=== PATIENT | male | born 1965 ===

== ENCOUNTER 2020-09-26 11:20 | Day surgery (SDC) | payer OTHER, SELFPAY ==
--- NOTE | 2020-09-19 15:42 | HO.ANESPROP2 ---
Documented by User: Maureen Moran 09/19/20 15:43 HPI - Anesthesia Eval Consult details Narrative: 55yo M for Upper Endoscopy and Colonoscopy [facility] Past Medical History Medical History Arthritis Chronic lower back pain COPD (chronic obstructive pulmonary disease) Diabetes Dyslipidemia GERD (gastroesophageal reflux disease) History of seizure Hypertension Social History Social History Smoking Status: Never smoker Use of substances other than those prescribed or required for medical reasons: No Advance Directives: No Advance Directives Information Provided: No Meds Allergies Allergy/AdvReac Type Severity Reaction Status Date / Time No Known Allergies Allergy Unverified 09/19/20 08:46 [No Known Allergies*] Home Medications Medication Instructions Recorded Confirmed Type albuterol sulfate [ProAir HFA] 2 puff INHALATION Q4-6H PRN 09/19/20 09/19/20 History aspirin 1 tab PO DAILY 09/19/20 09/19/20 History atenolol 1 tab PO DAILY 09/19/20 09/19/20 History atorvastatin 1 tab PO DAILY 09/19/20 09/19/20 History budesonide-formoterol [Symbicort] 2 puff INHALATION BID 09/19/20 09/19/20 History hydrochlorothiazide 1 cap PO DAILY 09/19/20 09/19/20 History lisinopril 1 tab PO DAILY 09/19/20 09/19/20 History metformin 1 tab PO BID 09/19/20 09/19/20 History omeprazole 1 cap PO QAM 09/19/20 09/19/20 History phenytoin sodium 100 mg PO TID 09/19/20 09/19/20 History Exam Exam Date and Time: September 19, 2020 1542 Assessment and Plan Assessment Anesthesia Assessment: Chart Reviewed Documented by User: Ester Becerra 09/26/20 11:46 [facility] Past Medical History Medical History Arthritis Chronic lower back pain COPD (chronic obstructive pulmonary disease) Diabetes Dyslipidemia GERD (gastroesophageal reflux disease) History of seizure Hypertension Social History Social History Smoking Status: Never smoker Use of substances other than those prescribed or required for medical reasons: No Advance Directives: No Advance Directives Information Provided: No Meds Allergies Allergy/AdvReac Type Severity Reaction Status Date / Time No Known Allergies Allergy Unverified 09/19/20 08:46 [No Known Allergies*] Home Medications Medication Instructions Recorded Confirmed Type albuterol sulfate [ProAir HFA] 2 puff INHALATION Q4-6H PRN 09/19/20 09/19/20 History aspirin 1 tab PO DAILY 09/19/20 09/19/20 History atenolol 1 tab PO DAILY 09/19/20 09/19/20 History atorvastatin 1 tab PO DAILY 09/19/20 09/19/20 History budesonide-formoterol [Symbicort] 2 puff INHALATION BID 09/19/20 09/19/20 History hydrochlorothiazide 1 cap PO DAILY 09/19/20 09/19/20 History lisinopril 1 tab PO DAILY 09/19/20 09/19/20 History metformin 1 tab PO BID 09/19/20 09/19/20 History omeprazole 1 cap PO QAM 09/19/20 09/19/20 History phenytoin sodium 100 mg PO TID 09/19/20 09/19/20 History Exam Airway Mallampati Class: II TM Dist: >3cm Neck ROM: Full Heart: RRR Lungs: CTA
[2020-09-26 11:39] VITALS: BP 127/90; PULSE 67; RESP 18; TEMP 36.1; O2SAT 96; BMI 28.7
[2020-09-26 11:41] LABS: Glucose, Whole Blood 139 mg/dL (60-115)
[2020-09-26] MEDS: Lactated Ringers 1,000 ML 100 ML IVCONT (11:52)
--- NOTE | 2020-09-26 11:54 | MHC.SHP ---
Pre-Procedural Eval Section B Chief Complaint: Acid Reflux, Adenomatous colon polyps Relevant Family History (Specify if Yes): No Relevant Social History: None Present Medications: see Short Stay Collaborative assessment Medical History: Significant History (OA, DM, HTN, back pain) History of Previous Operations: Relevant previous surgery/procedure and date(s) Allergies: Allergies Allergy/AdvReac Type Severity Reaction Status Date / Time No Known Allergies Allergy Unverified 09/19/20 08:46 [No Known Allergies*] Review of Systems Sugical H&P ROS: Negative: Constitution, Cardiovascular, Respiratory, Neurological, Psychiatric, Hem-Onc, Allergic/Immunologic, Gastrointestinal, Genitourinary, Musculoskeletal, Integumentary, Endocrine and Eyes/Ears/Nose/Throat Exam Surgical H&P Exam: Normal: HEENT, Normal: Heart, Normal: Lungs, Normal: Extremities, Normal: Abdomen, Normal: Skin and Normal: Neurological Plan Diagnosis/Plan: Unchanged Patient has been examined and remains a candidate for the planned procedure
--- NOTE | 2020-09-26 11:56 | PM.OP ---
Brief Operative Note Date of Service: 09/26/20 Pre-op diagnosis: GERD, colon screen Post-op diagnosis: same Procedure: see op note Surgeon: Indio March MD Anesthesia: MAC Estimated blood loss (mL): 0 Condition: stable Disposition: PACU
--- NOTE | 2020-09-26 11:57 | P.OP_ITS ---
Operative Note Operative Note Date of Service: 09/26/20 Narrative: Operative Information Procedure Description: EGD, Colonoscopy FLEXIBLE TRANSORAL UPPER GASTROINTESTINAL ENDOSCOPY AND COLONOSCOPY PROCEDURE NOTE UPPER ENDOSCOPY Consent: Indications for the procedure and potential complications of bleeding, perforation, reaction to medications and missed diagnosis were discussed with the patient and informed consent was obtained. Instrument: Olympus GIF H 190 J mid size upper endoscope Monitoring: Vital signs and clinical assessment, continuous EKG monitoring, Pulse oximetry, Carbon Dioxide monitoring and blood pressure monitoring were done throughout the procedure. Procedure: The patient was placed in the left lateral decubitis position and pre-procedure medications were administered and a bite block was placed. The endoscope was inserted into the mouth and advanced under direct vision to the third part of duodenum. A careful inspection was made as the upper endoscope was withdrawn including a retroflexed examination of the proximal stomach; Findings and interventions are described below. Findings: Larynx:normal Esophagus: GE junction at 37 cm, diaphragm hiatus at 40 cm, consistent with 3 cm sliding hiatal hernia, also 2 cm salmon pink mucosal tongue noted, consistent w/ Barretts, bx taken Stomach: Patchy erythema. Biopsies were obtained. Grade 2 flap valve on retroflexed examination of the cardia. Duodenum: Normal bulb and descending duodenum, Intervention: Biopsies as noted above COLONOSCOPY Instrument: Olympus variable stiffness pediatric scope 190L Colonoscopy Monitoring: Vital signs and clinical assessment, continuous EKG monitoring, Pulse oximetry, Carbon Dioxide monitoring and blood pressure monitoring were done throughout the procedure. Colon withdrawal time was 12 minutes. Procedure: The patient was placed in the left lateral decubitis position and pre-procedure medications were administered. After a digital rectal examination of the ano-rectum, the video colonoscope was inserted into the rectum and advanced through the colon to the cecum/TI. The colonoscope was slowly withdrawn in a retrograde panoramic fashion and the colon mucosa was carefully examined including a retroflexed view of the rectum. Findings and interventions are described below. Procedure Difficulty: easy Findings: Terminal Ileum-normal Cecum:normal Ascending Colon: normal Transverse Colon -normal Descending Colon:normal, 6-8 mm sessile polyp removed with forceps Sigmoid Colon: normal Rectum: Retroflexion with small internal hemorrhoids, grade I--2 sessile polyps noted 6-8 mm removed with biopsy forceps. Anorectum - normal Colon preparation: [place] Bowel Preparation Scale Right colon; 3 Transverse colon: 3 Left colon; 3 (0 = Unprepared colon segment with mucosa not seen due to solid stool that cannot be cleared. 1 = Portion of mucosa of the colon segment seen, but other areas of the colon segment not well seen due to staining, residual stool and/or opaque liquid. 2 = Minor amount of residual staining, small fragments of stool and/or opaque liquid, but mucosa of colon segment seen well. 3 = Entire mucosa of colon segment seen well with no residual staining, small fragments of stool or opaque liquid) Impression and Post Procedure Diagnosis: Endoscopy Findings: hiatal hernia possible barretts gastritis Colonoscopy Findings: internal hemorrhoids polyps Plan: Await Pathology results Repeat Colonoscopy in 5 years if tubular adenoma, 10 yrs if hyperplastic or earlier if clinically indicated High fiber diet leaflet avoid straining at stool, epsom salts and sitz bath, anusol supps or cream as needed\ change PPI to pantoprazole 40 mg OD and assess response Above findings were reviewed with the patient and relevant handouts were provided if indicated.
[2020-09-26 12:45] VITALS: BP 108/70; PULSE 74; RESP 16; TEMP 36.1; O2SAT 94
[2020-09-26 13:00] VITALS: BP 112/77; PULSE 68; RESP 13; TEMP 36.1; O2SAT 95
--- NOTE | 2020-09-26 13:46 | HO.POSTANES ---
Post Anesthesia Evaluation Post Anesthesia Evaluation Vital Signs: Vital Signs Temp Pulse Resp BP Pulse Ox 09/26/20 13:00 97 F 68 13 112/77 95 09/26/20 12:45 97 F 74 16 108/70 94 09/26/20 11:39 97 F 67 18 127/90 H 96 Anesthesia: General (tiva) Mental Status: Awake Pain Control: Satisfactory Nausea/Vomiting: None Hydration: Adequate Anesthesia-Related Issues: No Anes. Related Issues
== END 2020-09-26 23:59 | disposition home or self-care (01) ==
PROVIDERS: Visit Provider Internal Medicine Gastroenterology
PROC: (CPT 43239; principal; 2020-09-26 13:30)
DX: K21.9 Gastro-esophageal reflux disease without esophagitis (principal); D12.4 Benign neoplasm of descending colon; D12.8 Benign neoplasm of rectum; K62.1 Rectal polyp; K64.8 Other hemorrhoids; K29.70 Gastritis, unspecified, without bleeding; K22.70 Barrett's esophagus without dysplasia; K44.9 Diaphragmatic hernia without obstruction or gangrene; E11.9 Type 2 diabetes mellitus without complications; I10 Essential (primary) hypertension; Z86.010 Personal history of colon polyps; Z79.82 Long term (current) use of aspirin; Z79.84 Long term (current) use of oral hypoglycemic drugs; Z79.899 Other long term (current) drug therapy
CPT/HCPCS: 43239; 45380; 82947; 88305; 88342

== ENCOUNTER 2020-10-24 07:02 | Emergency (ER) | payer OTHER, SELFPAY ==
--- NOTE | 2020-10-24 | ECG_ITS ---
Test Reason : CHEST TIGHTNESS Blood Pressure : / mmHG Vent. Rate : 075 BPM Atrial Rate : 075 BPM P-R Int : 158 ms QRS Dur : 088 ms QT Int : 378 ms P-R-T Axes : -15 022 024 degrees QTc Int : 422 ms Normal sinus rhythm Normal ECG When compared with ECG of 06-OCT-2017 18:43, No significant change was found Referred By: William Casey Electronically Signed By:KENTON DUDLEY
[2020-10-24 07:17] VITALS: BP 144/82; PULSE 73; RESP 20; TEMP 36.8; O2SAT 99; BMI 27.2
--- NOTE | 2020-10-24 07:31 | XR_ITS ---
EXAMINATION: XR CHEST CLINICAL INFORMATION: Fever, chest pain. COMPARISON: Chest 03/30/2018 TECHNIQUE: Frontal view of the chest was obtained. FINDINGS: The lungs are well-expanded with linear right middle lobe density likely atelectasis. Rest of lungs are well-expanded and clear. There is no pleural effusion. The heart size and vascularity is normal. No gross bony abnormality. XR/XR chest 1V IMPRESSION: Platelike atelectasis right middle lobe.
--- NOTE | 2020-10-24 07:32 | ED.URI ---
HPI - URI/Sore Throat General Chief Complaint: Upper Respiratory Symptoms Stated Complaint: cough,fever,chest pain Time Seen by Provider: 10/24/20 07:15 Source: patient Mode of arrival: ambulatory Limitations: no limitations History of Present Illness HPI Narrative: 55-year-old male who presents emergency department for evaluation of fever, nasal congestion, rhinorrhea, cough and chest pain. Patient states he has been sick for 2 days he states that his symptoms started with rhinorrhea 2 days prior. Subsequently developed subjective fever with diaphoresis and chills, he states that his nose is congested. The patient has a loss of smell. He states he developed chest and back pain last night. He describes the pain as sharp, intermittent pain which is worse with coughing. The pain is 5/10 at its worst. Patient's cough is nonproductive and dry. He states that he has mild shortness of breath at rest and mild shortness of breath with exertion but he states that he has COPD and this is not uncommon for him. He had 2 episodes of diarrhea yesterday and 3 episodes of diarrhea today. He describes the stool is yellow with no blood in it. The patient has been using his inhalers more frequently. The patient states that several coworkers have tested positive for COVID-19. Related Data Home Medications Medication Instructions Recorded Confirmed albuterol sulfate [ProAir HFA] 2 puff INHALATION Q4-6H PRN 09/19/20 09/19/20 aspirin 1 tab PO DAILY 09/19/20 09/19/20 atenolol 1 tab PO DAILY 09/19/20 09/19/20 atorvastatin 1 tab PO DAILY 09/19/20 09/19/20 budesonide-formoterol [Symbicort] 2 puff INHALATION BID 09/19/20 09/19/20 hydrochlorothiazide 1 cap PO DAILY 09/19/20 09/19/20 lisinopril 1 tab PO DAILY 09/19/20 09/19/20 metformin 1 tab PO BID 09/19/20 09/19/20 phenytoin sodium 100 mg PO TID 09/19/20 09/19/20 Previous Rx's Medication Instructions Recorded pantoprazole 40 mg PO DAILY #30 tab 09/26/20 azithromycin [Zithromax Z-Ramírez] See Rx Instructions .ROUTE 10/24/20 .COMPLEX #6 tab prednisone 60 mg PO DAILY 5 Days #15 tab 12/28/20 Allergies Allergy/AdvReac Type Severity Reaction Status Date / Time No Known Allergies Allergy Unverified 09/19/20 08:46 [No Known Allergies*] Review of Systems Review of Systems: Yes all other systems are reviewed and are negative Constitutional: Constitutional: Reports as per HPI Eyes: Eyes: Reports as per HPI ENT: Reports as per HPI Cardiovascular: Cardiovascular: Reports as per HPI Respiratory: Respiratory: Reports as per HPI Gastrointestinal: Gastrointestinal: Reports as per HPI Genitourinary: Genitourinary: Reports as per HPI Musculoskeletal: Musculoskeletal: Reports as per HPI Integumentary/Breasts: Skin/Breast: Reports as per HPI Neurologic: Reports system reviewed and no additional complaints, except as documented Psychiatric: Psychiatric: Reports as per HPI Allergic/Immunologic: Allergic/Immunologic: Reports as per HPI PMF Past Medical History [facility] Narrative: The patient is a former smoker, he quit 10 years prior has a greater than 25 pack-year history of smoking. Denies alcohol use. Denies drug use. The patient is employed. Medical History Arthritis Chronic lower back pain COPD (chronic obstructive pulmonary disease) Diabetes Dyslipidemia GERD (gastroesophageal reflux disease) History of seizure Hypertension Social History Social History Alcohol intake: never Smoking Status: Former smoker Use of substances other than those prescribed or required for medical reasons: No Advance Directives: No Advance Directives Information Provided: Yes Physical Exam Vital Signs: Vital Signs: Last Vital Signs Temp 98.3 F 10/24/20 07:17 Pulse 73 10/24/20 07:17 Resp 20 10/24/20 07:17 BP 144/82 H 10/24/20 07:17 Pulse Ox 94 10/24/20 08:13 Body Mass Index 27.2 Const: General: cooperative and healthy appearing Nutritional Appearance: average body habitus Orientation/consciousness: oriented to person and oriented to place Limitations: no limitations HENMT: Head: Yes normal to inspection, Yes normocephalic and Yes atraumatic Ears: external ears normal General nose exam: Normal external nose present Face and sinus: Yes normal facial exam Mouth: Normal oral and palatal mucosa present Throat: Yes posterior oropharynx normal Eyes: Periorbital: periorbital findings normal Eyelids: Yes eyelids normal Conjunctivae: conjunctivae normal Sclerae: sclerae normal Corneas: corneas normal Pupils: Equal, round and reactive pupils present Direct Ophthalmoscopy: normal light reflex Neck: Neck: Yes full ROM, Yes no lymphadenopathy, Yes no meningeal signs, Yes trachea midline and Yes supple Chest: Chest palpation & inspection: normal inspection of the chest and normal palpation of entire chest wall Resp: Effort & Inspection: normal respiratory effort and able to speak in complete sentences Auscultation: clear to auscultation bilaterally Cardio: Rate: regular rate Rhythm: regular rhythm Heart sounds: S1 normal heart sound present, S2 normal heart sound present and no murmurs GI: Inspection: Yes normal to inspection Palpation (GI): Soft to palpation, nontender, no guarding, not rigid and No hepatosplenomegaly present : General: Yes no CVA tenderness Back/Spine/Pelvis: Back: no CVA tenderness Cervical Spine: normal cervical lordosis Thoracic/Lumbar Spine: thoracic and lumbar spine normal to inspection Skin: Lesions: no lesions Rashes: no rashes Wounds: no wounds Neuro: General: oriented to person, oriented to place and no meningeal signs Cranial nerves: Yes Equal, round and reactive pupils present Cognition (Neuro): normal cognition Motor exam (neuro): 5/5 motor strength present throughout Extrem: General: Yes normal to inspection and Yes full ROM Psych: Appearance: well kempt Mental Status: mental status grossly normal Speech and movement: Normal speech and movement present Affect: normal affect Attitude: cooperative Thought process: Normal thought process present Thought content: Normal thought content present Course Course Course Narrative: 55-year-old male with a history diabetes mellitus, hypertension, hyperlipidemia and COPD who presents emergency department for evaluation of 2 days of upper respiratory symptoms including cough, fever, chills, mild shortness of breath and dyspnea on exertion. He also has diarrhea and loss sense of smell. The patient may have been exposed to COVID-19 at work. Patient's physical examination that he was afebrile with a normal blood pressure and pulse. His respiratory rate was slightly high at 20 but he has a normal O2 saturation of 99% on room air. I did order a chest x-ray on this patient, COVID-19, RSV and influenza screen on him. 0851: Chest x-ray revealed a right middle lobe density consistent with either atelectasis verses pneumonia. Given the patient's COPD, I will start this patient on prednisone 60 mg once a day x5 days and Zithromax Z-Ramírez.. The patient's COVID influenza tests are pending. Discharge Plan Discharge Clinical Impression: Acute exacerbation of chronic obstructive pulmonary disease Upper respiratory infection Qualifiers: URI type: unspecified URI Qualified Code(s): J06.9 - Acute upper respiratory infection, unspecified Patient Disposition: Home, Self-Care Instructions: Acute Bronchitis (ED) Additional Instructions: Your chest x-ray revealed an early pneumonia in the right middle lobe of your lungs. Take Zithromax Z-Ramírez as prescribed. Take prednisone 60 mg once a day for 5 more days. Your given your 1st dose of prednisone here in the emergency department so start your prescription for prednisone tomorrow morning. Take Tylenol (acetaminophen) 500 mg pills, 2 pills every 4 to 6 hours as needed for pain. Follow-up with your doctor in 2 days. Please return to the emergency department if your symptoms get worse or if you develop any symptoms that are concerning to you. Prescriptions: New azithromycin [Zithromax Z-Ramírez] 250 mg tablet See Rx Instructions .ROUTE .COMPLEX Qty: 6 RF: 0 prednisone 20 mg tablet 60 mg PO DAILY 5 Days Qty: 15 RF: 0 No Action atorvastatin 40 mg tablet 1 tab PO DAILY RF: 0 metformin 500 mg tablet 1 tab PO BID RF: 0 phenytoin sodium 100 mg Capsule 100 mg PO TID RF: 0 atenolol 100 mg tablet 1 tab PO DAILY RF: 0 lisinopril 20 mg tablet 1 tab PO DAILY RF: 0 aspirin 81 mg tablet,delayed release (DR/EC) 1 tab PO DAILY RF: 0 hydrochlorothiazide 12.5 mg capsule 1 cap PO DAILY RF: 0 albuterol sulfate [ProAir HFA] 90 mcg/actuation Hfa Aerosol Inhaler 2 puff INHALATION Q4-6H PRN (Reason: Wheezing) RF: 0 budesonide-formoterol [Symbicort] 80-4.5 mcg/actuation HFA aerosol inhaler 2 puff inhalation BID RF: 0 pantoprazole 40 mg tablet,delayed release (DR/EC) 40 mg PO DAILY Qty: 30 RF: 4
[2020-10-24 08:13] VITALS: O2SAT 94
[2020-10-24] MEDS: predniSONE 20 MG TABLET 60 MG PO (09:00)
[2020-10-24 09:01] VITALS: BP 133/85; PULSE 79; RESP 18; O2SAT 96
[2020-10-24 09:29] LABS: Influenza A PCR NEGATIVE (Negative); Influenza B PCR NEGATIVE (Negative); Resp Syncy Virus RNA Qual PCR NEGATIVE (Negative); SARS COV2 PCR INHOUSE POSITIVE (Negative)
== END 2020-10-24 09:10 | disposition home or self-care (01) ==
PROVIDERS: Emergency Provider Emergency Medicine Emergency Medical Services
DX: U07.1 COVID-19 (principal); J44.1 Chronic obstructive pulmonary disease with (acute) exacerbation; E11.9 Type 2 diabetes mellitus without complications; I10 Essential (primary) hypertension
CPT/HCPCS: 0241U; 71045; 93005; 99283; 99284

== ENCOUNTER 2020-11-03 04:49 | Inpatient (IN) | payer OTHER, SELFPAY ==
[2020-11-03] VITALS (13 sets, daily range): BP systolic 120–152; BP diastolic 59–99; PULSE 73–122; RESP 16–26; TEMP 36.6–37.7; O2SAT 94–97; BMI 28.7
--- NOTE | 2020-11-03 05:05 | ECG_ITS ---
Test Reason : DYSPNEA Blood Pressure : / mmHG Vent. Rate : 136 BPM Atrial Rate : 136 BPM P-R Int : 146 ms QRS Dur : 086 ms QT Int : 280 ms P-R-T Axes : 040 025 021 degrees QTc Int : 421 ms Sinus tachycardia Possible Left atrial enlargement Borderline ECG When compared with ECG of 24-OCT-2020 07:10, Vent. rate has increased BY 61 BPM Referred By: Kinga Anderson Electronically Signed By:Luis Cobos
--- NOTE | 2020-11-03 05:06 | XR_ITS ---
EXAMINATION: XR CHEST CLINICAL INFORMATION: Shortness of breath COMPARISON: 10/24/2020 TECHNIQUE: Frontal view of the chest was obtained. FINDINGS: Cardiac leads overlie the chest. The lungs are well expanded. Bronchial wall thickening noted with patchy bilateral opacities. No pleural effusion or pneumothorax. The cardiomediastinal silhouette is within normal limits. XR/XR chest 1V IMPRESSION: Bronchial wall thickening can be seen with a small airways process such as asthma or atypical/viral infection. The patchy opacities bilaterally could represent superimposed atelectasis or pneumonia.
--- NOTE | 2020-11-03 05:18 | ED.SOB ---
HPI - SOB/Dyspnea General Chief Complaint: Dyspnea Stated Complaint: SOB/COVID + Time Seen by Provider: 11/03/20 05:01 Source: patient Mode of arrival: ambulatory History of Present Illness HPI Narrative: This is a 55-year-old male with significant past medical history of COPD, diabetes and diagnosis of COVID-19 on 10/24 who comes in with worsening shortness of breath and chest pain when he coughs but otherwise denies palpitations or chest pain at any other time. In addition, he denies any GI symptoms or symptoms and states that his COPD medication is not working. Related Data Home Medications Medication Instructions Recorded Confirmed albuterol sulfate [ProAir HFA] 2 puff INHALATION Q4-6H PRN 09/19/20 09/19/20 aspirin 1 tab PO DAILY 09/19/20 09/19/20 atenolol 1 tab PO DAILY 09/19/20 09/19/20 atorvastatin 1 tab PO DAILY 09/19/20 09/19/20 budesonide-formoterol [Symbicort] 2 puff INHALATION BID 09/19/20 09/19/20 hydrochlorothiazide 1 cap PO DAILY 09/19/20 09/19/20 lisinopril 1 tab PO DAILY 09/19/20 09/19/20 metformin 1 tab PO BID 09/19/20 09/19/20 phenytoin sodium 100 mg PO TID 09/19/20 09/19/20 Previous Rx's Medication Instructions Recorded pantoprazole 40 mg PO DAILY #30 tab 09/26/20 azithromycin [Zithromax Z-Ramírez] See Rx Instructions .ROUTE 10/24/20 .COMPLEX #6 tab prednisone 60 mg PO DAILY 5 Days #15 tab 10/24/20 Allergies Allergy/AdvReac Type Severity Reaction Status Date / Time No Known Allergies Allergy Verified 11/03/20 04:59 [No Known Allergies*] Review of Systems Review of Systems: Pertinent positives and negatives as stated in HPI 10 point review systems is otherwise negative. [facility] Past Medical History Source: nursing notes reviewed Medical History Arthritis Chronic lower back pain COPD (chronic obstructive pulmonary disease) Diabetes Dyslipidemia GERD (gastroesophageal reflux disease) History of seizure Hypertension Social History Social History Alcohol intake: never Smoking Status: Former smoker Advance Directives: No Advance Directives Information Provided: No Physical Exam Vital Signs: Vital Signs: Last Vital Signs Temp 98.4 F 11/03/20 04:59 Pulse 118 H 11/03/20 05:30 Resp 26 H 11/03/20 04:59 BP 152/99 H 11/03/20 04:59 Pulse Ox 95 11/03/20 04:59 Body Mass Index 28.7 VITAL SIGNS: Reviewed. GENERAL: Well developed, well nourished, in no acute distress. HEAD: Normocephalic/atraumatic, EYES: PERRLA, EOMI NOSE: Nares patent bilateral OROPHARYNX: no oral lesions noted, posterior pharynx clear NECK: Supple, no adenopathy LUNGS: Normal breath sounds, no rales/wheezing,+ tachypnea. SpO2<95> room air CARDIOVASCULAR: Regular rate and rhythm without noted murmurs, no JVD or lower extremity edema. ABDOMEN: Soft, non-tender, non-distended with bowel sounds. No rigidity. No guarding. No palpable masses or hernias noted NEUROLOGIC: Alert and oriented x 4. Course Course Course Narrative: This is a 55-year-old male with history and clinical presentation that is suspected to be COVID-19 pneumonia with worsening dyspnea on exertion no evidence to suggest CHF, but will empirically address the possibility of COPD exacerbation with nebs, steroids, lactic acid, blood cultures. All investigations reviewed as well as re-evaluation of the patient most consistent COPD exacerbation in combination with underlying COVID-19 infection which is demonstrated with the chest x-ray findings as well as minimal improvement in work of breathing by the patient. Lactic acid is within normal limits, sepsis fluids are not indicated at this time. This case was discussed with the inpatient hospitalist team and they will admit the patient. MDM - SOB/Dyspnea Lab Data Result diagrams: 11/03/20 05:21 11/03/20 05:21 Labs: Lab Results 11/03/20 11/03/20 11/03/20 Range/Units 05:21 05:21 05:21 WBC 4.3 L (4.8-10.8) X10*3/uL RBC 4.84 (4.60-5.80) X10*6/uL Hgb 15.1 (14.0-18.0) g/dl Hct 44.5 (42-52) % MCV 91.9 (80-98) fL MCH 31.2 (27.0-33.0) pg MCHC 33.9 (31.0-36.0) g/dl RDW 12.2 (11.0-16.0) % Plt Count 122 L (160-400) X10*3/uL MPV 12.2 (9.4-12.4) fL Immature Gran % (Auto) 0.5 H (0.0-0.4) % Neut % (Auto) 57.9 (45-73) % Lymph % (Auto) 30.5 (20-40) % [place] % (Auto) 10.7 (2-11) % Eos % (Auto) 0.2 (0-4) % Baso % (Auto) 0.2 (0-2) % Lymph # (Auto) 1.3 (1.2-4.9) X10*3/uL [place] # (Auto) 0.5 (0.1-1.2) X10*3/uL Eos # (Auto) 0.0 (0.0-0.4) X10*3/uL Baso # (Auto) 0.0 (0.0-0.2) X10*3/uL Abs Immat Gran (auto) 0.02 (0.00-0.03) X10*3/uL Absolute Neuts (auto) 2.5 (2.0-8.3) X10*3/uL Absolute Nucleated RBC 0.000 (0.0-0.012) X10*3/uL Nucleated RBC % (auto) 0.0 (0.0-0.2) /100WBC Sodium 137 (135-145) mmol/L Potassium 3.9 (3.3-5.1) mmol/l Chloride 101 (96-108) mmol/L Carbon Dioxide 21 L (22-29) mmol/L Anion Gap 19 (12-20) BUN 10 (9-16) mg/dL Creatinine 0.99 (0.5-1.4) mg/dL Estim Creat Clear Calc 94.3 Estimated GFR > 60 Random Glucose 203 H (60-115) mg/dL Lactic Acid 1.4 (0.5-2.0) mmol/L Calcium 8.6 (8.4-10.2) mg/dL Magnesium 1.8 (1.6-2.6) mg/dL Total Bilirubin 0.9 (0.0-1.0) mg/dL AST 30 (5-37) U/L ALT 47 H (0-40) U/L Alkaline Phosphatase 124 H (39-117) U/L Total Protein 6.9 (6.5-8.0) g/dL Albumin 4.3 (3.5-5.0) g/dL ECG Data Attestation: I personally reviewed and interpreted this ECG as follows: Prior ECG tracings: available for review (10/24/2020 no acute changes on comparison) Interpretation: Sinus tachycardia, HR-136, no evidence of acute ischemia, OK/QRS/QTC are within normal limits. Discharge Plan Discharge Clinical Impression: COPD exacerbation, Lab test positive for detection of COVID-19 virus Patient Disposition: Admitted As Inpatient
[2020-11-03 05:28] LABS: Basophils Percent Auto 0.2 % (0-2); Eosinophils Percent Auto 0.2 % (0-4); Imm Gran Abs Auto 0.02 X10*3/uL (0.00-0.03); Mean Corpuscular Volume 91.9 fL (80-98); PLT CLUMP 1; SCAN SMEAR FLAG 1
[2020-11-03] MEDS: Albuterol Sulfate (0.083%) 2.5 MG/3 ML VIAL.NEB 5 MG INHALE (05:29)
[2020-11-03 05:30] LABS: Hematocrit 44.5 % (42-52); Hemoglobin 15.1 g/dl (14.0-18.0); Imm Gran Pct Auto 0.5 % (0.0-0.4); Lymphocytes Absolute Auto 1.3 X10*3/uL (1.2-4.9); Lymphocytes Percent Auto 30.5 % (20-40); Mean Corpuscular HGB Conc 33.9 g/dl (31.0-36.0); Mean Corpuscular Hemoglobin 31.2 pg (27.0-33.0); Mean Platelet Volume 12.2 fL (9.4-12.4); Monocytes Absolute Auto 0.5 X10*3/uL (0.1-1.2); Monocytes Percent Auto 10.7 % (2-11); Neutrophils Absolute Auto 2.5 X10*3/uL (2.0-8.3); Neutrophils Percent Auto 57.9 % (45-73); Platelet Count 122 X10*3/uL (160-400); Red Blood Count 4.84 X10*6/uL (4.60-5.80); Red Cell Distribution Width 12.2 % (11.0-16.0); White Blood Count 4.3 X10*3/uL (4.8-10.8)
[2020-11-03 05:31] LABS: MANUAL DIFF FLAG NO
[2020-11-03 05:52] LABS: Lactic Acid 1.4 mmol/L (0.5-2.0)
[2020-11-03] MEDS: methylPREDNISolone Sod Succ/PF 125 MG/2 ML VIAL IVPUSH (05:55)
--- NOTE | 2020-11-03 05:55 | PC.NURSE ---
hr sinus tach at 151 following albuterol treatment.
[2020-11-03 05:57] LABS: Alanine Aminotransferase 47 U/L (0-40); Albumin Level 4.3 g/dL (3.5-5.0); Alkaline Phosphatase 124 U/L (39-117); Anion Gap 19 (12-20); Aspartate Amino Transferase 30 U/L (5-37); Bilirubin Total 0.9 mg/dL (0.0-1.0); Blood Urea Nitrogen 10 mg/dL (9-16); Calcium 8.6 mg/dL (8.4-10.2); Carbon Dioxide 21 mmol/L (22-29); Chloride 101 mmol/L (96-108); Creatinine Clr Calc Pharmacy 94.3; Estimated Glomerular Filt Rate > 60; Glucose Random 203 mg/dL (60-115); Magnesium 1.8 mg/dL (1.6-2.6); Potassium 3.9 mmol/l (3.3-5.1); Sodium 137 mmol/L (135-145); Total Protein 6.9 g/dL (6.5-8.0)
[2020-11-03] MEDS: levoFLOXacin/D5W 750 MG/150 ML PIGGYBACK 100 MG IV (09:05)
--- NOTE | 2020-11-03 09:56 | PM.IMHP ---
History of Present Illness Date of Service: 11/03/20 <THAD Kauffman Last Filed: 11/03/20 10:26> Chief Complaint: Shortness of breath <THAD Kauffman Last Filed: 11/03/20 10:26> This is a 55-year-old male with a history of COPD, diagnosed with COVID-19 on 10/24 who presents to the emergency department with worsening shortness of breath and pleuritic chest pain. He reports pleuritic chest pain and shortness of breath which have been increasing since his diagnosis of COVID-19. In addition he reports persistent fever. He denies any headache, body aches. His cough has improved. On arrival he was noted to be somewhat tachycardic and tachypneic. Chest x-ray showed bilateral patchy opacities. He had low-grade fever of 99.9. He has so far not required oxygen. He was given a dose of IV Solu-Medrol, IV levofloxacin and the decision was made to admit him for further management of COPD exacerbation the setting of COVID-19 pneumonia. Of note patient reports not taking his home medication for the past 2 weeks due to not feeling well. <THAD Kauffman - Last Filed: 11/03/20 10:26> Review of Systems Review of Systems: Yes all other systems are reviewed and are negative <THAD Kauffman Last Filed: 11/03/20 10:26> Constitutional: Constitutional: Denies chills <THAD Kauffman Last Filed: 11/03/20 10:26> Cardiovascular: Cardiovascular: Denies palpitations, Reports dyspnea and Denies paroxysmal nocturnal dyspnea <THAD Kauffman Last Filed: 11/03/20 10:26> Respiratory: Respiratory: Reports pain on inspiration and Reports dyspnea <THAD Kauffman Last Filed: 11/03/20 10:26> Gastrointestinal: Gastrointestinal: Denies abdominal pain, Reports diarrhea, Reports nausea and Reports vomiting <THAD Kauffman Last Filed: 11/03/20 10:26> Endocrine: Endocrine: Denies palpitations <THAD Kauffman Last Filed: 11/03/20 10:26> [facility] Medical History: Medical History Arthritis Chronic lower back pain COPD (chronic obstructive pulmonary disease) Diabetes Dyslipidemia GERD (gastroesophageal reflux disease) History of seizure Hypertension <THAD Kauffman - Last Filed: 11/03/20 10:26> Functional capacity: independent ambulation <THAD Kauffman - Last Filed: 11/03/20 10:26> Family history: reviewed and not pertinent <THAD Kauffman - Last Filed: 11/03/20 10:26> Social History: Social History Alcohol intake: never Smoking Status: Former smoker Smoked in Last 30 Days: No Use of substances other than those prescribed or required for medical reasons: No Currently Displaying Signs/Symptoms of Drug Intoxication Withdrawal: No Advance Directives: No Advance Directives Information Provided: No Do you have thoughts of harming others: None Do you have a plan to hurt others: No Plan service: No Current occupational status: employed <THAD Kauffman - Last Filed: 11/03/20 10:26> Meds Allergies/Adverse reactions: Allergies Allergy/AdvReac Type Severity Reaction Status Date / Time No Known Allergies Allergy Verified 11/03/20 04:59 [No Known Allergies*] <THAD Kauffman - Last Filed: 11/03/20 10:26> Home medications: Home Medications Medication Instructions Recorded Confirmed Type albuterol sulfate [ProAir HFA] 2 puff INHALATION Q4-6H PRN 09/19/20 11/03/20 History aspirin 81 mg PO DAILY 09/19/20 11/03/20 History atenolol 100 mg PO DAILY 09/19/20 11/03/20 History atorvastatin 1 tab PO DAILY 09/19/20 11/03/20 History budesonide-formoterol [Symbicort] 2 puff INHALATION BID 09/19/20 11/03/20 History hydrochlorothiazide 12.5 mg PO DAILY 09/19/20 11/03/20 History lisinopril 20 mg PO DAILY 09/19/20 11/03/20 History metformin 500 mg PO BID 09/19/20 11/03/20 History <THAD Kauffman - Last Filed: 11/03/20 10:26> Physical Exam Vital Signs and Narrative: Vital Signs: Last Vital Signs Temp 99.9 F 11/03/20 08:56 Pulse 120 H 11/03/20 08:57 Resp 22 H 11/03/20 08:56 BP 134/92 H 11/03/20 08:56 Pulse Ox 95 11/03/20 08:56 Body Mass Index 28.7 <THAD Kauffman - Last Filed: 11/03/20 10:26> Const: Nutritional Appearance: well nourished <THAD Kauffman - Last Filed: 11/03/20 10:26> Orientation/consciousness: patient oriented x3 <THAD Kauffman Last Filed: 11/03/20 10:26> HENMT: Head: Yes normocephalic and Yes atraumatic <THAD Kauffman - Last Filed: 11/03/20 10:26> Eyes: Sclerae: sclerae normal <THAD Kauffman - Last Filed: 11/03/20 10:26> Chest: Chest palpation & inspection: normal inspection of the chest <THAD Kauffman - Last Filed: 11/03/20 10:26> Resp: Effort & Inspection: able to speak in complete sentences and tachypneic <THAD Kauffman - Last Filed: 11/03/20 10:26> Cardio: Rate: tachycardic <THAD Kauffman - Last Filed: 11/03/20 10:26> Rhythm: regular rhythm <THAD Kauffman - Last Filed: 11/03/20 10:26> GI: Palpation (GI): Soft to palpation and nontender <THAD Kauffman - Last Filed: 11/03/20 10:26> Skin: General skin exam: no rashes or lesions noted <THAD Kauffman Last Filed: 11/03/20 10:26> Neuro: General: patient oriented x3 <THAD Kauffman - Last Filed: 11/03/20 10:26> Cranial nerves: Yes CN's II-XII intact bilaterally and Yes Bilaterally intact EOM present <THAD Kauffman Last Filed: 11/03/20 10:26> Extrem: General: Yes normal to inspection <THAD Kauffman - Last Filed: 11/03/20 10:26> Results Labs CBC and Chem 7: : 11/04/20 06:02 11/04/20 06:02 <THAD Kauffman - Last Filed: 11/03/20 10:26> Labs: Laboratory Results - last 24 hr 11/03/20 11/03/20 11/03/20 05:21 05:21 05:21 MCV 91.9 MCH 31.2 MCHC 33.9 RDW 12.2 Plt Count 122 L MPV 12.2 Immature Gran % (Auto) 0.5 H Neut % (Auto) 57.9 Lymph % (Auto) 30.5 [place] % (Auto) 10.7 Eos % (Auto) 0.2 Baso % (Auto) 0.2 Lymph # (Auto) 1.3 [place] # (Auto) 0.5 Eos # (Auto) 0.0 Baso # (Auto) 0.0 Abs Immat Gran (auto) 0.02 Absolute Neuts (auto) 2.5 Absolute Nucleated RBC 0.000 Nucleated RBC % (auto) 0.0 Anion Gap 19 Estim Creat Clear Calc 94.3 Estimated GFR > 60 Random Glucose 203 H Lactic Acid 1.4 Calcium 8.6 Magnesium 1.8 Total Bilirubin 0.9 AST 30 ALT 47 H Alkaline Phosphatase 124 H Total Protein 6.9 Albumin 4.3 <THAD Kauffman Last Filed: 11/03/20 10:26> Imaging Radiologist's Impressions: Impressions Chest X-Ray 11/03/20 05:06 IMPRESSION: Bronchial wall thickening can be seen with a small airways process such as asthma or atypical/viral infection. The patchy opacities bilaterally could represent superimposed atelectasis or pneumonia. <THAD Kauffman Last Filed: 11/03/20 10:26> Assessment and Plan (1) COPD exacerbation: Status: Acute <THAD Kauffman Last Filed: 11/03/20 10:26> (2) Pneumonia due to COVID-19 virus: Status: Acute <THAD Kauffman - Last Filed: 11/03/20 10:26> (3) Viral sepsis: Status: Acute <THAD Kauffman - Last Filed: 11/03/20 10:26> This is a 55-year-old male with a history of diabetes, hypertension, dyslipidemia, seizure disorder, Keith's esophagus, diagnosed to have COVID-19 on 10/24 who presents to the emergency department with pleuritic chest pain and worsening shortness of breath COVID-19 pneumonia Viral sepsis (tachycardia, tachypnea) COPD exacerbation LA wnl, BP stable -IV ceftriaxone, doxycycline -IV Solu-Medrol -Albuterol inhaler as needed -check COVID inflammatory markers Pleuritic chest pain Likely secondary to pneumonia versus COPD exacerbation No ischemic changes on EKG -check ddimer, troponin -If D-dimer elevated or persistent tachycardia will consider CTA to rule out PE Sinus tachycardia May be secondary to missing atenolol x2 weeks Will check D-dimer Resume atenolol DM Hold metformin SSI, POC, ADA diet Thrombocytopenia Platelets 122 Likely secondary to viral syndrome, follow CBC Hypertension Blood pressure under adequate control Continue lisinopril, atenolol, HCTZ HLD Continue statin GERD/Ekith's esophagus Continue PPI h/o seizure No longer on medication DVT prophylaxis-Lovenox Code status-full code This case was discussed with Dr. Alfredo <THAD Kauffman - Last Filed: 11/03/20 10:26>
[2020-11-03 10:33] LABS: C Reactive Protein 5.28 mg/dL (< or = 0.50); Lactate Dehydrogenase 241 U/L (118-273)
[2020-11-03 10:54] LABS: Ferritin 728 ng/mL (20-250)
[2020-11-03 10:57] LABS: Procalcitonin 0.12 ng/mL
[2020-11-03] MEDS: Doxycycline Hyclate 100 MG in 0.9 % Sodium Chloride 250 ML 166.67 MG IV ×2 (11:28→21:46)
[2020-11-03 12:06] LABS: Glucose, Whole Blood 254 mg/dL (60-115)
[2020-11-03 12:22] LABS: Glucose Urine UA 500 MG/DL (NEG); Leukocyte Esterase Urine NEG (NEG); Nitrite Urine NEG (NEG); PH 5.5 (5.0-8.0); Specific Gravity - Urine >= 1.030 (1.005-1.025); Urine Blood NEG (NEG); Urine Ketones >=80 MG/DL (NEG); Urine Protein 1+ MG/DL (NEG-TRACE)
[2020-11-03 12:27] LABS: D Dimer < 200 NG/ML
[2020-11-03 12:31] LABS: Appearance Urine CLEAR; Color Urine YELLOW
[2020-11-03 12:44] LABS: RBC Urine 0 /HPF (0); Squamous Epithelial Cell Urine TRACE /LPF; WBC Urine 0 /HPF (0-4)
[2020-11-03 12:56] LABS: Troponin-I High Sensitivity 8.7 ng/L (<3.5-35.0)
[2020-11-03] MEDS: Insulin Lispro 100 UNIT/ML 3 ML VIAL SUBCUT ×3 (13:23→21:47)
[2020-11-03] MEDS: atenoloL 100 MG TABLET PO (13:48)
[2020-11-03] MEDS: Fluticasone/Vilanterol 100/25 BLST.W.DEV 1 PUFF INHALE (13:48)
--- NOTE | 2020-11-03 15:36 | PM.EVENT ---
Event Note Date of Service: 11/04/20 Event Note: patient seen and examined at bedside, patient reported weakness and shortness of breath on exam alert abdomen soft CVS rate and rhythm regular lungs mild rhonchi admitted for COVID pneumonia currently not hypoxic continue supportive management monitor closely Patient seen and examined with the midlevel agree with H&P assessment and plan
--- NOTE | 2020-11-03 15:41 | PC.NURSE ---
pending report to floor at this time. pt in nad. vitals wnl. pt ate 100% of lunch
--- NOTE | 2020-11-03 16:00 | PC.NURSE ---
report given at this time
[2020-11-03 17:02] LABS: Glucose, Whole Blood 272 mg/dL (60-115)
[2020-11-03] MEDS: 0.9 % Sodium Chloride Flush 3 ML SYRINGE IVFLUSH ×2 (18:30→21:47)
[2020-11-03] MEDS: Enoxaparin Sodium 40 MG/0.4 ML SYRINGE SUBCUT (18:30)
[2020-11-03 20:07] LABS: Glucose, Whole Blood 329 mg/dL (60-115)
[2020-11-03] MEDS: Omeprazole 20 MG CAPSULE.DR PO (21:48)
[2020-11-04] VITALS: BP 116/64; PULSE 68; RESP 18; TEMP 36.8; O2SAT 96
[2020-11-04 03:52] VITALS: BP 141/77; PULSE 74; RESP 18; TEMP 37; O2SAT 95
[2020-11-04 06:40] LABS: MANUAL DIFF FLAG NO
[2020-11-04 06:53] LABS: Hematocrit 44.8 % (42-52); Hemoglobin 14.8 g/dl (14.0-18.0); Imm Gran Abs Auto 0.02 X10*3/uL (0.00-0.03); Imm Gran Pct Auto 0.4 % (0.0-0.4); Lymphocytes Absolute Auto 0.7 X10*3/uL (1.2-4.9); Lymphocytes Percent Auto 15.3 % (20-40); Mean Corpuscular Hemoglobin 30.8 pg (27.0-33.0); Mean Corpuscular Volume 93.1 fL (80-98); Mean Platelet Volume 12.4 fL (9.4-12.4); Monocytes Absolute Auto 0.3 X10*3/uL (0.1-1.2); Monocytes Percent Auto 6.5 % (2-11); Neutrophils Absolute Auto 3.7 X10*3/uL (2.0-8.3); Neutrophils Percent Auto 77.8 % (45-73); Platelet Count 145 X10*3/uL (160-400); Red Blood Count 4.81 X10*6/uL (4.60-5.80); Red Cell Distribution Width 12.3 % (11.0-16.0); White Blood Count 4.8 X10*3/uL (4.8-10.8)
[2020-11-04 07:14] LABS: Anion Gap 17 (12-20); Blood Urea Nitrogen 22 mg/dL (9-16); Carbon Dioxide 22 mmol/L (22-29); Chloride 104 mmol/L (96-108); Creatinine Clr Calc Pharmacy 89.8; Estimated Glomerular Filt Rate > 60; Glucose Random 233 mg/dL (60-115); Potassium 4.7 mmol/l (3.3-5.1); Sodium 138 mmol/L (135-145)
[2020-11-04 07:58] VITALS: BP 119/73; PULSE 62; RESP 18; TEMP 36.3; O2SAT 93
[2020-11-04 08:02] LABS: Glucose, Whole Blood 208 mg/dL (60-115)
--- NOTE | 2020-11-04 08:50 | MHC.CM.PN ---
pt lives alone in his apt. he reports being independent in his care. he works a job and drives a car. pt does have a brother that lives nearby and can help him should he have any needs. this will include a ride home at dc. pt denies the need for vna at dc. dc plan is home no svcs. cm to cont. to follow.
[2020-11-04] MEDS: Insulin Lispro 100 UNIT/ML 3 ML VIAL SUBCUT ×2 (09:04→14:05)
[2020-11-04] MEDS: lisinopriL 20 MG TABLET PO (09:05)
[2020-11-04] MEDS: hydroCHLOROthiazide 12.5 MG TABLET PO (09:05)
[2020-11-04] MEDS: Aspirin Enteric Coated 81 MG TABLET.DR PO (09:06)
[2020-11-04] MEDS: Atorvastatin Calcium 40 MG TABLET PO (09:06)
[2020-11-04] MEDS: cefTRIAXone sodium 1 GM in 0.9 % Sodium Chloride 50 ML IV (09:07)
[2020-11-04] MEDS: 0.9 % Sodium Chloride Flush 3 ML SYRINGE IVFLUSH (09:07)
[2020-11-04] MEDS: Omeprazole 20 MG CAPSULE.DR PO (09:07)
[2020-11-04] MEDS: atenoloL 100 MG TABLET PO (09:07)
[2020-11-04] MEDS: Doxycycline Hyclate 100 MG in 0.9 % Sodium Chloride 250 ML 166.67 MG IV (10:41)
--- NOTE | 2020-11-04 11:18 | P.DS_ITS ---
DS: Providers Provider Date of Service: 11/04/20 Date of admission: 11/03/20 09:50 Primary care physician: Unknown Physician DS: Diagnosis Discharge Diagnosis (1) COPD exacerbation: Status: Acute (2) Pneumonia due to COVID-19 virus: Status: Acute (3) Viral sepsis: Status: Acute DS: Medications Discharge Medications Home Medications: Home Medications Medication Instructions Recorded Confirmed albuterol sulfate [ProAir HFA] 2 puff INHALATION Q4-6H PRN 09/19/20 11/03/20 aspirin 81 mg PO DAILY 09/19/20 11/03/20 atenolol 100 mg PO DAILY 09/19/20 11/03/20 atorvastatin 1 tab PO DAILY 09/19/20 11/03/20 budesonide-formoterol [Symbicort] 2 puff INHALATION BID 09/19/20 11/03/20 hydrochlorothiazide 12.5 mg PO DAILY 09/19/20 11/03/20 lisinopril 20 mg PO DAILY 09/19/20 11/03/20 metformin 500 mg PO BID 09/19/20 11/03/20 Previous Rx's Medication Instructions Recorded pantoprazole 40 mg PO DAILY #30 tab 09/26/20 cefuroxime axetil 250 mg PO BID 5 Days #10 tab 11/04/20 doxycycline hyclate 100 mg PO BID #10 tab 11/04/20 DS: Summary Hospital Course Hospital Course: HPI 55-year-old male with a history of COPD, diagnosed with COVID-19 on 10/24 who presents to the emergency department with worsening shortness of breath and pleuritic chest pain. He reports pleuritic chest pain and shortness of breath which have been increasing since his diagnosis of COVID-19. In addition he reports persistent fever. He denies any headache, body aches. His cough has improved. On arrival he was noted to be somewhat tachycardic and tachypneic. Chest x-ray showed bilateral patchy opacities. He had low-grade fever of 99.9. He has so far not required oxygen. He was given a dose of IV Solu-Medrol, IV levofloxacin and the decision was made to admit him for further management of COPD exacerbation the setting of COVID-19 pneumonia. Of note patient reports not taking his home medication for the past 2 weeks due to not feeling well. hospital course 55-year-old male admitted with COVID pneumonia, Patient was started on IV dexamethasone and supportive management, patient did not require any oxygen , patient remains afebrile, patient was stable and saturating well on room air, patient was discharged home on p.o. antibiotic Time Spent with Patient Time attestation: Total time spent providing and/or coordinating discharge services: Discharge coordination time: Greater than 30 minutes Physical Exam Vital Signs: Vital Signs: Last Vital Signs Temp 97.3 F 11/04/20 07:58 Pulse 62 11/04/20 07:58 Resp 18 11/04/20 07:58 BP 119/73 11/04/20 07:58 Pulse Ox 93 11/04/20 07:58 Body Mass Index 28.7 DS: Data Data Completed and Pending Labs on day of discharge: Laboratory Tests 11/03/20 11/03/20 11/03/20 05:21 05:21 05:21 WBC 4.3 L RBC 4.84 Hgb 15.1 Hct 44.5 MCV 91.9 MCH 31.2 MCHC 33.9 RDW 12.2 Plt Count 122 L MPV 12.2 Immature Gran % (Auto) 0.5 H Neut % (Auto) 57.9 Lymph % (Auto) 30.5 [place] % (Auto) 10.7 Eos % (Auto) 0.2 Baso % (Auto) 0.2 Lymph # (Auto) 1.3 [place] # (Auto) 0.5 Eos # (Auto) 0.0 Baso # (Auto) 0.0 Abs Immat Gran (auto) 0.02 Absolute Neuts (auto) 2.5 Absolute Nucleated RBC 0.000 Nucleated RBC % (auto) 0.0 D-Dimer Sodium 137 Potassium 3.9 Chloride 101 Carbon Dioxide 21 L Anion Gap 19 BUN 10 Creatinine 0.99 Estim Creat Clear Calc 94.3 Estimated GFR > 60 POC Glucose Random Glucose 203 H Lactic Acid 1.4 Calcium 8.6 Magnesium 1.8 Ferritin 728 H Total Bilirubin 0.9 AST 30 ALT 47 H Alkaline Phosphatase 124 H Lactate Dehydrogenase 241 Troponin I High Sens C-Reactive Protein 5.28 H Total Protein 6.9 Albumin 4.3 Procalcitonin Urine Color Urine Appearance Urine pH Ur Specific [place] Urine Protein Urine Glucose (UA) Urine Ketones Urine Blood Urine Nitrite Ur Leukocyte Esterase Urine RBC Urine WBC Ur Squamous Epith Cells Urine Bacteria 11/03/20 11/03/20 11/03/20 05:21 11:51 11:55 WBC RBC Hgb Hct MCV MCH MCHC RDW Plt Count MPV Immature Gran % (Auto) Neut % (Auto) Lymph % (Auto) [place] % (Auto) Eos % (Auto) Baso % (Auto) Lymph # (Auto) [place] # (Auto) Eos # (Auto) Baso # (Auto) Abs Immat Gran (auto) Absolute Neuts (auto) Absolute Nucleated RBC Nucleated RBC % (auto) D-Dimer < 200 Sodium Potassium Chloride Carbon Dioxide Anion Gap BUN Creatinine Estim Creat Clear Calc Estimated GFR POC Glucose 254 H Random Glucose Lactic Acid Calcium Magnesium Ferritin Total Bilirubin AST ALT Alkaline Phosphatase Lactate Dehydrogenase Troponin I High Sens C-Reactive Protein Total Protein Albumin Procalcitonin 0.12 Urine Color Urine Appearance Urine pH Ur Specific [place] Urine Protein Urine Glucose (UA) Urine Ketones Urine Blood Urine Nitrite Ur Leukocyte Esterase Urine RBC Urine WBC Ur Squamous Epith Cells Urine Bacteria 11/03/20 11/03/20 11/03/20 11:55 11:55 16:58 WBC RBC Hgb Hct MCV MCH MCHC RDW Plt Count MPV Immature Gran % (Auto) Neut % (Auto) Lymph % (Auto) [place] % (Auto) Eos % (Auto) Baso % (Auto) Lymph # (Auto) [place] # (Auto) Eos # (Auto) Baso # (Auto) Abs Immat Gran (auto) Absolute Neuts (auto) Absolute Nucleated RBC Nucleated RBC % (auto) D-Dimer Sodium Potassium Chloride Carbon Dioxide Anion Gap BUN Creatinine Estim Creat Clear Calc Estimated GFR POC Glucose 272 H Random Glucose Lactic Acid Calcium Magnesium Ferritin Total Bilirubin AST ALT Alkaline Phosphatase Lactate Dehydrogenase Troponin I High Sens 8.7 C-Reactive Protein Total Protein Albumin Procalcitonin Urine Color YELLOW Urine Appearance CLEAR Urine pH 5.5 Ur Specific [place] >= 1.030 H Urine Protein 1+ H Urine Glucose (UA) 500 H Urine Ketones >=80 Urine Blood NEG Urine Nitrite NEG Ur Leukocyte Esterase NEG Urine RBC 0 Urine WBC 0 Ur Squamous Epith Cells TRACE Urine Bacteria NONE 11/03/20 11/04/20 11/04/20 19:31 06:02 06:02 WBC 4.8 RBC 4.81 Hgb 14.8 Hct 44.8 MCV 93.1 MCH 30.8 MCHC 33.0 RDW 12.3 Plt Count 145 L MPV 12.4 Immature Gran % (Auto) 0.4 Neut % (Auto) 77.8 H Lymph % (Auto) 15.3 L [place] % (Auto) 6.5 Eos % (Auto) 0.0 Baso % (Auto) 0.0 Lymph # (Auto) 0.7 L [place] # (Auto) 0.3 Eos # (Auto) 0.0 Baso # (Auto) 0.0 Abs Immat Gran (auto) 0.02 Absolute Neuts (auto) 3.7 Absolute Nucleated RBC 0.000 Nucleated RBC % (auto) 0.0 D-Dimer Sodium 138 Potassium 4.7 D Chloride 104 Carbon Dioxide 22 Anion Gap 17 BUN 22 H D Creatinine 1.04 Estim Creat Clear Calc 89.8 Estimated GFR > 60 POC Glucose 329 H Random Glucose 233 H Lactic Acid Calcium 9.0 Magnesium Ferritin Total Bilirubin AST ALT Alkaline Phosphatase Lactate Dehydrogenase Troponin I High Sens C-Reactive Protein Total Protein Albumin Procalcitonin Urine Color Urine Appearance Urine pH Ur Specific [place] Urine Protein Urine Glucose (UA) Urine Ketones Urine Blood Urine Nitrite Ur Leukocyte Esterase Urine RBC Urine WBC Ur Squamous Epith Cells Urine Bacteria 11/04/20 07:57 WBC RBC Hgb Hct MCV MCH MCHC RDW Plt Count MPV Immature Gran % (Auto) Neut % (Auto) Lymph % (Auto) [place] % (Auto) Eos % (Auto) Baso % (Auto) Lymph # (Auto) [place] # (Auto) Eos # (Auto) Baso # (Auto) Abs Immat Gran (auto) Absolute Neuts (auto) Absolute Nucleated RBC Nucleated RBC % (auto) D-Dimer Sodium Potassium Chloride Carbon Dioxide Anion Gap BUN Creatinine Estim Creat Clear Calc Estimated GFR POC Glucose 208 H Random Glucose Lactic Acid Calcium Magnesium Ferritin Total Bilirubin AST ALT Alkaline Phosphatase Lactate Dehydrogenase Troponin I High Sens C-Reactive Protein Total Protein Albumin Procalcitonin Urine Color Urine Appearance Urine pH Ur Specific [place] Urine Protein Urine Glucose (UA) Urine Ketones Urine Blood Urine Nitrite Ur Leukocyte Esterase Urine RBC Urine WBC Ur Squamous Epith Cells Urine Bacteria Preliminary micro results at discharge 11/03/20 05:22 Blood Culture - Preliminary Blood - Venous No growth after 24 hours. 11/03/20 05:22 Blood Culture - Preliminary Blood - Venous No growth after 24 hours. Discharge Plan Discharge Anticipated Discharge Date/Time: 11/04/20 11:07 Patient Disposition: Home, Self-Care Referrals: Physician,Unknown [Primary Care Provider] - Discharge Medications: New cefuroxime axetil 250 mg tablet 250 mg PO BID 5 Days Qty: 10 RF: 0 doxycycline hyclate 100 mg tablet 100 mg PO BID Qty: 10 RF: 0 Continued atorvastatin 40 mg tablet 1 tab PO DAILY RF: 0 metformin 500 mg tablet 500 mg PO BID RF: 0 atenolol 100 mg tablet 100 mg PO DAILY RF: 0 lisinopril 20 mg tablet 20 mg PO DAILY RF: 0 aspirin 81 mg tablet,delayed release (DR/EC) 81 mg PO DAILY RF: 0 hydrochlorothiazide 12.5 mg capsule 12.5 mg PO DAILY RF: 0 albuterol sulfate [ProAir HFA] 90 mcg/actuation Hfa Aerosol Inhaler 2 puff INHALATION Q4-6H PRN (Reason: Wheezing) RF: 0 budesonide-formoterol [Symbicort] 80-4.5 mcg/actuation HFA aerosol inhaler 2 puff inhalation BID RF: 0 pantoprazole 40 mg tablet,delayed release (DR/EC) 40 mg PO DAILY Qty: 30 RF: 4 Discharge Orders: Discharge Order (Routine); Ordered 11/04/20 Ordered By: Jigar Alfredo Diet: advance to usual diet Activity on Discharge: As tolerated Visit Report Forms: Patient Portal Discharge page Care Plan Goals: see above Health Concerns: see above Plan of Treatment: see above
[2020-11-04] MEDS: Fluticasone/Vilanterol 100/25 BLST.W.DEV 1 PUFF INHALE (11:59)
[2020-11-04 12:00] VITALS: BP 109/66; PULSE 70; PULSE 77; RESP 18; TEMP 36.3; O2SAT 94; O2SAT 96
[2020-11-04 13:55] LABS: Glucose, Whole Blood 332 mg/dL (60-115)
== END 2020-11-04 17:11 | disposition home or self-care (01) | DRG 871 ==
LOC: HO.ED 07:30 → HO.IMC 15:01
PROVIDERS: Physician Assistant Medical; Admitting Provider Internal Medicine; Emergency Provider Student in an Organized Health Care Education/Training Program; PCP Family Medicine; Visit Provider Internal Medicine
DX: A41.89 Other specified sepsis (principal); U07.1 COVID-19; J12.82 Pneumonia due to coronavirus disease 2019; J44.1 Chronic obstructive pulmonary disease with (acute) exacerbation; K21.9 Gastro-esophageal reflux disease without esophagitis; E11.9 Type 2 diabetes mellitus without complications; E78.5 Hyperlipidemia, unspecified; D69.6 Thrombocytopenia, unspecified; R00.0 Tachycardia, unspecified; T44.7X6A Underdosing of beta-adrenoreceptor antagonists, initial encounter; Y92.9 Unspecified place or not applicable; Z87.891 Personal history of nicotine dependence; Z79.82 Long term (current) use of aspirin; Z79.84 Long term (current) use of oral hypoglycemic drugs; Z79.899 Other long term (current) drug therapy
CPT/HCPCS: 36415; 71045; 80048; 80053; 81001; 82728; 82947; 83605; 83615; 83735; 84145; 84484; 85025; 85379; 86140; 87040; 93005; 94640; 96365; 96366; 96375; 99285; J0696; J1650; J1956; J2920; J2930

== ENCOUNTER 2021-05-22 04:26 | Emergency (ER) | payer OTHER, SELFPAY ==
[2021-05-22 05:10] VITALS: BP 130/86; PULSE 76; RESP 18; TEMP 36.8; O2SAT 99; BMI 28.7
--- NOTE | 2021-05-22 07:38 | ED_ITS ---
HPI - Abdominal Pain General Chief Complaint: Abdominal Pain Stated Complaint: hemmorroids Time Seen by Provider: 05/22/21 07:24 Source: patient Mode of arrival: ambulatory Limitations: no limitations History of Present Illness HPI narrative: 56-year-old male who presents emergency department for evaluation of lower abdominal pain and rectal pain. Patient states he has had lower abdominal pain and rectal pain for approximately 3-4 days. He states that he noticed a bump in his rectal area which was painful to palpation. He states the pain is lower abdomen is intermittent, mild and feels like a cramping sensation. He denies being constipated. He states that he had a colonoscopy approximately 6 months ago and was told that he had hemorrhoids. The patient states that the pain in the rectal area is a constant, sharp pain which is moderate to severe in intensity and has gotten progressively worse. He states the size the bump is changed and has gotten bigger over the past 24 hours. He bought over-the- counter preparation H and suppositories and states that he has not had relief with these medications. He denied fever, chills, nausea, vomiting, rectal bleeding. Related Data Home Medications Medication Instructions Recorded Confirmed albuterol sulfate [ProAir HFA] 2 puff INHALATION Q4-6H PRN 09/19/20 11/03/20 aspirin 81 mg PO DAILY 09/19/20 11/03/20 atenolol 100 mg PO DAILY 09/19/20 11/03/20 atorvastatin 1 tab PO DAILY 09/19/20 11/03/20 budesonide-formoterol [Symbicort] 2 puff INHALATION BID 09/19/20 11/03/20 hydrochlorothiazide 12.5 mg PO DAILY 09/19/20 11/03/20 lisinopril 20 mg PO DAILY 09/19/20 11/03/20 metformin 500 mg PO BID 09/19/20 11/03/20 Previous Rx's Medication Instructions Recorded pantoprazole 40 mg PO DAILY #30 tab 09/26/20 cefuroxime axetil 250 mg PO BID 5 Days #10 tab 11/04/20 doxycycline hyclate 100 mg PO BID #10 tab 11/04/20 Allergies Allergy/AdvReac Type Severity Reaction Status Date / Time No Known Allergies Allergy Verified 11/03/20 04:59 [No Known Allergies*] Review of Systems Review of Systems Yes all other systems are reviewed and are negative Reports Abnormal speech present Physical Exam Vital Signs: Vital Signs: Last Vital Signs Temp 98.3 F 05/22/21 05:10 Pulse 76 05/22/21 05:10 Resp 18 05/22/21 05:10 BP 130/86 05/22/21 05:10 Pulse Ox 99 05/22/21 05:10 Body Mass Index 28.7 Const: General: cooperative and healthy appearing Orientation/consciousness: oriented to person and oriented to place Limitations: no limitations HENMT: Head: Yes normal to inspection, Yes normocephalic and Yes atraumatic Ears: external ears normal General nose exam: Normal external nose present Face and sinus: Yes normal facial exam Mouth: Normal oral and palatal mucosa present Throat: Yes posterior oropharynx normal Eyes: Periorbital: periorbital findings normal Eyelids: Yes eyelids normal Conjunctivae: conjunctivae normal Sclerae: sclerae normal Corneas: corneas normal Pupils: Equal, round and reactive pupils present Direct Ophthalmoscopy: normal light reflex Neck: Neck: Yes full ROM, Yes no lymphadenopathy, Yes no meningeal signs, Yes trachea midline and Yes supple Chest: Chest palpation & inspection: normal inspection of the chest and normal palpation of entire chest wall Resp: Effort & Inspection: normal respiratory effort and able to speak in complete sentences Auscultation: clear to auscultation bilaterally Cardio: Rate: regular rate Rhythm: regular rhythm Heart sounds: S1 normal heart sound present, S2 normal heart sound present and no murmurs GI: Other: Rectal examination, the patient has a 2 x 1 cm external hemorrhoid at 9 0'clock position, the hemorrhoid is soft but very tender, does not appear to be thrombosed. No active bleeding. Inspection: Yes normal to inspection Palpation (GI): Soft to palpation, Tenderness to palpation present (GI) in the LLQ (Mild), in the RLQ (Mild) and suprapubicly (Mild), no guarding, not rigid and No hepatosplenomegaly present : General: Yes no CVA tenderness Back/Spine/Pelvis: Back: no CVA tenderness Cervical Spine: normal cervical lordosis Thoracic/Lumbar Spine: thoracic and lumbar spine normal to inspection Skin: Lesions: no lesions Rashes: no rashes Wounds: no wounds Neuro: General: oriented to person, oriented to place and no meningeal signs Cranial nerves: Yes Equal, round and reactive pupils present Cognition (Neuro): normal cognition Speech: Abnormal speech present Motor exam (neuro): 5/5 motor strength present throughout Extrem: General: Yes normal to inspection and Yes full ROM Psych: Appearance: well kempt Mental Status: mental status grossly normal Speech and movement: Normal speech and movement present Affect: normal affect Attitude: cooperative Thought process: Normal thought process present Thought content: Normal thought content present Course Course Course Narrative: 56-year-old male who presents emergency department for evaluation of 4 days of lower abdominal pain and rectal pain secondary to hemorrhoid. Vital signs were normal. Physical examination did reveal mild lower abdominal pain. The patient does have an external hemorrhoid that does not appear to be thrombosed at this point. I did discuss the management of hemorrhoids with the patient. He is advised to use preparation H with hydrocortisone cream twice a day and after each bowel movement, preparation H suppositories twice a day and after each bowel movement. He was also advised to take Colace twice a day and Metamucil twice a day. Patient's pain will be treated with Tylenol and ibuprofen. He will be referred to the on-call surgeon for follow-up in 1 week. The patient was given verbal and printed instructions prior to discharge. The patient was advised to follow-up with their PCP in 2 days and to return to the emergency department if their symptoms get worse or if they develop any new symptoms that are concerning to them. Discharge Plan Discharge Clinical Impression: External hemorrhoid, Pain in rectum Abdominal pain Qualifiers: Abdominal location: lower abdomen, unspecified Qualified Code(s): R10.30 - Lower abdominal pain, unspecified Patient Disposition: Home, Self-Care Instructions: Hemorrhoids (ED) Additional Instructions: You have a hemorrhoid that is soft and I do not think that there is a blood clot in the hemorrhoid at this time therefore the treatment is with medications and not surgical incision at this time. Take preparation H with hydrocortisone, apply this to the hemorrhoid 2 times a day and after each bowel movement. Try to talk the hemorrhoid back in through the anus and this will also help reduce the pain. Use preparation H suppositories twice a day and after each bowel movement. Take Colace twice a day for 1 month, this is a stool softener. Take Metamucil 1 tsp in 8 oz of water twice a day to help prevent constipation. Soaked in your bathtub 3 times a day to try to get heat on the hemorrhoid this will help reduce the pain. If the pain is worse or if the pain does not improve after 1 week of treatment then you need to follow-up with our on-call surgeon. Prescriptions: No Action atorvastatin 40 mg tablet 1 tab PO DAILY RF: 0 metformin 500 mg tablet 500 mg PO BID RF: 0 atenolol 100 mg tablet 100 mg PO DAILY RF: 0 lisinopril 20 mg tablet 20 mg PO DAILY RF: 0 aspirin 81 mg tablet,delayed release (DR/EC) 81 mg PO DAILY RF: 0 hydrochlorothiazide 12.5 mg capsule 12.5 mg PO DAILY RF: 0 albuterol sulfate [ProAir HFA] 90 mcg/actuation Hfa Aerosol Inhaler 2 puff INHALATION Q4-6H PRN (Reason: Wheezing) RF: 0 budesonide-formoterol [Symbicort] 80-4.5 mcg/actuation HFA aerosol inhaler 2 puff inhalation BID RF: 0 pantoprazole 40 mg tablet,delayed release (DR/EC) 40 mg PO DAILY Qty: 30 RF: 4 cefuroxime axetil 250 mg tablet 250 mg PO BID 5 Days Qty: 10 RF: 0 doxycycline hyclate 100 mg tablet 100 mg PO BID Qty: 10 RF: 0 Referrals: Rosario Barron MD [Physician] - 1 week (Painful external hemorrhoid, not thrombosed at this time) [facility] Past Medical History [facility] Narrative: Social history: The patient denies tobacco use, he states he is a former smoker and stop 20 years prior, denies alcohol and drug use. Medical History Arthritis Chronic lower back pain COPD (chronic obstructive pulmonary disease) Diabetes Dyslipidemia GERD (gastroesophageal reflux disease) History of seizure Hypertension Social History Social History Alcohol intake: never Advance Directives: No service: No Current occupational status: employed
== END 2021-05-22 08:06 | disposition home or self-care (01) ==
PROVIDERS: Emergency Provider Emergency Medicine Emergency Medical Services; PCP Internal Medicine
DX: K64.4 Residual hemorrhoidal skin tags (principal); R10.30 Lower abdominal pain, unspecified; K62.89 Other specified diseases of anus and rectum; I10 Essential (primary) hypertension; E11.9 Type 2 diabetes mellitus without complications; E78.5 Hyperlipidemia, unspecified; Z79.82 Long term (current) use of aspirin; Z79.02 Long term (current) use of antithrombotics/antiplatelets; Z79.84 Long term (current) use of oral hypoglycemic drugs; Z79.899 Other long term (current) drug therapy
CPT/HCPCS: 99283

== ENCOUNTER 2021-06-17 11:21 | Emergency (ER) | payer OTHER, SELFPAY ==
--- NOTE | 2021-06-17 | ECG_ITS ---
Test Reason : COUGH Blood Pressure : / mmHG Vent. Rate : 106 BPM Atrial Rate : 106 BPM P-R Int : 162 ms QRS Dur : 092 ms QT Int : 352 ms P-R-T Axes : 057 033 030 degrees QTc Int : 467 ms Sinus tachycardia Possible Left atrial enlargement Borderline ECG When compared with ECG of 03-NOV-2020 06:36, No significant change was found Referred By: Generic ED Physician Electronically Signed By:YOLA CHUN
--- NOTE | ~2021-06-17 | XR_ITS ---
EXAMINATION: XR CHEST CLINICAL INFORMATION: Cough COMPARISON: 11/03/2020 TECHNIQUE: Frontal view of the chest was obtained. FINDINGS: No significant abnormality is noted involving the heart, lungs, mediastinum, bony thorax or soft tissues. XR/XR chest 1V IMPRESSION: Unremarkable examination.
[2021-06-17 11:35] VITALS: BP 140/100; PULSE 104; RESP 16; TEMP 37.2; O2SAT 94; BMI 28.7
[2021-06-17 12:00] VITALS: BP 136/101; PULSE 113; RESP 17; TEMP 37; O2SAT 97
--- NOTE | 2021-06-17 12:16 | ED.URI ---
HPI - URI/Sore Throat General Chief Complaint: Upper Respiratory Symptoms Stated Complaint: Cough Time Seen by Provider: 06/17/21 12:12 Source: patient Mode of arrival: ambulatory Limitations: no limitations History of Present Illness HPI Narrative: Patient history of COPD history of COVID last year complaining of cough little shortness of breath while taking deep breath for last 2 days no fever no chills no phlegm cough is mostly dry Related Data Home Medications Medication Instructions Recorded Confirmed albuterol sulfate 90 mcg/actuation 2 puff INHALATION Q4-6H PRN 09/19/20 11/03/20 aerosol inhaler (ProAir HFA) aspirin 81 mg tablet,delayed 81 mg PO DAILY 09/19/20 11/03/20 release atenolol 100 mg tablet 100 mg PO DAILY 09/19/20 11/03/20 atorvastatin 40 mg tablet 1 tab PO DAILY 09/19/20 11/03/20 budesonide-formoterol HFA 80 2 puff INHALATION BID 09/19/20 11/03/20 mcg-4.5 mcg/actuation aerosol inhaler (Symbicort) hydrochlorothiazide 12.5 mg capsule 12.5 mg PO DAILY 09/19/20 11/03/20 lisinopril 20 mg tablet 20 mg PO DAILY 09/19/20 11/03/20 metformin 500 mg tablet 500 mg PO BID 09/19/20 11/03/20 Previous Rx's Medication Instructions Recorded pantoprazole 40 mg tablet,delayed 40 mg PO DAILY #30 tab 09/26/20 release cefuroxime axetil 250 mg tablet 250 mg PO BID 5 Days #10 tab 11/04/20 doxycycline hyclate 100 mg tablet 100 mg PO BID #10 tab 11/04/20 codeine 10 mg-guaifenesin 100 mg/5 10 ml PO Q6-8H PRN #237 ml 06/17/21 mL oral liquid prednisone 20 mg tablet 40 mg PO DAILY #10 tab 06/17/21 Allergies Allergy/AdvReac Type Severity Reaction Status Date / Time No Known Allergies Allergy Verified 11/03/20 04:59 [No Known Allergies*] Review of Systems Review of Systems: Yes all other systems are reviewed and are negative PMFSH Past Medical History Medical History Arthritis Chronic lower back pain COPD (chronic obstructive pulmonary disease) Diabetes Dyslipidemia GERD (gastroesophageal reflux disease) History of seizure Hypertension Social History Social History Alcohol intake: never Patient Tobacco Use Status: Former Tobacco user Use of substances other than those prescribed or required for medical reasons: No Advance Directives: No Advance Directives Information Provided: No service: No Current occupational status: employed Physical Exam Vital Signs: Vital Signs: Last Vital Signs Temp 98.6 F 06/17/21 12:00 Pulse 95 06/17/21 12:40 Resp 17 06/17/21 12:00 BP 136/101 H 06/17/21 12:00 Pulse Ox 97 06/17/21 12:00 Body Mass Index 28.7 Appearance: Alert. Oriented X3. No acute distress. ENT: Pharynx normal. Oral Mucosa moist Neck: Normal inspection. Neck supple. CVS: Normal heart rate and rhythm. Pulses normal. Respiratory: No respiratory distress. Prolonged expiration with frequent cough no wheezing/rales/rhonchi Abdomen: Soft and nontender. Bowel sounds are present, no mass palpable, no CVA tenderness Skin: Skin warm and dry. Normal skin color. Normal skin turgor. Extremities: No lower extremity edema. No calf tenderness Neuro: Oriented X 3. MDM - URI/Sore Throat MDM Narrative Medical decision making narrative: Chest x-ray negative COVID negative lab stable discharge patient on prednisone and cough syrup Lab Data Attestation: I reviewed the patient's lab results. Result diagrams: 06/17/21 12:26 06/17/21 12:26 Labs: Lab Results 06/17/21 06/17/21 06/17/21 Range/Units 12:26 12:26 12:26 WBC 5.3 (4.8-10.8) X10*3/uL RBC 4.50 L (4.60-5.80) X10*6/uL Hgb 14.1 (14.0-18.0) g/dl Hct 42.8 (42-52) % MCV 95.1 (80-98) fL MCH 31.3 (27.0-33.0) pg MCHC 32.9 (31.0-36.0) g/dl RDW 13.0 (11.0-16.0) % Plt Count 150 L (160-400) X10*3/uL MPV 12.3 (9.4-12.4) fL Immature Gran % (Auto) 0.4 (0.0-0.4) % Neut % (Auto) 63.8 (45-73) % Lymph % (Auto) 20.8 (20-40) % [place] % (Auto) 12.4 H (2-11) % Eos % (Auto) 1.9 (0-4) % Baso % (Auto) 0.7 (0-2) % Lymph # (Auto) 1.1 L (1.2-4.9) X10*3/uL [place] # (Auto) 0.7 (0.1-1.2) X10*3/uL Eos # (Auto) 0.1 (0.0-0.4) X10*3/uL Baso # (Auto) 0.0 (0.0-0.2) X10*3/uL Abs Immat Gran (auto) 0.02 (0.00-0.03) X10*3/uL Absolute Neuts (auto) 3.4 (2.0-8.3) X10*3/uL Absolute Nucleated RBC 0.000 (0.0-0.012) X10*3/uL Nucleated RBC % (auto) 0.0 (0.0-0.2) /100WBC Sodium 141 (135-145) mmol/L Potassium 4.2 (3.3-5.1) mmol/L Chloride 102 (96-108) mmol/L Carbon Dioxide 29 (22-29) mmol/L Anion Gap 14 (12-20) BUN 15 (9-16) mg/dL Creatinine 1.13 (0.5-1.4) mg/dL Estim Creat Clear Calc 81.7 Estimated GFR > 60 Random Glucose 227 H (60-115) mg/dL Calcium 10.2 D (8.4-10.2) mg/dL COVID-19 (YENY) Negative (Negative) COVID-19 Clin Com See Note Discharge Plan Discharge Clinical Impression: Bronchitis Patient Disposition: Home, Self-Care Instructions: Acute Bronchitis (ED) Additional Instructions: Use your inhaler as needed every 4-6 hours Prednisone and cough syrup was prescribed Follow with PCP as needed Prescriptions: New prednisone 20 mg tablet 40 mg PO DAILY Qty: 10 RF: 0 codeine-guaifenesin 10-100 mg/5 mL liquid 10 ml PO Q6-8H PRN (Reason: cough) Qty: 237 RF: 0 No Action atorvastatin 40 mg tablet 1 tab PO DAILY RF: 0 metformin 500 mg tablet 500 mg PO BID RF: 0 atenolol 100 mg tablet 100 mg PO DAILY RF: 0 lisinopril 20 mg tablet 20 mg PO DAILY RF: 0 aspirin 81 mg tablet,delayed release (DR/EC) 81 mg PO DAILY RF: 0 hydrochlorothiazide 12.5 mg capsule 12.5 mg PO DAILY RF: 0 albuterol sulfate [ProAir HFA] 90 mcg/actuation Hfa Aerosol Inhaler 2 puff INHALATION Q4-6H PRN (Reason: Wheezing) RF: 0 budesonide-formoterol [Symbicort] 80-4.5 mcg/actuation HFA aerosol inhaler 2 puff inhalation BID RF: 0 pantoprazole 40 mg tablet,delayed release (DR/EC) 40 mg PO DAILY Qty: 30 RF: 4 cefuroxime axetil 250 mg tablet 250 mg PO BID 5 Days Qty: 10 RF: 0 doxycycline hyclate 100 mg tablet 100 mg PO BID Qty: 10 RF: 0
[2021-06-17 12:31] LABS: MANUAL DIFF FLAG NO
[2021-06-17 12:35] LABS: Basophils Percent Auto 0.7 % (0-2); Eosinophils Absolute Auto 0.1 X10*3/uL (0.0-0.4); Eosinophils Percent Auto 1.9 % (0-4); Hematocrit 42.8 % (42-52); Hemoglobin 14.1 g/dl (14.0-18.0); Imm Gran Abs Auto 0.02 X10*3/uL (0.00-0.03); Imm Gran Pct Auto 0.4 % (0.0-0.4); Lymphocytes Absolute Auto 1.1 X10*3/uL (1.2-4.9); Lymphocytes Percent Auto 20.8 % (20-40); Mean Corpuscular HGB Conc 32.9 g/dl (31.0-36.0); Mean Corpuscular Hemoglobin 31.3 pg (27.0-33.0); Mean Corpuscular Volume 95.1 fL (80-98); Mean Platelet Volume 12.3 fL (9.4-12.4); Monocytes Absolute Auto 0.7 X10*3/uL (0.1-1.2); Monocytes Percent Auto 12.4 % (2-11); Neutrophils Absolute Auto 3.4 X10*3/uL (2.0-8.3); Neutrophils Percent Auto 63.8 % (45-73); Platelet Count 150 X10*3/uL (160-400); White Blood Count 5.3 X10*3/uL (4.8-10.8)
[2021-06-17] MEDS: predniSONE 20 MG TABLET 40 MG PO (12:35)
[2021-06-17] MEDS: guaiFEN/Codeine SF 200/20/10ML 10 ML LIQUID PO (12:36)
[2021-06-17] MEDS: Albuterol/Iprat 2.5/0.5MG 3 ML AMPUL.NEB INHALE (12:39)
[2021-06-17] MEDS: Albuterol Sulfate (0.083%) 2.5 MG/3 ML VIAL.NEB INHALE (12:39)
[2021-06-17 12:40] VITALS: PULSE 95; O2SAT 96
[2021-06-17 12:52] LABS: COVID-19 Test Negative (Negative)
[2021-06-17 13:02] LABS: Anion Gap 14 (12-20); Blood Urea Nitrogen 15 mg/dL (9-16); Calcium 10.2 mg/dL (8.4-10.2); Carbon Dioxide 29 mmol/L (22-29); Chloride 102 mmol/L (96-108); Creatinine Clr Calc Pharmacy 81.7; Estimated Glomerular Filt Rate > 60; Glucose Random 227 mg/dL (60-115); Potassium 4.2 mmol/L (3.3-5.1); Sodium 141 mmol/L (135-145)
== END 2021-06-17 13:58 | disposition home or self-care (01) ==
PROVIDERS: Emergency Provider Internal Medicine; PCP Internal Medicine
DX: J40 Bronchitis, not specified as acute or chronic (principal); Z20.822 Contact with and (suspected) exposure to COVID-19; E11.9 Type 2 diabetes mellitus without complications; I10 Essential (primary) hypertension; E78.5 Hyperlipidemia, unspecified; Z79.899 Other long term (current) drug therapy; Z79.82 Long term (current) use of aspirin; Z79.02 Long term (current) use of antithrombotics/antiplatelets
CPT/HCPCS: 36415; 71045; 80048; 85025; 87635; 93005; 94640; 99284; 99285

== ENCOUNTER → 2021-07-06 15:05 | Outpatient (BNVA) | payer OTHER, SELFPAY | PROVIDERS: PCP Internal Medicine; Visit Provider Internal Medicine Pulmonary Disease | DX: R04.2 Hemoptysis (principal); J44.9 Chronic obstructive pulmonary disease, unspecified; E11.9 Type 2 diabetes mellitus without complications; E78.5 Hyperlipidemia, unspecified; Z87.891 Personal history of nicotine dependence | CPT/HCPCS: 99202 ==

== ENCOUNTER 2021-07-21 15:37 | Outpatient (REF) | payer OTHER, SELFPAY ==
--- NOTE | 2021-07-21 17:12 | PFT_ITS ---
Forced vital capacity, FEV1, [id number], and MVV are all normal. Bronchodilator challenge not given because the patient had used albuterol 1 hour before this test. Total lung capacity and residual volume normal. Diffusion capacity normal. CONCLUSION: Normal pulmonary function test. No evidence of obstructive or restrictive pulmonary disorder. MD ROSIE Mcpherson/CAMMY / [phone]
== END 2021-07-21 15:38 | disposition home or self-care (01) ==
LOC: HO.RESP 15:37
PROVIDERS: PCP Internal Medicine; Visit Provider Internal Medicine Pulmonary Disease
DX: J44.9 Chronic obstructive pulmonary disease, unspecified (principal)
CPT/HCPCS: 94010; 94727; 94729

== ENCOUNTER 2021-07-31 16:11 | Outpatient (REF) | payer OTHER, SELFPAY ==
--- NOTE | ~2021-07-31 | CT_ITS ---
EXAMINATION: CT CHEST WITHOUT CONTRAST CLINICAL INFORMATION: Hemoptysis. COMPARISON: Multiple priors, most recent chest radiograph dated 06/17/2021 and CTA chest dated 03/02/2018. TECHNIQUE: Multidetector volumetric CT imaging of the chest was done. Axial MIP volume rendering provided. Sagittal and coronal reformatted images were obtained. This CT examination was performed using dose optimization techniques as appropriate, variously including the following: *Automated exposure control *Adjustment of mA and/or kV according to patient size (this includes techniques or standardized protocols for targeted exams where dose is matched to indication/reason for exam; i.e. extremities or head) *Use of iterative reconstruction technique DLP: 179 mGy-cm FINDINGS: BR[employer] HELPER: Unremarkable. LUNGS: Stable small bilateral scattered calcified granulomas. No noncalcified pulmonary nodule. No pulmonary mass or confluent airspace consolidation. The central airways are patent. MEDIASTINUM: No cardiomegaly. No pericardial effusion. No thoracic aortic dilatation. No superior mediastinal or hilar lymphadenopathy. Partially visualized and unremarkable thyroid. PLEURA: There is no pleural effusion. No pleural mass or thickening. AXILLA: No lymphadenopathy. UPPER ABDOMEN: Unremarkable. OSSEOUS STRUCTURES: Unremarkable. CT/CT chest wo con IMPRESSION: 1. No noncalcified pulmonary nodule, mass, or confluent airspace consolidation. Previously seen ground-glass opacities have completely resolved. 2. Stable calcific granulomas. 3. No lymphadenopathy.
== END 2021-07-31 16:12 | disposition home or self-care (01) ==
LOC: HO.CT 16:11
PROVIDERS: PCP Internal Medicine; Visit Provider Internal Medicine Pulmonary Disease
DX: R04.2 Hemoptysis (principal)
CPT/HCPCS: 71250

== ENCOUNTER → 2021-08-02 16:02 | Outpatient (BNVA) | payer OTHER, SELFPAY | PROVIDERS: PCP Internal Medicine; Visit Provider Internal Medicine Pulmonary Disease | DX: J44.9 Chronic obstructive pulmonary disease, unspecified (principal) | CPT/HCPCS: 99212 ==

== ENCOUNTER 2021-09-30 07:10 | Outpatient (REF) | payer OTHER, SELFPAY ==
[2021-09-30 07:56] LABS: Creatinine Urine 170.04 mg/dL; Microalbum/Creatinine Ratio Ur 9.9 ug/mg cr
[2021-09-30 09:59] LABS: Alanine Aminotransferase 42 U/L (0-40); Albumin Level 4.8 g/dL (3.5-5.0); Alkaline Phosphatase 89 U/L (39-117); Anion Gap 15 (12-20); Aspartate Amino Transferase 27 U/L (5-37); Bilirubin Direct 0.5 mg/dL (0.0-0.5); Bilirubin Total 1.5 mg/dL (0.0-1.0); Blood Urea Nitrogen 16 mg/dL (9-16); Calcium 9.9 mg/dL (8.4-10.2); Carbon Dioxide 30 mmol/L (22-29); Chloride 102 mmol/L (96-108); Cholesterol 166 mg/dL; Estimated Glomerular Filt Rate > 60; Glucose Random 111 mg/dL (60-115); HDL Cholesterol 42 mg/dL; LDL Cholesterol Calculated 99 mg/dl; Potassium 4.5 mmol/L (3.3-5.1); Sodium 142 mmol/L (135-145); Total Protein 7.2 g/dL (6.5-8.0); Triglycerides 128 mg/dL
== END 2021-09-30 07:11 | disposition home or self-care (01) ==
LOC: HO.LAB 07:10
PROVIDERS: PCP Internal Medicine; Visit Provider Internal Medicine
DX: E11.9 Type 2 diabetes mellitus without complications (principal)
CPT/HCPCS: 36415; 80048; 80061; 80076; 82043

== ENCOUNTER 2021-09-30 07:28 | Emergency (ER) | payer OTHER, SELFPAY ==
[2021-09-30 07:33] VITALS: BP 133/77; PULSE 100; RESP 18; TEMP 36.6; O2SAT 100; BMI 28.7
--- NOTE | 2021-09-30 08:17 | ED.EAR ---
HPI - Ear Problem General Chief complaint: Ear Problems Stated complaint: ear pain Time Seen by Provider: 09/30/21 08:17 Source: patient Mode of arrival: ambulatory Limitations: no limitations History of Present Illness HPI Narrative: This is a 56 years old male presented to the ED complaining of left ear pain x2 days Complaint: ear pain Location: left ear Duration: constant Severity: moderate Relieving factors: nothing Exacerbating factors: nothing Discharge from ear: no Related Data Home Medications Medication Instructions Recorded Confirmed albuterol sulfate 90 mcg/actuation 2 puff INHALATION Q4-6H PRN 09/19/20 11/03/20 aerosol inhaler (ProAir HFA) aspirin 81 mg tablet,delayed 81 mg PO DAILY 09/19/20 11/03/20 release atenolol 100 mg tablet 100 mg PO DAILY 09/19/20 11/03/20 atorvastatin 40 mg tablet 1 tab PO DAILY 09/19/20 11/03/20 budesonide-formoterol HFA 80 2 puff INHALATION BID 09/19/20 11/03/20 mcg-4.5 mcg/actuation aerosol inhaler (Symbicort) hydrochlorothiazide 12.5 mg capsule 12.5 mg PO DAILY 09/19/20 11/03/20 lisinopril 20 mg tablet 20 mg PO DAILY 09/19/20 11/03/20 metformin 500 mg tablet 500 mg PO BID 09/19/20 11/03/20 Previous Rx's Medication Instructions Recorded pantoprazole 40 mg tablet,delayed 40 mg PO DAILY #30 tab 09/26/20 release cefuroxime axetil 250 mg tablet 250 mg PO BID 5 Days #10 tab 11/04/20 doxycycline hyclate 100 mg tablet 100 mg PO BID #10 tab 11/04/20 codeine 10 mg-guaifenesin 100 mg/5 10 ml PO Q6-8H PRN #237 ml 06/17/21 mL oral liquid prednisone 20 mg tablet 40 mg PO DAILY #10 tab 06/17/21 Allergies Allergy/AdvReac Type Severity Reaction Status Date / Time No Known Allergies Allergy Verified 08/02/21 16:07 [No Known Allergies*] Review of Systems Review of Systems: Yes all other systems are reviewed and are negative Cardiovascular: Cardiovascular: Reports no additional cardiovascular complaints Respiratory: Respiratory: Reports no additional respiratory complaints Neurologic: Reports system reviewed and no additional complaints, except as documented Psychiatric: Psychiatric: Reports no additional psychiatric complaints PMFSH Past Medical History Medical History Arthritis Chronic lower back pain COPD (chronic obstructive pulmonary disease) Diabetes Dyslipidemia GERD (gastroesophageal reflux disease) History of seizure Hypertension Social History Social History Alcohol intake: unknown Patient Tobacco Use Status: Former Tobacco user Use of substances other than those prescribed or required for medical reasons: Unknown Advance Directives: No Advance Directives Information Provided: Yes service: No Current occupational status: employed Physical Exam Vital Signs: Vital Signs: Last Vital Signs Temp 97.8 F 09/30/21 07:33 Pulse 100 09/30/21 07:33 Resp 18 09/30/21 07:33 BP 133/77 09/30/21 07:33 Pulse Ox 100 09/30/21 07:33 BMI result Body Mass Index 28.7 Const: General: cooperative, comfortable and no acute distress Orientation/consciousness: patient oriented x3 HENMT: Head: Yes normal to inspection Ears: other (left ear cerumen present) Face and sinus: Yes normal facial exam Throat: Yes posterior oropharynx normal Neck: Neck: Yes normal visual inspection Chest: Chest palpation & inspection: normal inspection of the chest and normal palpation of entire chest wall Resp: Effort & Inspection: normal respiratory effort Auscultation: clear to auscultation bilaterally Cardio: Jugular venous distension: no JVD Rate: regular rate Rhythm: regular rhythm GI: Inspection: Yes normal to inspection Palpation (GI): Soft to palpation and not firm Auscultation: normal bowel sounds Skin: General skin exam: no rashes or lesions noted, elasticity normal and turgor normal Neuro: General: patient oriented x3 Course Reevaluation(s) Reevaluation #1: The left ear was irrigated by the RN re-examined after the irrigation much better, patient is feeling better cerumen gone Discharge Plan Discharge Clinical Impression: Cerumen impaction Patient Disposition: Home, Self-Care Instructions: Earache (ED) Prescriptions: No Action prednisone 20 mg tablet 40 mg PO DAILY Qty: 10 RF: 0 codeine-guaifenesin 10-100 mg/5 mL liquid 10 ml PO Q6-8H PRN (Reason: cough) Qty: 237 RF: 0 atorvastatin 40 mg tablet 1 tab PO DAILY RF: 0 metformin 500 mg tablet 500 mg PO BID RF: 0 atenolol 100 mg tablet 100 mg PO DAILY RF: 0 lisinopril 20 mg tablet 20 mg PO DAILY RF: 0 aspirin 81 mg tablet,delayed release (DR/EC) 81 mg PO DAILY RF: 0 hydrochlorothiazide 12.5 mg capsule 12.5 mg PO DAILY RF: 0 albuterol sulfate [ProAir HFA] 90 mcg/actuation Hfa Aerosol Inhaler 2 puff INHALATION Q4-6H PRN (Reason: Wheezing) RF: 0 budesonide-formoterol [Symbicort] 80-4.5 mcg/actuation HFA aerosol inhaler 2 puff inhalation BID RF: 0 pantoprazole 40 mg tablet,delayed release (DR/EC) 40 mg PO DAILY Qty: 30 RF: 4 cefuroxime axetil 250 mg tablet 250 mg PO BID 5 Days Qty: 10 RF: 0 doxycycline hyclate 100 mg tablet 100 mg PO BID Qty: 10 RF: 0 Referrals: Fili Mascorro MD [Primary Care Provider] - 2 days Interventions: ED Discharge Assessment Last Done: 09/30/21 09:10 Discharge Date/Time: 09/30/21 09:12
[2021-09-30] MEDS: Docusate Sodium 100 MG/10 ML LIQUID PO (08:26)
== END 2021-09-30 09:12 | disposition home or self-care (01) ==
PROVIDERS: Emergency Provider Emergency Medicine; PCP Internal Medicine
DX: H92.02 Otalgia, left ear (principal); H61.22 Impacted cerumen, left ear; E11.9 Type 2 diabetes mellitus without complications; E78.5 Hyperlipidemia, unspecified; I10 Essential (primary) hypertension; Z79.82 Long term (current) use of aspirin; Z79.02 Long term (current) use of antithrombotics/antiplatelets; Z79.899 Other long term (current) drug therapy
CPT/HCPCS: 69209; 99283

== ENCOUNTER 2022-03-29 16:04 | Emergency (ER) | payer OTHER, SELFPAY | END 2022-03-29 16:24 | disposition left against medical advice (07) | PROVIDERS: Emergency Provider Emergency Medicine; PCP Internal Medicine | DX: R52 Pain, unspecified (principal) ==

== ENCOUNTER 2022-03-30 05:13 | Emergency (ER) | payer OTHER, SELFPAY ==
--- NOTE | 2022-03-30 | ECG_ITS ---
Test Reason : CHEST PAIN Blood Pressure : / mmHG Vent. Rate : 078 BPM Atrial Rate : 078 BPM P-R Int : 166 ms QRS Dur : 086 ms QT Int : 368 ms P-R-T Axes : 023 031 037 degrees QTc Int : 419 ms Normal sinus rhythm Normal ECG When compared with ECG of 17-JUN-2021 11:50, QT has shortened Referred By: Generic ED Physician Electronically Signed By:CHERELLE ROSS MD
--- NOTE | ~2022-03-30 | CT_ITS ---
EXAMINATION: CT ABDOMEN AND PELVIS WITHOUT CONTRAST CLINICAL INFORMATION: Right flank pain COMPARISON: None TECHNIQUE: Multidetector volumetric imaging was performed from the superior aspect of the liver through the pubic symphysis. Sagittal and coronal reformatted images were obtained on the technologist's workstation. This CT examination was performed using dose optimization techniques as appropriate, variously including the following: *Automated exposure control *Adjustment of mA and/or kV according to patient size (this includes techniques or standardized protocols for targeted exams where dose is matched to indication/reason for exam; i.e. extremities or head) *Use of iterative reconstruction technique DLP: 682 mGy-cm FINDINGS: LUNG BASES: The visualized lung bases are unremarkable. LIVER, GALLBLADDER, AND BILIARY TREE: The liver is normal in size, shape, and attenuation. No focal hepatic lesion or biliary ductal dilatation is present. The gallbladder is unremarkable with no evidence of radiopaque gallstones, gallbladder wall thickening, or obvious pericholecystic inflammatory changes. PANCREAS: Unremarkable. SPLEEN: Unremarkable. ADRENAL GLANDS: Unremarkable. KIDNEYS AND URETERS: The kidneys are normal in size, shape, and attenuation. No hydronephrosis, hydroureter, or calculi seen. No significant perinephric stranding. BLADDER: Unremarkable. GASTROINTESTINAL TRACT: The stomach is unremarkable. Normal caliber small bowel. No obstruction. No colonic wall thickening or inflammatory change. Minimal colonic diverticulosis without diverticulitis. Normal appendix. No free air or free fluid. ABDOMINAL WALL: Small fat-containing umbilical hernia. LYMPH NODES: Normal. VASCULAR: Normal caliber aorta with mild atherosclerotic calcifications. PELVIC VISCERA: The prostate and seminal vesicles are unremarkable. OSSEOUS STRUCTURES: No acute or suspicious osseous abnormality. CT/CT abdomen pelvis wo con IMPRESSION: No acute finding of the abdomen or pelvis. No hydronephrosis or nephrolithiasis. Normal appendix. No inflammatory changes. Fleischner guidelines were followed.
--- NOTE | ~2022-03-30 | XR_ITS ---
EXAMINATION: XR CHEST CLINICAL INFORMATION: Chest pain COMPARISON: 07/31/2021 TECHNIQUE: 2 views of the chest were obtained. FINDINGS: The lungs are clear with no focal consolidation. No evidence of pneumothorax, pulmonary edema, or pleural effusions. The cardiomediastinal silhouette is unremarkable. No acute osseous findings. XR/XR chest 2V IMPRESSION: No acute cardiopulmonary findings.
[2022-03-30 05:17] VITALS: BP 141/87; PULSE 87; RESP 14; TEMP 36.7; O2SAT 97; BMI 27.2
[2022-03-30 05:33] LABS: Hematocrit 39.9 % (42.0-52.0); Hemoglobin 13.3 g/dl (14.0-18.0); Mean Corpuscular HGB Conc 33.3 g/dl (31.0-36.0); Mean Corpuscular Hemoglobin 31.5 pg (27.0-33.0); Mean Corpuscular Volume 94.5 fL (80.0-98.0); Mean Platelet Volume 11.8 fL (9.4-12.4); Platelet Count 165 X10*3/uL (160-400); Red Blood Count 4.22 X10*6/uL (4.60-5.80); Red Cell Distribution Width 12.7 % (11.0-16.0)
[2022-03-30 05:44] VITALS: BP 137/86; PULSE 73; RESP 16; TEMP 36.8; O2SAT 98
[2022-03-30 05:47] LABS: COVID-19 Test Negative (Negative)
[2022-03-30 05:55] LABS: Alanine Aminotransferase 48 U/L (0-40); Albumin Level 4.4 g/dL (3.5-5.0); Alkaline Phosphatase 98 U/L (39-117); Anion Gap 13 (12-20); Aspartate Amino Transferase 23 U/L (5-37); Bilirubin Total 1.2 mg/dL (0.0-1.0); Blood Urea Nitrogen 14 mg/dL (9-16); Calcium 9.6 mg/dL (8.4-10.2); Carbon Dioxide 30 mmol/L (22-29); Chloride 100 mmol/L (96-108); Creatinine Clr Calc Pharmacy 77.6; Estimated Glomerular Filt Rate > 60; Glucose Random 165 mg/dL (60-115); Sodium 139 mmol/L (135-145); Total Protein 6.8 g/dL (6.5-8.0)
[2022-03-30 05:56] LABS: Troponin-I High Sensitivity < 3.5 ng/L (<3.5-35.0)
[2022-03-30 07:13] VITALS: BP 126/82; PULSE 67; RESP 13; TEMP 36.8; O2SAT 97
--- NOTE | 2022-03-30 07:25 | ED_ITS ---
HPI - Chest Pain General Chief Complaint: Chest Pain Stated Complaint: chest pain, body pain/aches, fever? Time Seen by Provider: 03/30/22 07:25 Source: patient Mode of arrival: ambulatory History of Present Illness HPI narrative: 57-year-old male who presents with right lower back pain that radiates into his right gluteus not associated with numbness in his groin area or numbness/tingling/weakness into either lower extremity, he denies any fevers does state he had some chills but felt like it was more associated with his cough. He denies any shortness of breath but does have underlying COPD/hypertension/diabetes. Otherwise he states he has been eating and drinking well. Related Data Home Medications Medication Instructions Recorded Confirmed albuterol sulfate 90 mcg/actuation 2 puff INHALATION Q4-6H PRN 09/19/20 11/03/20 aerosol inhaler (ProAir HFA) aspirin 81 mg tablet,delayed 81 mg PO DAILY 09/19/20 11/03/20 release atenolol 100 mg tablet 100 mg PO DAILY 09/19/20 11/03/20 atorvastatin 40 mg tablet 1 tab PO DAILY 09/19/20 11/03/20 budesonide-formoterol HFA 80 2 puff INHALATION BID 09/19/20 11/03/20 mcg-4.5 mcg/actuation aerosol inhaler (Symbicort) hydrochlorothiazide 12.5 mg capsule 12.5 mg PO DAILY 09/19/20 11/03/20 lisinopril 20 mg tablet 20 mg PO DAILY 09/19/20 11/03/20 metformin 500 mg tablet 500 mg PO BID 09/19/20 11/03/20 Previous Rx's Medication Instructions Recorded pantoprazole 40 mg tablet,delayed 40 mg PO DAILY #30 tab 09/26/20 release cefuroxime axetil 250 mg tablet 250 mg PO BID 5 Days #10 tab 11/04/20 doxycycline hyclate 100 mg tablet 100 mg PO BID #10 tab 11/04/20 codeine 10 mg-guaifenesin 100 mg/5 10 ml PO Q6-8H PRN #237 ml 06/17/21 mL oral liquid prednisone 20 mg tablet 40 mg PO DAILY #10 tab 06/17/21 Allergies Allergy/AdvReac Type Severity Reaction Status Date / Time No Known Allergies Allergy Verified 08/02/21 16:07 [No Known Allergies*] Review of Systems Review of Systems: Pertinent positives and negatives as stated in HPI 10 point review of systems is otherwise negative. [facility] Past Medical History Source: nursing notes reviewed Medical History Arthritis Chronic lower back pain COPD (chronic obstructive pulmonary disease) Diabetes Dyslipidemia GERD (gastroesophageal reflux disease) History of seizure Hypertension Social History Social History Alcohol intake: never Patient Tobacco Use Status: Former Tobacco user Use of substances other than those prescribed or required for medical reasons: No Advance Directives: No service: No Current occupational status: employed Physical Exam Vital Signs: Vital Signs: Last Vital Signs Temp 98.0 F 03/30/22 09:06 Pulse 98 03/30/22 09:06 Resp 14 03/30/22 09:06 BP 126/80 03/30/22 09:06 Pulse Ox 97 03/30/22 09:06 BMI result Body Mass Index 27.2 VITAL SIGNS: Reviewed. GENERAL: Well developed, well nourished, in no acute distress. HEAD: Normocephalic/atraumatic EYES: PERRLA, EOMI EARS: Ext canals without abnormality OROPHARYNX: no oral lesions noted, posterior pharynx clear LUNGS: Normal breath sounds. No adventitious sounds or accessory muscle use. SpO2<97> CARDIOVASCULAR: Regular rate and rhythm without noted murmurs, no JVD or lower extremity edema. ABDOMEN: Soft, non-tender, non-distended with bowel sounds. BACK: Right lower back pain, no midline vertebral tenderness MUSCULOSKELETAL: No tenderness, deformities, or effusions noted on gross inspection. EXTREMITIES: No cyanosis, clubbing or edema. SKIN: Inspection of the skin reveals no rashes NEUROLOGIC: Alert and oriented x 4. Strength and sensation to light touch were grossly intact x 4. Course Course Course Narrative: 57-year-old male with history and clinical presentation suggestive lower back pain, doubt UTI but possible renal colic as he does endorse a history of kidney stones. Review of all investigations otherwise negative and suspect that this is back pain and musculoskeletal in nature. On re-evaluation after patient received combination analgesics and lidocaine patch he reports significant improvement will be discharged home in stable condition MDM - Chest Pain Lab Data Result diagrams: 03/30/22 05:28 03/30/22 05:28 Labs: Lab Results 03/30/22 03/30/22 03/30/22 Range/Units 05:28 05:28 05:28 WBC 6.0 (4.8-10.8) X10*3/uL RBC 4.22 L (4.60-5.80) X10*6/uL Hgb 13.3 L (14.0-18.0) g/dl Hct 39.9 L (42.0-52.0) % MCV 94.5 (80.0-98.0) fL MCH 31.5 (27.0-33.0) pg MCHC 33.3 (31.0-36.0) g/dl RDW 12.7 (11.0-16.0) % Plt Count 165 (160-400) X10*3/uL MPV 11.8 (9.4-12.4) fL Absolute Nucleated RBC 0.000 (0.0-0.012) X10*3/uL Nucleated RBC % (auto) 0.0 (0.0-0.2) /100WBC Sodium 139 (135-145) mmol/L Potassium 4.0 (3.3-5.1) mmol/L Chloride 100 (96-108) mmol/L Carbon Dioxide 30 H (22-29) mmol/L Anion Gap 13 (12-20) BUN 14 (9-16) mg/dL Creatinine 1.07 (0.5-1.4) mg/dL Estim Creat Clear Calc 77.6 Estimated GFR > 60 Random Glucose 165 H D (60-115) mg/dL Calcium 9.6 (8.4-10.2) mg/dL Total Bilirubin 1.2 H (0.0-1.0) mg/dL AST 23 (5-37) U/L ALT 48 H (0-40) U/L Alkaline Phosphatase 98 (39-117) U/L Troponin I High Sens < 3.5 (<3.5-35.0) ng/L Total Protein 6.8 (6.5-8.0) g/dL Albumin 4.4 (3.5-5.0) g/dL Urine Color Urine Appearance Urine pH (5.0-8.0) Ur Specific [place] (1.005-1.025) Urine Protein (NEG-TRACE) MG/DL Urine Glucose (UA) (NEG) MG/DL Urine Ketones (NEG) MG/DL Urine Blood (NEG) Urine Nitrite (NEG) Ur Leukocyte Esterase (NEG) COVID-19 (YENY) (Negative) COVID-19 Clin Com 03/30/22 03/30/22 Range/Units 05:28 09:09 WBC (4.8-10.8) X10*3/uL RBC (4.60-5.80) X10*6/uL Hgb (14.0-18.0) g/dl Hct (42.0-52.0) % MCV (80.0-98.0) fL MCH (27.0-33.0) pg MCHC (31.0-36.0) g/dl RDW (11.0-16.0) % Plt Count (160-400) X10*3/uL MPV (9.4-12.4) fL Absolute Nucleated RBC (0.0-0.012) X10*3/uL Nucleated RBC % (auto) (0.0-0.2) /100WBC Sodium (135-145) mmol/L Potassium (3.3-5.1) mmol/L Chloride (96-108) mmol/L Carbon Dioxide (22-29) mmol/L Anion Gap (12-20) BUN (9-16) mg/dL Creatinine (0.5-1.4) mg/dL Estim Creat Clear Calc Estimated GFR Random Glucose (60-115) mg/dL Calcium (8.4-10.2) mg/dL Total Bilirubin (0.0-1.0) mg/dL AST (5-37) U/L ALT (0-40) U/L Alkaline Phosphatase (39-117) U/L Troponin I High Sens (<3.5-35.0) ng/L Total Protein (6.5-8.0) g/dL Albumin (3.5-5.0) g/dL Urine Color YELLOW Urine Appearance HAZY Urine pH 7.0 (5.0-8.0) Ur Specific [place] 1.015 (1.005-1.025) Urine Protein NEG (NEG-TRACE) MG/DL Urine Glucose (UA) 250 H (NEG) MG/DL Urine Ketones NEG (NEG) MG/DL Urine Blood NEG (NEG) Urine Nitrite NEG (NEG) Ur Leukocyte Esterase NEG (NEG) COVID-19 (YENY) Negative (Negative) COVID-19 Clin Com See Note ECG Data ECG #1: Attestation: I personally reviewed and interpreted this ECG as follows: Prior ECG tracings: available for review Interpretation: Normal sinus rhythm, HR-78, no STEMI, [place]/QRS/QTC are within normal limits. Discharge Plan Discharge Clinical Impression: Back pain, COPD (chronic obstructive pulmonary disease), Diabetes Patient Disposition: Home, Self-Care Instructions: Back Pain (ED), Lower Back Exercises (ED) Additional Instructions: 1. Resume all home medications as prescribed. 2. Tylenol 1000 mg, orally, every 6 hours as needed for pain control. Do not exceed 4000 mg within 24 hours. Ibuprofen 400 mg, orally with milk or food, every 6 hours as needed for pain control. 3. Lidocaine patch, apply to area of maximal tenderness as directed on the outside packaging. 4. Call your primary care provider today and set up an appointment for re- evaluation. Return to the ER for worsening symptoms. Prescriptions: No Action prednisone 20 mg tablet 40 mg PO DAILY Qty: 10 0RF codeine-guaifenesin 10-100 mg/5 mL liquid 10 ml PO Q6-8H PRN (Reason: cough) Qty: 237 0RF atorvastatin 40 mg tablet 1 tab PO DAILY 0RF metformin 500 mg tablet 500 mg PO BID 0RF atenolol 100 mg tablet 100 mg PO DAILY 0RF lisinopril 20 mg tablet 20 mg PO DAILY 0RF aspirin 81 mg tablet,delayed release (DR/EC) 81 mg PO DAILY 0RF hydrochlorothiazide 12.5 mg capsule 12.5 mg PO DAILY 0RF albuterol sulfate [ProAir HFA] 90 mcg/actuation Hfa Aerosol Inhaler 2 puff INHALATION Q4-6H PRN (Reason: Wheezing) 0RF budesonide-formoterol [Symbicort] 80-4.5 mcg/actuation HFA aerosol inhaler 2 puff inhalation BID 0RF pantoprazole 40 mg tablet,delayed release (DR/EC) 40 mg PO DAILY Qty: 30 4RF cefuroxime axetil 250 mg tablet 250 mg PO BID 5 Days Qty: 10 0RF doxycycline hyclate 100 mg tablet 100 mg PO BID Qty: 10 0RF Referrals: Fili Mascorro MD [Primary Care Provider] - Stand Alone Forms: Work/School Release
[2022-03-30 07:26] VITALS: PULSE 69
[2022-03-30] MEDS: Acetaminophen 325 MG TABLET 975 MG PO (08:28)
[2022-03-30] MEDS: Ketorolac Tromethamine 15 MG/ML VIAL IM (08:28)
[2022-03-30 09:06] VITALS: BP 126/80; PULSE 98; RESP 14; TEMP 36.7; O2SAT 97
[2022-03-30 09:15] LABS: Appearance Urine HAZY; Color Urine YELLOW; Glucose Urine UA 250 MG/DL (NEG); Leukocyte Esterase Urine NEG (NEG); Nitrite Urine NEG (NEG); Specific Gravity - Urine 1.015 (1.005-1.025); Urine Blood NEG (NEG); Urine Ketones NEG (NEG); Urine Protein NEG (NEG-TRACE)
[2022-03-30] MEDS: Lidocaine 4 % Patch ADH..PATCH 1 PATCH TRANSDERMA (10:19)
== END 2022-03-30 10:23 | disposition home or self-care (01) ==
PROVIDERS: Emergency Provider Student in an Organized Health Care Education/Training Program; PCP Internal Medicine
DX: M54.50 Low back pain, unspecified (principal); E11.9 Type 2 diabetes mellitus without complications; J44.9 Chronic obstructive pulmonary disease, unspecified; I10 Essential (primary) hypertension; Z20.822 Contact with and (suspected) exposure to COVID-19
CPT/HCPCS: 71046; 74176; 80053; 81003; 84484; 85027; 87635; 93005; 96372; 99284; J1885

== ENCOUNTER 2022-04-21 07:02 | Outpatient (REF) | payer OTHER, SELFPAY | END 2022-04-21 07:03 | disposition home or self-care (01) | LOC: HO.LAB 07:02 | PROVIDERS: PCP Internal Medicine; Visit Provider Internal Medicine | DX: R35.1 Nocturia (principal); Z12.5 Encounter for screening for malignant neoplasm of prostate | CPT/HCPCS: 36415; 84153 ==

== ENCOUNTER → 2022-05-04 09:07 | Outpatient (BNVA) | payer OTHER, SELFPAY | PROVIDERS: PCP Internal Medicine; Visit Provider Surgery | DX: K42.9 Umbilical hernia without obstruction or gangrene (principal) | CPT/HCPCS: 99202 ==

== ENCOUNTER 2022-05-18 08:54 | Emergency (ER) | payer OTHER, SELFPAY ==
[2022-05-18 08:59] VITALS: BP 122/91; PULSE 100; RESP 20; TEMP 36.8; O2SAT 97; BMI 28.7
[2022-05-18 09:40] LABS: COVID-19 Test Negative (Negative)
== END 2022-05-18 14:05 | disposition left against medical advice (07) ==
PROVIDERS: Emergency Provider Emergency Medicine; PCP Internal Medicine
DX: R07.9 Chest pain, unspecified (principal); Z20.822 Contact with and (suspected) exposure to COVID-19; R09.81 Nasal congestion
CPT/HCPCS: 87635; 99281; 99283

== ENCOUNTER 2022-06-04 05:54 | Day surgery (SDC) | payer OTHER, SELFPAY ==
[2022-05-29 13:27] VITALS: BMI 29.8
--- NOTE | 2022-06-01 08:55 | HO.ANESPROP2 ---
Documented by User: Maureen Moran NP 06/01/22 08:57 HPI - Anesthesia Eval Consult details Narrative: 57yo M for Hernia Repair Umbilical with mesh PMFSH Active Problems Active Problems: All Active Problems (Updated 05/29/22 @ 13:22 by Tasneem Neville RN) Lab test positive for detection of COVID-19 virus (Acute) Hemoptysis (Acute) Umbilical hernia (Acute) COPD (chronic obstructive pulmonary disease) (Acute) Past Medical History Medical History (Updated 05/29/22 @ 13:22 by Tasneem Neville RN) Arthritis Chronic lower back pain COPD (chronic obstructive pulmonary disease) Diabetes Dyslipidemia GERD (gastroesophageal reflux disease) History of COVID-19 History of seizure Hypertension Surgical History Surgical History (Updated 05/29/22 @ 13:22 by Tasneem Neville RN) H/O colonoscopy History of esophagogastroduodenoscopy (EGD) Social History Social History Alcohol intake: never Patient Tobacco Use Status: Former Tobacco user Second Hand Smoke Exposure: No Use of substances other than those prescribed or required for medical reasons: No Are you DNR?: No Advance Directives: No Advance Directives Information Provided: Yes Advance Directives on File: No service: No Current occupational status: employed Meds Allergies Allergy/AdvReac Type Severity Reaction Status Date / Time No Known Allergies Allergy Verified 05/04/22 09:41 [No Known Allergies*] Home Medications Medication Instructions Recorded Confirmed Last Taken Type albuterol sulfate 90 mcg/actuation 2 puff inhalation Q4-6H PRN 09/19/20 05/29/22 Unknown History aerosol inhaler (ProAir HFA) Wheezing aspirin 81 mg tablet,delayed 81 mg PO DAILY 09/19/20 05/29/22 06/02/22 History release atenolol 100 mg tablet 100 mg PO DAILY 09/19/20 05/29/22 06/04/22 History atorvastatin 40 mg tablet 1 tab PO DAILY 09/19/20 05/29/22 Unknown History budesonide-formoterol HFA 80 2 puff inhalation BID 09/19/20 05/29/22 Unknown History mcg-4.5 mcg/actuation aerosol inhaler (Symbicort) hydrochlorothiazide 12.5 mg capsule 12.5 mg PO DAILY 09/19/20 05/29/22 Unknown History lisinopril 20 mg tablet 20 mg PO DAILY 09/19/20 05/29/22 Unknown History blood sugar diagnostic (FreeStyle #10 ea 05/04/22 05/04/22 Unknown History Lite Strips) metformin 1,000 mg tablet 1,000 mg PO BID 05/04/22 05/29/22 Unknown History sildenafil 50 mg tablet (Viagra) 50 mg PO DAILY PRN Erectile 05/04/22 05/29/22 Unknown History Dysfunction Exam Exam Date and Time: June 01, 2022 0855 Height,Weight and Vital Signs: Height 5 ft 10 in Weight 94.347 kg Pertinent Lab Results Pertinent Lab Results: Laboratory Tests 03/30/22 03/30/22 05:28 05:28 WBC 6.0 Hgb 13.3 L Hct 39.9 L Plt Count 165 Sodium 139 Potassium 4.0 Chloride 100 Carbon Dioxide 30 H BUN 14 Creatinine 1.07 Narrative Narrative: EKG 03/2022 Vent. Rate : 078 BPM ? ? Atrial Rate : 078 BPM ?? P-R Int : 166 ms? QRS Dur : 086 ms ? ? QT Int : 368 ms ? ? ? P-R-T Axes : 023 031 037 degrees ?? QTc Int : 419 ms ? Normal sinus rhythm Normal ECG When compared with ECG of 17-JUN-2021 11:50, QT has shortened Assessment and Plan Assessment Anesthesia Assessment: Chart Reviewed Documented by User: Domenico Tan MD 06/04/22 07:08 [facility] Past Medical History Medical History (Updated 05/29/22 @ 13:22 by Tasneem Neville RN) Arthritis Chronic lower back pain COPD (chronic obstructive pulmonary disease) Diabetes Dyslipidemia GERD (gastroesophageal reflux disease) History of COVID-19 History of seizure Hypertension Family History Family history of problems with anesthesia: No Surgical History Surgical History (Updated 05/29/22 @ 13:22 by Tasneem Neville RN) H/O colonoscopy History of esophagogastroduodenoscopy (EGD) History of Problems with Anesthesia: No Social History Social History Alcohol intake: never Patient Tobacco Use Status: Former Tobacco user Second Hand Smoke Exposure: No Use of substances other than those prescribed or required for medical reasons: No Are you DNR?: No Advance Directives: No Advance Directives Information Provided: Yes Advance Directives on File: No service: No Current occupational status: employed Meds Allergies Allergy/AdvReac Type Severity Reaction Status Date / Time No Known Allergies Allergy Verified 05/04/22 09:41 [No Known Allergies*] Home Medications Medication Instructions Recorded Confirmed Last Taken Type albuterol sulfate 90 mcg/actuation 2 puff inhalation Q4-6H PRN 09/19/20 05/29/22 Unknown History aerosol inhaler (ProAir HFA) Wheezing aspirin 81 mg tablet,delayed 81 mg PO DAILY 09/19/20 05/29/22 06/02/22 History release atenolol 100 mg tablet 100 mg PO DAILY 09/19/20 05/29/22 06/04/22 History atorvastatin 40 mg tablet 1 tab PO DAILY 09/19/20 05/29/22 Unknown History budesonide-formoterol HFA 80 2 puff inhalation BID 09/19/20 05/29/22 Unknown History mcg-4.5 mcg/actuation aerosol inhaler (Symbicort) hydrochlorothiazide 12.5 mg capsule 12.5 mg PO DAILY 09/19/20 05/29/22 Unknown History lisinopril 20 mg tablet 20 mg PO DAILY 09/19/20 05/29/22 Unknown History blood sugar diagnostic (FreeStyle #10 ea 05/04/22 05/04/22 Unknown History Lite Strips) metformin 1,000 mg tablet 1,000 mg PO BID 05/04/22 05/29/22 Unknown History sildenafil 50 mg tablet (Viagra) 50 mg PO DAILY PRN Erectile 05/04/22 05/29/22 Unknown History Dysfunction Exam Airway Mallampati Class: II TM Dist: >3cm Neck ROM: Full Loose/Missing/Broken Teeth: Yes (2 front upper teeth are chipped badly, other teeth with smaller chips globally) Heart: [id number] Lungs: cta b/l Assessment and Plan Assessment Anesthesia Assessment: Anesthesia Plan Discussed Final Anesthetic Review Family History of Problems with Anesthesia: No History of Problems with Anesthesia: No NPO: Yes ASA Class: III Final Preanesthetic Review: No Changes in Pt Med Stat, Meds/Allgs Chart Reviewed, Consent Obtained/Reviewed and Anes Risks/Benef Reviewed Patient Risk: Intermediate Procedure Risk: Intermediate Assessment/Block/Sedation in SS: Assess/Block/Sedation-SS Anesthetic Plan Anesthetic Plan: GA and Agree w/ Assess. and Plan Disposition: Standard PACU
[2022-06-04] VITALS (9 sets, daily range): BP systolic 112–146; BP diastolic 81–96; PULSE 79–101; RESP 16–96; TEMP 36.1–36.7; O2SAT 95–100
[2022-06-04 06:38] LABS: Glucose, Whole Blood 136 mg/dL (60-115)
[2022-06-04] MEDS: Lactated Ringers 1,000 ML 100 ML IVCONT (06:38)
--- NOTE | 2022-06-04 07:21 | MHC.SHP ---
Pre-Procedural Eval Section A Date of Service: 06/04/22 The patient is an INPATIENT: No Changes since office visit: Yes Patient answered all questions; No Cold of Flu in the past 2 weeks, No New Medical Problems and No Changes in Medication The History & Physical has been completed within 30 days and I have reviewed it.: Yes Section B Chief Complaint: hernia Allergies: Allergies Allergy/AdvReac Type Severity Reaction Status Date / Time No Known Allergies Allergy Verified 05/04/22 09:41 [No Known Allergies*] Plan Diagnosis/Plan: Unchanged I have reviewed the history and physical and performed a pertinent physical examination on my patient. No changes have occurred unless specified.
--- NOTE | 2022-06-04 08:07 | W.PM.OPN ---
Operative Note Operative Note Date of Service: 06/04/22 Narrative: Preoperative diagnosis:Umbilical hernia Postoperative diagnosis: same Procedure: repair of umbilical hernia with mesh Surgeon: Ferdinand Castillo MD Remote Sensing Technologist: Jayashree Johansen PA-C, LORIN Ambrocio Anesthesia:general LMA Indications for procedure: 57-year-old male patient presenting with enlarging lump in the umbilicus which increases with lifting and reduces with light pressure. Patient is reporting discomfort associated with this hernia. Operative findings: 1 cm fascial defect at the umbilicus repaired with a 4.6 cm Ventralex mesh Specimen: none Estimated blood loss: 2 mL Complications: none Procedure details: patient was brought to the OR and placed in a supine position. After administering general anesthesia the patient's abdomen was prepped with ChloraPrep and draped in a sterile fashion. A surgical time-out was called the consent confirmed. Patient received preoperative antibiotics and Venodyne boots were placed. Local anesthesia consisting of 0.5% Sensorcaine was then infiltrated in a transverse fashion over the umbilicus. Incision was then made over the umbilicus carried out through subcutaneous tissue up to the hernia sac. The umbilical skin was then dissected off the hernia sac and fascia. A 1cm defect was identified. The fascial margins were further defined using electrocautery. A preperitoneal space was then created below the fascia. A small Ventralex mesh was then obtained. This was deployed within the preperitoneal space and secured to the overlying fascia using [id number] 1 Tycron sutures. Fascia closed over the mesh using 1 Tycron sutures. Wounds were checked for hemostasis in the wounds irrigated with saline solution. 4 mL of Zenrelef was infiltrated in the subcutaneous tissue over the fascia. Umbilical skin was reattached to the fascia using a 3-0 Polysorb suture. Dermis reapproximated using interrupted 3-0 Polysorb sutures. Skin was closed using a running subcuticular 4-0 Polysorb suture. Steri-Strips, 2 x 2 gauze and Tegaderm were then applied. The patient tolerated the procedure well. Sponge, instrument, and needle counts reported as correct. The patient was transferred to PACU in stable condition.
[2022-06-04] MEDS: oxyCODONE HCl Immed Release 5 MG TABLET 10 MG PO (08:49)
[2022-06-04] MEDS: HYDROmorphone HCl 0.5 MG/0.5 ML SYRINGE IVPUSH (08:49)
== END 2022-06-04 10:12 | disposition home or self-care (01) ==
PROVIDERS: PCP Internal Medicine; Visit Provider Surgery
PROC: (CPT 49585; principal; 2022-06-04 07:30)
DX: K42.9 Umbilical hernia without obstruction or gangrene (principal); K21.9 Gastro-esophageal reflux disease without esophagitis; J44.9 Chronic obstructive pulmonary disease, unspecified; I10 Essential (primary) hypertension; E78.5 Hyperlipidemia, unspecified; E11.9 Type 2 diabetes mellitus without complications; Z79.84 Long term (current) use of oral hypoglycemic drugs; Z79.52 Long term (current) use of systemic steroids; Z79.82 Long term (current) use of aspirin; Z79.899 Other long term (current) drug therapy; Z87.891 Personal history of nicotine dependence
CPT/HCPCS: 49585; 82947; C1781; C9088; J0690; J1100; J1170; J2250; J2405; J2795; J3010

== ENCOUNTER → 2022-08-21 15:21 | Outpatient (BNVA) | payer OTHER, SELFPAY | PROVIDERS: PCP Internal Medicine; Visit Provider Internal Medicine Pulmonary Disease | DX: J44.9 Chronic obstructive pulmonary disease, unspecified (principal); Z91.09 Other allergy status, other than to drugs and biological substances | CPT/HCPCS: 99212 ==

== ENCOUNTER 2022-09-08 08:19 | Outpatient (REF) | payer OTHER, SELFPAY ==
[2022-09-08 08:32] LABS: MANUAL DIFF FLAG NO
[2022-09-08 09:05] LABS: Basophils Absolute Auto 0.1 X10*3/uL (0.0-0.2); Basophils Percent Auto 0.8 % (0-2); Eosinophils Absolute Auto 0.3 X10*3/uL (0.0-0.4); Eosinophils Percent Auto 5.2 % (0-4); Hemoglobin 13.8 g/dl (14.0-18.0); Imm Gran Abs Auto 0.03 X10*3/uL (0.00-0.03); Imm Gran Pct Auto 0.5 % (0.0-0.4); Lymphocytes Absolute Auto 2.4 X10*3/uL (1.2-4.9); Lymphocytes Percent Auto 36.4 % (20-40); Mean Corpuscular HGB Conc 32.9 g/dl (31.0-36.0); Mean Corpuscular Hemoglobin 30.6 pg (27.0-33.0); Mean Corpuscular Volume 93.1 fL (80.0-98.0); Mean Platelet Volume 12.7 fL (9.4-12.4); Monocytes Absolute Auto 0.5 X10*3/uL (0.1-1.2); Monocytes Percent Auto 8.3 % (2-11); Neutrophils Absolute Auto 3.2 x10*3/uL (2.0-8.3); Neutrophils Percent Auto 48.8 % (45-73); Platelet Count 184 X10*3/uL (160-400); Red Blood Count 4.51 X10*6/uL (4.60-5.80); Red Cell Distribution Width 12.4 % (11.0-16.0); White Blood Count 6.5 X10*3/uL (4.8-10.8)
== END 2022-09-08 08:20 | disposition home or self-care (01) ==
LOC: HO.LAB 08:19
PROVIDERS: PCP Internal Medicine; Visit Provider Internal Medicine Pulmonary Disease
DX: Z91.09 Other allergy status, other than to drugs and biological substances (principal)
CPT/HCPCS: 36415; 82785; 85025; 86003

== ENCOUNTER 2022-12-30 15:29 | Emergency (ER) | payer OTHER, SELFPAY ==
--- NOTE | 2022-12-30 15:32 | ED.BACK ---
HPI - Back Pain/Injury General Chief Complaint: Back Pain/Injury Stated Complaint: back pain Time Seen by Provider: 12/30/22 15:33 Source: patient Mode of arrival: ambulatory Limitations: no limitations History of Present Illness HPI Narrative: 57 yo male with of COPD, DM, HTN, GERD here with lower back pain which began while shoveling on Saturday. No radiation of pain. No numbness, tingling, weakness in lower extremities. No numbness in the groin. No bowel or bladder incontinence. No fevers or chills. Patient is ambulatory. Patient has not tried any [id number] medications for the pain. Patient reports that he has a history of chronic back pain while he was living in [place] was treated with cortisone injections at that time which seemed to help. Related Data Home Medications Medication Instructions Recorded Confirmed albuterol sulfate 90 mcg/actuation 2 puff inhalation Q4-6H PRN 09/19/20 08/03/22 aerosol inhaler (ProAir HFA) Wheezing aspirin 81 mg tablet,delayed 81 mg PO DAILY 09/19/20 08/03/22 release atenolol 100 mg tablet 100 mg PO DAILY 09/19/20 08/03/22 atorvastatin 40 mg tablet 1 tab PO DAILY 09/19/20 08/03/22 budesonide-formoterol HFA 80 2 puff inhalation BID 09/19/20 08/03/22 mcg-4.5 mcg/actuation aerosol inhaler (Symbicort) hydrochlorothiazide 12.5 mg capsule 12.5 mg PO DAILY 09/19/20 08/03/22 lisinopril 20 mg tablet 20 mg PO DAILY 09/19/20 08/03/22 blood sugar diagnostic (FreeStyle #10 ea 05/04/22 08/03/22 Lite Strips) metformin 1,000 mg tablet 1,000 mg PO BID 05/04/22 08/03/22 sildenafil 50 mg tablet (Viagra) 50 mg PO DAILY PRN Erectile 05/04/22 08/03/22 Dysfunction Previous Rx's Medication Instructions Recorded pantoprazole 40 mg tablet,delayed 40 mg PO DAILY #30 tabs 09/26/20 release cefuroxime axetil 250 mg tablet 250 mg PO BID 5 days #10 tabs 11/04/20 doxycycline hyclate 100 mg tablet 100 mg PO BID #10 tabs 11/04/20 cyclobenzaprine 10 mg tablet 10 mg PO TID PRN muscle spasm #15 12/30/22 tabs lidocaine 5 % topical patch 1 patch topical DAILY #15 ea 12/30/22 (Lidoderm) naproxen 500 mg tablet 500 mg PO BID PRN pain #30 tabs 12/30/22 Allergies Allergy/AdvReac Type Severity Reaction Status Date / Time No Known Allergies Allergy Verified 08/21/22 15:26 [No Known Allergies*] Review of Systems Review of Systems: Yes all other systems are reviewed and are negative Constitutional: Constitutional: Reports no additional constitutional complaints, Denies body ache(s), Denies chills, Denies fever(s), Denies headache(s) and Denies weakness Eyes: Eyes: Reports no additional eye complaints and Denies change in vision ENT: Reports system reviewed and no additional complaints, except as documented, Denies dizziness, Denies headache(s), Denies nasal congestion, Denies nasal discharge and Denies neck pain Cardiovascular: Cardiovascular: Reports no additional cardiovascular complaints, Denies chest pain, Denies leg edema and Denies dyspnea Respiratory: Respiratory: Reports no additional respiratory complaints, Denies cough and Denies dyspnea Gastrointestinal: Gastrointestinal: Reports no additional gastrointestinal complaints, Denies abdominal pain, Denies diarrhea, Denies nausea and Denies vomiting Genitourinary: Genitourinary: Denies urinary incontinence Musculoskeletal: Musculoskeletal: Reports no additional musculoskeletal complaints, Reports back pain, Denies arthralgias, Denies joint swelling, Denies neck pain, Denies numbness and Denies tingling Integumentary/Breasts: Skin/Breast: Reports system reviewed and no additional complaints, except as docu and Denies rash Neurologic: Reports system reviewed and no additional complaints, except as documented, Denies Abnormal speech present, Denies dizziness, Denies headache(s), Denies numbness, Denies tingling and Denies weakness PMFSH Past Medical History Attestation statement: The following information was validated with the patient. Source: old records reviewed and nursing notes reviewed Medical History Arthritis Chronic lower back pain COPD (chronic obstructive pulmonary disease) Diabetes Dyslipidemia GERD (gastroesophageal reflux disease) History of COVID-19 History of seizure Hypertension Surgical History H/O colonoscopy History of esophagogastroduodenoscopy (EGD) History of umbilical hernia repair (06/04/22) Social History Social History Alcohol intake: never Patient Tobacco Use Status: Former Tobacco user Second Hand Smoke Exposure: No Advance Directives: No Advance Directives Information Provided: No service: No Current occupational status: employed Physical Exam Vital Signs: Vital Signs: Last Vital Signs Temp 98.2 F 12/30/22 15:33 Pulse 77 12/30/22 15:33 Resp 18 12/30/22 15:33 BP 149/80 H 12/30/22 15:33 Pulse Ox 98 12/30/22 15:33 O2 Del Method 12/30/22 15:33 BMI result Body Mass Index 29.4 Const: General: cooperative, healthy appearing, comfortable and no acute distress Orientation/consciousness: patient oriented x3 Limitations: no limitations HEENT: Head: Yes normal to inspection Ears: hearing grossly normal bilaterally General nose exam: Normal external nose present Face and sinus: Yes normal facial exam Mouth: Normal oral and palatal mucosa present Throat: Yes posterior oropharynx normal Eyes: General: appearance normal, both eyes and all related structures Pupils: Equal, round and reactive pupils present Neck: Neck: Yes normal visual inspection Chest: Chest palpation & inspection: normal inspection of the chest Resp: Effort & Inspection: normal respiratory effort Auscultation: clear to auscultation bilaterally Cardio: Rate: regular rate Rhythm: regular rhythm Peripheral pulses: Peripheral pulses 2+ throughout GI: Inspection: Yes normal to inspection Palpation (GI): Soft to palpation and nontender Auscultation: normal bowel sounds : General: Yes no CVA tenderness Back/Spine/Pelvis: Other: On exam there is tenderness over the lumbar soft tissue bilaterally. There is no midline tenderness, step-offs deformities. Pain is worsened with flexion extension of the lumbar spine. Back: no CVA tenderness Thoracic/Lumbar Spine: thoracic and lumbar spine normal to inspection Skin: General skin exam: no rashes or lesions noted Neuro: General: patient oriented x3, moves all extremities, no focal motor deficits and normal sensation to monofilament Cranial nerves: Yes Equal, round and reactive pupils present Cognition (Neuro): normal cognition Speech: No Abnormal speech present Gait exam (Neuro): Normal gait present Motor exam (neuro): 5/5 motor strength present throughout Sensory Exam: Normal double simultaneous stimulation for sensation Deep tendon reflexes (DTR's): Right patellar reflex intensity grade: 2+ and Left patellar reflex intensity grade: 2+ Extrem: General: Yes normal to inspection, Yes no pedal edema and Yes no calf tenderness Medical Decision Making Medical Decision Making MDM Narrative: 57-year-old male here with lower back pain after shoveling snow on Saturday. On exam patient was some tenderness to the soft tissue with no midline tenderness, step-offs deformities. No neurological deficits or red flag symptoms. Seems like lumbar strain. Patient will be discharged home with NSAID, muscle relaxant, medicated patches and follow-up with primary care. Differential Diagnosis Differential Diagnoses: The differential diagnosis associated with the presentation includes Lumbar strain Low concern for epidural abscess, cord compression, cauda equina, fracture Discharge Plan Discharge Clinical Impression: Lumbar strain Patient Disposition: Home, Self-Care Instructions: Low Back Strain (ED) Additional Instructions: NO heavy lifting or bending Heat or ice to the affected area Follow-up with your PCP as discussed Return for worsening pain, incontinence of urine/stool, fever Prescriptions: New naproxen 500 mg tablet 500 mg PO BID PRN (Reason: pain) Qty: 30 0RF cyclobenzaprine 10 mg tablet 10 mg PO TID PRN (Reason: muscle spasm) Qty: 15 0RF lidocaine [Lidoderm] 5 % adhesive patch,medicated 1 patch topical DAILY Qty: 15 0RF Rx Instructions: leave on most painful area for up to 12 hrs No Action atorvastatin 40 mg tablet 1 tab PO DAILY atenolol 100 mg tablet 100 mg PO DAILY lisinopril 20 mg tablet 20 mg PO DAILY aspirin 81 mg tablet,delayed release (DR/EC) 81 mg PO DAILY hydrochlorothiazide 12.5 mg capsule 12.5 mg PO DAILY albuterol sulfate [ProAir HFA] 90 mcg/actuation Hfa Aerosol Inhaler 2 puff INHALATION Q4-6H PRN (Reason: Wheezing) budesonide-formoterol [Symbicort] 80-4.5 mcg/actuation HFA aerosol inhaler 2 puff inhalation BID pantoprazole 40 mg tablet,delayed release (DR/EC) 40 mg PO DAILY Qty: 30 4RF cefuroxime axetil 250 mg tablet 250 mg PO BID 5 Days Qty: 10 0RF doxycycline hyclate 100 mg tablet 100 mg PO BID Qty: 10 0RF sildenafil [Viagra] 50 mg tablet 50 mg PO DAILY PRN (Reason: Erectile Dysfunction) metformin 1,000 mg tablet 1,000 mg PO BID (DME) FreeStyle Lite Strips Strip See Rx Instructions Not Applicable DAILY Qty: 10 Rx Instructions: As directed Referrals: Physician,Unknown J [Physician] - Interventions: ED Discharge Assessment Last Done: 12/30/22 15:45 Discharge Date/Time: 12/30/22 15:46
[2022-12-30 15:33] VITALS: BP 149/80; PULSE 77; RESP 18; TEMP 36.8; O2SAT 98; BMI 29.4
== END 2022-12-30 15:46 | disposition home or self-care (01) ==
PROVIDERS: Emergency Provider Emergency Medicine
DX: S39.012A Strain of muscle, fascia and tendon of lower back, initial encounter (principal); Y93.H1 Activity, digging, shoveling and raking; Y93.9 Activity, unspecified; Y92.007 Garden or yard of unspecified non-institutional (private) residence as the place of occurrence of the external cause; Y99.9 Unspecified external cause status; Z79.899 Other long term (current) drug therapy
CPT/HCPCS: 99282

== ENCOUNTER → 2023-03-06 15:26 | Outpatient (BNVA) | payer OTHER, SELFPAY | PROVIDERS: PCP Internal Medicine; Visit Provider Internal Medicine Pulmonary Disease | DX: J44.9 Chronic obstructive pulmonary disease, unspecified (principal); Z91.09 Other allergy status, other than to drugs and biological substances; F17.210 Nicotine dependence, cigarettes, uncomplicated | CPT/HCPCS: 99212 ==

== ENCOUNTER 2023-05-13 11:33 | Outpatient (REF) | payer OTHER, SELFPAY ==
[2023-05-13 13:41] LABS: MANUAL DIFF FLAG NO
[2023-05-13 13:53] LABS: Basophils Absolute Auto 0.1 X10*3/uL (0.0-0.2); Eosinophils Absolute Auto 0.2 X10*3/uL (0.0-0.4); Eosinophils Percent Auto 3.1 % (0-4); Hematocrit 46.2 % (42.0-52.0); Imm Gran Abs Auto 0.03 X10*3/uL (0.00-0.03); Imm Gran Pct Auto 0.4 % (0.0-0.4); Lymphocytes Absolute Auto 2.3 X10*3/uL (1.2-4.9); Lymphocytes Percent Auto 30.1 % (20-40); Mean Corpuscular HGB Conc 32.5 g/dl (31.0-36.0); Mean Corpuscular Hemoglobin 30.2 pg (27.0-33.0); Mean Corpuscular Volume 93.1 fL (80.0-98.0); Mean Platelet Volume 12.9 fL (9.4-12.4); Monocytes Absolute Auto 0.5 X10*3/uL (0.1-1.2); Monocytes Percent Auto 7.1 % (2-11); Neutrophils Absolute Auto 4.4 x10*3/uL (2.0-8.3); Neutrophils Percent Auto 58.3 % (45-73); Platelet Count 229 X10*3/uL (160-400); Red Blood Count 4.96 X10*6/uL (4.60-5.80); Red Cell Distribution Width 12.6 % (11.0-16.0); White Blood Count 7.6 X10*3/uL (4.8-10.8)
[2023-05-13 14:20] LABS: Estimated Average Glucose 143 mg/dL; Hemoglobin A1c % 6.6 %
[2023-05-13 14:33] LABS: Microalbum/Creatinine Ratio Ur 10.4 ug/mg cr
[2023-05-13 14:45] LABS: Syphilis Screen Nonreactive (Nonreactive)
[2023-05-13 14:54] LABS: Alanine Aminotransferase 47 U/L (0-40); Albumin Level 5.2 g/dL (3.5-5.0); Alkaline Phosphatase 107 U/L (39-117); Anion Gap 15 (12-20); Aspartate Amino Transferase 24 U/L (5-37); Bilirubin Total 1.3 mg/dL (0.0-1.0); Blood Urea Nitrogen 21 mg/dL (9-16); Calcium 10.6 mg/dL (8.4-10.2); Carbon Dioxide 30 mmol/L (22-29); Chloride 100 mmol/L (96-108); Cholesterol 130 mg/dL; Estimated Glomerular Filt Rate > 60; Glucose Random 116 mg/dL (60-115); HDL Cholesterol 40 mg/dL; LDL Cholesterol Calculated 62 mg/dl; Potassium 4.1 mmol/L (3.3-5.1); Sodium 141 mmol/L (135-145); Total Protein 7.9 g/dL (6.5-8.0); Triglycerides 140 mg/dL
[2023-05-13 14:58] LABS: Folate 12.2 ng/mL (> or = 4.0); Vitamin B12 530 pg/mL (200-900)
[2023-05-13 18:26] LABS: CT PCR NOT DETECTED (Not Detect.); NG PCR NOT DETECTED (Not Detect.)
[2023-05-14 05:37] LABS: HBS Num1 0.18 mIU/mL (0-7.99); HBc Num1 0.08 S/CO (0.00-0.79); HBsAGNum1 0.31 S/CO (0.00-0.99); HIV AB/AG Nonreactive (Nonreactive); HIV Num 1 0.06 S/CO (0.00-0.99); Hepatitis B Core Antibody Nonreactive (Nonreactive); Hepatitis B Surface Antigen Negative (Negative); ~HepC Num1 0.07 S/CO (0.00-0.79); ~Hepatitis B Surface Antibody NONREACTIVE (Nonreactive); ~Hepatitis C Antibody Nonreactive (Nonreactive)
[2023-05-18 11:48] LABS: VITAMIN D (1,25 OH) D3 27 pg/mL; Vit D (1,25-Dihydroxy) Total 27 pg/mL (18-72); Vitamin D (1,25 OH) D2 <8 pg/mL
== END 2023-05-13 11:34 | disposition home or self-care (01) ==
LOC: HO.HHCL 11:33
PROVIDERS: Visit Provider Student in an Organized Health Care Education/Training Program
DX: Z00.00 Encounter for general adult medical examination without abnormal findings (principal); Z11.4 Encounter for screening for human immunodeficiency virus [HIV]
CPT/HCPCS: 0353U; 80053; 80061; 82043; 82607; 82652; 82746; 83036; 84443; 85025; 86704; 86706; 86780; 86803; 87340; 87389

== ENCOUNTER 2023-06-28 10:26 | Outpatient (REF) | payer OTHER, SELFPAY ==
[2023-06-28 12:19] LABS: Alanine Aminotransferase 35 U/L (0-40); Albumin Level 4.9 g/dL (3.5-5.0); Alkaline Phosphatase 94 U/L (39-117); Anion Gap 14 (12-20); Aspartate Amino Transferase 20 U/L (5-37); Blood Urea Nitrogen 18 mg/dL (9-16); Calcium 10.4 mg/dL (8.4-10.2); Carbon Dioxide 26 mmol/L (22-29); Chloride 103 mmol/L (96-108); Estimated Glomerular Filt Rate > 60; Glucose Random 140 mg/dL (60-115); Potassium 4.1 mmol/L (3.3-5.1); Sodium 139 mmol/L (135-145); Total Protein 7.3 g/dL (6.5-8.0)
[2023-06-28 12:40] LABS: Prostate Specific Antigen 2.58 ng/mL (<0.05-4.0)
== END 2023-06-28 10:27 | disposition home or self-care (01) ==
LOC: HO.LAB 10:26
PROVIDERS: PCP Student in an Organized Health Care Education/Training Program; Visit Provider Student in an Organized Health Care Education/Training Program
DX: Z00.00 Encounter for general adult medical examination without abnormal findings (principal); Z12.5 Encounter for screening for malignant neoplasm of prostate; E83.52 Hypercalcemia
CPT/HCPCS: 36415; 80053; 84153

== ENCOUNTER 2023-07-08 08:04 | Outpatient (REF) | payer OTHER, SELFPAY | END 2023-07-08 08:05 | disposition home or self-care (01) | LOC: HO.MDS 08:04 | PROVIDERS: Visit Provider Internal Medicine Pulmonary Disease | DX: J45.50 Severe persistent asthma, uncomplicated (principal) | CPT/HCPCS: 96372; J2182 ==

== ENCOUNTER 2023-07-12 15:30 | Outpatient (AMB) | payer OTHER, SELFPAY ==
[2023-07-12 15:36] VITALS: BP 90/57; PULSE 101; O2SAT 97; BMI 29.3
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
== END 2023-07-12 15:51 | disposition home or self-care (01) ==
PROVIDERS: PCP Student in an Organized Health Care Education/Training Program; Visit Provider Internal Medicine Pulmonary Disease
DX: J44.9 Chronic obstructive pulmonary disease, unspecified (principal); Z91.09 Other allergy status, other than to drugs and biological substances; Z12.2 Encounter for screening for malignant neoplasm of respiratory organs
CPT/HCPCS: 99214

== ENCOUNTER → 2023-07-12 15:30 | Outpatient (BNVA) | payer OTHER, SELFPAY | PROVIDERS: Visit Provider Internal Medicine Pulmonary Disease | DX: J44.9 Chronic obstructive pulmonary disease, unspecified (principal); Z79.899 Other long term (current) drug therapy; Z91.09 Other allergy status, other than to drugs and biological substances | CPT/HCPCS: 99212 ==

== ENCOUNTER 2023-08-06 15:02 | Outpatient (REF) | payer OTHER, SELFPAY | END 2023-08-06 15:03 | disposition home or self-care (01) | LOC: HO.MDS 15:02 | PROVIDERS: Visit Provider Internal Medicine Pulmonary Disease | DX: J45.50 Severe persistent asthma, uncomplicated (principal) | CPT/HCPCS: 96372; J2182 ==

== ENCOUNTER 2023-09-26 15:41 | Outpatient (AMB) | payer MEDICAID, SELFPAY ==
[2023-09-26 15:44] VITALS: BP 132/80; PULSE 89; O2SAT 97; BMI 29.9
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
== END 2023-09-26 15:54 | disposition home or self-care (01) ==
PROVIDERS: PCP Student in an Organized Health Care Education/Training Program; Visit Provider Internal Medicine Pulmonary Disease
DX: J44.9 Chronic obstructive pulmonary disease, unspecified (principal); Z91.09 Other allergy status, other than to drugs and biological substances
CPT/HCPCS: 99214

== ENCOUNTER → 2023-09-26 15:41 | Outpatient (BNVA) | payer MEDICAID, SELFPAY | PROVIDERS: PCP Student in an Organized Health Care Education/Training Program; Visit Provider Internal Medicine Pulmonary Disease | DX: J44.9 Chronic obstructive pulmonary disease, unspecified (principal); Z87.891 Personal history of nicotine dependence; Z57.9 Occupational exposure to unspecified risk factor; Z91.09 Other allergy status, other than to drugs and biological substances | CPT/HCPCS: 99212 ==

== ENCOUNTER 2023-09-27 09:06 | Outpatient (AMB) | payer MEDICAID, SELFPAY ==
--- NOTE | 2023-09-27 09:10 | MHC.OFFVIS ---
Intake Intake Visit Reasons: LDCT SD Allergies No Known Allergies [No Known Allergies*] Allergy (Verified 09/26/23 15:48) HPI LDCT SD HPI Details Initial visit for this 58 year old former smoker with a 37 PYH. Patient has been smoking since age 11 for 37 years at approximately 1ppd, quit 10 years ago. . Denies any marijuana use. Notes prior second hand smoke exposure. Denies possible exposure to chemicals or substances like asbestos. . Denies known family history of lung cancer. Reports personal history of colon adenocarcinoma? - s/p surgery, chemo and radiation -[address] in last year. Had prior chest CT in 2018, no suspicious nodules noted. . Denies recent travel outside the [place]. Denies recent respiratory illness or recent hospitalization for respiratory issues. . Denies fever, chills, new/worsening cough, hemoptysis, hoarseness or dysphagia. Denies significant chest pain, significant dyspnea or unintentional weight loss. Patient Lung Cancer Screening Questionnaire reviewed with patient.. . Shared Decision Making Completed. Patient meets criteria. Discussed in detail with patient, the risk vs benefit of LDCT screening. Patient consents to proceed with scan. Discussed smoking cessation. ? PFSH Medical History (Updated 09/09/23 @ 14:40 by Jayashree Bonilla PA-C) History of seizure Hypertension Dyslipidemia Diabetes GERD (gastroesophageal reflux disease) COPD (chronic obstructive pulmonary disease) Environmental allergies Personal history of nicotine dependence History of COVID-19 Arthritis Chronic lower back pain Tubular adenoma of colon Surgical History (Updated 09/09/23 @ 14:30 by Jayashree Bonilla PA-C) History of colonoscopy History of umbilical hernia repair (~2021) History of esophagogastroduodenoscopy (EGD) Social History Alcohol intake: never Patient Tobacco Use Status: Former Tobacco user Second Hand Smoke Exposure: No service: No Current occupational status: employed Assessment & Plan Assessment & Plan (1) Personal history of nicotine dependence: Comment: (former smoker - quit 2011 - Hx CTA [address] in 2020 showed no suspicious nodules) Code(s): Z87.891 - Personal history of nicotine dependence Plan SDM visit completed in office. - Patient meets criteria for LDCT for lung cancer screening purposes and is asymptomatic. - Will arrange for a LDCT scan of the chest for screening purposes at [facility]. - Discussed follow up plan. Will send a letter discussing results and if needed set up phone call and office visit based on CT findings. - Risks, benefits, and alternatives were discussed in detail and patient agrees to proceed. - Risks discussed include but are not limited to: radiation exposure and possibility of additional intervention for benign disease. - Benefits are obviously detection of lung cancer at an early stage. - Discussed importance of screening program and compliance with yearly LDCT scan as scheduled. - Patient informed they will be contacted at later date to schedule upcoming LDCT scan. - All questions answered and patient is in agreement of plan. - A copy of office note and LDCT will be sent to patient's PCP. Incidental findings on LDCT are PCP's responsibility. Coding Level of Care Code Lung Cancer Screening G0296 Diagnoses Personal history of nicotine dependence Z87.891
== END 2023-09-27 09:20 | disposition home or self-care (01) ==
PROVIDERS: PCP Student in an Organized Health Care Education/Training Program; Visit Provider Nurse Practitioner Family
DX: Z87.891 Personal history of nicotine dependence (principal)
CPT/HCPCS: G0296

== ENCOUNTER 2023-09-27 09:22 | Outpatient (REF) | payer MEDICAID, SELFPAY ==
--- NOTE | ~2023-09-27 | CT_ITS ---
EXAMINATION: CT CHEST LOW-DOSE SCREENING WITHOUT CONTRAST HISTORY: Asymptomatic patient meeting criteria for lung screening. Nicotine dependence PATIENT PACK-YEAR HISTORY: 39 Current Smoker: No If former smoker, years since quittin COMPARISON: 07/31/2021 TECHNIQUE: Multidetector volumetric non-contrast CT imaging of the chest was obtained on a [id number] 128 slice scanner using low dose screening CT technique. Axial thin section 0.625 mm reformations in soft tissue and lung windows were obtained. Sagittal and coronal reformations were obtained. Axial MIP images were also created and reviewed. RECONSTRUCTED WIDTH: 1.25 mm x 1.25 mm TOTAL EXAM DLP: 59 mGy-cm CTDIvol: 1.43 mGy FINDINGS: Forensic Audit Expert views are unremarkable LUNGS: There are no lung nodules identified. There are scattered multiple punctate calcifications consistent with the appearance of calcified granulomas. Lungs are well-expanded without emphysematous changes. MEDIASTINUM/LYMPHATIC STRUCTURES: There is no mediastinal or hilar lymphadenopathy. THYROID GLAND: Unremarkable to the extent seen. CARDIOVASCULAR STRUCTURES: Aortic and heart size normal. No significant coronary artery calcifications. No pericardial effusion. PLEURA: VISUALIZED ABDOMEN: Included portions of the solid organs in the upper abdomen unremarkable on noncontrast imaging. MUSCULO-SKELETAL: No suspicious focal findings. SPINAL COMPRESSION: Absent. CT/CT lung screening IMPRESSION: No findings suspicious for malignancy/pulmonary nodule(s)/other. LUNG-RADS CATEGORY - 2 ASSESSMENT: Benign. PHYSICAL FINDINGS (S CATEGORY): Finding: No incidental findings. Significance category: Normal or normal variant. RECOMMENDATION: Low dose lung CT. overall in 1 year. Visual estimate of coronary calcified plaque burden: None. However, this exam cannot replace a dedicated cardiac CT calcium score for accurate assessment.
== END 2023-09-27 09:23 | disposition home or self-care (01) ==
LOC: HO.CT 09:22
PROVIDERS: PCP Student in an Organized Health Care Education/Training Program; Visit Provider Nurse Practitioner Family
DX: Z12.2 Encounter for screening for malignant neoplasm of respiratory organs (principal); Z87.891 Personal history of nicotine dependence
CPT/HCPCS: 71271; G0296

== ENCOUNTER 2023-10-03 15:02 | Outpatient (REF) | payer MEDICAID, SELFPAY | END 2023-10-03 15:03 | disposition home or self-care (01) | LOC: HO.MDS 15:02 | PROVIDERS: Visit Provider Internal Medicine Pulmonary Disease | DX: J45.50 Severe persistent asthma, uncomplicated (principal) | CPT/HCPCS: 96372; J2182 ==

== ENCOUNTER 2023-10-31 15:02 | Outpatient (REF) | payer MEDICAID, SELFPAY | END 2023-10-31 15:03 | disposition home or self-care (01) | LOC: HO.MDS 15:02 | PROVIDERS: Visit Provider Internal Medicine Pulmonary Disease | DX: J45.50 Severe persistent asthma, uncomplicated (principal) | CPT/HCPCS: 96372; J2182 ==

== ENCOUNTER 2023-11-26 10:52 | Emergency (ER) | payer MEDICAID, SELFPAY ==
--- NOTE | 2023-11-26 | ECG_ITS ---
Test Reason : chest pain Blood Pressure : / mmHG Vent. Rate : 092 BPM Atrial Rate : 092 BPM P-R Int : 164 ms QRS Dur : 090 ms QT Int : 338 ms P-R-T Axes : 006 029 032 degrees QTc Int : 417 ms Normal sinus rhythm Normal ECG When compared with ECG of 30-MAR-2022 05:18, No significant change was found Referred By: Generic ED Physician Electronically Signed By:CHERELLE ROSS MD
--- NOTE | ~2023-11-26 | XR_ITS ---
EXAMINATION: XR CHEST CLINICAL INFORMATION: Reason for Exam cough COMPARISON: Chest radiograph 03/30/2022 TECHNIQUE: 2 views of the chest FINDINGS: Lines and tubes: None. Indistinctness of the central pulmonary vasculature may reflect pulmonary venous congestion. No pleural effusion. No pneumothorax. Unchanged cardiomediastinal silhouette. XR/XR chest 2V IMPRESSION: 1. Indistinctness of the central pulmonary vasculature may reflect pulmonary venous congestion.
[2023-11-26 10:57] VITALS: BP 150/96; PULSE 102; RESP 18; TEMP 37.7; O2SAT 97; BMI 29.7
[2023-11-26 11:29] LABS: COVID-19 Test Negative (Negative); IDNOW Serial# 152EDE1D
[2023-11-26 12:05] LABS: IDNOW Serial# 152EDE1D
[2023-11-26 12:06] LABS: Influenza A Negative (Negative); Influenza B2 Negative (Negative)
--- NOTE | 2023-11-26 13:46 | ED.URI ---
HPI - URI/Sore Throat General Chief Complaint: Upper Respiratory Symptoms Stated Complaint: chest, lung, and body pain Time Seen by Provider: 11/26/23 12:06 Source: patient, family and RN notes reviewed Mode of arrival: ambulatory Limitations: no limitations History of Present Illness HPI Narrative: This is a 58-year-old male, with a history of diabetes, COPD, and hypertension, presenting to the emergency department with complaints of body aches, subjective fevers, productive cough, congestion, headache and nausea since yesterday. He reports that he does develop shortness of breath only with coughing. He denies any chest pain palpitations, changes in vision, dizziness, sore throat, ear pain, abdominal pain diarrhea or vomiting. He has been taking Tylenol for his symptoms which provided him with some relief. Denies any other complaints or concerns at this time. MD elicited complaint: fever, cough and nasal congestion Pertinent past history: COPD Onset (ago): hour(s) Consistency: constant Severity: moderate Exacerbating factors: nothing Relieving factors: nothing Context: sick contacts Associated symptoms: denies other symptoms Treatments prior to arrival: none Related Data Home Medications Medication Instructions Recorded Confirmed albuterol sulfate 90 mcg/actuation 2 puff inhalation Q4-6H PRN 09/19/20 08/03/22 aerosol inhaler (ProAir HFA) Wheezing aspirin 81 mg tablet,delayed 81 mg PO DAILY 09/19/20 08/03/22 release atenolol 100 mg tablet 100 mg PO DAILY 09/19/20 08/03/22 atorvastatin 40 mg tablet 1 tab PO DAILY 09/19/20 08/03/22 budesonide-formoterol HFA 80 2 puff inhalation BID 09/19/20 08/03/22 mcg-4.5 mcg/actuation aerosol inhaler (Symbicort) hydrochlorothiazide 12.5 mg capsule 12.5 mg PO DAILY 09/19/20 08/03/22 lisinopril 20 mg tablet 20 mg PO DAILY 09/19/20 08/03/22 blood sugar diagnostic (Kimyle #10 ea 05/04/22 08/03/22 Lite Strips) metformin 1,000 mg tablet 1,000 mg PO BID 05/04/22 08/03/22 sildenafil 50 mg tablet (Viagra) 50 mg PO DAILY PRN Erectile 05/04/22 08/03/22 Dysfunction Previous Rx's Medication Instructions Recorded pantoprazole 40 mg tablet,delayed 40 mg PO DAILY #30 tabs 09/26/20 release cefuroxime axetil 250 mg tablet 250 mg PO BID 5 days #10 tabs 11/04/20 cyclobenzaprine 10 mg tablet 10 mg PO TID PRN muscle spasm #15 12/30/22 tabs lidocaine 5 % topical patch 1 patch topical DAILY #15 ea 12/30/22 (Lidoderm) naproxen 500 mg tablet 500 mg PO BID PRN pain #30 tabs 12/30/22 mepolizumab 100 mg subcutaneous 100 mg subcut Q4W 28 days #1 ea 05/17/23 solution (Nucala) ipratropium bromide 17 2 puff inhalation QID 30 days 06/25/23 mcg/actuation HFA aerosol inhaler #12.9 grams ipratropium bromide 42 mcg (0.06 2 spray intranasal TID-QID PRN 07/12/23 %) nasal spray allergy symptoms 30 days #15 mL acetaminophen 500 mg tablet 500 mg PO Q6H PRN pain #30 tabs 11/26/23 (Tylenol Extra Strength) amoxicillin 875 mg-potassium 1 tab PO BID 5 days #10 tabs 11/26/23 clavulanate 125 mg tablet ibuprofen 600 mg tablet 600 mg PO Q6H PRN pain #30 tabs 11/26/23 Allergies Allergy/AdvReac Type Severity Reaction Status Date / Time No Known Allergies Allergy Verified 11/26/23 10:57 [No Known Allergies*] Review of Systems Review of Systems: Yes all other systems are reviewed and are negative Constitutional: Constitutional: Reports as per [facility] Past Medical History Medical History (Updated 11/27/23 @ 00:02 by Alexx Adame) History of seizure Hypertension Dyslipidemia Diabetes GERD (gastroesophageal reflux disease) COPD (chronic obstructive pulmonary disease) Environmental allergies Personal history of nicotine dependence History of COVID-19 Arthritis Chronic lower back pain Tubular adenoma of colon Surgical History (Updated 09/09/23 @ 14:30 by Jayashree Bonilla PA-C) History of colonoscopy History of umbilical hernia repair (~2021) History of esophagogastroduodenoscopy (EGD) Social History Social History Alcohol intake: never Patient Tobacco Use Status: Former Tobacco user Second Hand Smoke Exposure: No Advance Directives: No Advance Directives Information Provided: Yes service: No Current occupational status: employed Physical Exam Vital Signs: Vital Signs: Last Vital Signs Temp 99.8 F 11/26/23 14:50 Pulse 90 11/26/23 14:50 Resp 18 11/26/23 14:50 BP 147/91 H 11/26/23 14:50 Pulse Ox 97 11/26/23 14:50 O2 Del Method Room Air 11/26/23 14:50 BMI result Body Mass Index 29.7 Const: General: cooperative, comfortable and no acute distress Orientation/consciousness: patient oriented x3 Limitations: no limitations HEENT: Head: Yes normal to inspection, Yes normocephalic and Yes atraumatic Ears: hearing grossly normal bilaterally and TM's normal bilaterally General nose exam: Normal external nose present Face and sinus: Yes normal facial exam Mouth: Normal oral and palatal mucosa present, oropharynx normal and moist mucous membranes Throat: Yes posterior oropharynx normal Eyes: General: appearance normal, both eyes and all related structures Eyelids: Yes eyelids normal Conjunctivae: conjunctivae normal Sclerae: sclerae normal Pupils: Equal, round and reactive pupils present EOM: EOMs intact bilaterally Neck: Neck: Yes normal visual inspection, Yes full ROM and Yes no lymphadenopathy Lymphatic: no lymphadenopathy noted Chest: Chest palpation & inspection: normal inspection of the chest Resp: Other: faint expiratory wheeze in right lower base, no rhonchi or rales Effort & Inspection: normal respiratory effort and able to speak in complete sentences Cardio: Rate: regular rate Rhythm: regular rhythm Heart sounds: S1 normal heart sound present and S2 normal heart sound present GI: Inspection: Yes normal to inspection Skin: General skin exam: no rashes or lesions noted Trauma: no lacerations or abrasions Wounds: no wounds Neuro: General: patient oriented x3 and moves all extremities Cranial nerves: Yes Equal, round and reactive pupils present Extrem: Other: No LE edema General: Yes normal to inspection, Yes no pedal edema and Yes no calf tenderness Right upper extremity: normal to inspection Left upper extremity: normal to inspection Right lower extremity: normal to inspection Left lower extremity: normal to inspection Course Reevaluation(s) Reevaluation #1: X-ray returns, revealing venous congestion, otherwise unremarkable. Vital signs have remained stable. I discussed the x-ray report with my attending physician, Dr. Aguirre, recommends ambulating O2 saturation - which pt was saturating at 96% on RA. Given that patient has no lower extremity edema, shortness of breath or chest pain, labs are not warranted today however advised close follow-up. Discussed with pt, he understands. Given return precautions. D/C on augmentin given hx of COPD and symptoms. Stable for d/c. Time: 15:26 Medications Administered Discontinued Medications Generic Name Dose Route Start Last Admin Trade Name Freq PRN Reason Stop Dose Admin Albuterol Sulfate 2 puff 11/26/23 14:10 11/26/23 14:14 Albuterol Sulfate 90 Mcg 8 Gm Inhaler INHALE 11/26/23 14:11 2 puff ONCE ONE Administration Medical Decision Making Medical Decision Making [facility] Narrative: This is a 58-year-old male, with a history of hypertension, COPD, and diabetes, presenting to the emergency department for evaluation of cough, congestion, headache, subjective fevers and chills since yesterday. On arrival, patient is slightly tachycardic at 102 beats per minute, he is afebrile, blood pressure 150/96. Faint expiratory wheeze noted at the right lung base, otherwise clear. Differential diagnoses include COPD exacerbation, URI, pneumonia, pneumothorax. He has not meeting sirs criteria at this time, infection not suspected. Likely viral URI. Will continue to closely monitor Plan; COVID, influenza, chest x-ray Differential Diagnosis Differential Diagnoses: The differential diagnosis associated with the presentation includes See above Lab Data [facility] Lab Attestation statement: I reviewed the patient's lab results. Negative COVID, negative flu Labs: Lab Results 11/26/23 Range/Units 11:11 COVID-19 (YENY) Negative (Negative) COVID-19 Clin Com See Note Influenza Type A (NAOMY) Negative (Negative) Influenza Type B (NAOMY) Negative (Negative) Influenza A & B Note See Note Independent Interpretation I performed an independent interpretation of an: EKG Interpretation: Normal sinus rhythm at a ventricular rate of 92 beats per minute, RI interval 164, QRS duration 90, QTC 417, no ST elevation or depression. Radiology Impression Discussion of test interpretation with radiology: I have reviewed the radiologist's reading. Radiologist Impression: [address] [address] XRay Report Signed Patient: Se Mcguire MR#: [id number] : 1965 Acct:[id number] Age/Sex: 58 / M ADM Date: 11/26/23 Loc: .ED Attending Dr: Ordering Physician: Yina Huitron Date of Service: 11/26/23 Procedure(s): XR chest 2V Accession Number(s): [id number] cc: Yina Huitron; Yoanna Cuevas MD~ EXAMINATION: XR CHEST CLINICAL INFORMATION: Reason for Exam cough COMPARISON: Chest radiograph 03/30/2022 TECHNIQUE: 2 views of the chest FINDINGS: Lines and tubes: None. Indistinctness of the central pulmonary vasculature may reflect pulmonary venous congestion. No pleural effusion. No pneumothorax. Unchanged cardiomediastinal silhouette. XR/XR chest 2V IMPRESSION: 1. Indistinctness of the central pulmonary vasculature may reflect pulmonary venous congestion. Dictated By: Kaitlynn Story MD Discharge Plan Discharge Clinical Impression: Upper respiratory infection Patient Disposition: Home, Self-Care Instructions: Upper Respiratory Infection (ED) Additional Instructions: Your seen in the emergency department due to body aches, cough and congestion. Her symptoms are likely viral however given your risk factors I am treating with an antibiotic. Please take the entire course even if your feeling better Drink plenty of fluids and get plenty of rest. If any new or worsening symptoms occur including but not limited to chest pain, shortness breast, fevers not responding to Tylenol or Motrin, please return for re-evaluation. Your chest x-ray did not show a pneumonia however does show pulmonary vascular congestion, please discuss this with your primary care physician. Prescriptions: New amoxicillin-pot clavulanate 875-125 mg tablet 1 tab PO BID 5 Days Qty: 10 0RF ibuprofen 600 mg tablet 600 mg PO Q6H PRN (Reason: pain) Qty: 30 0RF acetaminophen [Tylenol Extra Strength] 500 mg tablet 500 mg PO Q6H PRN (Reason: pain) Qty: 30 0RF No Action Nucala 100 mg recon soln 100 mg subcut Q4W 28 Days Qty: 1 12RF Rx Instructions: SC ipratropium bromide 17 mcg/actuation HFA aerosol inhaler 2 puff inhalation QID 30 Days Qty: 12.9 3RF atorvastatin 40 mg tablet 1 tab PO DAILY atenolol 100 mg tablet 100 mg PO DAILY lisinopril 20 mg tablet 20 mg PO DAILY aspirin 81 mg tablet,delayed release (DR/EC) 81 mg PO DAILY hydrochlorothiazide 12.5 mg capsule 12.5 mg PO DAILY albuterol sulfate [ProAir HFA] 90 mcg/actuation Hfa Aerosol Inhaler 2 puff INHALATION Q4-6H PRN (Reason: Wheezing) budesonide-formoterol [Symbicort] 80-4.5 mcg/actuation HFA aerosol inhaler 2 puff inhalation BID pantoprazole 40 mg tablet,delayed release (DR/EC) 40 mg PO DAILY Qty: 30 4RF cefuroxime axetil 250 mg tablet 250 mg PO BID 5 Days Qty: 10 0RF naproxen 500 mg tablet 500 mg PO BID PRN (Reason: pain) Qty: 30 0RF cyclobenzaprine 10 mg tablet 10 mg PO TID PRN (Reason: muscle spasm) Qty: 15 0RF lidocaine [Lidoderm] 5 % adhesive patch,medicated 1 patch topical DAILY Qty: 15 0RF Rx Instructions: leave on most painful area for up to 12 hrs sildenafil [Viagra] 50 mg tablet 50 mg PO DAILY PRN (Reason: Erectile Dysfunction) metformin 1,000 mg tablet 1,000 mg PO BID (DME) FreeStyle Lite Strips Strip See Rx Instructions Not Applicable DAILY Qty: 10 Rx Instructions: As directed ipratropium bromide 42 mcg (0.06 %) spray,non-aerosol 2 spray intranasal TID-QID PRN (Reason: allergy symptoms) 30 Days Qty: 15 6RF Rx Instructions: administer into each nostril Stand Alone Forms: Work/School Release Discharge Date/Time: 11/26/23 16:40
[2023-11-26 14:14] VITALS: PULSE 88; RESP 18; O2SAT 99
[2023-11-26] MEDS: Albuterol Sulfate 90 MCG 8 GM INHALER 2 PUFF INHALE (14:14)
[2023-11-26 14:50] VITALS: BP 147/91; PULSE 90; RESP 18; TEMP 37.7; O2SAT 97
== END 2023-11-26 16:40 | disposition home or self-care (01) ==
PROVIDERS: Emergency Provider Emergency Medicine Emergency Medical Services; PCP Student in an Organized Health Care Education/Training Program
DX: J06.9 Acute upper respiratory infection, unspecified (principal); M79.10 Myalgia, unspecified site; R07.89 Other chest pain; R05.9 Cough, unspecified; R11.2 Nausea with vomiting, unspecified; I10 Essential (primary) hypertension; Z11.52 Encounter for screening for COVID-19
CPT/HCPCS: 71046; 87502; 87635; 93005; 94640; 99284; 99285

== ENCOUNTER → 2023-11-26 11:06 | Outpatient (BNV) | payer MEDICAID, SELFPAY | PROVIDERS: Emergency Provider Emergency Medicine Emergency Medical Services; PCP Student in an Organized Health Care Education/Training Program; Visit Provider Internal Medicine Cardiovascular Disease | DX: R07.9 Chest pain, unspecified (principal) | CPT/HCPCS: 93010 ==

== ENCOUNTER 2023-12-06 14:47 | Outpatient (REF) | payer MEDICAID, SELFPAY | END 2023-12-06 14:48 | disposition home or self-care (01) | LOC: HO.MDS 14:47 | PROVIDERS: Visit Provider Internal Medicine Pulmonary Disease | DX: J45.50 Severe persistent asthma, uncomplicated (principal) | CPT/HCPCS: 96372; J2182 ==

== ENCOUNTER 2023-12-13 13:21 | Outpatient (AMB) | payer OTHER, MEDICAID, SELFPAY ==
--- NOTE | 2023-12-13 13:26 | MHC.OFFVIS ---
Intake Vital Signs 12/13/23 13:28 Height 5 ft 10 in Weight 202 lb BMI 29.0 BP 121/76 Blood Pressure Location Rt brachial Position Sitting Pulse 91 Pulse Source Monitor Intake Visit Reasons: Dysphagia Intake Note: Patient states hes been having heartburn daily with acid reflex for the last 20 years. 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 Reports switched omeprazole to pantoprazole after EGD in 2019 - however over the past 2 years has had worsening of heartburn retrosternally with nausea and discomfort. Often has mild regurgitation in the morning. No vomiting. No change in appetite or unintentional weight loss. Notices symptoms postprandially. Last EGD 2019 with Barretts esophagus without dysplasia, gastritis, negative for H pylori. [facility] Medical History (Updated 12/13/23 @ 15:05 by Christy Wu MD) History of seizure Hypertension Dyslipidemia Diabetes GERD (gastroesophageal reflux disease) COPD (chronic obstructive pulmonary disease) Environmental allergies Personal history of nicotine dependence History of COVID-19 Arthritis Chronic lower back pain Tubular adenoma of colon Surgical History (Updated 09/09/23 @ 14:30 by Jayashree Bonilla PA-C) History of colonoscopy History of umbilical hernia repair (~2021) History of esophagogastroduodenoscopy (EGD) Social History Alcohol intake: never Patient Tobacco Use Status: Former Tobacco user Second Hand Smoke Exposure: No service: No Current occupational status: employed Review of Systems Const All systems reviewed & are unremarkable except as noted in HPI and below Physical Exam Vital Signs: Last Vital Signs Pulse 91 12/13/23 13:28 BP 121/76 12/13/23 13:28 BMI result Body Mass Index 29.0 Const General: cooperative, healthy appearing and comfortable Orientation/consciousness: patient oriented x3 Resp Effort & Inspection: normal respiratory effort and able to speak in complete sentences GI Inspection: Yes normal to inspection Skin General skin exam: no rashes or lesions noted Neuro General: patient oriented x3 and gait normal Extrem General: Yes normal to inspection and Yes full ROM Assessment & Plan Assessment & Plan (1) Abdominal pain: Code(s): R10.9 - Unspecified abdominal pain Qualifiers: Abdominal location: lower abdomen, unspecified Qualified Code(s): R10.30 - Lower abdominal pain, unspecified (2) GERD (gastroesophageal reflux disease): Code(s): K21.9 - Gastro-esophageal reflux disease without esophagitis Plan Differentials include GERD, esophagitis, celiac, symptomatic cholelithiasis. Reports excellent control of diabetes, but will also check an A1c as hyperglycemia can also lead to delayed gastric emptying and symptoms. Plan: -labs as below -barium swallow ordered -ultrasound right upper quadrant -in the meantime, we will also switch his pantoprazole to Nexium 20 mg once daily in the morning Follow-up in 8 weeks Orders: Orders Transglutaminase IgA Today R10.9 - Unspecified abdominal pain TSH reflex Free T4 Today R10.9 - Unspecified abdominal pain Immunoglobulin A Today R10.9 - Unspecified abdominal pain FL barium swallow Today R10.9 - Unspecified abdominal pain Liver Panel Today R10.9 - Unspecified abdominal pain Complete Blood Count no Diff Today R10.9 - Unspecified abdominal pain Hemoglobin A1c Today R10.9 - Unspecified abdominal pain US abdomen complete Today R10.9 - Unspecified abdominal pain Medications: New esomeprazole magnesium 20 mg PO DAILY 90 caps 0RF esomeprazole magnesium 20 mg PO DAILY 90 caps 0RF Discontinued pantoprazole Discontinued Reason: Doctor's Order 40 mg PO DAILY 30 tabs 4RF Coding Level of Care Code Est Pt Level 4 (75887) Diagnoses Abdominal pain R10.30 Abdominal location: lower abdomen, unspecified GERD (gastroesophageal reflux disease) K21.9
[2023-12-13 13:28] VITALS: BP 121/76; PULSE 91; BMI 29.0
== END 2023-12-13 14:36 | disposition home or self-care (01) ==
PROVIDERS: PCP Student in an Organized Health Care Education/Training Program; Visit Provider Internal Medicine
DX: R10.30 Lower abdominal pain, unspecified (principal); K21.9 Gastro-esophageal reflux disease without esophagitis
CPT/HCPCS: 99214

== ENCOUNTER → 2023-12-13 13:21 | Outpatient (BNVA) | payer OTHER, MEDICAID, SELFPAY | PROVIDERS: PCP Student in an Organized Health Care Education/Training Program; Visit Provider Internal Medicine ==

== ENCOUNTER 2023-12-14 07:23 | Outpatient (REF) | payer OTHER, MEDICAID, SELFPAY ==
[2023-12-14 08:14] LABS: Hematocrit 44.6 % (42.0-52.0); Hemoglobin 14.6 g/dl (14.0-18.0); Mean Corpuscular HGB Conc 32.7 g/dl (31.0-36.0); Mean Corpuscular Hemoglobin 30.7 pg (27.0-33.0); Mean Corpuscular Volume 93.7 fL (80.0-98.0); Mean Platelet Volume 12.6 fL (9.4-12.4); Platelet Count 239 X10*3/uL (160-400); Red Blood Count 4.76 X10*6/uL (4.60-5.80); Red Cell Distribution Width 12.3 % (11.0-16.0); White Blood Count 7.2 X10*3/uL (4.8-10.8)
[2023-12-14 08:21] LABS: Estimated Average Glucose 148 mg/dL; Hemoglobin A1c % 6.8 % (<6.0)
[2023-12-14 09:04] LABS: TSH reflex Free T4 0.57 uIU/mL (0.32-4.0)
[2023-12-14 09:06] LABS: Alanine Aminotransferase 50 U/L (0-40); Albumin Level 4.6 g/dL (3.5-5.0); Alkaline Phosphatase 91 U/L (39-117); Aspartate Amino Transferase 27 U/L (5-37); Bilirubin Direct 0.3 mg/dL (0.0-0.5); Bilirubin Total 1.2 mg/dL (0.0-1.0); Total Protein 7.4 g/dL (6.5-8.0)
[2023-12-16 11:49] LABS: Immunoglobulin A 165 mg/dL (47-310)
[2023-12-16 16:19] LABS: Transglutaminase IgA <1.0 U/mL
== END 2023-12-14 07:24 | disposition home or self-care (01) ==
LOC: HO.LAB 07:23
PROVIDERS: PCP Student in an Organized Health Care Education/Training Program; Visit Provider Internal Medicine
DX: R10.9 Unspecified abdominal pain (principal)
CPT/HCPCS: 36415; 80076; 82784; 83036; 84443; 85027; 86364

== ENCOUNTER 2024-01-03 08:11 | Outpatient (REF) | payer OTHER, MEDICAID, SELFPAY ==
--- NOTE | ~2024-01-03 | US_ITS ---
EXAMINATION: US ABDOMEN COMPLETE CLINICAL INFORMATION: Unspecified abdominal pain. COMPARISON: CT abdomen and pelvis 03/30/2022. TECHNIQUE: Real-time imaging of the abdominal viscera. FINDINGS: PANCREAS: The pancreas is not well seen due to bowel gas. ABDOMINAL AORTA: The proximal distal abdominal aorta are normal in caliber. The mid abdominal aorta is obscured by bowel gas. INFERIOR VENA CAVA: Visualized portions are normal. LIVER: The liver is normal in size. The liver contour is normal. There is mild diffuse increased liver parenchymal echogenicity, consistent with mild hepatic steatosis. No focal hepatic lesion. There is no intrahepatic biliary duct dilatation seen. GALLBLADDER: There are several several echogenic foci along the gallbladder wall, at least one with ringdown artifact consistent with adenomyomatosis. The gallbladder is physiologically distended without evidence of stones, sludge, polyps, wall thickening or pericholecystic fluid. COMMON BILE DUCT: Normal in caliber measuring 0.3 cm in diameter. RIGHT KIDNEY: Normal. No hydronephrosis. No renal calculi or focal parenchymal lesions. The kidney measures 11.5 cm in maximum dimension. LEFT KIDNEY: Normal. No hydronephrosis. No renal calculi or focal parenchymal lesions. The kidney measures 11.2 cm in maximum dimension. SPLEEN: Normal. The spleen measures 11.3 cm in maximum dimension. FREE FLUID: None. US/US abdomen complete IMPRESSION: 1. Mild hepatic steatosis. 2. Adenomyomatosis of the gallbladder. 3. The pancreas and mid abdominal aorta are obscured by bowel gas.
== END 2024-01-03 08:12 | disposition home or self-care (01) ==
LOC: HO.US 08:11
PROVIDERS: PCP Student in an Organized Health Care Education/Training Program; Visit Provider Internal Medicine
DX: R10.9 Unspecified abdominal pain (principal)
CPT/HCPCS: 76700

== ENCOUNTER 2024-02-08 07:01 | Outpatient (REF) | payer OTHER, MEDICAID, SELFPAY ==
--- NOTE | ~2024-02-08 | XR_ITS ---
EXAMINATION: XR CHEST CLINICAL INFORMATION: Reason bony protrusion hours eye foreign process causing discomfort COMPARISON: Chest 11/26/2023 TECHNIQUE: 2 views of the chest were obtained. FINDINGS: The lungs are only mildly well expanded. Bilateral peribronchial thickening is again noted no focal consolidation, interstitial pulmonary edema or pneumothorax No significant abnormality is noted involving the heart, mediastinum or soft tissues. No bony abnormality is appreciated. If there is continued clinical concern, chest CT scan could be obtained. XR/XR chest 2V IMPRESSION: 1. No acute cardiopulmonary disease. 2. No bony abnormality is appreciated. If there is continued clinical concern, chest CT scan could be obtained.
[2024-02-08 07:57] LABS: Creatinine Urine 196.05 mg/dL; Microalbum/Creatinine Ratio Ur 13.7 ug/mg cr (<30)
[2024-02-08 08:17] LABS: Estimated Average Glucose 154 mg/dL
[2024-02-08 08:45] LABS: Alanine Aminotransferase 40 U/L (0-40); Albumin Level 4.6 g/dL (3.5-5.0); Alkaline Phosphatase 88 U/L (39-117); Anion Gap 14 (12-20); Aspartate Amino Transferase 22 U/L (5-37); Bilirubin Total 0.9 mg/dL (0.0-1.0); Blood Urea Nitrogen 14 mg/dL (9-16); Calcium 9.9 mg/dL (8.4-10.2); Carbon Dioxide 31 mmol/L (22-29); Chloride 103 mmol/L (96-108); Cholesterol 131 mg/dL (<200); Estimated Glomerular Filt Rate > 60; Glucose Random 119 mg/dL (60-115); HDL Cholesterol 43 mg/dL (>40); LDL Cholesterol Calculated 72 mg/dL (<100); Potassium 4.4 mmol/L (3.3-5.1); Sodium 144 mmol/L (135-145); Total Protein 7.1 g/dL (6.5-8.0); Triglycerides 83 mg/dL (<150)
[2024-02-08 09:03] LABS: Vitamin D 25-OH Total 45.4 ng/mL (>30)
[2024-02-08 09:10] LABS: Folate 10.4 ng/mL (> or = 4.0); Vitamin B12 423 pg/mL (200-900)
== END 2024-02-08 07:02 | disposition home or self-care (01) ==
LOC: HO.XRAY 07:01
PROVIDERS: PCP Student in an Organized Health Care Education/Training Program; Visit Provider Student in an Organized Health Care Education/Training Program
DX: E11.9 Type 2 diabetes mellitus without complications (principal); R07.89 Other chest pain
CPT/HCPCS: 36415; 71046; 80053; 80061; 82043; 82306; 82570; 82607; 82746; 83036

== ENCOUNTER 2024-02-12 09:33 | Outpatient (REF) | payer OTHER, MEDICAID, SELFPAY ==
--- NOTE | ~2024-02-12 | FL_ITS ---
EXAMINATION: XR FLUOROSCOPY UPPER GI WITH AIR CLINICAL INFORMATION: Dysphagia, reflux COMPARISON: None TECHNIQUE: Fluoroscopic air contrast upper GI examination was performed utilizing standard techniques with thin and thick barium and effervescent granules. Numerous spot images were obtained. FINDINGS: Lateral cine images of the oropharynx and hypopharynx demonstrate normal swallow mechanism with normal epiglottic inversion and soft palate elevation. No tracheal penetration, glottic or subglottic aspiration identified. Mild nasopharyngeal reflux present. Hypopharyngeal structures appear normal without evidence of mass or diverticulum. There was no significant cricopharyngeal achalasia. Dual and single contrast images of the esophagus demonstrate normal caliber, contour, and mucosal pattern. No evidence of stricture, mass, or ulcerations identified. Esophageal peristalsis is mildly disorganized. A moderate-sized type I hiatal hernia is present. Gastroesophageal reflux seen up to the thoracic inlet. Dual contrast and single contrast images of the stomach demonstrated a normal contour. The gastric mucosal folds are severely thickened. There are multiple areas of contrast pooling in the body of the stomach that likely represent small superficial aphthous ulcers. Contrast freely passed into the gastric antrum and duodenal bulb without delay. Single and air-contrast images of the duodenal bulb demonstrate no abnormality. The duodenal sweep has a normal course, however mucosal folds appear thickened. No malrotation. The imaged proximal jejunum also demonstrates fold thickening suggestive of mild inflammation. FLUOROSCOPY TIME: 2 minutes 51 seconds Number of Spot Images: 7 Number of Cine: 11 DOSE AREA PRODUCT: 2241 uGy-m2 (microgray-meter squared) FL/FL barium swallow IMPRESSION: 1. Moderate-sized type I hiatal hernia. 2. Significant gastroesophageal reflux. 3. Mildly disorganized esophageal peristalsis. 4. Severely thickened gastric rugal folds. In addition there are multiple areas of contrast pooling throughout the stomach. These findings are suggestive of erosive gastritis. 5. Thickened folds of the duodenum and proximal jejunum suggesting proximal enteritis/duodenitis. Consider malabsorption syndromes as well. Recommend correlation with EGD. This procedure was performed by Estrada Leyva PA-C, and supervised by Dr. Olivo.
== END 2024-02-12 09:34 | disposition home or self-care (01) ==
LOC: HO.XRAY 09:33
PROVIDERS: PCP Student in an Organized Health Care Education/Training Program; Visit Provider Internal Medicine
DX: R10.9 Unspecified abdominal pain (principal)
CPT/HCPCS: 74220

== ENCOUNTER → 2024-02-12 09:35 | Outpatient (BNV) | payer OTHER, MEDICAID, SELFPAY | PROVIDERS: PCP Student in an Organized Health Care Education/Training Program; Visit Provider Physician Assistant Surgical | DX: R13.10 Dysphagia, unspecified (principal); K21.9 Gastro-esophageal reflux disease without esophagitis | CPT/HCPCS: 74246 ==

== ENCOUNTER 2024-02-26 10:57 | Outpatient (AMB) | payer OTHER, MEDICAID, SELFPAY ==
--- NOTE | 2024-02-26 10:59 | MHC.OFFVIS ---
Vital Signs 02/26/24 11:01 Height 5 ft 10 in Weight 207 lb 3.752 oz BMI 29.7 BP 109/73 Blood Pressure Location Lt brachial Position Sitting Pulse 81 Intake Visit Reasons: f/u BA swallow Intake Note: Se presents in the office as a follow up barium swallow. CC: Feels okay pantoprazole seems to be working. Sometimes if he eats certain foods he will have bad gas. Allergies No Known Allergies [No Known Allergies*] Allergy (Verified 02/26/24 11:01) HPI Comments Details: 58 y.o M with PMH of who is here for follow up. 12/13/23: Reports switched omeprazole to pantoprazole after EGD in 2019 - however over the past 2 years has had worsening of heartburn retrosternally with nausea and discomfort. Often has mild regurgitation in the morning. No vomiting. No change in appetite or unintentional weight loss. Notices symptoms postprandially. Last EGD 2019 with Barretts esophagus without dysplasia, gastritis, negative for H pylori. 02/26/24: Here for follow up after recent testing. Barium swallow consistent with reflux and gastritis with duodenitis. US RUQ without sludge/stones but with GB polyps/adenomyomatosis. Nexium did not make much difference so back on pantoprazole. Pt with persistent with postprandial bloating and discomfort but also taking motrin for L leg pain. [facility] Medical History History of seizure Hypertension Dyslipidemia Diabetes GERD (gastroesophageal reflux disease) COPD (chronic obstructive pulmonary disease) Environmental allergies Personal history of nicotine dependence History of COVID-19 Arthritis Chronic lower back pain Tubular adenoma of colon Surgical History History of colonoscopy History of umbilical hernia repair (~2021) History of esophagogastroduodenoscopy (EGD) Social History Alcohol intake: never Patient Tobacco Use Status: Former Tobacco user Second Hand Smoke Exposure: No service: No Current occupational status: employed Review of Systems Const All systems reviewed & are unremarkable except as noted in HPI and below Physical Exam Vital Signs: Last Vital Signs Pulse 81 02/26/24 11:01 BP 109/73 02/26/24 11:01 BMI result Body Mass Index 29.7 NAD Nonicteric abd soft nondistended no chayo Results Reviewed Results Reviewed: US RUQ 1. Mild hepatic steatosis. 2. Adenomyomatosis of the gallbladder. 3. The pancreas and mid abdominal aorta are obscured by bowel gas. Barium swallow 1. Moderate-sized type I hiatal hernia. 2. Significant gastroesophageal reflux. 3. Mildly disorganized esophageal peristalsis. 4. Severely thickened gastric rugal folds. In addition there are multiple areas of contrast pooling throughout the stomach. These findings are suggestive of erosive gastritis. 5. Thickened folds of the duodenum and proximal jejunum suggesting proximal enteritis/duodenitis. Consider malabsorption syndromes as well. Recommend correlation with EGD. Assessment & Plan Assessment & Plan (1) Abdominal pain: Code(s): R10.9 - Unspecified abdominal pain Category: Medical Qualifiers: Abdominal location: lower abdomen, unspecified Qualified Code(s): R10.30 - Lower abdominal pain, unspecified (2) GERD (gastroesophageal reflux disease): Code(s): K21.9 - Gastro-esophageal reflux disease without esophagitis Category: Medical (3) Gastritis and duodenitis: Code(s): K29.90 - Gastroduodenitis, unspecified, without bleeding Category: Medical (4) Adenomyomatosis of gallbladder: Code(s): D13.5 - Benign neoplasm of extrahepatic bile ducts Category: Medical (5) Personal history of colonic polyps: Code(s): Z86.010 - Personal history of colonic polyps Category: Medical Plan Reviewed with the pt that abd sx most likely from peptic disease as noted on barium study. EGD booked for luminal eval. In the meantime, recommend doubling up on PPI. GB polyps noted on US but difficult to ascertain if symptomatic as has a plausible alternative explanation for postprandial abd discomfort. Can follow up with surgery for further assessment, pt already est with Dr Wallis. Personal hx of polyps in 2020 - x2 TA. Not due for colo until [id number]. Plan: - Increase protonix to 20 mg BID - Avoid NSAIDs - Celecoxib 100 BID PRN Rxed instead - Gen surg follow up for ? indication of CCY - EGD booked for luminal eval Follow up after EGD Medications: New celecoxib 100 mg PO BID 14 days PRN 30 caps 0RF pain Changed From pantoprazole 20 mg PO DAILY 90 tabs 0RF To pantoprazole 20 mg PO BID 90 days 180 tabs 0RF Coding Level of Care Code Est Pt Level 4 (42270) Diagnoses Abdominal pain R10.30 Abdominal location: lower abdomen, unspecified GERD (gastroesophageal reflux disease) K21.9 Gastritis and duodenitis K29.90 Adenomyomatosis of gallbladder D13.5 Personal history of colonic polyps Z86.010
[2024-02-26 11:01] VITALS: BP 109/73; PULSE 81; BMI 29.7
== END 2024-02-26 11:22 | disposition home or self-care (01) ==
PROVIDERS: PCP Student in an Organized Health Care Education/Training Program; Visit Provider Internal Medicine
DX: R10.30 Lower abdominal pain, unspecified (principal); K21.9 Gastro-esophageal reflux disease without esophagitis; K29.90 Gastroduodenitis, unspecified, without bleeding; D13.5 Benign neoplasm of extrahepatic bile ducts; Z86.010 Personal history of colon polyps
CPT/HCPCS: 99214

== ENCOUNTER → 2024-02-26 10:57 | Outpatient (BNVA) | payer OTHER, SELFPAY | PROVIDERS: PCP Student in an Organized Health Care Education/Training Program; Visit Provider Internal Medicine ==

== ENCOUNTER 2024-02-26 14:40 | Outpatient (REF) | payer OTHER, SELFPAY ==
--- NOTE | ~2024-02-26 | XR_ITS ---
EXAMINATION: XR ANKLE, LEFT CLINICAL INFORMATION: Left ankle pain following a fall 5 days ago. Swelling. COMPARISON: None available. TECHNIQUE: AP, lateral, and mortise views of the left ankle. FINDINGS: No acute fracture or dislocation. The ankle mortise is maintained. No joint space narrowing or marginal osteophytes. No osseous erosion. Tiny plantar calcaneal spur. Small ankle joint effusion. Prominent circumferential subcutaneous edema. XR/XR ankle LT min 3V IMPRESSION: 1. Prominent circumferential subcutaneous edema without acute osseous abnormality. 2. Small ankle joint effusion. 3. Tiny plantar calcaneal spur.
== END 2024-02-26 14:41 | disposition home or self-care (01) ==
LOC: HO.HHCX 14:40
PROVIDERS: Visit Provider Family Medicine
DX: M25.572 Pain in left ankle and joints of left foot (principal); G89.11 Acute pain due to trauma; R22.42 Localized swelling, mass and lump, left lower limb
CPT/HCPCS: 73610

== ENCOUNTER 2024-02-26 15:27 | Outpatient (REF) | payer OTHER, SELFPAY ==
--- NOTE | ~2024-02-26 | US_ITS ---
EXAMINATION: US VENOUS ULTRASOUND WITH DOPPLER LOWER EXTREMITY, LEFT CLINICAL INFORMATION: Swelling in the calf COMPARISON: None available. TECHNIQUE: Ultrasound of the deep veins is performed from the hip to the calf with compression sonography and color and pulse Doppler assessment. Spectral analysis with color-flow imaging is performed. FINDINGS: There is normal venous compression and respiratory variation and augmented flow. The visualized common femoral vein, superficial femoral vein, profunda femoral vein, popliteal vein, and the trifurcation region shows no evidence of deep venous thrombosis. There is no significant popliteal fossa cyst. If the patient's symptoms persist, followup ultrasound in 5 days 7 days might be of value to exclude proximal propagation from a non-visualized calf vein. US/US venous duplex LE LT IMPRESSION: No DVT demonstrated in the left lower extremity.
== END 2024-02-26 15:28 | disposition home or self-care (01) ==
LOC: HO.US 15:27
PROVIDERS: Visit Provider Family Medicine
DX: M79.89 Other specified soft tissue disorders (principal)
CPT/HCPCS: 93971

== ENCOUNTER 2024-02-29 14:40 | Emergency (ER) | payer OTHER, MEDICAID, SELFPAY ==
--- NOTE | ~2024-02-29 | XR_ITS ---
EXAMINATION: XR TIBIA AND FIBULA, LEFT CLINICAL INFORMATION: Pain. Fall one week ago. COMPARISON: Left ankle x-ray 02/26/2024 TECHNIQUE: AP and lateral views of the left tibia and fibula were obtained. FINDINGS: Bone alignment is normal. No fracture or dislocation. Mild medial femoral tibial joint space narrowing. Normal ankle joint. Small plantar calcaneal spur. Soft tissues are normal. XR/XR tibia fibula LT 2V IMPRESSION: No fracture or dislocation.
--- NOTE | 2024-02-29 14:41 | ED.LOWEXIN ---
HPI - Extremity Injury (Lower) General Chief Complaint: Extremity Injury, Lower Stated Complaint: L leg pain fall 1 wk ago Time Seen by Provider: 02/29/24 15:39 Source: patient, RN notes reviewed and old records reviewed Mode of arrival: ambulatory Limitations: no limitations History of Present Illness HPI Narrative: 58-year-old male with history of COPD, GERD, gastritis, duodenitis presents to the ER for evaluation of left posterior leg pain and calf pain for the last 1 week after he fell. States he was seen here 3 days ago, had x-rays and ultrasounds done that were unremarkable. He states he has ongoing calf pain and bruising on the medial side of his ankle. He reports pain when he ambulates in the back of his leg. Reports intermittent leg swelling, none at this time. He denies any chest pain or shortness of breath. He denies any other injuries. He had no pain in the leg prior to the fall. MD complaint: leg injury Onset (ago): week(s) (1) Type of Injury: eversion Place: home Severity: moderate Relieving factors: immobilization and rest Exacerbating factors: weight bearing, movement and palpation Context: fall Associated symptoms: swelling and ambulatory Other symptoms: none Related Data Home Medications ?Medication ?Instructions ?Recorded ?Confirmed albuterol sulfate 90 mcg/actuation 2 puff inhalation Q4-6H PRN 09/19/20 08/03/22 aerosol inhaler (ProAir HFA) Wheezing aspirin 81 mg tablet,delayed 81 mg PO DAILY 09/19/20 08/03/22 release atorvastatin 40 mg tablet 1 tab PO DAILY 09/19/20 08/03/22 budesonide-formoterol HFA 80 2 puff inhalation BID 09/19/20 08/03/22 mcg-4.5 mcg/actuation aerosol inhaler (Symbicort) lisinopril 20 mg tablet 20 mg PO DAILY 09/19/20 08/03/22 blood sugar diagnostic (YingStyle #10 ea 05/04/22 08/03/22 Lite Strips) metformin 1,000 mg tablet 1,000 mg PO BID 05/04/22 08/03/22 sildenafil 50 mg tablet (Viagra) 50 mg PO DAILY PRN Erectile 05/04/22 08/03/22 Dysfunction cholecalciferol (vitamin D3) 25 25 mcg PO QAM 12/13/23 mcg (1,000 unit) tablet hydrochlorothiazide 12.5 mg tablet 12.5 mg PO DAILY 02/26/24 Previous Rx's ?Medication ?Instructions ?Recorded ipratropium bromide 17 2 puff inhalation QID 30 days 06/25/23 mcg/actuation HFA aerosol inhaler #12.9 grams ipratropium bromide 42 mcg (0.06 2 spray intranasal TID-QID PRN 07/12/23 %) nasal spray allergy symptoms 30 days #15 mL celecoxib 100 mg capsule 100 mg PO BID PRN pain 14 days #30 02/26/24 caps pantoprazole 20 mg tablet,delayed 20 mg PO BID 90 days #180 tabs 02/26/24 release Allergies Allergy/AdvReac Type Severity Reaction Status Date / Time No Known Allergies Allergy Verified 02/29/24 14:44 [No Known Allergies*] Review of Systems Review of Systems: Yes all other systems are reviewed and are negative PMFSH Past Medical History Medical History History of seizure Hypertension Dyslipidemia Diabetes GERD (gastroesophageal reflux disease) COPD (chronic obstructive pulmonary disease) Environmental allergies Personal history of nicotine dependence History of COVID-19 Arthritis Chronic lower back pain Tubular adenoma of colon Surgical History History of colonoscopy History of umbilical hernia repair (~2021) History of esophagogastroduodenoscopy (EGD) Social History Social History Alcohol intake: never Patient Tobacco Use Status: Former Tobacco user Second Hand Smoke Exposure: No Advance Directives: No Advance Directives Information Provided: No service: No Current occupational status: employed Physical Exam Vital Signs: Vital Signs: Last Vital Signs Temp 98 F 02/29/24 14:42 Pulse 98 02/29/24 14:42 Resp 17 02/29/24 14:42 BP 151/84 H 02/29/24 14:42 Pulse Ox 98 02/29/24 14:42 O2 Del Method Room Air 02/29/24 14:42 BMI result Body Mass Index 28.7 Appearance: Alert. Oriented X3. No acute distress. HEENT: normal inspection CVS: Normal heart rate and rhythm. Pulses normal. Respiratory: No respiratory distress. Skin: Skin warm and dry. Normal skin color. Normal skin turgor. No rashes. Extremities: Left lower leg with mild swelling and tenderness of the calf, nonpitting edema of the lower leg. medial ankle with dependent ecchymosis, mild edema. Pain with plantar flexion and dorsiflexion. Negative Deluna test. Neurovascularly intact with 2+ DP pulses. Neuro: Oriented X 3. No motor deficit. No sensory deficit. Course Course Course Narrative: This is an RME performed by Pito Hurst CNP: Additional HPI, ROS, PE not included below will be deferred to primary provider. Patient is a 58-year-old male who presents emergency department for evaluation of traumatic left leg pain. He reports a fall 1 week ago. He was seen at the walk-in clinic, had an x-ray of his ankle and an ultrasound of the leg. However he reports continued pain to the proximal posterior calf it is made worse when ambulating. Physical exam; calf tenderness upon palpation, ecchymosis and swelling to the lateral medial malleolus. 2+ DP/PT pulse bilaterally. No respiratory distress. LSCTA Plan: XR tib fib Medical Decision Making Medical Decision Making MDM Narrative: 58-year-old male presents the ER for evaluation of left lower leg pain after a fall 1 week ago. He was seen here on February 25, had ankle x-rays and lower extremity ultrasounds that were negative for any acute findings. He states he has had ongoing calf pain with intermittent swelling. No chest pain or shortness of breath. Low clinical suspicion for acute DVT at this time. Pain is most likely muscular in nature. Given his ultrasound was just 3 days ago, there is no need to repeat it today. If he has ongoing pain and swelling at the 7 day erik this could be considered as an outpatient. calf and lower leg were compressed and an Aldair wrap for compression and support. We discussed symptomatic management with rest, ice, compression, elevation. Encouraged follow-up with his primary care doctor and we discussed return precautions that should prompt him to come back to the ER for emergent treatment and reassessment. Stable for discharge home. Patient agrees with plan. Differential Diagnosis Differential Diagnoses: The differential diagnosis associated with the presentation includes Partial gastroc tear, muscle strain, muscle spasm, DVT, tibial plateau fracture, ankle sprain Independent Interpretation I performed an independent interpretation of an: Plain X-Ray Interpretation: No acute fracture appreciated, agree radiology read Radiology Impression Discussion of test interpretation with radiology: I have reviewed the radiologist's reading. Radiologist Impression: EXAMINATION: XR TIBIA AND FIBULA, LEFT CLINICAL INFORMATION: Pain. Fall one week ago. COMPARISON: Left ankle x-ray 02/26/2024 TECHNIQUE: AP and lateral views of the left tibia and fibula were obtained. FINDINGS: Bone alignment is normal. No fracture or dislocation. Mild medial femoral tibial joint space narrowing. Normal ankle joint. Small plantar calcaneal spur. Soft tissues are normal. XR/XR tibia fibula LT 2V IMPRESSION: No fracture or dislocation. Independent Historian Clinical information obtained from an independent historian. History obtained from or confirmed by: Spouse External Record Review External record reviewed: Outpatient record, Prior outpatient labs and Prior outpatient radiology Tests considered The following testing was considered but not selected: repeat ultrasound considered however not repeated today as the last venous duplex was done just 3 days ago Prescription Management I considered prescription management with: Pain Medication Critical Care Time Critical Care Time Critical Care Time: No Discharge Plan Discharge Clinical Impression: Strain of left calf muscle Patient Disposition: Home, Self-Care Instructions: Muscle Strain (DC) Additional Instructions: Your pain is most likely due to muscle strain and spasm. Your x-ray was normal and your recent ultrasound did not show any evidence of blood clot. Wear the Aldair wrap for compression and elevate your leg when possible. Use ice several times per day for 20 minutes at a time several times per day. Take medications as prescribed to help with pain and discomfort. Follow up with your Primary Care Doctor If you develop new or worsening symptoms call 911 or come back to the ER for further evaluation - If you have ongoing pain in the calf, there may be an indication to repeat the ultrasound Prescriptions: No Action ipratropium bromide 17 mcg/actuation HFA aerosol inhaler 2 puff inhalation QID 30 Days Qty: 12.9 3RF atorvastatin 40 mg tablet 1 tab PO DAILY lisinopril 20 mg tablet 20 mg PO DAILY aspirin 81 mg tablet,delayed release (DR/EC) 81 mg PO DAILY albuterol sulfate [ProAir HFA] 90 mcg/actuation Hfa Aerosol Inhaler 2 puff INHALATION Q4-6H PRN (Reason: Wheezing) budesonide-formoterol [Symbicort] 80-4.5 mcg/actuation HFA aerosol inhaler 2 puff inhalation BID sildenafil [Viagra] 50 mg tablet 50 mg PO DAILY PRN (Reason: Erectile Dysfunction) metformin 1,000 mg tablet 1,000 mg PO BID (DME) FreeStyle Lite Strips Strip See Rx Instructions Not Applicable DAILY Qty: 10 Rx Instructions: As directed ipratropium bromide 42 mcg (0.06 %) spray,non-aerosol 2 spray intranasal TID-QID PRN (Reason: allergy symptoms) 30 Days Qty: 15 6RF Rx Instructions: administer into each nostril cholecalciferol (vitamin D3) 25 mcg (1,000 unit) tablet 25 mcg PO QAM hydrochlorothiazide 12.5 mg tablet 12.5 mg PO DAILY pantoprazole 20 mg tablet,delayed release (DR/EC) 20 mg PO BID 90 Days Qty: 180 0RF celecoxib 100 mg capsule 100 mg PO BID PRN (Reason: pain) 14 Days Qty: 30 0RF Referrals: Yoanna Cuevas MD [Primary Care Provider] - Print Language: [place]
[2024-02-29 14:42] VITALS: BP 151/84; PULSE 98; RESP 17; TEMP 36.6; O2SAT 98; BMI 28.7
[2024-02-29 17:15] VITALS: BP 133/89; PULSE 80; RESP 18; TEMP 36.1; O2SAT 98
== END 2024-02-29 17:17 | disposition home or self-care (01) ==
PROVIDERS: Emergency Provider Emergency Medicine; PCP Student in an Organized Health Care Education/Training Program
DX: S86.812A Strain of other muscle(s) and tendon(s) at lower leg level, left leg, initial encounter (principal); M79.662 Pain in left lower leg; R60.0 Localized edema; W19.XXXA Unspecified fall, initial encounter; Y93.9 Activity, unspecified; Y92.9 Unspecified place or not applicable; Y99.9 Unspecified external cause status; E11.9 Type 2 diabetes mellitus without complications; I10 Essential (primary) hypertension; E78.5 Hyperlipidemia, unspecified; J44.9 Chronic obstructive pulmonary disease, unspecified; K21.9 Gastro-esophageal reflux disease without esophagitis
CPT/HCPCS: 73590; 99282; 99283

== ENCOUNTER 2024-03-10 08:30 | Outpatient (AMB) | payer OTHER, MEDICAID, SELFPAY ==
--- NOTE | 2024-03-10 08:39 | MHC.OFFVIS ---
Vital Signs 03/10/24 08:49 Height 5 ft 10 in Weight 202 lb BMI 29.0 BP 136/83 Blood Pressure Location Lt brachial Position Sitting Pulse 97 Intake Visit Reasons: abd pain, gallbladder polyps Intake Note: Patient is seen in office for abdominal pain, following gallbladder polyps. 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 Patient has a history of gastroesophageal reflux, COPD, hypertension and diabetes. A recent ultrasound of the abdomen revealed several echogenic foci along the gallbladder wall, at least 1 with ring down artifact consistent with adenomyomatosis there was no tenderness with palpation of the gallbladder during the ultrasound and no stone, sludge, wall thickening, or pericholecystic fluid. He currently denies any abdominal pain and denies any typical gallbladder symptoms. [facility] Medical History History of seizure Hypertension Dyslipidemia Diabetes GERD (gastroesophageal reflux disease) COPD (chronic obstructive pulmonary disease) Environmental allergies Personal history of nicotine dependence History of COVID-19 Arthritis Chronic lower back pain Tubular adenoma of colon Surgical History History of colonoscopy History of umbilical hernia repair (~2021) History of esophagogastroduodenoscopy (EGD) Social History Alcohol intake: never Patient Tobacco Use Status: Former Tobacco user Second Hand Smoke Exposure: No service: No Current occupational status: employed Review of Systems Const All systems reviewed & are unremarkable except as noted in HPI and below Denies chills, Denies fever(s), Denies headache(s), Denies poor appetite and Denies weakness ENT Denies headache(s) Card Denies chest pain, Denies irregular heart rhythm, Denies palpitations and Denies dyspnea Resp Denies cough, Denies excessive phlegm production and Denies dyspnea GI Denies abdominal pain, Denies bloating, Denies change in bowel habits, Denies constipation, Denies heartburn, Denies diarrhea, Denies nausea and Denies vomiting Denies difficulty urinating and Denies urinary frequency Musc Denies back pain, Denies muscle weakness and Denies numbness Skin/Breast Denies changing lesions and Denies unusual bruising Neuro Denies headache(s), Denies numbness, Denies paresthesias and Denies weakness Psych Denies anxiety and Denies depression Endo Denies palpitations Ender/Lymph Denies lymphadenopathy Physical Exam Const General: cooperative and no acute distress Nutritional Appearance: well nourished Orientation/consciousness: patient oriented x3 Limitations: no limitations HEENT Head: Yes normocephalic and Yes atraumatic Ears: hearing grossly normal bilaterally Resp Effort & Inspection: normal respiratory effort, no audible wheezes, no cough and no respiratory distress Cardio Jugular venous distension: no JVD GI Other: Negative Rivas sign Inspection: Yes normal to inspection Palpation (GI): Soft to palpation, nontender, no guarding and not rigid Skin Other: Warm, dry, no rash Neuro General: patient oriented x3 Extrem General: Yes no clubbing, cyanosis or edema Assessment & Plan Assessment & Plan (1) Adenomyomatosis of gallbladder: Code(s): D13.5 - Benign neoplasm of extrahepatic bile ducts Category: Medical Plan 59-year-old male patient presenting with complaints of reflux symptoms found on workup by ultrasound to have several echogenic foci along the gallbladder wall with ring down artifact consistent with adenomyomatosis. No other stones, sludge or polyps were identified. The gallbladder was nontender to palpation. Currently the patient has no symptoms in the abdomen and is feeling much improved. I reviewed the ultrasound findings in detail with the patient which are consistent with adenomyomatosis. No surgical intervention is required at this time as he is asymptomatic. Should his symptoms change he is welcome to return for follow-up examination. Coding Level of Care Code Est Pt Level 3 (18674) Diagnoses Adenomyomatosis of gallbladder D13.5
[2024-03-10 08:49] VITALS: BP 136/83; PULSE 97; BMI 29.0
== END 2024-03-10 08:55 | disposition home or self-care (01) ==
PROVIDERS: PCP Student in an Organized Health Care Education/Training Program; Referring Provider Internal Medicine; Visit Provider Surgery
DX: D13.5 Benign neoplasm of extrahepatic bile ducts (principal)
CPT/HCPCS: 99213

== ENCOUNTER → 2024-03-10 08:30 | Outpatient (BNVA) | payer OTHER, MEDICAID, SELFPAY | PROVIDERS: PCP Student in an Organized Health Care Education/Training Program; Referring Provider Internal Medicine; Visit Provider Surgery ==

== ENCOUNTER 2024-05-22 14:52 | Outpatient (AMB) | payer OTHER, SELFPAY ==
[2024-05-22 15:03] VITALS: BP 134/64; PULSE 84; O2SAT 96; BMI 29.9
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
== END 2024-05-22 15:18 | disposition home or self-care (01) ==
PROVIDERS: PCP Student in an Organized Health Care Education/Training Program; Visit Provider Internal Medicine Pulmonary Disease
DX: J44.9 Chronic obstructive pulmonary disease, unspecified (principal); Z87.891 Personal history of nicotine dependence
CPT/HCPCS: 99214

== ENCOUNTER → 2024-05-22 14:52 | Outpatient (BNVA) | payer OTHER, SELFPAY | PROVIDERS: PCP Student in an Organized Health Care Education/Training Program; Visit Provider Internal Medicine Pulmonary Disease ==

== ENCOUNTER 2024-06-16 06:09 | Day surgery (SDC) | payer OTHER, SELFPAY ==
--- NOTE | 2024-06-15 13:32 | HO.ANESPROP2 ---
Documented by User: Maureen Moran NP 06/15/24 13:33 HPI - Anesthesia Eval Consult details Narrative: 59yo M for Upper Endoscopy [facility] Active Problems Active Problems: All Active Problems Personal history of colonic polyps (Acute) Adenomyomatosis of gallbladder (Acute) Gastritis and duodenitis (Acute) GERD (gastroesophageal reflux disease) (Acute) Hemoptysis (Acute) COPD (chronic obstructive pulmonary disease) (Acute) Personal history of nicotine dependence (Acute) Environmental allergies (Acute) Past Medical History Medical History History of seizure Hypertension Dyslipidemia Diabetes GERD (gastroesophageal reflux disease) COPD (chronic obstructive pulmonary disease) Environmental allergies Personal history of nicotine dependence History of COVID-19 Arthritis Chronic lower back pain Tubular adenoma of colon Family History Family history of problems with anesthesia: No Surgical History Surgical History History of colonoscopy History of umbilical hernia repair (~2021) History of esophagogastroduodenoscopy (EGD) History of Problems with Anesthesia: No Social History Social History Alcohol intake: never Patient Tobacco Use Status: Former Tobacco user Second Hand Smoke Exposure: No Use of substances other than those prescribed or required for medical reasons: No Are you DNR?: No Advance Directives: No Advance Directives Information Provided: Yes service: No Current occupational status: employed Meds Allergies Allergy/AdvReac Type Severity Reaction Status Date / Time No Known Allergies Allergy Verified 06/16/24 06:48 [No Known Allergies*] Home Medications ?Medication ?Instructions ?Recorded ?Confirmed ?Last Taken ?Type albuterol sulfate 90 mcg/actuation 2 puff inhalation Q4-6H PRN 09/19/20 06/16/24 06/15/24 History aerosol inhaler (ProAir HFA) Wheezing aspirin 81 mg tablet,delayed 81 mg PO DAILY 09/19/20 06/16/24 06/15/24 History release atorvastatin 40 mg tablet 1 tab PO DAILY 09/19/20 06/16/24 06/15/24 History budesonide-formoterol HFA 80 2 puff inhalation BID 09/19/20 08/03/22 Unknown History mcg-4.5 mcg/actuation aerosol inhaler (Symbicort) lisinopril 20 mg tablet 20 mg PO DAILY 09/19/20 06/16/24 06/15/24 History blood sugar diagnostic (FreeStyle #10 ea 05/04/22 08/03/22 Unknown History Lite Strips) metformin 1,000 mg tablet 1,000 mg PO BID 05/04/22 06/16/24 06/15/24 History cholecalciferol (vitamin D3) 25 25 mcg PO QAM 12/13/23 06/16/24 06/15/24 History mcg (1,000 unit) tablet hydrochlorothiazide 12.5 mg tablet 12.5 mg PO DAILY 02/26/24 06/16/24 06/15/24 History Exam Pertinent Lab Results Pertinent Lab Results: Laboratory Tests 12/14/23 02/08/24 07:53 07:12 WBC 7.2 Hgb 14.6 Hct 44.6 Plt Count 239 Sodium 144 Potassium 4.4 Chloride 103 Carbon Dioxide 31 H BUN 14 Creatinine 1.00 Narrative Narrative: EKG 10/2023 Vent. Rate : 092 BPM Atrial Rate : 092 BPM P-R Int : 164 ms QRS Dur : 090 ms QT Int : 338 ms P-R-T Axes : 006 029 032 degrees QTc Int : 417 ms Normal sinus rhythm Normal ECG When compared with ECG of 30-MAR-2022 05:18, No significant change was found Assessment and Plan Assessment Anesthesia Assessment: Chart Reviewed Final Anesthetic Review Family History of Problems with Anesthesia: No History of Problems with Anesthesia: No Documented by User: Jeaneth Bragg MD 06/16/24 07:13 [facility] Past Medical History Medical History History of seizure Hypertension Dyslipidemia Diabetes GERD (gastroesophageal reflux disease) COPD (chronic obstructive pulmonary disease) Environmental allergies Personal history of nicotine dependence History of COVID-19 Arthritis Chronic lower back pain Tubular adenoma of colon Surgical History Surgical History History of colonoscopy History of umbilical hernia repair (~2021) History of esophagogastroduodenoscopy (EGD) Social History Social History Alcohol intake: never Patient Tobacco Use Status: Former Tobacco user Second Hand Smoke Exposure: No Use of substances other than those prescribed or required for medical reasons: No Are you DNR?: No Advance Directives: No Advance Directives Information Provided: Yes service: No Current occupational status: employed Meds Allergies Allergy/AdvReac Type Severity Reaction Status Date / Time No Known Allergies Allergy Verified 06/16/24 06:48 [No Known Allergies*] Home Medications ?Medication ?Instructions ?Recorded ?Confirmed ?Last Taken ?Type albuterol sulfate 90 mcg/actuation 2 puff inhalation Q4-6H PRN 09/19/20 06/16/24 06/15/24 History aerosol inhaler (ProAir HFA) Wheezing aspirin 81 mg tablet,delayed 81 mg PO DAILY 09/19/20 06/16/24 06/15/24 History release atorvastatin 40 mg tablet 1 tab PO DAILY 09/19/20 06/16/24 06/15/24 History budesonide-formoterol HFA 80 2 puff inhalation BID 09/19/20 08/03/22 Unknown History mcg-4.5 mcg/actuation aerosol inhaler (Symbicort) lisinopril 20 mg tablet 20 mg PO DAILY 09/19/20 06/16/24 06/15/24 History blood sugar diagnostic (FreeStyle #10 ea 05/04/22 08/03/22 Unknown History Lite Strips) metformin 1,000 mg tablet 1,000 mg PO BID 05/04/22 06/16/24 06/15/24 History cholecalciferol (vitamin D3) 25 25 mcg PO QAM 12/13/23 06/16/24 06/15/24 History mcg (1,000 unit) tablet hydrochlorothiazide 12.5 mg tablet 12.5 mg PO DAILY 02/26/24 06/16/24 06/15/24 History Exam Airway Mallampati Class: III TM Dist: >3cm Neck ROM: Full Loose/Missing/Broken Teeth: Lower Assessment and Plan Assessment Anesthesia Assessment: Anesthesia Plan Discussed Final Anesthetic Review NPO: Yes ASA Class: III Final Preanesthetic Review: No Changes in Pt Med Stat, Meds/Allgs Chart Reviewed, Consent Obtained/Reviewed and Anes Risks/Benef Reviewed Patient Risk: Intermediate Procedure Risk: Low Anesthetic Plan Anesthetic Plan: TIVA Disposition: Standard PACU
[2024-06-16 06:38] VITALS: BMI 29.7
[2024-06-16 07:23] VITALS: BP 142/86; PULSE 77; RESP 16; TEMP 36.1; O2SAT 99
[2024-06-16] MEDS: Lactated Ringers 1,000 ML 100 ML IVCONT (07:24)
[2024-06-16 07:25] LABS: Glucose, Whole Blood 113 mg/dL (60-115)
--- NOTE | 2024-06-16 07:49 | MHC.SHP ---
Pre-Procedural Eval Section A - 24 Hr Update-Section A only Date of Service: 06/16/24 Section B - Complete if H&P > 30 days Chief Complaint: Gastro-esophageal reflux disease without esophagit Details of Present Illness: History of seizure Hypertension Dyslipidemia Diabetes GERD (gastroesophageal reflux disease) COPD (chronic obstructive pulmonary disease) Environmental allergies Personal history of nicotine dependence History of COVID-19 Arthritis Chronic lower back pain Tubular adenoma of colon Surgical History History of colonoscopy History of umbilical hernia repair (~2021) History of esophagogastroduodenoscopy (EGD) Present Medications: see Short Stay Collaborative assessment Allergies: Allergies Allergy/AdvReac Type Severity Reaction Status Date / Time No Known Allergies Allergy Verified 05/22/24 15:06 [No Known Allergies*] Review of Systems Review of Systems Comment: Ten point ROS negative Exam Exam Comment: Gen appear: No acute distress HEENT: no icterus Chest: No overt resp distress Abd: soft, nontender, nondistended Psych: Stable affect, answering questions appropriately Neuro: A/Ox3 noted to move all extremities spontaneously Ext: no peripheral edema Plan Diagnosis/Plan: Unchanged I have reviewed the history and physical and performed a pertinent physical examination on my patient. No changes have occurred unless specified. Time Spent With Patient Time: Total time managing care of this patient today ____ minutes.
--- NOTE | 2024-06-16 08:11 | P.OP_ITS ---
Operative Note Operative Note Date of Service: 06/16/24 Narrative: Procedure: Esophagogastroduodenoscopy Endoscopist: Christy Wu MD Indication: Abd pain, dysphagia Anesthesia Provider: Rupinder Snyder CRNA Anesthesia Type: MAC ?? EGD Procedure:?? The procedure, indications, preparation and potential complications were reviewed with the patient, who indicated understanding and gave written informed consent to proceed. A physical exam was performed. The endoscope was introduced through the mouth, and advanced to the second part of duodenum. The mucosa was carefully examined on slow withdrawal of the endoscope. The patient tolerated the procedure well. There were no immediate complications.? ? EGD Findings:? * Esophagus:? A small localized patch of heterotopic gastric mucosa was noted in the upper esophagus. The Z line was at 36 cm. There was a large hiatal hernia with the diaphragmatic hiatus at 43 cm. There was a tongue of salmon-colored mucosa extending up to 34 cm. Cold forceps biopsies were taken from 34 cm and 35 cm to evaluate for Keith's esophagus. Tissue side for form was also filled out, and will be sent if Barretts ruled in. * Stomach:? Erythema and linear erosions noted in the hiatal hernia consistent with Trip erosions. Retroflexion in the cardia showed Hill grade 4 hiatal hernia. Random cold forceps gastric biopsies were taken to rule out H Pylori infection. * Duodenum:? Normal mucosa was noted in the whole of the examined duodenum. Cold forceps biopsies were taken from duodenal bulb and second portion of the duodenum to rule out celiac sprue. Additional intervention: A soft tip Savary wire was passed through the biopsy channel of the gastroscope and then advanced to the antrum. The scope was then backed out. A 19 mm Savary dilator was passed over the wire and the esophagus was dilated. There was no resistance. On relook, there was no tear or heme noted at the esophagus from dilation. ? EGD Impressions:? * Inlet patch * Ke[place] colored mucosa suspicious for BE (biopsy, tissue cypher) * Hiatal hernia * Trip erosions * Normal duodenum (biopsy) ?? Recommendations:?? * Follow biopsy results. Our office will call or send a letter with results within 7-10 days. * Cont PPI therapy, since he was noted to have erosions despite pantoprazole, will switch to esomeprazole 20 BID * If H pylori +, patient will be prescribed eradication therapy followed by test of cure. * Avoid NSAIDs. * Will review surgical referral for HH with the pt in the office Above has been reviewed with the patient.
[2024-06-16 08:23] VITALS: BP 116/83; PULSE 100; RESP 16; TEMP 36.2; O2SAT 96
[2024-06-16 08:38] VITALS: BP 137/93; PULSE 83; RESP 16; TEMP 36.3; O2SAT 97
== END 2024-06-16 09:28 | disposition home or self-care (01) ==
PROVIDERS: PCP Student in an Organized Health Care Education/Training Program; Visit Provider Internal Medicine
PROC: 0DJ08ZZ Inspection of Upper Intestinal Tract, Via Natural or Artificial Opening Endoscopic (ICD-10-PCS; CPT 43235; principal; 2024-06-16 07:40)
DX: K25.4 Chronic or unspecified gastric ulcer with hemorrhage (principal); K44.9 Diaphragmatic hernia without obstruction or gangrene; K21.9 Gastro-esophageal reflux disease without esophagitis; K29.90 Gastroduodenitis, unspecified, without bleeding; D13.5 Benign neoplasm of extrahepatic bile ducts; Q39.8 Other congenital malformations of esophagus; I10 Essential (primary) hypertension; E78.5 Hyperlipidemia, unspecified; E11.9 Type 2 diabetes mellitus without complications; J30.2 Other seasonal allergic rhinitis; J44.9 Chronic obstructive pulmonary disease, unspecified; G89.29 Other chronic pain; M54.50 Low back pain, unspecified; Z79.82 Long term (current) use of aspirin; Z79.51 Long term (current) use of inhaled steroids; Z79.84 Long term (current) use of oral hypoglycemic drugs; Z79.899 Other long term (current) drug therapy; Z87.891 Personal history of nicotine dependence
CPT/HCPCS: 43248; 43239; 82947; 88305; 88313; 88342; C1769; J1596; J2704

== ENCOUNTER → 2024-06-16 06:09 | Outpatient (BNV) | payer OTHER, SELFPAY | PROVIDERS: PCP Student in an Organized Health Care Education/Training Program; Visit Provider Internal Medicine | DX: R10.9 Unspecified abdominal pain (principal); R13.10 Dysphagia, unspecified; K25.4 Chronic or unspecified gastric ulcer with hemorrhage | CPT/HCPCS: 43239; 43248 ==

== ENCOUNTER 2024-08-17 10:55 | Outpatient (AMB) | payer OTHER, SELFPAY ==
--- NOTE | 2024-08-17 10:58 | MHC.OFFVIS ---
Vital Signs 08/17/24 11:03 Height 5 ft 10 in Weight 200 lb BMI 28.7 BP 110/62 Blood Pressure Location Lt brachial Position Sitting Pulse 100 Intake Visit Reasons: f/u egd Intake Note: Patient follow up for abdominal pain and EGD results. Patient cc: abdominal pain, acid reflex, and loose stool. 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 12/13/23: Reports switched omeprazole to pantoprazole after EGD in 2019 - however over the past 2 years has had worsening of heartburn retrosternally with nausea and discomfort. Often has mild regurgitation in the morning. No vomiting. No change in appetite or unintentional weight loss. Notices symptoms postprandially. Last EGD 2019 with Barretts esophagus without dysplasia, gastritis, negative for H pylori. 02/26/24: Here for follow up after recent testing. Barium swallow consistent with reflux and gastritis with duodenitis. US RUQ without sludge/stones but with GB polyps/adenomyomatosis. Nexium did not make much difference so back on pantoprazole. Pt with persistent with postprandial bloating and discomfort but also taking motrin for L leg pain. 06/16/24: EGD Inlet patch [place] colored mucosa suspicious for BE (biopsy, tissue cypher) Hiatal hernia Trip erosions Normal duodenum (biopsy) A. Duodenum, biopsy: Duodenal mucosa within normal limits; preserved villous architecture and no increased intraepithelial lymphocytes seen. B. Stomach, random, biopsy: Gastric antral and body mucosa within normal limits; negative for Helicobacter pylori, intestinal metaplasia and dysplasia. C. Esophagus, 34 cm, biopsy: Squamocolumnar junctional mucosa with mild chronic inflammation and intestinal metaplasia consistent with Keith's esophagus; negative for dysplasia (see comment). D. Esophagus, 35 cm, biopsy: Gastric cardia-type mucosa with mild chronic inflammation; no squamous mucosa seen; negative for intestinal metaplasia and dysplasia. COMMENT (C): These findings are consistent with Keith's esophagus if the biopsies were taken above the anatomic gastroesophageal junction. Clinical and endoscopic correlation is advised. 08/17/24: Here for post EGD follow up. Issues with insurance of PPI coverage - eventually omeprazole 20 BID covered so on that now. Reports resolution of abd pain and nausea. Results of EGD reveiwed with the pt. [facility] Medical History (Updated 08/17/24 @ 11:48 by Christy Wu MD) History of seizure Hypertension Dyslipidemia Diabetes GERD (gastroesophageal reflux disease) COPD (chronic obstructive pulmonary disease) Environmental allergies Personal history of nicotine dependence History of COVID-19 Arthritis Chronic lower back pain Tubular adenoma of colon Surgical History (Updated 08/17/24 @ 08:27 by Yoanna Bryant) History of colonoscopy History of umbilical hernia repair (~2021) History of esophagogastroduodenoscopy (EGD) Social History Alcohol intake: never Patient Tobacco Use Status: Former Tobacco user Second Hand Smoke Exposure: No service: No Current occupational status: employed Review of Systems Const All systems reviewed & are unremarkable except as noted in HPI and below Physical Exam Vital Signs: Last Vital Signs Pulse 100 08/17/24 11:03 BP 110/62 08/17/24 11:03 BMI result Body Mass Index 28.7 No apparent distress Nonicteric Abdomen soft, nondistended Alert and oriented x3, normal gait Assessment & Plan Assessment & Plan (1) GERD (gastroesophageal reflux disease): Code(s): K21.9 - Gastro-esophageal reflux disease without esophagitis Category: Medical (2) Personal history of colonic polyps: Code(s): Z86.010 - Personal history of colon polyps Category: Medical (3) Barretts esophagus: Code(s): K22.70 - Keith's esophagus without dysplasia Category: Medical (4) Hiatal hernia: Code(s): K44.9 - Diaphragmatic hernia without obstruction or gangrene Category: Medical Plan EGD findings discussed with the pt. Reviewed that the large HH noted on EGD is likely contributing to significant reflux with trip erosions and nondysplastic BE. This is despite longstanding PPI therapy. Would recommend consultation with foregut surgeon to review surgical anti reflux options. In the meantime, he is to cont omeprazole TWICE A DAY as had poor symptom and endoscopic control on once daily dosing. [place] for polyp surveillance due [id number]. Follow up 1 year. Orders: Referrals Bariatric Surgery Referral K22.70 - Keith's esophagus without dysplasia, K44.9 - Diaphragmatic hernia without obstruction or gangrene Medications: Refilled omeprazole 20 mg PO BID 180 caps 1RF 90 days K21.9 - Gastro-esophageal reflux disease without esophagitis, K29.90 - Gastroduodenitis, unspecified, without bleeding Coding Level of Care Code Est Pt Level 4 (78397) Diagnoses GERD (gastroesophageal reflux disease) K21.9 Personal history of colonic polyps Z86.010 Barretts esophagus K22.70 Hiatal hernia K44.9
[2024-08-17 11:03] VITALS: BP 110/62; PULSE 100; BMI 28.7
== END 2024-08-17 11:53 | disposition home or self-care (01) ==
PROVIDERS: PCP Student in an Organized Health Care Education/Training Program; Visit Provider Internal Medicine
DX: K21.9 Gastro-esophageal reflux disease without esophagitis (principal); Z86.0100 Personal history of colon polyps, unspecified; K22.70 Barrett's esophagus without dysplasia; K44.9 Diaphragmatic hernia without obstruction or gangrene
CPT/HCPCS: 99214

== ENCOUNTER → 2024-08-17 10:55 | Outpatient (BNVA) | payer OTHER, SELFPAY | PROVIDERS: PCP Student in an Organized Health Care Education/Training Program; Visit Provider Internal Medicine ==

== ENCOUNTER 2024-10-03 07:06 | Outpatient (REF) | payer OTHER, SELFPAY ==
[2024-10-03 09:05] LABS: Hematocrit 45.8 % (42.0-52.0); Hemoglobin 15.4 g/dl (14.0-18.0); Mean Corpuscular HGB Conc 33.6 g/dl (31.0-36.0); Mean Corpuscular Hemoglobin 30.8 pg (27.0-33.0); Mean Corpuscular Volume 91.6 fL (80.0-98.0); Mean Platelet Volume 12.2 fL (9.4-12.4); Platelet Count 202 X10*3/uL (160-400); Red Cell Distribution Width 12.7 % (11.0-16.0)
[2024-10-03 09:10] LABS: Estimated Average Glucose 148 mg/dL; Hemoglobin A1C 198.6548 umol/L; Hemoglobin A1c % 6.8 % (<6.0); Total Hemoglobin (HGBA1C) 3880.1026 umol/L
[2024-10-03 09:51] LABS: Alanine Aminotransferase 56 U/L (0-40); Albumin Level 5.2 g/dL (3.5-5.0); Alkaline Phosphatase 94 U/L (39-117); Anion Gap 15 (12-20); Aspartate Amino Transferase 34 U/L (5-37); Bilirubin Total 1.5 mg/dL (0.0-1.0); Blood Urea Nitrogen 23 mg/dL (9-16); Calcium 10.7 mg/dL (8.4-10.2); Carbon Dioxide 29 mmol/L (22-29); Chloride 101 mmol/L (96-108); Cholesterol 127 mg/dL (<200); Estimated Glomerular Filt Rate > 60; Glucose Random 174 mg/dL (60-115); HDL Cholesterol 36 mg/dL (>40); LDL Cholesterol Calculated 63 mg/dL (<100); Potassium 4.6 mmol/L (3.3-5.1); Sodium 140 mmol/L (135-145); Total Protein 7.9 g/dL (6.5-8.0); Triglycerides 140 mg/dL (<150)
[2024-10-03 09:56] LABS: TSH reflex Free T4 0.32 uIU/mL (0.32-4.0); Vitamin D 25-OH Total 55.8 ng/mL (>30)
[2024-10-03 10:12] LABS: Folate 14.8 ng/mL (> or = 4.0); Prostate Specific Antigen 3.54 ng/mL (<0.05-4.0); Vitamin B12 689 pg/mL (200-900)
[2024-10-03 10:14] LABS: Creatinine Urine 261.62 mg/dL; Microalbum/Creatinine Ratio Ur 17.9 ug/mg cr (<30)
[2024-10-03 14:44] LABS: CT PCR NOT DETECTED (Not Detect.); NG PCR NOT DETECTED (Not Detect.)
[2024-10-05 08:35] LABS: HBS Num1 0.25 mIU/mL (0-7.99); HBc Num1 0.04 S/CO (0.00-0.79); HBsAGNum1 0.39 S/CO (0.00-0.99); HIV AB/AG Nonreactive (Nonreactive); HIV Num 1 0.05 S/CO (0.00-0.99); Hepatitis B Core Antibody Nonreactive (Nonreactive); Hepatitis B Surface Antigen Negative (Negative); ~HepC Num1 0.07 S/CO (0.00-0.79); ~Hepatitis B Surface Antibody NONREACTIVE (Nonreactive); ~Hepatitis C Antibody Nonreactive (Nonreactive)
[2024-10-05 08:43] LABS: Syphilis Screen Nonreactive (Nonreactive)
== END 2024-10-03 07:07 | disposition home or self-care (01) ==
LOC: HO.LAB 07:06
PROVIDERS: PCP Student in an Organized Health Care Education/Training Program; Visit Provider Student in an Organized Health Care Education/Training Program
DX: Z00.00 Encounter for general adult medical examination without abnormal findings (principal); Z12.5 Encounter for screening for malignant neoplasm of prostate; Z13.1 Encounter for screening for diabetes mellitus
CPT/HCPCS: 80053; 80061; 82043; 82306; 82570; 82607; 82746; 83036; 84153; 84443; 85027; 86704; 86706; 86780; 86803; 87340; 87389; 87491; 87591

== ENCOUNTER 2024-11-18 05:29 | Emergency (ER) | payer OTHER, SELFPAY ==
--- NOTE | 2024-11-18 | ECG_ITS ---
Test Reason : cp Blood Pressure : */* mmHG Vent. Rate : 104 BPM Atrial Rate : 104 BPM P-R Int : 156 ms QRS Dur : 88 ms QT Int : 338 ms P-R-T Axes : 55 39 55 degrees QTcB Int : 444 ms Sinus tachycardia Otherwise normal ECG When compared with ECG of 26-Nov-2023 11:06, No significant change was found Referred By: Generic ED Physician Electronically Signed By: CHERELLE ROSS MD
--- NOTE | ~2024-11-18 | CT_ITS ---
EXAMINATION: CT ABDOMEN AND PELVIS WITHOUT CONTRAST CLINICAL INFORMATION: Right abdominal pain. COMPARISON: Ultrasound abdomen limited 11/18/2022. CT abdomen and pelvis 03/30/2022 TECHNIQUE: Multidetector volumetric imaging was performed from the superior aspect of the liver through the pubic symphysis. Sagittal and coronal reformatted images were obtained on the technologist's workstation. This CT examination was performed using dose optimization techniques as appropriate, variously including the following: *Automated exposure control *Adjustment of mA and/or kV according to patient size (this includes techniques or standardized protocols for targeted exams where dose is matched to indication/reason for exam; i.e. extremities or head) *Use of iterative reconstruction technique FINDINGS: LUNG BASES: The visualized lung bases are unremarkable. LIVER, GALLBLADDER, AND BILIARY TREE: The liver is normal in size, shape, and attenuation. No focal hepatic lesion or biliary ductal dilatation is present. The gallbladder is unremarkable with no evidence of radiopaque gallstones, gallbladder wall thickening, or obvious pericholecystic inflammatory changes. Punctate hyperdense areas are seen in the gallbladder wall likely microcalcifications. In the are best visualized on thin axial images. PANCREAS: Unremarkable. SPLEEN: Unremarkable. ADRENAL GLANDS: Unremarkable. KIDNEYS AND URETERS: The kidneys are normal in size, shape, and attenuation. No hydronephrosis, hydroureter, or calculi seen. No perinephric stranding. BLADDER: Unremarkable. GASTROINTESTINAL TRACT: There is moderate scattered stool and gas in the colon without distention. The small bowel loops are normal caliber. Appendix is normal caliber. No inflammatory process seen in the right lower quadrant. No free air or free fluid. ABDOMINAL WALL: No significant hernia is appreciated. LYMPH NODES: Normal. VASCULAR: Unremarkable. PELVIC VISCERA: Unremarkable. OSSEOUS STRUCTURES: No aggressive lytic or sclerotic process seen. CT/CT abdomen pelvis wo IV con IMPRESSION: Moderate constipation. Normal appendix No radiopaque urolith or hydroureteronephrosis. Punctate gallbladder wall calcifications seen on thin axial sections. Fleischner guidelines were followed. Electronically signed by: Nikolai Freeman MD 11/18/2024 12:32 PM [facility]
--- NOTE | ~2024-11-18 | US_ITS ---
EXAMINATION: US ABDOMEN LIMITED CLINICAL INFORMATION: Right upper quadrant pain, elevated LFTs.. COMPARISON: None available. TECHNIQUE: Real-time imaging of the right upper quadrant abdominal viscera. FINDINGS: PANCREAS: The pancreas is partially obscured.. LIVER: The liver is slightly enlarged measuring 16.8 cm in length. The liver contour is normal. Parenchymal echogenicity is slightly increased. No focal hepatic lesion. There is no intrahepatic biliary duct dilatation seen. GALLBLADDER: The gallbladder is physiologically distended without evidence of stones, sludge, polyps, wall thickening or pericholecystic fluid. There is 2 x 2 millimeter calcification in the gallbladder wall. No tenderness in right upper quadrant by ultrasound probe COMMON BILE DUCT: Normal in caliber measuring 0.2 cm in diameter. RIGHT KIDNEY: No hydronephrosis. No renal calculi or focal parenchymal lesions. The kidney measures 10.7 cm in maximum dimension. FREE FLUID: None. US/US abdomen limited IMPRESSION: Borderline enlarged liver with mild increased echogenicity. 2 mm calcification gallbladder wall but no echogenic stones or tenderness in right upper quadrant by ultrasound probe. Electronically signed by: Nikolai Freeman MD 11/18/2024 11:28 AM EST
--- NOTE | ~2024-11-18 | XR_ITS ---
EXAMINATION: XR CHEST CLINICAL INFORMATION: cough, chest pain COMPARISON: None available. TECHNIQUE: 2 views of the chest were obtained. FINDINGS: No significant abnormality is noted involving the heart, lungs, mediastinum, bony thorax or soft tissues. XR/XR chest 2V IMPRESSION: Unremarkable chest examination. Electronically signed by: Nikolai Freeman MD 11/18/2024 07:17 AM [facility]
[2024-11-18 05:42] VITALS: BP 114/80; PULSE 94; RESP 16; TEMP 37; O2SAT 99; BMI 28.7
[2024-11-18 06:34] LABS: Eosinophils Absolute Auto 0.3 X10*3/uL (0.0-0.4); Imm Gran Abs Auto 0.02 X10*3/uL (0.00-0.03); Imm Gran Pct Auto 0.3 % (0.0-0.4); Red Cell Distribution Width 12.4 % (11.0-16.0)
[2024-11-18 06:35] LABS: MANUAL DIFF FLAG NO
[2024-11-18 06:39] LABS: Basophils Absolute Auto 0.1 X10*3/uL (0.0-0.2); Eosinophils Percent Auto 4.9 % (0-4); Hematocrit 43.7 % (42.0-52.0); Hemoglobin 15.1 g/dl (14.0-18.0); Lymphocytes Absolute Auto 1.2 X10*3/uL (1.2-4.9); Lymphocytes Percent Auto 20.5 % (20-40); Mean Corpuscular HGB Conc 34.6 g/dl (31.0-36.0); Mean Corpuscular Hemoglobin 31.1 pg (27.0-33.0); Mean Corpuscular Volume 89.9 fL (80.0-98.0); Mean Platelet Volume 12.7 fL (9.4-12.4); Monocytes Absolute Auto 0.8 X10*3/uL (0.1-1.2); Monocytes Percent Auto 13.5 % (2-11); Neutrophils Absolute Auto 3.4 x10*3/uL (2.0-8.3); Neutrophils Percent Auto 59.8 % (45-73); Red Blood Count 4.86 X10*6/uL (4.60-5.80); White Blood Count 5.8 X10*3/uL (4.8-10.8)
[2024-11-18 06:41] LABS: Platelet Count 104 X10*3/uL (160-400)
[2024-11-18 06:48] LABS: Alanine Aminotransferase 132 U/L (0-40); Albumin Level 4.4 g/dL (3.5-5.0); Alkaline Phosphatase 157 U/L (39-117); Anion Gap 14 (12-20); Aspartate Amino Transferase 64 U/L (5-37); Bilirubin Total 1.5 mg/dL (0.0-1.0); Blood Urea Nitrogen 18 mg/dL (9-16); Carbon Dioxide 25 mmol/L (22-29); Chloride 102 mmol/L (96-108); Creatinine Clr Calc Pharmacy 64.9; Estimated Glomerular Filt Rate 53; Glucose Random 194 mg/dL (60-115); Potassium 3.9 mmol/L (3.3-5.1); Sodium 137 mmol/L (135-145); Total Protein 7.7 g/dL (6.5-8.0)
[2024-11-18 06:53] LABS: Troponin-I High Sensitivity 12.7 ng/L (<3.5-35.0)
[2024-11-18 07:12] LABS: Influenza A PCR NEGATIVE (Negative); Influenza B PCR NEGATIVE (Negative); Resp Syncy Virus RNA Qual PCR NEGATIVE (Negative); SARS COV2 PCR INHOUSE NEGATIVE (Negative)
[2024-11-18 10:16] VITALS: BP 105/75; PULSE 109; RESP 22; TEMP 36.8; O2SAT 100
--- NOTE | 2024-11-18 10:22 | ED.GENADULT ---
HPI - General Adult General Chief complaint: General Medical Stated complaint: back/chest pain, diff breathing Time Seen by Provider: 11/18/24 10:07 Source: patient, family and old records reviewed Mode of arrival: ambulatory Limitations: no limitations History of Present Illness ED Provider: DR. Naidu HPI narrative: 59-year-old male came in for evaluation of left shoulder pain and right flank/RUQ pain. Patient declined any history of trauma, no nausea, no vomiting, no diarrhea, no fever, chills, no dysuria, no frequency urination. No history of trauma Pain is not affected by food or drink. No relieving factor, no aggravating factor. Pain has been constant for the last 3 days. Related Data Home Medications ?Medication ?Instructions ?Recorded ?Confirmed albuterol sulfate 90 mcg/actuation 2 puff inhalation Q4-6H PRN 09/19/20 06/16/24 aerosol inhaler (ProAir HFA) Wheezing aspirin 81 mg tablet,delayed 81 mg PO DAILY 09/19/20 06/16/24 release atorvastatin 40 mg tablet 1 tab PO DAILY 09/19/20 06/16/24 budesonide-formoterol HFA 80 2 puff inhalation BID 09/19/20 08/03/22 mcg-4.5 mcg/actuation aerosol inhaler (Symbicort) lisinopril 20 mg tablet 20 mg PO DAILY 09/19/20 06/16/24 blood sugar diagnostic (FreeStyle #10 ea 05/04/22 08/03/22 Lite Strips) metformin 1,000 mg tablet 1,000 mg PO BID 05/04/22 06/16/24 cholecalciferol (vitamin D3) 25 25 mcg PO QAM 12/13/23 06/16/24 mcg (1,000 unit) tablet hydrochlorothiazide 12.5 mg tablet 12.5 mg PO DAILY 02/26/24 06/16/24 Previous Rx's ?Medication ?Instructions ?Recorded omeprazole 20 mg capsule,delayed 20 mg PO BID 90 days #180 caps 08/17/24 release ipratropium bromide 17 2 puff inhalation QID 30 days 10/19/24 mcg/actuation HFA aerosol inhaler #12.9 grams oxycodone 5 mg tablet 5 mg PO BID PRN pain #7 tabs 11/18/24 Allergies Allergy/AdvReac Type Severity Reaction Status Date / Time No Known Allergies Allergy Verified 11/18/24 05:46 [No Known Allergies*] Review of Systems Review of Systems: All other systems are reviewed and are negative Constitutional: Reports as per HPI and Reports no additional constitutional complaints Eyes: Reports as per HPI and Reports no additional eye complaints Reports system reviewed and no additional complaints, except as documented Cardiovascular: Reports as per HPI and Reports no additional cardiovascular complaints Respiratory: Reports as per HPI and Reports no additional respiratory complaints Gastrointestinal: Reports as per HPI and Reports no additional gastrointestinal complaints Genitourinary: Reports no additional female genitourinary complaints Musculoskeletal: Reports no additional musculoskeletal complaints Skin/Breast: Reports system reviewed and no additional complaints, except as docu Psychiatric: Reports no additional psychiatric complaints Endocrine: Reports no additional endocrine complaints Hematologic/Lymphatic: Reports no additional hematologic/lymphatic complaints Allergic/Immunologic: Reports no additional allergic/immunologic complaints Reports system reviewed and no additional complaints, except as documented and Reports Abnormal speech present [facility] Past Medical History Medical History History of seizure Hypertension Dyslipidemia Diabetes GERD (gastroesophageal reflux disease) COPD (chronic obstructive pulmonary disease) Environmental allergies Personal history of nicotine dependence History of COVID-19 Arthritis Chronic lower back pain Tubular adenoma of colon Surgical History History of colonoscopy History of umbilical hernia repair (~2021) History of esophagogastroduodenoscopy (EGD) Social History Social History Alcohol intake: never Patient Tobacco Use Status: Former Tobacco user Second Hand Smoke Exposure: No Advance Directives: No Advance Directives Information Provided: Yes Do you have a plan to hurt others: No Plan service: No Current occupational status: employed Physical Exam ED Vital Signs: Vital Signs - 24 hr 11/18/24 05:42 11/18/24 10:16 11/18/24 13:03 Temperature 98.6 F 98.2 F 98.5 F Pulse Rate 94 109 H 82 Respiratory Rate 16 22 H 14 Blood Pressure 114/80 105/75 104/72 Pulse Oximetry 99 100 97 Oxygen Delivery Method Room Air Room Air Nasal Cannula Room Air BMI result Body Mass Index 28.7 Vital signs have been reviewed and appear to be correct. Blood pressure elevated. Heart rate normal. Respiratory rate normal. Temperature normal. Oxygen saturation normal. Appearance: Alert. Oriented X3. No acute distress. Head: Normal external exam. Normocephalic. Atraumatic. No Talley signs noted. No raccoon eyes noted Eyes: PERRLA. EOMI. Conjunctiva and sclera normal. Eyelids normal. ENT: TM's Normal. Pharynx normal. Uvula midline. Moist mucous membranes. No trismus noted. No drooling noted. No muffled voice noted. Neck: Normal inspection. Neck supple. FROM. No adenopathy. Thyroid Normal. No meningeal signs. No neck mass noted. CVS: Normal heart rate and rhythm. Heart sound normal. No murmurs noted. Pulses normal throughout. Respiratory: No respiratory distress. Painless inspiration. Breath sounds normal. No wheezes/rales/rhonchi noted. Chest nontender. No accessory muscle usage noted or decreased air movement noted. Abdomen: Soft and nontender. Bowel sounds normal in all 4 quadrants. No distention noted. No organomegaly noted. No visible injury noted. Back: No CVA tenderness. Full range of motion noted. Skin: Skin warm and dry. Normal skin color. Normal skin turgor. No rashes/lesions/lacerations noted. Extremities: No lower extremity edema. Extremities exhibit normal range of motion. Extremities nontender. Neuro: Oriented X 3. Cranial nerve exam: II-XII are grossly intact No motor deficit. No sensory deficit. Reflexes normal. Course Reevaluation(s) Reevaluation #1: Came in for right-sided back pain, left shoulder pain. Patient work long hours standing and packing speaking complaining of muscular pain concern of elevated LFTs and previous gallbladder adenomyomatosis, ultrasound shows no acute abnormality in the gallbladder with no Rivas signs, CT of the abdomen pelvis revealed no acute pathology to explain patient's symptoms no kidney stone, no UTI, no pyelonephritis. Time: 16:29 Medical Decision Making Differential Diagnosis Differential Diagnoses: The differential diagnosis associated with the presentation includes (Kidney stone, gallbladder disease, myofascial pain, UTI, pyelonephritis, upper respiratory viral infection.) Admission/Observation Consideration of admission/observation: Escalation of care including admission/observation considered Lab Data MDM Lab Attestation statement: I reviewed the patient's lab results. 11/18/24 06:28 11/18/24 06:28 Labs: Lab Results 11/18/24 11/18/24 Range/Units 06:28 11:39 WBC 5.8 (4.8-10.8) X10*3/uL RBC 4.86 (4.60-5.80) X10*6/uL Hgb 15.1 (14.0-18.0) g/dl Hct 43.7 (42.0-52.0) % MCV 89.9 (80.0-98.0) fL MCH 31.1 (27.0-33.0) pg MCHC 34.6 (31.0-36.0) g/dl RDW 12.4 (11.0-16.0) % Plt Count 104 L D (160-400) X10*3/uL MPV 12.7 H (9.4-12.4) fL Immature Gran % (Auto) 0.3 (0.0-0.4) % Neut % (Auto) 59.8 (45-73) % Lymph % (Auto) 20.5 (20-40) % Piatt % (Auto) 13.5 H (2-11) % Eos % (Auto) 4.9 H (0-4) % Baso % (Auto) 1.0 (0-2) % Lymph # (Auto) 1.2 (1.2-4.9) X10*3/uL Piatt # (Auto) 0.8 (0.1-1.2) X10*3/uL Eos # (Auto) 0.3 (0.0-0.4) X10*3/uL Baso # (Auto) 0.1 (0.0-0.2) X10*3/uL Abs Immat Gran (auto) 0.02 (0.00-0.03) X10*3/uL Absolute Neuts (auto) 3.4 (2.0-8.3) x10*3/uL Absolute Nucleated RBC 0.000 (0.0-0.012) X10*3/uL Nucleated RBC % (auto) 0.0 (0.0-0.2) /100WBC Sodium 137 (135-145) mmol/L Potassium 3.9 (3.3-5.1) mmol/L Chloride 102 (96-108) mmol/L Carbon Dioxide 25 (22-29) mmol/L Anion Gap 14 (12-20) BUN 18 H (9-16) mg/dL Creatinine 1.37 (0.5-1.4) mg/dL Estim Creat Clear Calc 64.9 Estimated GFR 53 Random Glucose 194 H (60-115) mg/dL Calcium 10.0 D (8.4-10.2) mg/dL Total Bilirubin 1.5 H (0.0-1.0) mg/dL AST 64 H (5-37) U/L ALT 132 H (0-40) U/L Alkaline Phosphatase 157 H (39-117) U/L Troponin I High Sens 12.7 (<3.5-35.0) ng/L Total Protein 7.7 (6.5-8.0) g/dL Albumin 4.4 (3.5-5.0) g/dL Urine Color Rusk Urine Appearance Hazy Urine pH 5.5 (5.0-9.0) Ur Specific [place] >= 1.030 H (1.005-1.025) Urine Protein 30 (1+) H (Neg-Trace) mg/dL Urine Glucose (UA) 250 H (Negative) mg/dL Urine Ketones 15 (Negative) mg/dL Urine Blood Negative (Negative) Urine Nitrite Positive H (Negative) Ur Leukocyte Esterase Negative (Negative) Urine RBC 0-2 (0-2) /HPF Urine WBC 0-5 (0-5) /HPF Ur Squamous Epith Cells 0-2 (0-2) /HPF Urine Bacteria 4+ (None Seen) Hyaline Casts 3-5 (0-2) /LPF Influenza Type A (PCR) NEGATIVE (Negative) Influenza Type B (PCR) NEGATIVE (Negative) RSV RNA Qual (PCR) NEGATIVE (Negative) SARS-CoV-2 RNA (RT-PCR) NEGATIVE (Negative) Independent Interpretation I performed an independent interpretation of an: Ultrasound (Gallbladder:Borderline enlarged liver with mild increased echogenicity. 2 mm calcification gallbladder wall but no echogenic stones or tenderness in right upper quadrant by ultrasound probe. ) and CT Scan (Abdomen and pelvis:Moderate constipation. Normal appendix No radiopaque urolith or hydroureteronephrosis. Punctate gallbladder wall calcifications seen on thin axial sections. Fleischner guidelines were followed. ) Radiology Impression Discussion of test interpretation with radiology: I have reviewed the radiologist's reading. Discharge Plan Discharge Clinical Impression: Myofascial low back pain, Elevated liver function tests Patient Disposition: Home, Self-Care Instructions: Back Pain (ED) Additional Instructions: Follow-up with Dr. Castillo for elevated liver enzymes and gallbladder disease. Prescriptions: New oxycodone 5 mg tablet 5 mg PO BID PRN (Reason: pain) Qty: 7 0RF Rx Instructions: Partial Fill upon patient request. No Action ipratropium bromide 17 mcg/actuation HFA aerosol inhaler 2 puff inhalation QID 30 Days Qty: 12.9 3RF atorvastatin 40 mg tablet 1 tab PO DAILY lisinopril 20 mg tablet 20 mg PO DAILY aspirin 81 mg tablet,delayed release (DR/EC) 81 mg PO DAILY albuterol sulfate [ProAir HFA] 90 mcg/actuation Hfa Aerosol Inhaler 2 puff INHALATION Q4-6H PRN (Reason: Wheezing) budesonide-formoterol [Symbicort] 80-4.5 mcg/actuation HFA aerosol inhaler 2 puff inhalation BID metformin 1,000 mg tablet 1,000 mg PO BID (DME) FreeStyle Lite Strips Strip See Rx Instructions Not Applicable DAILY Qty: 10 Rx Instructions: As directed cholecalciferol (vitamin D3) 25 mcg (1,000 unit) tablet 25 mcg PO QAM hydrochlorothiazide 12.5 mg tablet 12.5 mg PO DAILY omeprazole 20 mg capsule,delayed release(DR/EC) 20 mg PO BID 90 Days Qty: 180 1RF Referrals: Ferdinand Castillo MD [Physician] - Yoanna Cuevas MD [Primary Care Provider] - Stand Alone Forms: Work/School Release Print Language: Belarusian
--- OUTSIDE RECORDS SUMMARY | 2024-11-18 11:21 | XMS_ITS | Encounter Summary ---
Author Organization [employer] Address [address] [place] [address] Care Team Providers Care Steward/Stewardess Deck Name Role Phone Fili Mascorro MD Primary Care Prov ider Yoanna Cuevas MD Primary Care Pro vider Reason for Visit * Reason Onset Date Comments Results 01/28/2023 Encounter Details Date Type Department Care Team ([facility] st Contact Info) Description 01/28/2023 Telephone [facility] [address] [place] [address] Fili Mascorro MD [address] [place], [place] [phone] Results Social History Tobacco Use Types Packs/Day Years Used Date Smoking Tobacco: Former Cigarettes Q uit: 2010 Smokeless Tobacco: Never Sex and Gender Information Value Date Recorded Sex Assigned at Male 08/27/2022 10:31 AM EDT Legal Sex Male 10:31 AM EDT Gender Identity Male 08/27/2022 10:31 AM EDT Sexual Orientation Straight 08/27/2022 10 :31 AM EDT COVID-19 Exposure Response Date Recorded In the last 10 days, have yo u been in contact with someone who was confirmed or suspected to have Coronavirus/COVID-19? No / Unsure 01/07/2023 1:47 PM EDT documented as of this encounter Plan of Treatment Not on file documented as of this encounter Visit Diagnoses Not on filedocumented in this encounter Care Teams Steward/Stewardess Deck Relationship Specialty Start Date End Date Fili Mascorro MD [address] [place] [phone] PCP - General Internal Medicine 03/27/20 06/11/23 Yoanna Cuevas MD [address] [place] [id number] PCP - General Internal Medicine 06/12/23 documented as of this encounter
--- OUTSIDE RECORDS SUMMARY | 2024-11-18 11:21 | XMS_ITS | Encounter Summary ---
Author Organization [employer] Address [address] [place] [address] Care Team Providers Care Juvenile Court Judge Name Role Phone Yoanna Cuevas MD Primary Care Pro vider Encounter Details Date Type Department Care Team (Late st Contact Info) Description 11/18/2024 Orders Only GENERIC EXTERNAL DATA DEPARTMENT Provider, Generic External Data Social History Tobacco Use Types Packs/Day Years Used Date Smoking Tobacco: Former Cigarettes Q uit: 2010 Smokeless Tobacco: Never Comments:Started tobacco smo pita 11 years -stopped 44 years of age ,smoked 1 PQT a day,stopped 15 years ago ---PQT [place] a day 33 Alcohol Use Standard Drinks/Week Comments Not Currently 0 (1 standard drink = 0.6 oz pur e alcohol) Depression Answer Date Recorded Patient Health Questionnaire-9 Score 3 09/28/2024 Patient Health Questionnaire-9 Score 3 09/28/2024 Last PHQ-9: Questionnaire Data Not on file 1 11/29/2023 Housing Stability Answer Date Recorded What is your housing situation today? I have kourtney stoll 07/17/[address] you li ve. Do you have problems with any of the following? None of the above 07/17/2024 Food Insecurity Answer Date Recorded Within the past 12 months, y ou worried that your food would run out before you got money to buy more: Never True 07/17/2024 Within the past 12 months,th e food you bought just didn't last and you didn't have enough money to get more: Never True Transportation Answer Date Recorded In the past 12 months, has l ack of transportation kept you from medical appts, meetings, work or from getting things needed for daily living? No 07/17/2024 Utilities Answer Date Recorded In the past 12 months, has t he electric, gas, oil or water company threatened to shut off services in your home? No 07/17/2024 Depression Answer Date Recorded Patient Health Questionnaire-2 Score 1 09/28/2024 Internet Access Answer Date Recorded Internet Access Q1 Yes 07/17/2024 Internet Access Q2 Not on file 07/17/2024 Sex and Gender Information Value Date Recorded Sex Assigned at Male 08/27/2022 10:31 AM EDT Legal Sex Male 10:31 AM EDT Gender Identity Male 08/27/2022 10:31 AM EDT Sexual Orientation Straight 08/27/2022 10 :31 AM EDT documented as of this encounter Plan of Treatment Not on file documented as of this encounter Procedures Procedure Name Priority Date/Time Associated Diagnosis Comments XR CHEST 2 VIEWS Routine 11/18/2024 6:40 AM EST HIGH SENSITIVITY TROPONIN I Routine 11/18/2024 6:28 AM EST SARS COV2/INFLUENZA A/B AND RSV RNA QL NAAT Routine 11/18/2024 6:28 AM EST CBC WITH AUTO DIFFERENTIAL Routine 11/18/2024 6:28 AM EST COMPREHENSIVE METABOLIC PANEL Routine 11/18/2024 6:28 AM EST documented in this encounter Results * XR Chest 2 Views (11/18/2024 6:40 AM EST) Anatomical Region Laterality Modality Chest Radiographic Jelly ging 11/18/2024 6:40 AM EST Narrative 11/18/2024 7:20 AM EST ? [facility] ?[address] ?[place] [address] ?XRay Report ? Signed ? Patient: Mcguire,Se R ?MR#: [id number] ?? 205 ? : 1965 ?Acct:[id number] ? Age/Sex: 59 / M ?ADM Date: 01/22/25 ? Loc: HO.ED ? Attending Dr: ? Ordering Physician: Generic ED Physician ?? Date of Service: 11/18/24 ?? Procedure(s): XR chest 2V ?? Accession Number(s): [id number] ? cc: Generic ED Physician; Yoanna Cuevas MD ? EXAMINATION: ?? XR CHEST ? CLINICAL INFORMATION: ?? cough, chest pain ? COMPARISON: ?? None available. ? TECHNIQUE: ?? 2 views of the chest were obtained. ? FINDINGS: ?? No significant abnormality is noted involving the heart, lungs, ?? mediastinum, bony thorax or soft tissues. ? XR/XR chest 2V ?? IMPRESSION: ?? Unremarkable chest examination. ? Electronically signed by: ??Nikolai Freeman MD ??11/18/2024 07:17 AM EST RP ? Dictated By: ?Lydia,Nikolai S MD ? Signed By: ?<Electronically signed by Nikolai Freeman MD in OV> ?11/18/24 0717 ? DD/ 0640 ? TD/TT: 11/18/24 0650 ? Computer Consultant: MSM ? Procedure Note Suman Romero - 11/18/[address] [address] XRay Report Signed Patient: Se Mcguire RMR#: [id number] : 1965Acct:[id number] Age/Sex: 59 / MADM Date: 11/18/24 Loc: .ED Attending Dr: Ordering Physician: Generic ED Physician Date of Service: 11/18/24 Procedure(s): XR chest 2V Accession Number(s): [id number] cc: Generic ED Physician; Yoanna Cuevas MD EXAMINATION: XR CHEST CLINICAL INFORMATION: cough, chest pain COMPARISON: None available. TECHNIQUE: 2 views of the chest were obtained. FINDINGS: No significant abnormality is noted involving the heart, lungs, mediastinum, bony thorax or soft tissues. XR/XR chest 2V IMPRESSION: Unremarkable chest examination. Electronically signed by: Nikolai Freeman MD 11/18/2024 07:17 AM EST Dictated By: Nikolai Freeman MD Signed By: <Electronically signed by Nikolai Freeman MD in OV> 11/18/24 0717 DD/ 0640 TD/TT: 11/18/24 0650 Computer Consultant: HILARY [facility] External Provider IMG XR PROCEDURES Final Result * SARS-CoV-2 RNA, Influenza A/B, and RSV RNA, Ql NAAT (11/18/2024 6:28 AM EST) Influenza A PCR NEGATIVE Negative [facility] Influenza B PCR NEGATIVE Negative [facility] Resp Syncy Virus RNA Qual PCR NEGATIVE Negative [facility] SARS COV2 PCR NEGATIVE Negative [facility] Comment:All test results mus t be correlated with clinical findings.Negative results do not preclude SARS-CoV2, influenza Avirus, influenza B virus and/or RSV infectionand should not be used as the sole basis for treatment orother patient management decisions. Negative results must becombined with clinical observations, patient history, andepidemiological information.This test has not been evaluated for monitoring treatment ofinfection.This test has been authorized by the FDA under an EmergencyUse Authorization (EUA) for use by authorized laboratories.Testing performed on the [employer] GeneXpert utilizingreal-time RT-PCR.All SARS CoV2 and positive influenza A/B results arereported to [facility]. 11/18/2024 6:28 AM EST 11/18/2024 6:33 AM EST Generic External Data Provider LAB MICROBIOLOGY - GENERAL ORDERABLES Final Result [facility] [address] [place] [address] [phone] * High Sensitivity Troponin I (11/18/2024 6:28 AM EST) TROPONIN I HIGH SENSITIVITY 12.7 <3.5 - 35.0 ng/L [facility] Comment:The Amin high sens itivity Troponin-I results should beused in conjunction with other diagnostic information suchas ECG, clinical observations and information, and patientsymptoms to aid in the diagnosis of [place]. 11/18/2024 6:28 AM EST 11/18/2024 6:33 AM EST us Generic External Data Provider LAB BLOOD ORDERAB LES Final Result [facility] [address] [place] [address] [phone] * (ABNORMAL) Comprehensive Metabolic Panel (11/18/2024 6:28 AM EST) Sodium 137 135 - 145 mmol/L [facility] Potassium 3.9 3.3 - 5.1 mmol/L [facility] Chloride 102 96 - 108 mmol/L [facility] Carbon Dioxide 25 22 - 29 mmol/L [facility] Anion Gap 14 12 - 20 [facility] Urea Nitrogen (BUN) 18(H) 9 - 16 mg/dL [facility] Creatinine, Serum 1.37 0.5 - 1.4 mg/dL [facility] Creatinine Clr Calc Pharmacy 64.9 [facility] Comment:eGFR (calculated fro m the MDRD study equation) and eCrCl(calculated from the Cockcroft-Gault equation) are based ondifferent parameters and may not yield comparable results.If eCrCl result is absurd, please check patient'sheight/weight. Estimated Glomerular Filt Rate 53 [facility] Comment:Chronic Kidney Disea se: Estimated GFR < 60 mL/min/1.04l1Vmsxhi Kidney Disease: Estimated GFR < 15 mL/min/1.73m2 Glucose 194(H) 60 - 115 mg/dL [facility] Calcium 10.0 8.4 - 10.2 mg/dL [facility] Bilirubin, Total 1.5(H) 0.0 - 1.0 mg/dL [facility] Aspartate Amino Transferase 64(H) 5 - 37 U/L [facility] Alanine Aminotransferase 132(H) 0 - 40 U/L [facility] Total Protein 7.7 6.5 - 8.0 g/dL [facility] Albumin Level 4.4 3.5 - 5.0 g/dL [facility] Alkaline Phosphatase 157(H) 39 - 117 U/L [facility] 11/18/2024 6:28 AM EST 11/18/2024 6:33 AM EST us Generic External Data Provider LAB BLOOD ORDERAB LES Final Result [facility] [address] [place] [address] [phone] * (ABNORMAL) CBC auto differential (11/18/2024 6:28 AM EST) White Blood Count 5.8 4.8 - 10.8 X10*3/uL [facility] Red Blood Count 4.86 4.60 - 5.80 X10*6/uL [facility] Hemoglobin 15.1 14.0 - 18.0 g/dl [facility] Hematocrit 43.7 42.0 - 52.0 % [facility] Mean Corpuscular Volume 89.9 80.0 - 98.0 fL [facility] Mean Corpuscular Hemoglobin 31.1 27.0 - 33.0 pg [facility] Mean Corpuscular HGB Conc 34.6 31.0 - 36.0 g/dl [facility] Red Cell Distribution Width 12.4 11.0 - 16.0 % [facility] Platelet Count 104(L) 160 - 400 X10*3/uL [facility] Comment:Test was verified by repeat analysis. Mean Platelet Volume 12.7(H) 9.4 - 12.4 fL [facility] Neutrophils Percent Auto 59.8 45 - 73 % [facility] Imm Gran Pct Auto 0.3 0.0 - 0.4 % [facility] Lymphocytes Percent Auto 20.5 20 - 40 % [facility] Monocytes Percent Auto 13.5(H) 2 - 11 % [facility] Eosinophils Percent Auto 4.9(H) 0 - 4 % [facility] Basophils Percent Auto 1.0 0 - 2 % [facility] NRBC Pct Auto 0.0 0.0 - 0.2 /100WBC [facility] Neutrophils Absolute Auto 3.4 2.0 - 8.3 x10*3/uL [facility] Imm Gran Abs Auto 0.02 0.00 - 0.03 X10*3/uL [facility] Lymphocytes Absolute Auto 1.2 1.2 - 4.9 X10*3/uL [facility] Monocytes Absolute Auto 0.8 0.1 - 1.2 X10*3/uL [facility] Eosinophils Absolute Auto 0.3 0.0 - 0.4 X10*3/uL [facility] Basophils Absolute Auto 0.1 0.0 - 0.2 X10*3/uL [facility] NRBC Abs Auto 0.000 0.0 - 0.012 X10*3/uL [facility] 11/18/2024 6:28 AM EST 11/18/2024 6:33 AM EST us Generic External Data Provider LAB BLOOD ORDERAB LES Final Result [facility] [address] [place] [address] [phone] documented in this encounter Visit Diagnoses Not on filedocumented in this encounter Additional Health Concerns Assessment Noted Time PHQ-9 Depression Total Score: 3 09/28/20 24 1:16 PM EST documented as of this encounter Care Teams Juvenile Court Judge Relationship Specialty Start Date End Date Yaonna Cuevas MD [address] [place] [phone] PCP - General Internal Medicine 06/12/23 documented as of this encounter
--- OUTSIDE RECORDS SUMMARY | 2024-11-18 11:21 | XMS_ITS | Encounter Summary ---
Author Organization [email or web address] Address [address] [place] [address] [address] [place] [address] Care Team Providers Care Regulatory Assistant Name Role Phone Fili Mascorro MD Primary Care Prov ider Yoanna Cuevas MD Primary Care Pro vider Reason for Visit * Reason Comments Med Refill Encounter Details Date Type Department Care Team ([facility] st Contact Info) Description 12/16/2022 Refill [facility] PEDS [address] [place] [address] Fili Mascorro MD [address] [place], [place] [phone] Gastroesophageal reflux disease without esophagitis (Primary Dx) Social History Tobacco Use Types Packs/Day Years Used Date Smoking Tobacco: Never Assessed Sex and Gender Information Value Date Recorded Sex Assigned at Male 08/27/2022 10:31 AM EDT Legal Sex Male 10:31 AM EDT Gender Identity Male 08/27/2022 10:31 AM EDT Sexual Orientation Straight 08/27/2022 10 :31 AM EDT documented as of this encounter Plan of Treatment Not on file documented as of this encounter Visit Diagnoses Diagnosis Gastroesophageal reflux disease without esophagitis- Primary Esophageal reflux documented in this encounter Care Teams Regulatory Assistant Relationship Specialty Start Date End Date Fili Mascorro MD [address] [place] [address] PCP - General Internal Medicine 03/27/20 06/11/23 Yoanna Cuevas MD [address] [place] [id number] PCP - General Internal Medicine 06/12/23 documented as of this encounter
--- OUTSIDE RECORDS SUMMARY | 2024-11-18 11:21 | XMS_ITS | Encounter Summary ---
Author Organization [employer] [facility] Address [address] [place] [address] [address] [place] [address] Care Team Providers Care Art Instructor Name Role Phone Yoanna Cuevas MD Primary Care Pro vider Reason for Visit * Reason Comments Med Refill Encounter Details Date Type Department Care Team ([facility] st Contact Info) Description 07/05/2023 Refill [facility] MED[facility] [address] [place] [address] Yoanna Cuevas MD [address] [place] [address] Social History Tobacco Use Types Packs/Day Years Used Date Smoking Tobacco: Former Cigarettes Q uit: 2009 Smokeless Tobacco: Never Comments:Started tobacco smo pita 11 years -stopped 44 years ,smoked 1 PQT a day,stopped 14 years ago ---PQT [place] a day 32 Depression Answer Date Recorded Patient Health Questionnaire-9 Score 11 05/13/2023 Depression Answer Date Recorded Patient Health Questionnaire-2 Score 4 05/13/2023 Sex and Gender Information Value Date Recorded [...] Assessment Noted Time PHQ-9 Depression Total Score: 11 05/13/ 023 10:01 AM EDT documented as of this encounter Care Teams Art Instructor Relationship Specialty Start Date End Date Yoanna Cuevas MD [address] [place] [id number] PCP - General Internal Medicine 06/12/23 documented as of this encounter
--- OUTSIDE RECORDS SUMMARY | 2024-11-18 11:21 | XMS_ITS | Encounter Summary ---
Author Organization [employer] Address [address] [facility] [address] [place] [address] Care Team Providers Care Licensed Investment Sales Assistant Name Role Phone Yoanna Cuevas MD Primary Care Pro vider Reason for Visit * Reason Onset Date Comments per dr foster walk in emergency 10/10/2023 Encounter Details Date Type Department Care Team ([facility] st Contact Info) Description 10/10/2023 Telephone [facility] [address] [place] [address] Russell Sibley, DDS [address] [place] [address] [address] foster walk in emergency Social History Tobacco Use Types Packs/Day Years Used Date Smoking Tobacco: Former Cigarettes Q uit: 2010 Smokeless Tobacco: Never Comments:Started tobacco smo pita 11 years -stopped 45 years ,smoked 1 PQT a day,stopped 14 years ago ---PQT [place] a day 32 Depression Answer Date Recorded Patient Health Questionnaire-9 Score 11 05/13/2023 Housing Stability Answer Date Recorded What is your housing situation today? I have kourtney stoll 08/19/[address] you li ve. Do you have problems with any of the following? None of the above 08/19/2023 Food Insecurity Answer Date Recorded Within the past 12 months, y ou worried that your food would run out before you got money to buy more: Never True 08/19/2023 Within the past 12 months,th e food you bought just didn't last and you didn't have enough money to get more: Never True Transportation Answer Date Recorded In the past 12 months, has l ack of transportation kept you from medical appts, meetings, work or from getting things needed for daily living? No 08/19/2023 Utilities Answer Date Recorded In the past 12 months, has t he electric, gas, oil or water company threatened to shut off services in your home? No 08/19/2023 Depression Answer Date Recorded Patient Health Questionnaire-2 Score 4 05/13/2023 Sex and Gender Information Value Date Recorded Sex Assigned at Male 08/27/2022 10:31 AM EDT Legal Sex Male 10:31 AM EDT Gender Identity Male 08/27/2022 10:31 AM EDT Sexual Orientation Straight 08/27/2022 10 :31 AM EDT documented as of this encounter Miscellaneous Notes * Telephone Encounter - Emily Amaro - 10/10/2023 9:07 AM EST Patient called in stating that he had extraction yesterday and has not stopped bleeding. Contacted Dr. Sibley at hiss ext and informed by provider that patient should come down now. Informed patient that he needs to come to office now. He is on his way. Contacted front tender with information of patient. Spoke with Bhumika garvin informed per Instructions that patient was going to walk in to see provider due to bleeding documented in this encounter Plan of Treatment Not on file documented as of this encounter Visit Diagnoses Not on filedocumented in this encounter Additional Health Concerns Assessment Noted Time PHQ-9 Depression Total Score: 11 023 10:01 AM EDT documented as of this encounter Care Teams Licensed Investment Sales Assistant Relationship Specialty Start Date End Date Yoanna Cuevas MD [address] [place] [id number] PCP - General Internal Medicine 06/12/23 documented as of this encounter
--- OUTSIDE RECORDS SUMMARY | 2024-11-18 11:21 | XMS_ITS | Encounter Summary ---
Author Organization [employer] [facility] Address [address] [place] [address] [address] [place] [address] Care Team Providers Care Architectural Intern Name Role Phone Fili Mascorro MD Primary Care Prov ider Yoanna Cuevas MD Primary Care Pro vider Encounter Details Date Type Department Care Team (Late st Contact Info) Description 03/29/2023 Orders Only [facility] MED[facility]INE [address] [place], [place] [phone] Ceci Abbott LPN Social History Tobacco Use Types Packs/Day Years [...] on filedocumented in this encounter Care Teams Architectural Intern Relationship Specialty Start Date End Date Fili Mascorro MD [address] [place] [address] PCP - General Internal Medicine 03/27/20 06/11/23 Yoanna Cuevas MD [address] [place] [address] PCP - General Internal Medicine 06/12/23 documented as of this encounter
--- OUTSIDE RECORDS SUMMARY | 2024-11-18 11:21 | XMS_ITS | Encounter Summary ---
Author Organization [facility] Address [address] [facility] [address] [place] [address] Care Team Providers Care Electric Powerline Examiner Name Role Phone Fili Mascorro MD Primary Care Prov ider Yoanna Cuevas MD Primary Care Pro vider Encounter Details Date Type Department Care Team ([facility] st Contact Info) Description 03/07/[address] [facility] MED & PEDS [address] [place], [place] [phone] Ann-Marie Rios LPN Social History Tobacco Use Types Packs/Day [...] on filedocumented in this encounter Care Teams Electric Powerline Examiner Relationship Specialty Start Date End Date Fili Mascorro MD [address] [place] [address] PCP - General Internal Medicine 03/27/20 06/11/23 Yoanna Cuevas MD [address] [place] [address] PCP - General Internal Medicine 06/12/23 documented as of this encounter
--- OUTSIDE RECORDS SUMMARY | 2024-11-18 11:21 | XMS_ITS | Clinical Summary ---
Author Organization [employer] Address [address] [place] [address] Care Team Providers Care Automobile Repossessor Name Role Phone Yoanna Cuevas MD Primary Care Pro vider Allergies No known active allergies Medications * This document contains information received from the source organization and may not represent a complete record from that organization. Alcohol Swabs (Alcohol Prep) 70 % pads USE EVERY DAY 2 Active Atrovent HFA 17 MCG/ACT inhaler INHALE 2 PUFFS BY MOUTH FOUR TIMES DAILY 3 Active cetirizine (ZyrTEC) 10 MG tablet Take 1 tablet (10 mg) by mouth in the morning. 30 tablet 1 3 Active Symbicort 80-4.5 MCG/ACT inhaler INHALE 2 PUFFS BY MOUTH TWICE DAILY IN THE MORNING AND IN THE EVENING 30.6 g 5 3 Active lisinopril 20 MG tabletIndications :Primary hypertension TAKE 1 TABLET BY MOUTH ONCE DAILY 90 tablet 3 4 Active cholecalciferol (Vitamin D-3) 25 MCG tablet TAKE 1 TABLET BY MOUTH EVERY MORNING 90 tablet 4 Active sildenafil (Viagra) 25 MG tablet TAKE 1 TABLET 1 HOUR BEFORE SEXUAL RELATIONS ONCE DAILY NEEDED. 10 tablet 1 4 Active hydroCHLOROthiazi de 12.5 MG tablet TAKE 1 TABLET BY MOUTH EVERY DAY 30 tablet 3 4 Active metFORMIN (Glucophage) 1000 MG tablet TAKE 1 TABLET BY MOUTH TWICE DAILY IN THE MORNING AND IN THE EVENING WITH MEALS 60 tablet 3 4 Active atorvastatin (Lipitor) 40 MG tablet TAKE 1 TABLET BY MOUTH EVERY DAY 30 tablet 3 4 Active omeprazole (PriLOSEC) [address] capsule Take 20 mg by mouth 2 times daily. 4 Active aspirin (Aspirin Low Dose) 81 MG EC tablet TAKE 1 TABLET BY MOUTH EVERY DAY 90 tablet 1 4 Active Active Problems Problem Noted Date Diagnosed Date ED (erectile dysfunction) 02/13/2024 History of tooth extraction 10/10/2023 Periodontal disease 10/09/2023 Obesity (BMI 30-39.9) 09/14/2023 Keith's esophagus 06/13/2023 Assessment & Plan (06/13/2023 5:01 PM EDT): -EGD 08/2020: Mild reactive gastropathy and in GE junction w intestinal metaplasia consistent w Keith's esophagus ,path: neg x h pylori -referred today back to GI will need repeat EGD after 3 years of last one done in 2019 -continue for now on PPIs Nicotine use 05/13/2023 Assessment & Plan (06/13/2023 5:17 PM EDT): Started tobacco smoking 12 years -stopped 45 years ,smoked 1 PQT a day,stopped 14 years ago ---PQT [place] a day 33 -referred today again for lung ca screening program ---from information received pt was told to not qualify for screening because stopped smoking 15 y ago -I calc again and pt is in 14 years range and should have at least one time screening -will need to order [facility] US x1 screening bw 65 to 75 y of age Assessment & Plan (05/13/2023 8:48 PM EDT): Started tobacco smoking 12 years -stopped 45 years ,smoked 1 PQT a day,stopped 14 years ago ---PQT [place] a day 33 -referred today for lung ca screening program MDD (major depressive disorder) 05/13/2023 Assessment & Plan (06/13/2023 5:14 PM EDT): PHQ9: 11 at last apt , no SI,no hallucinations and no derek Today reports feeling better Stopped taking escitalopram 5 mg for sleepiness-explained to pt that this symptoms can occur initially but usually improve but still wants to hold on meds. -saw -Eloise Miranda at last apt but refused to be referred to outpt psychotx -discussed about trying other antidepressants but pt refusing for now -advised to call 911 if any SI and RTC earlier if worsening depression Assessment & Plan (05/14/2023 8:36 AM EDT): Assessment: Patient with anhedonia, feeling depressed, feeling without energy, feeling guilty, and difficulties focusing. He denies SI/HI. Presentation in the context of his son being incarcerated. Patient will benefit from medication prescribed by PCP. Patient was offered OP therapy referral but he declined at this time. At this time Se Mcguire meets criteria for Visit Diagnoses: Problem List Items Addressed This Visit Other Depression Patient ready to address current needs Yes Strengths include providing support for his family PLAN: 1. Follow up with C: Not recommended for follow-up 2. Patient goal is to decrease symptoms of depression 3. Behavioral Recommendations a. Patient will comply with medication b. Patient may request to speak with [facility] during next PCP visit, if needed c. Patient may request OP therapy referral at any time. Assessment & Plan (05/13/2023 8:27 PM EDT): PHQ9: 11 , no SI,no hallucinations and no derek -today to eval pt and to refer to outpt psychotx -start escitalopram -px 10 mg tab but advised to take 1/2 tab x 1 week and to take 1 tab after if tolerating-discussed possible SE and to stop med if experiencing SI and call here or 911 if persist Back pain 05/13/2023 Assessment & Plan (06/13/2023 5:08 PM EDT): -XR lumbar spine 2017 : Normal alignment. Mild disc height loss at L5-S1. Disc spaces otherwisemaintained. Mild anterior vertebral body height loss at T11, T12 appearing chronic, with endplate osteophytes, and mild disc height loss.Clinically correlate. More inferiorly in the lumbar spine, vertebral body heights are maintained. Mild endplate spurring at a few levels.Facet degeneration in the lower lumbar spine. SI joints are intact. -already f w Orthopedic-prescribed meloxicam and referred to PT -per pt had MRI of lower back done - ---- requested record to [facility] ( pt states his new orthopedic should have image result) -tylenol prn -will consider DEXA scan at next apt w XR findings -but will wait to get MRI report to see if reported similar abnormality Assessment & Plan (05/13/2023 8:30 PM EDT): -XR lumbar spine 2017 : Normal alignment. Mild disc height loss at L5-S1. Disc spaces otherwisemaintained. Mild anterior vertebral body height loss at T11, T12 appearing chronic, with endplate osteophytes, and mild disc height loss.Clinically correlate. More inferiorly in the lumbar spine, vertebral body heights are maintained. Mild endplate spurring at a few levels.Facet degeneration in the lower lumbar spine. SI joints are intact. -pt to start care w orthopedic tomorrow -per pt had MRI of lower back done - ---- requested record to [facility] -tylenol prn -will consider DEXA scan at next apt w XR findings Hypertension 05/13/2023 Assessment & Plan (06/13/2023 5:00 PM EDT): BP controlled EKG 04/2023 NSR has Q wave and TWI in lead III only and not in any other contiguous leads,QTC 445 -echocardiogram 07/2021: EF 60-65%, normal microalb 04/2023 34 + - manager animal 05/2023 normal exam except for cataracts to f up in 1 year -continue meds -will repeat microalb in next 3 months Assessment & Plan (05/13/2023 8:40 PM EDT): BP controlled EKG today NSR has Q wave and TWI in lead III only and not in any other contiguous leads,QTC 445 -echocardiogram 07/2021: EF 60-65%, normal -referred to manager animal -continue meds -ordered microalb Seizure 05/13/2023 Assessment & Plan (06/13/2023 4:59 PM EDT): Reports last seizure was 6 y ago States was told by his neurologist to not take any meds x seizures and no need f f up ? - requested record to [facility] but not able to get records Assessment & Plan (05/13/2023 8:36 PM EDT): Reports last seizure was 6 y ago States was told by his neurologist to not take any meds x seizures and no need f f up ? - requested record to [facility] of his last neurologist at [facility]-pt can not recall Health care maintenance 05/13/2023 Assessment & Plan (06/13/2023 5:12 PM EDT): -colonoscopy 08/2020: path report: tubular adenoma in descending colon and 2 other polyps in rectum ( tubular and hyperplastic ) -max diameter 0.6 cm -ordered PSA today not done before -vaccines: s/p hep B x3-not immune-refuse revaccination , covid 3-refuse Bivalent offered today again-states will come another time for vaccine ,s/p p20 04/2023 ,Prescribed shingrix vaccine to pharmacy today ---- -from annual lab exams done in 04/2023 : Vit d low -start daily vit D and will check level in 6 months . Noted ca+ 10.6 and total bili 1.3 and ALT 47-57 and alb 5.2 --repeat today chem --will call pt w result Assessment & Plan (05/13/2023 8:48 PM EDT): -labs x annual exam today-had coffee this am -pt agreed to have STI testing including HIV to have for baseline --requested to [facility] to add on PSA total and free -colonoscopy 3 y ago per pt- ---- requested record to [facility] of last colon,EGD and GI note -vaccines: s/p hep B x3, covid 3-refuse Bivalent offered today , p20 today,zoster will offer at next apt Chronic obstructive lung disease 09/22/2018 Assessment & Plan (06/13/2023 4:59 PM EDT): COPD -continue care w tavern car attendant -next apt x 06/2023 Assessment & Plan (05/13/2023 8:42 PM EDT): COPD -continue care w tavern car attendant -next apt x 06/2023 Dyslipidemia 09/22/2018 Type 2 diabetes mellitus 09/22/2018 Assessment & Plan (06/13/2023 5:03 PM EDT): Pt reports DM only on metformin hb1AC 04/2023 6.6 ,Microalb 34 + and LDL 62 -DM labs in 6 mo but will do microalb in 3 mo -referred to communication center coordinator -reports numbness in feet -apt x this month - manager animal 05/2023: Normal exam ,except for cataract to f up in 1 year -continue metformin Assessment & Plan (05/13/2023 8:24 PM EDT): Pt reports DM only on metformin -DM labs -referred to communication center coordinator -reports numbness in feet -referred to manager animal -DM labs Resolved Problems Problem Noted Date Diagnosed Date Resolved Date Xiphoid pain 12/19/2023 09/28/2024 Reducible umbilical hernia 04/23/2022 0 06/13/2023 Assessment & Plan (05/13/2023 8:25 PM EDT): Will f at next visit for hx of umbilical hernia Gastroesophageal reflux disease 09/22/2018 06/13/2023 Encounters Date Type Department Care Team Description 11/18/2024 Orders Only GENERIC EXTERNAL DATA DEPARTMENT Provider, Generic External Data 10/19/2024 Telephone [facility] [address] [place] [phone] Yoanna Cuevas MD Results 10/14/2024 Refill [facility] [address] [place] [address] Yoanna Cuevas MD 09/28/2024 1:15 PM EST Office Visit [facility] [address] [place] [address] Yoanna Cuevas MD Health care maintenance (Primary Dx); Seizure (CMS/HCC); Pulmonary emphysema, unspecified emphysema type (CMS/HCC); Primary hypertension; Diabetes due to underlying condition w oth circulatory comp (CMS/HCC); Keith's esophagus without dysplasia; Obesity (BMI 30-39.9); Type 2 diabetes mellitus without complication, without long-term current use of insulin (CMS/HCC); Nicotine use 09/28/2024 Travel 09/25/2024 Refill [facility] [address] [place] [address] Yoanna Cuevas MD 09/17/2024 Telephone [facility] [address] [place] [address] Maria Del Carmen Hawk MA chart prep 09/15/2024 Patient Outreach [facility] [address] [place] [address] Yoanna Cuevas MD Pre-visit Planning (SDOH screening was completed on 07/17/2024) 09/05/2024 Refill [facility] [address] [place] [address] Yoanna Cuevas MD from Last 3 Months Immunizations Name Administration Dates Next Due Hep B, adult 11/12/2017,08/09/2017,07/08/2017 Moderna Covid-19 Vaccine 6+ Bivalent 06/28/2023 Pneumococcal Conjugate PCV 20 05/13/2023 Family History Medical History Relation Name Comments DM2,HTN Brother DM2 [Other],heart disease , HTN Father HLD, Mother Relation Name Status Comments Brother Father Mother Social History Tobacco Use Types Packs/Day Years Used Date Smoking Tobacco: Former Cigarettes Q uit: 2009 Smokeless Tobacco: Never Tobacco Cessation:Counseling Given: Not Answered Comments:Started tobacco smoking 12 years -stopped 44 years of age [...] Orientation Straight 08/27/2022 10 :31 AM EDT Last Filed Vital Signs Vital Sign Reading Time Taken Comments Blood Pressure 126/79 09/28/2024 1:15 PM EST Pulse 83 09/28/2024 1:15 PM EST Temperature 36.4 ??C (97.5 ??F) 09/28/2024 1:15 PM ES T Respiratory Rate 20 09/28/2024 1:15 PM EST Oxygen Saturation 97% 09/28/2024 1:15 PM EST Inhaled Oxygen Concentration - - Weight 94.3 kg (207 lb 12.8 oz) 09/28/2024 1:15 PM EST Height 177.8 cm (5' 10 ) 09/28/2024 1:15 PM EST Body Mass Index 29.82 09/28/2024 1:15 PM EST Plan of Treatment Health Maintenance Due Date Last Done Comments CT Colonography 1965 FIT DNA/Cologuard 1964 FIT 1964 FOBT 1965 Sigmoidoscopy 1965 Diabetes: Foot Exam 1974 Eye Exam 1974 Alcohol/Substance Use Screening 1976 DTaP/Tdap/Td Vaccines (1 - Tdap) 1983 Zoster Vaccines (1 of 2) 2014 Dental Oral Exam 02/13/2018 08/14/2017 Colonoscopy 07/23/2018 07/23/2017 Colorectal Cancer Screening 07/23/2018 RSV Patients and Patients Aged 60 years or older (1 - Risk 60-74 years 1-dose series) 2024 COVID-19 Vaccine ( season) 2024 06/28/2023, 10/23/2021, 02/01/2021, Additional history exists Influenza Vaccine (#1) 2024 Dental Prophylaxis 09/20/2024 03/19/2024, 08/21/2017 Dental X-Ray: Bitewings 03/20/2025 03/19/2024, 08/14 Diabetes: Hemoglobin A1C 04/03/2025 024, 02/08/2024, 12/14/2023, Additional history exists SDOH Screening 07/17/2025 07/17/2024 Depression Screening 09/28/2025 09/28/2024, 09/28/20 Tobacco Screening 09/28/2025 09/28/2024 Diabetes: Urine Protein Screening 10/03/2025 10/03/2024, 02/08/2024, 09/30/2021, Additional history exists Lipid Panel 10/03/2025 10/03/2024, 01/26, 06/28/2020 Dental X-Ray: Full Mouth 03/20/2027 024, 03/10/2018, 08/14/2017 Hepatitis B Vaccines Completed 11/12/2017, 08/09/2017, 07/08/2017 Pneumococcal Vaccine: Pediatrics (0 to 5 Years) and At-Risk Patients (6 to 64 Years) Completed 05/13/2023 HIV Screening Completed 10/03/2024 Hepatitis C Screening Completed 10/03/2024 HIB Vaccines Aged Out No longer eligi ble based on patient's age to complete this topic HPV Vaccines Aged Out No longer eligi ble based on patient's age to complete this topic Hepatitis A Vaccines Aged Out No long er eligible based on patient's age to complete this topic IPV Vaccines Aged Out No longer eligi ble based on patient's age to complete this topic Meningococcal Vaccine Aged Out No david rosa maria eligible based on patient's age to complete this topic RSV under 20 months Aged Out No longe r eligible based on patient's age to complete this topic Rotavirus Vaccines Aged Out No longer eligible based on patient's age to complete this topic Procedures Procedure Name Priority Date/Time Associated Diagnosis Comments XR CHEST 2 VIEWS Routine 11/18/2024 6:40 AM EST HIGH SENSITIVITY TROPONIN I Routine 11/18/2024 6:28 AM EST COMPREHENSIVE METABOLIC PANEL Routine 11/18/2024 6:28 AM EST CBC WITH AUTO DIFFERENTIAL Routine 11/18/2024 6:28 AM EST SARS COV2/INFLUENZA A/B AND RSV RNA QL NAAT Routine 11/18/2024 6:28 AM EST PSA, TOTAL Routine 10/03/2024 7:49 AM EST Health care maintenance VITAMIN B12/FOLATE, SERUM PANEL Routine 10/03/2024 7:49 AM EST Health care maintenance VITAMIN D,25-OH,TOTAL,IA Routine 10/03/2024 7:49 AM EST Health care maintenance TSH W/REFLEX TO FT4 Routine 10/03/2024 7 :49 AM EST Health care maintenance SYPHILIS SCREEN Routine 10/03/2024 7:49 AM EST Health care maintenance LIPID PANEL, STANDARD Routine 10/03/2024 7:49 AM EST Health care maintenance HIV 1/2 ANTIGEN/ANTIBODY, FOURTH GENERATION W/RFL Routine 10/03/2024 7:49 AM EST Health care maintenance HEPATITIS C AB W/REFL TO HCV RNA, QN, PCR Routine 10/03/2024 7:49 AM EST Health care maintenance HEPATITIS B SURFACE ANTIGEN, EIA Routine 10/03/2024 7:49 AM EST Health care maintenance HEPATITIS B SURFACE ANTIBODY, QUALITATIVE Routine 10/03/2024 7:49 AM EST Health care maintenance HEPATITIS B CORE AB TOTAL Routine 10/03/2024 7:49 AM EST Health care maintenance HEMOGLOBIN A1C Routine 10/03/2024 7:49 AM EST Health care maintenance COMPREHENSIVE METABOLIC PANEL Routine 10/03/2024 7:49 AM EST Health care maintenance CBC Routine 10/03/2024 7:49 AM EST Health care maintenance ALBUMIN, RANDOM URINE W/CREATININE Routine 10/03/2024 7:46 AM EST Health care maintenance CHLAMYDIA/N. GONORRHOEAE RNA, TMA, UROGENITAL Routine 10/03/2024 7:46 AM EST Health care maintenance PROPHYLAXIS - ADULT Routine 03/19/2024 8 :00 AM EDT DIAGNOSTIC - DIAGNOSTIC IMAGING - INTRAORAL - COMPREHENSIVE SERIES OF RADIOGRAPHIC IMAGES Routine 03/19/2024 8:00 AM EDT COMPREHENSIVE ORAL EVALUATION - NEW OR ESTABLISHED PATIENT Routine 08/14/2017 12:00 AM EDT HM COLONOSCOPY Routine 07/23/2017 2:28 PM EDT from Last 3 Months or Most Recently Relevant to Health Maintenance Results * XR Chest 2 Views (11/18/2024 6:40 AM EST) Anatomical Region Laterality Modality Chest Radiographic Jelly ging 11/18/2024 6:40 AM EST Narrative 11/18/2024 7:20 AM EST ? [facility] ?[address] ?[place] [address] ?XRay Report ? Signed ? Patient: Mcguire,Se R ?MR#: [id number] ?? 205 ? : 1965 ?Acct:[id number] ? Age/Sex: 59 / M ?ADM Date: 11/18/24 ? Loc: HO.ED ? Attending Dr: ? Ordering Physician: Generic ED Physician ?? Date of Service: 11/18/24 ?? Procedure(s): XR chest 2V ?? Accession Number(s): [id number] ? cc: Generic ED Physician; Yoanna Cuevas [...] 07:17 AM EST RP ? Dictated By: ?Nikolai Freeman MD ? Signed By: ?<Electronically signed by Nikolai Freeman MD in OV> ?11/18/24 0717 ? DD/ 0640 ? TD/TT: 11/18/24 0650 ? Welt Cutter: MSM ? Procedure Note Suman Romero - 11/18/2024 [place] [address] XRay Report Signed Patient: Se Mcguire RMR#: [id number] 205 : 1965Acct:[id number] Age/Sex: 59 / MADM Date: 11/18/24 Loc: HO.ED Attending Dr: Ordering Physician: Generic ED Physician Date of Service: 11/18/24 Procedure(s): XR chest 2V Accession Number(s): [id number] cc: Generic ED Physician; Yoanna Cuevas MD [...] 11/18/24 0717 DD/ 0640 TD/TT: 11/18/24 0650 Welt Cutter: HILARY [facility] External Provider IMG XR PROCEDURES Final Result * High Sensitivity Troponin I (11/18/2024 6:28 AM EST) Pathologist [facility] TROPONIN I HIGH SENSITIVITY 12.7 <3.5 - 35.0 ng/L [facility] Comment:The Amin high sens itivity Troponin-I results should beused in conjunction with other diagnostic information suchas ECG, clinical observations and information, and patientsymptoms to aid in the diagnosis of MA. 11/18/2024 6:28 AM EST 11/18/2024 6:33 AM EST Generic External Data Provider LAB BLOOD ORDERAB LES Final Result [facility] [address] [place] [phone] * SARS-CoV-2 RNA, Influenza A/B, and RSV RNA, Ql NAAT (11/18/2024 6:28 AM EST) Pathologist [facility] Influenza A PCR NEGATIVE Negative [facility] Influenza B PCR NEGATIVE Negative [facility] Resp Syncy Virus RNA Qual PCR NEGATIVE Negative [facility] SARS COV2 PCR NEGATIVE Negative [facility] Comment:All test results mus t be [...] use by authorized laboratories.Testing performed on the [employer] GeneXpert utilizingreal-time RT-PCR.All SARS CoV2 and positive influenza A/B results arereported to [facility]. 11/18/2024 6:28 AM EST 11/18/2024 6:33 AM EST us Generic External Data Provider LAB MICROBIOLOGY - GENERAL ORDERABLES Final Result [facility] [address] [place] [address] [phone] * (ABNORMAL) CBC auto differential (11/18/2024 6:28 AM EST) White Blood Count 5.8 4.8 - 10.8 X10*3/uL [facility] Red Blood Count 4.86 4.60 - 5.80 X10*6/uL [facility] Hemoglobin 15.1 14.0 - 18.0 g/dl [facility] Hematocrit 43.7 42.0 - 52.0 % [facility] Mean Corpuscular Volume 89.9 80.0 - 98.0 fL [facility] Mean Corpuscular Hemoglobin 31.1 27.0 - 33.0 pg [facility] Mean Corpuscular HGB Conc 34.6 31.0 - 36.0 g/dl [facility] Red Cell Distribution Width 12.4 11.0 - 16.0 % [facility] Platelet Count 104(L) 160 - 400 X10*3/uL [facility] Comment:Test was verified by repeat analysis. Mean Platelet Volume 12.7(H) 9.4 - 12.4 fL [facility] Neutrophils Percent Auto 59.8 45 - 73 % [facility] Imm Gran Pct Auto 0.3 0.0 - 0.4 % [facility] Lymphocytes Percent Auto 20.5 20 - 40 % [facility] Monocytes Percent Auto 13.5(H) 2 - 11 % [facility] Eosinophils Percent Auto 4.9(H) 0 - 4 % [facility] Basophils Percent Auto 1.0 0 - 2 % [facility] NRBC Pct Auto 0.0 0.0 - 0.2 /100WBC [facility] Neutrophils Absolute Auto 3.4 2.0 - 8.3 x10*3/uL [facility] Imm Gran Abs Auto 0.02 0.00 - 0.03 X10*3/uL [facility] Lymphocytes Absolute Auto 1.2 1.2 - 4.9 X10*3/uL [facility] Monocytes Absolute Auto 0.8 0.1 - 1.2 X10*3/uL [facility] Eosinophils Absolute Auto 0.3 0.0 - 0.4 X10*3/uL [facility] Basophils Absolute Auto 0.1 0.0 - 0.2 X10*3/uL [facility] NRBC Abs Auto 0.000 0.0 - 0.012 X10*3/uL [facility] 11/18/2024 6:28 AM EST 11/18/2024 6:33 AM EST us Generic External Data Provider LAB BLOOD ORDERAB LES Final Result Performing Organization Address City/State/RUST Co de Phone Number [facility] [address] [place] [phone] * (ABNORMAL) Comprehensive Metabolic Panel (11/18/2024 6:28 AM EST) Only the most recent of2 resultswithin the time period is included. Sodium 137 135 - 145 mmol/L [facility] Potassium 3.9 3.3 - 5.1 mmol/L [facility] Chloride 102 96 - 108 mmol/L [facility] Carbon Dioxide 25 22 - 29 mmol/L [facility] Anion Gap 14 12 - 20 [facility] Urea Nitrogen (BUN) 18(H) 9 - 16 mg/dL [facility] Creatinine, Serum 1.37 0.5 - 1.4 mg/dL [facility] Creatinine Clr Calc Pharmacy 64.9 [facility] Comment:eGFR (calculated fro m the MDRD study equation) and eCrCl(calculated from the Cockcroft-Gault equation) are based ondifferent parameters and may not yield comparable results.If eCrCl result is absurd, please check patient'sheight/weight. Estimated Glomerular Filt Rate 53 [facility] Comment:Chronic Kidney Disea se: Estimated GFR < 60 mL/min/[id number] Kidney Disease: Estimated GFR < 15 mL/min/1.73m2 Glucose 194(H) 60 - 115 mg/dL [facility] Calcium 10.0 8.4 - 10.2 mg/dL [facility] Bilirubin, Total 1.5(H) 0.0 - 1.0 mg/dL [facility] Aspartate Amino Transferase 64(H) 5 - 37 U/L [facility] Alanine Aminotransferase 132(H) 0 - 40 U/L [facility] Total Protein 7.7 6.5 - 8.0 g/dL [facility] Albumin Level 4.4 3.5 - 5.0 g/dL [facility] Alkaline Phosphatase 157(H) 39 - 117 U/L [facility] 11/18/2024 6:28 AM EST 11/18/2024 6:33 AM EST us Generic External Data Provider LAB BLOOD ORDERAB LES Final Result Performing Organization Address City/[facility]/ZIP Co de Phone Number [facility] [address] [place] [phone] * Syphilis Screen (10/03/2024 7:49 AM EST) Syphilis Screen Nonreactive Nonreactive [facility] Blood 10/03/2024 7:49 AM EST 10/03/2024 7:49 AM EST us Yoanna Castillo MD LAB BLOOD ORDERAB LES Final Result Performing Organization Address City/[facility]/ZIP Co de Phone Number [facility] [address] [place] [phone] * Vitamin D, 25-Hydroxy, Total, Immunoassay (10/03/2024 7:49 AM EST) Vitamin D 25-OH Total 55.8 >30 ng/mL [facility] Comment:Health Based Referen ce Values*< 20 ng/mL Rtmazzyko31-14 ng/mL Insufficient> 30 ng/mL Sufficient*Juanito MOSQUEDA. N Engl J Med. 2007;357:266-280Care must be taken in interpreting Vitamin D results fromdifferent laboratories and methodologies. Published datademonstrated that results from patients undergoinghemodialysis may show a negative bias when tested withvarious automated 25-OH vitamin D assays when compared toLC-MS/MS.When testing samples from patients whose predominant form ofVitamin D is Vitamin D2, such as patients receiving VitaminD2 supplementation, results that are subtherapeutic shouldbe confirmed with another method such as LC-MS/MS. Blood Venous blood specimen / Unknown 10/03/2024 7:49 AM EST 10/03/2024 7:49 AM EST Yoanna Castillo MD LAB BLOOD ORDERAB LES Final Result [facility] [address] [place] [phone] * Vitamin B12 (Cobalamin) and Folate Panel, Serum (10/03/2024 7:49 AM EST) Vitamin B12 689 200 - 900 pg/mL [facility] Comment:NORMAL 200-900 PG/ML INDETERMINATE 160-199 PG/ML DEFICIENT < 160 PG/ML Folate 14.8 > or = 4.0 ng/mL [facility] Comment:Reference Values:> o r = 4.0 ng/mL< 4.0 ng/mL suggests folate deficiency Methotrexate, aminopterin and folinic acid(leucovorin) are chemotherapeutic agents whose molecularstructures are similar to folate; therefore, the Architectfolate assay cannot be used for patients using these drugs. Blood 10/03/2024 7:49 AM EST 10/03/2024 7:49 AM EST Yoanna Castillo MD LAB BLOOD ORDERAB LES Final Result Performing Organization Address [facility] Co de Phone Number [facility] [address] [place] [phone] * TSH with Reflex to Free T4 (10/03/2024 7:49 AM EST) TSH reflex Free T4 0.32 0.32 - 4.0 uIU/mL [facility] Blood 10/03/2024 7:49 AM EST 10/03/2024 7:49 AM EST Yoanna Castillo MD LAB BLOOD ORDERAB LES Final Result Performing Organization Address [facility] Co de Phone Number [facility] [address] [place] [phone] * Hepatitis C Antibody with Reflex to HCV, RNA, Quantitative, Real-Time PCR (10/03/2024 7:49 AM EST) Pathologist [facility] Hepatitis C Antibody Nonreactive Nonreactive [facility] Comment:Antibodies to HCV no t detected; does not exclude early acuteHCV infection. Blood Venous blood specimen / Unknown 10/03/2024 7:49 AM EST 10/03/2024 7:49 AM EST Yoanna Castillo MD LAB BLOOD ORDERAB LES Final Result Performing Organization Address [facility] Co de Phone Number [facility] [address] [place] [phone] * Hepatitis B surface antigen, EIA (10/03/2024 7:49 AM EST) Hepatitis B Surface Ag Negative Negative [facility] Blood Venous blood specimen / Unknown 10/03/2024 7:49 AM EST 10/03/2024 7:49 AM EST Yoanna Castillo MD LAB BLOOD ORDERAB LES Final Result Performing Organization Address City/[facility]/ZIP Co de Phone Number [facility] [address] [phone] * Hepatitis B Core Antibody, Total (10/03/2024 7:49 AM EST) Hepatitis B Core Antibody Nonreactive Nonreactive [facility] Blood Venous blood specimen / Unknown 10/03/2024 7:49 AM EST 10/03/2024 7:49 AM EST Yoanna Castillo MD LAB BLOOD ORDERAB LES Final Result Performing Organization Address [facility] de Phone Number [facility] [address] [place] [phone] * HIV-1/2 Antigen and Antibodies, Fourth Generation, with Reflexes (10/03/2024 7:49 AM EST) HIV AB/AG Nonreactive Nonreactive [facility] Comment:HIV-1 p24 Ag and/or HIV-1/HIV-2 Ab not detected.A test result that is nonreactive does not exclude thepossibility of exposure to or infection with HIV-1 and/orHIV-2. Nonreactive results in this assay for individualswith prior exposure to HIV-1 and/or HIV-2 may be due toantigen and antibody levels that are below the limit ofdetection of this assay.The MeasurefulniUllink HIV Ag/Ab Combo assay result andsupplemental assay results should be interpreted inconjunction with the patient's clinical presentation,history and other laboratory results. If the results areinconsistent with clinical evidence, additional testing issuggested to confirm the result. Blood Venous blood specimen / Unknown 10/03/2024 7:49 AM EST 10/03/2024 7:49 AM EST us Yoanna Castillo MD LAB BLOOD ORDERAB LES Final Result Performing Organization Address City/[facility]/ZIP Co de Phone Number [facility] [address] [place] [phone] * Hepatitis B Surface Antibody, Qualitative (10/03/2024 7:49 AM EST) Pathologist [facility] ~Hepatitis B Surface Antibody NONREACTIVE Nonreactive [facility] Comment:Nonreactive: < 8.00 mIU/mL Blood Venous blood specimen / Unknown 10/03/2024 7:49 AM EST 10/03/2024 7:49 AM EST us Yoanna Castillo MD LAB BLOOD ORDERAB LES Final Result Performing Organization Address [facility]/ZIP Co de Phone Number [facility] [address] [place] [phone] * CBC (10/03/2024 7:49 AM EST) [facility] White Blood Count 6.0 4.8 - 10.8 X10*3/uL [facility] Red Blood Count 5.00 4.60 - 5.80 X10*6/uL [facility] Hemoglobin 15.4 14.0 - 18.0 g/dl [facility] Hematocrit 45.8 42.0 - 52.0 % [facility] Mean Corpuscular Volume 91.6 80.0 - 98.0 fL [facility] Mean Corpuscular Hemoglobin 30.8 27.0 - 33.0 pg [facility] Mean Corpuscular HGB Conc 33.6 31.0 - 36.0 g/dl [facility] Red Cell Distribution Width 12.7 11.0 - 16.0 % [facility] Platelet Count 202 160 - 400 X10*3/uL [facility] Mean Platelet Volume 12.2 9.4 - 12.4 fL [facility] NRBC Pct Auto 0.0 0.0 - 0.2 /100WBC [facility] NRBC Abs Auto 0.000 0.0 - 0.012 X10*3/uL [facility] Blood Venous blood specimen / Unknown 10/03/2024 7:49 AM EST 10/03/2024 7:49 AM EST us Yoanna Castillo MD LAB BLOOD ORDERAB LES Final Result Performing Organization Address City/[facility]/ZIP Co de Phone Number [facility] [address] [place] [phone] * PSA,Total (10/03/2024 7:49 AM EST) Prostate Specific Antigen 3.54 <0.05 - 4.0 ng/mL [facility] Comment:PSA methodology: Abb jovita Alijudyty i ChemiluminescentMicroparticle Immunoassay (CMIA) Blood Venous blood specimen / Unknown 10/03/2024 7:49 AM EST 10/03/2024 7:49 AM EST us Yoanna Castillo MD LAB BLOOD ORDERAB LES Final Result Performing Organization Address City/[facility] Co de Phone Number [facility] [address] [place] [phone] * (ABNORMAL) Hemoglobin A1c (10/03/2024 7:49 AM EST) Hemoglobin A1c 6.8(H) <6.0 % [facility] Comment:Hemoglobin A1C Refer ence Range Adults: 4.8 - 6.0 % Non diabetic: < 6.0 % Goal: < 7.0 %Additional Action Suggested: > 8.0 %Note: Hemoglobin A1c results are invalid for patients with abnormal amounts of HbF. Blood transfusions may impact the HbA1c concentration in the patient sample. Estimated Average Glucose 148 mg/dL [facility] Comment:eAG = Estimated ave rage glucose which is %A1C expressed asaverage glucose, using the formula of the F1P-LpgzwwjPqxltfc Glucose study (ADAG), Diabetes Care, Vol.31,#8,2007 Blood Venous blood specimen / Unknown 10/03/2024 7:49 AM EST 10/03/2024 7:49 AM EST us Yoanna Castillo MD LAB BLOOD ORDERAB LES Final Result Performing Organization Address [facility] Co de Phone Number [facility] [address] [place] [phone] * (ABNORMAL) Lipid Panel, Standard (10/03/2024 7:49 AM EST) Triglycerides 140 <150 mg/dL [facility] Comment:Desirable Triglyceri de: less than 150 mg/dLBorderline High Triglyceride 150-199 mg/dLHigh Triglyceride: 200-499 mg/dLVery High Triglyceride: greater than or equal to 5OO mg/dL Cholesterol 127 <200 mg/dL [facility] Comment:Desirable Cholestero l: less than 200 mg/dLBorderline High Cholesterol: 200-239 mg/dLHigh Cholesterol: greater than 239 mg/dL LDL Cholesterol Calculated 63 <100 mg/dL [facility] Comment:Desirable LDL: less than 100 mg/dLNear Optimal/Above Optimal LDL: 110- 129 mg/dLBorderline High LDL: 130-159 mg/dLHigh LDL: 160-189 mg/dLVery High LDL: greater than or equal to 190 mg/dL HDL Cholesterol 36(L) >40 mg/dL [facility] Comment:Desirable HDL: great er than 40 mg/dL Note: This HDL assay may give artificially low results in patients with liver disease. Blood Venous blood specimen / Unknown 10/03/2024 7:49 AM EST 10/03/2024 7:49 AM EST us Yoanna Castillo MD LAB BLOOD ORDERAB LES Final Result Performing Organization Address City/[facility]/ZIP Co de Phone Number [facility] [address] [place] [phone] * Albumin, Random Urine W/Creatinine (10/03/2024 7:46 AM EST) Creatinine, Urine 261.62 mg/dL [facility] Microalbumin Urine 47.0 mg/L [facility] Microalbum Creatinine Ratio Ur 17.9 <30 ug/mg cr [facility] Comment:Albumin/Creatinine R atio Reference Ranges: Normal: < 30 ug/mg creatinine Microalbuminuria: 30 - 300 ug/mg creatinineClinical Albuminuria: > 300 ug/mg creatinine Urine (Urine, Random) 10/03/2024 7:46 AM EST 10/03/2024 9:42 AM EST us Yoanna Castillo MD LAB URINE ORDERAB LES Final Result [facility] [address] [place] [phone] * Chlamydia/N. Gonorrhoeae RNA, TMA, Urogenitial (10/03/2024 7:46 AM EST) [facility] CT PCR NOT DETECTED Not Detect. [facility] Comment:A not detected test result does not exclude the possibilityof infection because test results can be affected byimproper specimen collection, concurrent antibiotic therapy,or the number of organisms in the specimen which may bebelow the sensitivity of the test. As with many diagnostictests, results from the Xpert CT/NG assay should beinterpreted in conjunction with other laboratory andclinical data available to the clinician.Xpert CT/NG performance has not been evaluated in patientsless than 14 years of age. The assay should not be used forthe evaluationof suspected sexual abuse or for other medico-legalindications. Additional testing is recommended in anycircumstance when false positive or false negative resultscould lead to adverse medical, social or psychologicalconsequences. NG PCR NOT DETECTED Not Detect. [facility] Comment:A not detected test result does not exclude the possibilityof infection because test results can be affected byimproper specimen collection, concurrent antibiotic therapy,or the number of organisms in the specimen which may bebelow the sensitivity of the test. As with many diagnostictests, results from the Xpert CT/NG assay should beinterpreted in conjunction with other laboratory andclinical data available to the clinician.Xpert CT/NG performance has not been evaluated in patientsless than 14 years of age. The assay should not be used forthe evaluationof suspected sexual abuse or for other medico-legalindications. Additional testing is recommended in anycircumstance when false positive or false negative resultscould lead to adverse medical, social or psychologicalconsequences. Urine Urethral structure / Unknown 10/03/2024 7:46 AM EST 10/03/2024 9:42 AM EST Narrative [facility] - 10/03/2024 2:44 PM EST Urine Yoanna Castillo MD LAB MICROBIOLOGY - GENERAL ORDERABLES Final Result [facility] [address] [place] [phone] * Hm Colonoscopy (07/23/2017 2:28 PM EDT) Historical Provider HEALTH MAINTENANCE Final Result from Last 3 Months or Most Recently Relevant to Health Maintenance Insurance HSN PARTIAL [facility] NAVIGATE HSN FULL DENTAL - HSN PARTIAL (MEDICAID) Care Teams Automobile Repossessor Relationship Specialty Start Date End Date Yoanna Cuevas MD [address] [place] [phone] PCP - General Internal Medicine 06/12/23
--- OUTSIDE RECORDS SUMMARY | 2024-11-18 11:21 | XMS_ITS | Encounter Summary ---
Author Organization [employer] Address [address] [facility] [address] [place] [address] Care Team Providers Care Floral Specialist Name Role Phone Yoanna Cuevas MD Primary Care Pro vider Reason for Visit * Reason Onset Date Comments Results 10/19/2024 Encounter Details Date Type Department Care Team ([facility] Contact Info) Description 10/19/2024 Telephone [facility] [address] [place] [address] Yoanna Cuevas MD [address] [place], [place] [phone] Results Social History Tobacco Use Types Packs/Day [...] encounter Miscellaneous Notes * Telephone Encounter - Daniele Ureña - 10/20/2024 8:06 AM EST Tc from pt returning call, Switch Tender informed previous message. Pt verbalizes understanding. * Telephone Encounter - Alla Peterson RN - 10/19/2024 2:29 PM EST Telephone call placed to patient in regards to message below. No answer, left voicemail. Patient tocall as needed. Labs were normal. * Telephone Encounter - Brooke Chow - 10/19/2024 9:57 AM EST TC from pt requesting call back regarding Results. Type of results: PSA,Vitamin B 12, Hep B,C,CBC,Chlamydia Date when done: 10/03/2024 Facility: [facility] documented in this encounter Plan of Treatment Not on file documented as of this encounter Visit Diagnoses Not on filedocumented in this encounter Additional Health Concerns Assessment Noted Time PHQ-9 Depression Total Score: 3 09/28/20 24 1:16 PM EST documented as of this encounter Care Teams Floral Specialist Relationship Specialty Start Date End Date Yoanna Cuevas MD [address] [place] [phone] PCP - General Internal Medicine 06/12/23 documented as of this encounter
--- OUTSIDE RECORDS SUMMARY | 2024-11-18 11:21 | XMS_ITS | Encounter Summary ---
Author Organization [employer] Address [address] [facility] [place] [address] Care Team Providers Care Level Glass Forming Machine Operator Name Role Phone Yoanna Cuevas MD Primary Care Pro vider Encounter Details Date Type Department Care Team (Late st Contact Info) Description 02/07/2024 Orders Only [facility] [address] [place] [phone] Provider, MD Danyel Social History Tobacco Use Types Packs/Day Years [...] Procedure Name Priority Date/Time Associated Diagnosis Comments HM COLONOSCOPY Routine 07/23/2017 2:28 PM EDT documented in this encounter Results * Hm Colonoscopy (07/23/2017 2:28 PM EDT) us Historical Provider HEALTH MAINTENANCE Final Result documented in this encounter Visit Diagnoses Not on filedocumented in this encounter Additional Health Concerns Assessment Noted Time PHQ-9 Depression Total Score: 11 023 10:01 AM EDT documented as of this encounter Care Teams Level Glass Forming Machine Operator Relationship Specialty Start Date End Date Yoanna Cuevas MD [address] [place] [phone] PCP - General Internal Medicine 06/12/23 documented as of this encounter
--- OUTSIDE RECORDS SUMMARY | 2024-11-18 11:22 | XMS_ITS | Encounter Summary ---
Author Organization [employer] [facility] Address [address] [place] [address] [address] [place] [address] Care Team Providers Care Traffic Division Commanding Officer Name Role Phone Fili Mascorro MD Primary Care Prov ider Yoanna Cuevas MD Primary Care Pro vider Encounter Details Date Type Department Care Team ([facility] st Contact Info) Description 10/31/2022 Telephone [facility] [address] [place], [place] [phone] Fili Mascorro MD [address] [place], [place] [phone] Social History Tobacco Use Types Packs/Day Years [...] on filedocumented in this encounter Care Teams Traffic Division Commanding Officer Relationship Specialty Start Date End Date Fili Mascorro MD [address] [place], [place] [phone] PCP - General Internal Medicine 03/27/20 06/11/23 Yoanna Cuevas MD [address] [place], [place] [phone] PCP - General Internal Medicine 06/12/23 documented as of this encounter
[2024-11-18 11:45] LABS: Appearance Urine Hazy; Color Urine Orange; Glucose Urine UA 250 mg/dL (Negative); Leukocyte Esterase Urine Negative (Negative); Nitrite Urine Positive (Negative); PH 5.5 (5.0-9.0); Specific Gravity - Urine >= 1.030 (1.005-1.025); UMIC TRIGGER UACC YES; Urine Blood Negative (Negative); Urine Ketones 15 mg/dL (Negative); Urine Protein 30 (1+) mg/dL (Neg-Trace)
[2024-11-18 11:58] LABS: Bacteria Urine 4+ (None Seen); RBC Urine 0-2 /HPF (0-2); Squamous Epithelial Cell Urine 0-2 /HPF (0-2); UACC Culture Trigger YES; WBC Urine 0-5 /HPF (0-5)
[2024-11-18 13:03] VITALS: BP 104/72; PULSE 82; RESP 14; TEMP 36.9; O2SAT 97
[2024-11-18 16:32] VITALS: BP 104/72; PULSE 82; RESP 14; TEMP 36.9; O2SAT 97
== END 2024-11-18 16:33 | disposition home or self-care (01) ==
PROVIDERS: Emergency Provider Emergency Medicine; PCP Student in an Organized Health Care Education/Training Program
DX: M54.50 Low back pain, unspecified (principal); R06.02 Shortness of breath; M25.512 Pain in left shoulder; R10.11 Right upper quadrant pain; R05.9 Cough, unspecified; R07.89 Other chest pain; R79.89 Other specified abnormal findings of blood chemistry; Z03.818 Encounter for observation for suspected exposure to other biological agents ruled out; Z79.899 Other long term (current) drug therapy; Z87.891 Personal history of nicotine dependence
CPT/HCPCS: 0241U; 36415; 71046; 74176; 76705; 80053; 81001; 84484; 85025; 87086; 93005; 99284

== ENCOUNTER → 2024-11-18 05:36 | Outpatient (BNV) | payer OTHER, SELFPAY | PROVIDERS: PCP Student in an Organized Health Care Education/Training Program; Visit Provider Internal Medicine Cardiovascular Disease | DX: R00.0 Tachycardia, unspecified (principal) | CPT/HCPCS: 93010 ==

== ENCOUNTER → 2024-11-18 06:40 | Outpatient (BNV) | payer OTHER, SELFPAY | PROVIDERS: PCP Student in an Organized Health Care Education/Training Program; Visit Provider Radiology Diagnostic Radiology | DX: R07.9 Chest pain, unspecified (principal); R06.02 Shortness of breath; R10.11 Right upper quadrant pain | CPT/HCPCS: 71046; 74176; 76705 ==

== ENCOUNTER → 2024-11-30 15:31 | Outpatient (BNV) | payer OTHER, SELFPAY | PROVIDERS: PCP Student in an Organized Health Care Education/Training Program; Visit Provider Radiology Diagnostic Radiology | DX: Z87.891 Personal history of nicotine dependence (principal) | CPT/HCPCS: 71271 ==

== ENCOUNTER 2024-12-29 14:48 | Outpatient (AMB) | payer OTHER, SELFPAY ==
[2024-12-29 14:52] VITALS: BP 100/64; PULSE 83; O2SAT 96; BMI 29.0
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
--- OUTSIDE RECORDS SUMMARY | 2024-12-29 18:44 | XMS_ITS | Encounter Summary ---
Author Organization [employer] Address [address] [place] [address] Care Team Providers Care Coupon Redemption Clerk Name Role Phone Yoanna Cuevas MD Primary Care Pro vider Encounter Details Date Type Department Care Team (Late st Contact Info) Description 02/07/2024 Orders Only [facility] [address] [place] [address] Provider, MD Danyel Social History Tobacco Use [...] documented as of this encounter Care Teams Coupon Redemption Clerk Relationship Specialty Start Date End Date Yoanna Cuevas MD [address] [place] [id number] PCP - General Internal Medicine 06/12/23 documented as of this encounter
--- OUTSIDE RECORDS SUMMARY | 2024-12-29 18:44 | XMS_ITS | Encounter Summary ---
Author Organization [employer] Address [address] [place] [address] Care Team Providers Care Director [facility] Name Role Phone Yoanna Cuevas MD Primary Care Pro vider Reason for Visit * Reason Onset Date Comments per dr foster walk in emergency 10/10/2023 Encounter Details Date Type Department Care Team ([facility] st Contact Info) Description 10/10/2023 Telephone [facility] [address] [place] [address] Russell Sibley, DDS [address] [place] [address] foster walk in emergency Social [...] He is on his way. Contacted front office director with information of patient. Spoke with Bhumika [...] documented as of this encounter Care Teams Director [facility] Relationship Specialty Start Date End Date Yoanna Cuevas MD [address] [place] [id number] PCP - General Internal Medicine 06/12/23 documented as of this encounter
--- OUTSIDE RECORDS SUMMARY | 2024-12-29 18:45 | XMS_ITS | Encounter Summary ---
Author Organization [employer] Address [address] [place] [address] [address] [place] [address] Care Team Providers Care Bronc Buster Name Role Phone Fili Mascorro MD Primary Care Prov ider Yoanna Cuevas MD Primary Care Pro vider Reason for Visit * Reason Comments Med Refill Encounter Details Date Type Department Care Team ([facility] st Contact Info) Description 12/16/2022 Refill [facility] [address] [place] [address] Fili Mascorro MD [address] [place], [place] [phone] Gastroesophageal reflux disease without esophagitis (Primary Dx) [...] reflux documented in this encounter Care Teams Bronc Buster Relationship Specialty Start Date End Date Fili Mascorro MD [address] [place] [address] PCP - General Internal Medicine 03/27/20 06/11/23 Yoanna Cuevas MD [address] [place] [phone] PCP - General Internal Medicine 06/12/23 documented as of this encounter
--- OUTSIDE RECORDS SUMMARY | 2024-12-29 18:45 | XMS_ITS | Encounter Summary ---
Author Organization [employer] [facility] Address [address] [place] [address] [address] [place] [address] Care Team Providers Care Restaurant Server Name Role Phone Yoanna Cuevas MD Primary Care Pro vider Reason for Visit * Reason Comments Med Refill Encounter Details Date Type Department Care Team ([facility] st Contact Info) Description 07/05/2023 Refill [facility] [address] [place] [address] Yoanna Cuevas MD [address] [place] [address] Social History Tobacco Use Types Packs/Day Years [...] documented as of this encounter Care Teams Restaurant Server Relationship Specialty Start Date End Date Yoanna Cuevas MD [address] [place] [id number] PCP - General Internal Medicine 06/12/23 documented as of this encounter
--- OUTSIDE RECORDS SUMMARY | 2024-12-29 18:45 | XMS_ITS | Clinical Summary ---
Author Organization [employer] Address [address] [place] [address] Care Team Providers Care Rug Receiving Clerk Name Role Phone Yoanna Cuevas MD Primary Care Pro vider Allergies No known active allergies Medications * This document contains information received from the source organization and may not represent a complete record from that organization. Alcohol Swabs (Alcohol Prep) 70 % pads USE EVERY DAY 06/26/20 22 Active Atrovent HFA 17 MCG/ACT inhaler INHALE 2 PUFFS BY MOUTH FOUR TIMES DAILY 05/02/20 23 Active cetirizine (ZyrTEC) 10 MG tablet Take 1 tablet (10 mg) by mouth in the morning. 30 tablet 1 07/02/20 23 Active Symbicort 80-4.5 MCG/ACT inhaler INHALE 2 PUFFS BY MOUTH TWICE DAILY IN THE MORNING AND IN THE EVENING 30.6 g 5 07/26/20 23 Active lisinopril 20 MG tabletIndicatio ns:Primary hypertension TAKE 1 TABLET BY MOUTH ONCE DAILY 90 tablet 3 12/24/19 24 Active sildenafil (Viagra) 25 MG tablet TAKE 1 TABLET 1 HOUR BEFORE SEXUAL RELATIONS ONCE DAILY NEEDED. 10 tablet 1 09/07/20 24 Active hydroCHLOROthia zide 12.5 MG tablet TAKE 1 TABLET BY MOUTH EVERY DAY 30 tablet 3 09/28/20 24 Active metFORMIN (Glucophage) 1000 MG tablet TAKE 1 TABLET BY MOUTH TWICE DAILY IN THE MORNING AND IN THE EVENING WITH MEALS 60 tablet 3 09/28/20 24 Active atorvastatin (Lipitor) 40 MG tablet TAKE 1 TABLET BY MOUTH EVERY DAY 30 tablet 3 09/28/20 24 Active omeprazole (PriLOSEC) [address] capsule Take 20 mg by mouth 2 times daily. 09/02/20 24 Active aspirin (Aspirin Low Dose) 81 MG EC tablet TAKE 1 TABLET BY MOUTH EVERY DAY 90 tablet 1 10/14/20 24 Active cholecalciferol (Vitamin D-3) 25 MCG tablet Take 1 tablet (25 mcg) by mouth in the morning. 90 tablet 12/21/19 25 Active cholecalciferol (Vitamin D-3) 25 MCG tablet TAKE 1 TABLET BY MOUTH EVERY MORNING 90 tablet 07/09/20 24 025 Discontinued(Re order (will not trigger notification to Pharmacy)) Active Problems Problem Noted Date Diagnosed Date [...] for now on PPIs Nicotine use 05/13/2023 Overview (12/28/2024): LDCT LUNG RADs 1 11/30/24 Started tobacco smoking 12 years -stopped 44 [...] one time screening -will need to order AAA US x1 screening bw 65 to 75 y of age Assessment & Plan (06/13/2023 5:17 PM EDT): [...] one time screening -will need to order AAA US x1 screening bw 65 to 75 [...] still wants to hold on meds. -saw BH-Eloise Miranda at last apt but refused to [...] his family PLAN: 1. Follow up with [facility] [place]: Not recommended for follow-up 2. Patient goal is to decrease symptoms of depression 3. Behavioral Recommendations a. Patient will comply with medication b. Patient may request to speak with [facility] during next PCP visit, if needed c. Patient may request OP therapy referral at any time. Assessment & Plan (05/13/2023 8:27 PM EDT): PHQ9: 11 , no SI,no hallucinations and no derek -today BH to eval pt and to refer to [...] 60-65%, normal microalb 04/2023 34 + - flat clothier 05/2023 normal exam except for cataracts to f up in 1 year -continue meds -will repeat microalb in next 3 months Assessment & Plan (05/13/2023 8:40 PM EDT): BP controlled EKG today NSR has Q wave and TWI in lead III only and not in any other contiguous leads,QTC 445 -echocardiogram 07/2021: EF 60-65%, normal -referred to flat clothier -continue meds -ordered microalb Seizure 05/13/2023 Assessment [...] Canas Today of his last neurologist at [facility]-pt can not recall Health care maintenance [...] ago per pt- ---- requested record to [facility] Canas Today of last colon,EGD and GI note -vaccines: s/p hep B x3, covid 3-refuse Bivalent offered today , p20 today,zoster will offer at next apt Chronic obstructive lung disease 09/22/2018 Assessment & Plan (06/13/2023 4:59 PM EDT): COPD -continue care w proposal engineer -next apt x 06/2023 Assessment & Plan (05/13/2023 8:42 PM EDT): COPD -continue care w proposal engineer -next apt x 06/2023 Dyslipidemia 09/22/2018 Type 2 diabetes mellitus 09/22/2018 Assessment & Plan (06/13/2023 5:03 PM EDT): Pt reports DM only on metformin hb1AC 04/2023 6.6 ,Microalb 34 + and LDL 62 -DM labs in 6 mo but will do microalb in 3 mo -referred to casting assistant -reports numbness in feet -apt x this month - flat clothier 05/2023: Normal exam ,except for cataract to f up in 1 year -continue metformin Assessment & Plan (05/13/2023 8:24 PM EDT): Pt reports DM only on metformin -DM labs -referred to casting assistant -reports numbness in feet -referred to flat clothier -DM labs Resolved Problems Problem Noted Date Diagnosed Date Resolved Date Xiphoid pain 12/19/2023 09/28/2024 Reducible umbilical hernia 04/23/2022 0 06/13/2023 Assessment & Plan (05/13/2023 8:25 PM EDT): Will f at next visit for hx of umbilical hernia Gastroesophageal reflux disease 09/22/2018 06/13/2023 Encounters Date Type Department Care Team Description 12/21/2024 Refill [facility] [address] [place] [address] Yoanna Cuevas MD 11/18/2024 Orders Only GENERIC EXTERNAL DATA DEPARTMENT Provider, Generic External Data 10/19/2024 Telephone [facility] [address] [place] [address] Yoanna Cuevas MD Results 10/14/2024 Refill [facility] [address] [place] [address] Yoanna Cuevas MD from Last 3 Months [...] Height 177.8 cm (5' 10 ) 09/28/2024 1: 15 PM EST Body Mass Index 29.82 09/28/2024 [...] (#1) 2024 Dental Prophylaxis 09/20/2024 03/19/2024, 08/21/2017 Diabetes: Hemoglobin A1C 01/01/2025 024, 02/08/2024, 12/14/2023, Additional history exists Dental X-Ray: Bitewings 03/20/2025 03/19/2024, 08/14 SDOH Screening 07/17/2025 07/17/2024 Depression Screening 09/28/2025 09/28/2024, 09/28/20 24 Tobacco Screening 09/28/2025 09/28/2024 Diabetes: Urine Protein Screening 10/03/2025 10/03/2024, 02/08/2024, 09/30/2021, Additional history exists Lipid Panel 10/03/2025 10/03/2024, 01/26, 06/28/2020 Dental X-Ray: Full Mouth 03/20/2027 024, 03/10/2018, 08/14/2017 Hepatitis B Vaccines Completed 11/12/2017, 08/09/2017, 07/08/2017 Pneumococcal Vaccine: 50+ Years Completed 05/13/2023 HIV Screening Completed 10/03/2024 Hepatitis [...] Procedure Name Priority Date/Time Associated Diagnosis Comments LDCT LUNG SCREENING Routine 12/01/2024 1 0:[address] ABDOMEN PELVIS WO CONTRAST Routine 11/18/2024 12:02 PM EST URINALYSIS, COMPLETE, WITH REFLEX TO CULTURE Routine 11/18/2024 11:39 AM EST US ABDOMEN LIMITED Routine 11/18/2024 10 :52 AM EST XR CHEST 2 VIEWS Routine 11/18/2024 6:40 AM EST HIGH SENSITIVITY TROPONIN I Routine 11/18/2024 6:28 AM EST COMPREHENSIVE METABOLIC PANEL Routine 11/18/2024 6:28 AM EST CBC WITH AUTO DIFFERENTIAL Routine 11/18/2024 6:28 AM EST SARS COV2/INFLUENZA A/B AND RSV RNA QL NAAT Routine 11/18/2024 6:28 AM EST CULTURE, URINE, ROUTINE Routine 11/18/2024 12:00 AM EST PSA, TOTAL Routine 10/03/2024 7:49 [...] ADULT Routine 03/19/2024 8 :00 AM EDT INTRAORAL - COMPLETE SERIES OF RADIOGRAPHIC IMAGES Routine 03/19/2024 8:00 AM EDT COMPREHENSIVE ORAL EVALUATION - NEW OR ESTABLISHED PATIENT Routine 08/14/2017 12:00 AM EDT HM COLONOSCOPY Routine 07/23/2017 2:28 PM EDT from Last 3 Months or Most Recently Relevant to Health Maintenance Results * CT Lung Screening Low dose (12/01/2024 10:15 AM EST) Anatomical Region Laterality Modality Lung Computed Tomogra phy 12/01/2024 10:1 5 AM EST Narrative 12/01/2024 10:17 AM EST ? [facility] ?[address] ?[place] [address] ? CT Scan Report ? Signed ? Patient: Mcguire,Se R ?MR#: [id number] ?? 205 ? : 1965 ?Acct:[id number] ? Age/Sex: 59 / M ?ADM Date: 11/30/24 ? Loc: HO.CT ? Attending Dr: Stefanie Lee CLOUD SERVICES ARCHITECT ? Ordering Physician: Jayashree Bonilla PA-C ?? Date of Service: 11/30/24 ?? Procedure(s): CT lung screening ?? Accession Number(s): [id number] ? cc: Jayashree Bonilla PA-C; Yoanna Cuevas MD ? Report Number: ?? [id number]: Total DLP = ?? 53.00 mGy-cm ? CLINICAL HISTORY: Z87.891 - Personal history of nicotine dependence ? CT lung cancer screening (LDCT) ? Comparison:07/31/2021 ?? Technique: ?? Axial CT images of the chest using low-dose technique. Referring provider ?? counseled the patient on shared decision-making for LDCT screening. ?? Additional counseling was provided on smoking cessation. ?? Effective radiation dose total: DLP 43.9 mGycm, CTDIvol 1.4 mGy. ? Findings: ?? Lung: Smoking-related lung changes. Redemonstration of predominantly ?? right-sided small calcified granulomas. ? Coronary artery calcifications: None ?? Limited upper abdomen: Unremarkable ? Other: None ? Impression: ?? LungRADS 1: Negative exam. Continue annual screening with low dose Chest ?? CT in 12 months. ? ##L1# ? Category 1: Normal; continue annual screening ?? Category 2: Benign appearance or behavior, continue annual screening ?? Category 3: Probably benign, [address] recommended ?? Category 4A: Suspicious, [address] recommended; may consider PET/CT ?? Category 4B: Suspicious, Additional diagnostics and/or tissue sampling ?? recommended ?? Category 4X: Suspicious, Additional diagnostics and/or tissue sampling ?? recommended ?? Category 0: Recalls (incomplete screen due to Incomplete coverage, Noise, ?? Respiratory motion, Expiration, Obscured by acute abnormality) ? This document has been electronically signed by: Franny Herndon MD on ?? 12/01/2024 10:15:46 ? Dictated By: ?Franny Herndon MD ? Signed By: ?<Electronically signed by Franny Herndon MD in OV> ? 12/01/247 ? DD/ 1015 ? TD/TT: 12/01/24 1015 ? Auxiliary Operator: ? Procedure Note Suman Romero - 12/01/[address] [address] [address] Scan Report Signed Patient: Se Mcguire RMR#: [id number] 205 : 1965Acct:[id number] Age/Sex: 59 / MADM Date: 11/30/24 Loc: HO.CT Attending Dr: Stefanie Lee NP Ordering Physician: Jayashree Bonilla PA-C Date of Service: 11/30/24 Procedure(s): CT lung screening Accession Number(s): [id number] cc: Jayashree Bonilla PA-C; Yoanna Cuevas MD Report Number: [id number]: Total DLP = 53.00 mGy-cm CLINICAL HISTORY: Z87.891 - Personal history of nicotine dependence CT lung cancer screening (LDCT) Comparison:07/31/2021 Technique: Axial CT images of the chest using low-dose technique. Referring provider counseled the patient on shared decision-making for LDCT screening. Additional counseling was provided on smoking cessation. Effective radiation dose total: DLP 43.9 mGycm, CTDIvol 1.4 mGy. Findings: Lung: Smoking-related lung changes. Redemonstration of predominantly right-sided small calcified granulomas. Coronary artery calcifications: None Limited upper abdomen: Unremarkable Other: None Impression: LungRADS 1: Negative exam. Continue annual screening with low dose Chest CT in 12 months. ##L1# Category 1: Normal; continue annual screening Category 2: Benign appearance or behavior, continue annual screening Category 3: Probably benign, [address] recommended Category 4A: Suspicious, [address] recommended; may consider PET/CT Category 4B: Suspicious, Additional diagnostics and/or tissue sampling recommended Category 4X: Suspicious, Additional diagnostics and/or tissue sampling recommended Category 0: Recalls (incomplete screen due to Incomplete coverage, Noise, Respiratory motion, Expiration, Obscured by acute abnormality) This document has been electronically signed by: Franny Herndon MD on 12/01/2024 10:15:46 Dictated By: Franny Herndon MD Signed By: <Electronically signed by Franny Herndon MD in OV> 12/01/24 1017 DD/ 1015 TD/TT: 12/01/24 1015 Auxiliary Operator: [facility] External Provider IMG CT PROCEDURES Edited Result - Final * CT Abdomen Pelvis w/o Contrast (11/18/2024 12:02 PM EST) Anatomical Region Laterality Modality Body, Pelvis, Abdomen Computed T omography 11/18/2024 12:0 2 PM EST Narrative 11/18/2024 12:34 PM EST ? [facility] ?[address] ?[place] [address] ? CT Scan Report ? Signed ? Patient: Se Mcguire ?MR#: [id number] ?? 205 ? : 1965 ?Acct:[id number] ? Age/Sex: 59 / M ?ADM Date: 01/22/25 ? Loc: HO.ED ? Attending Dr: ? Ordering Physician: Bibi Naidu MD ?? Date of Service: 11/18/24 ?? Procedure(s): CT abdomen pelvis wo IV con ?? Accession Number(s): [id number] ? cc: Bibi Naidu MD; Yoanna Cuevas MD ? Report Number: ?? [id number]: Total DLP = ??582.00 mGy-cm ?? EXAMINATION: ?? CT ABDOMEN AND PELVIS WITHOUT CONTRAST ? CLINICAL INFORMATION: ?? Right abdominal pain. ? COMPARISON: ?? Ultrasound abdomen limited 11/18/2022. CT abdomen and pelvis 03/30/2022 ? TECHNIQUE: ?? Multidetector volumetric imaging was performed from the superior aspect ?? of the liver through the pubic symphysis. Sagittal and coronal ?? reformatted images were obtained on the technologist's workstation. ? This CT examination was performed using dose optimization techniques as ?? appropriate, variously including the following: ?? *Automated exposure control ?? *Adjustment of mA and/or kV according to patient size (this includes ?? techniques or standardized protocols for targeted exams where dose is ?? matched to indication/reason for exam; i.e. extremities or head) ?? *Use of iterative reconstruction technique ? FINDINGS: ?? LUNG BASES: The visualized lung bases are unremarkable. ? LIVER, GALLBLADDER, AND BILIARY TREE: The liver is normal in size, ?? shape, and attenuation. No focal hepatic lesion or biliary ductal ?? dilatation is present. The gallbladder is unremarkable with no evidence ?? of radiopaque gallstones, gallbladder wall thickening, or obvious ?? pericholecystic inflammatory changes. Punctate hyperdense areas are ?? seen in the gallbladder wall likely microcalcifications. In the are ?? best visualized on thin axial images. ? PANCREAS: Unremarkable. ? SPLEEN: Unremarkable. ? ADRENAL GLANDS: Unremarkable. ? KIDNEYS AND URETERS: The kidneys are normal in size, shape, and ?? attenuation. No hydronephrosis, hydroureter, or calculi seen. No ?? perinephric stranding. ? BLADDER: Unremarkable. ? GASTROINTESTINAL TRACT: There is moderate scattered stool and gas in ?? the colon without distention. The small bowel loops are normal caliber. ?? Appendix is normal caliber. No inflammatory process seen in the right ?? lower quadrant. No free air or free fluid. ? ABDOMINAL WALL: No significant hernia is appreciated. ? LYMPH NODES: Normal. ? VASCULAR: Unremarkable. ? PELVIC VISCERA: Unremarkable. ? OSSEOUS STRUCTURES: No aggressive lytic or sclerotic process seen. ? CT/CT abdomen pelvis wo IV con ?? IMPRESSION: ?? Moderate constipation. Normal appendix ? No ??radiopaque urolith or hydroureteronephrosis. ? Punctate gallbladder wall calcifications seen on thin axial sections. ? Fleischner guidelines were followed. ? Electronically signed by: ??Nikolai Freeman MD ??11/18/2024 12:32 PM EST RP ? Dictated By: ?Nikolai Freeman MD ? Signed By: ?<Electronically signed by Nikolai Freeman MD in OV> ?11/18/24 1232 ? DD/ 1202 ? TD/TT: 11/18/24 1222 ? Auxiliary Operator: MSM ? Procedure Note Dontoneyter, Image - 11/18/[address] [place] [address] [address] Scan Report Signed Patient: Se Mcguire RMR#: [id number] 205 : 1965Acct:[id number] Age/Sex: 59 / MADM Date: 11/18/24 Loc: HO.ED Attending Dr: Ordering Physician: Bibi Naidu MD Date of Service: 11/18/24 Procedure(s): CT abdomen pelvis wo IV con Accession Number(s): [id number] cc: Bibi Naidu MD; Yoanna Cuevas MD Report Number: [id number]: Total DLP = 582.00 mGy-cm EXAMINATION: CT ABDOMEN AND PELVIS WITHOUT CONTRAST CLINICAL INFORMATION: Right abdominal pain. COMPARISON: Ultrasound abdomen limited 11/18/2022. CT abdomen and pelvis 03/30/2022 TECHNIQUE: Multidetector volumetric imaging was performed from the superior aspect of the liver through the pubic symphysis. Sagittal and coronal reformatted images were obtained on the technologist's workstation. This CT examination was performed using dose optimization techniques as appropriate, variously including the following: *Automated exposure control *Adjustment of mA and/or kV according to patient size (this includes techniques or standardized protocols for targeted exams where dose is matched to indication/reason for exam; i.e. extremities or head) *Use of iterative reconstruction technique FINDINGS: LUNG BASES: The visualized lung bases are unremarkable. LIVER, GALLBLADDER, AND BILIARY TREE: The liver is normal in size, shape, and attenuation. No focal hepatic lesion or biliary ductal dilatation is present. The gallbladder is unremarkable with no evidence of radiopaque gallstones, gallbladder wall thickening, or obvious pericholecystic inflammatory changes. Punctate hyperdense areas are seen in the gallbladder wall likely microcalcifications. In the are best visualized on thin axial images. PANCREAS: Unremarkable. SPLEEN: Unremarkable. ADRENAL GLANDS: Unremarkable. KIDNEYS AND URETERS: The kidneys are normal in size, shape, and attenuation. No hydronephrosis, hydroureter, or calculi seen. No perinephric stranding. BLADDER: Unremarkable. GASTROINTESTINAL TRACT: There is moderate scattered stool and gas in the colon without distention. The small bowel loops are normal caliber. Appendix is normal caliber. No inflammatory process seen in the right lower quadrant. No free air or free fluid. ABDOMINAL WALL: No significant hernia is appreciated. LYMPH NODES: Normal. VASCULAR: Unremarkable. PELVIC VISCERA: Unremarkable. OSSEOUS STRUCTURES: No aggressive lytic or sclerotic process seen. CT/CT abdomen pelvis wo IV con IMPRESSION: Moderate constipation. Normal appendix No radiopaque urolith or hydroureteronephrosis. Punctate gallbladder wall calcifications seen on thin axial sections. Fleischner guidelines were followed. Electronically signed by: Nikolai Freeman MD 11/18/2024 12:32 PM EST Dictated By: Nikolai Freeman MD Signed By: <Electronically signed by Nikolai Freeman MD in OV> 11/18/24 1232 DD/ 1202 TD/TT: 11/18/24 1222 Auxiliary Operator: HILARY [facility] External Provider IMG CT PROCEDURES Final Result * (ABNORMAL) Urinalysis, Complete, with Reflex to Culture (11/18/2024 11:39 AM EST) Color Urine [place] [facility] Appearance Urine Hazy [facility] PH 5.5 5.0 - 9.0 [facility] Glucose Urine UA 250(A) Negative mg/dL [facility] Urine Blood Negative Negative [facility] Specific [place] - Urine >=1.030(H) 1.005 - 1.025 [facility] Urine Protein 30 (1+)(A) Neg-Trace mg/dL [facility] Urine Ketones 15 Negative mg/dL [facility] Nitrite Urine Positive(A) Negative [facility] Leukocyte Esterase Urine Negative Negative [facility] RBC Urine 0-2 0 - 2 /HPF [facility] Urine WBC 0-5 0 - 5 /HPF [facility] Urine Squamous Epithelial Cell 0-2 0 - 2 /HPF [facility] Urine Bacteria 4+ None Seen [facility] Hyaline Casts, Urine 3-5 0 - 2 /LPF [facility] 11/18/2024 11:3 9 AM EST 11/18/2024 11:42 AM EST Narrative [facility] - 11/18/2024 11:58 AM EST [id number], [employer] us Generic External Data Provider LAB URINE ORDERAB LES Final Result Performing Organization Address [facility]/State/[facility] Co de Phone Number [facility] [address] [place] [address] [phone] * US Abdomen Limited (11/18/2024 10:52 AM EST) Anatomical Region Laterality Modality Abdomen Ultrasound 11/18/2024 10:5 2 AM EST Narrative 11/18/2024 11:31 AM EST ? [facility] ?[address] ?[place] [address] ? Ultrasound Report ? Signed ? Patient: Mcguire,Se R ?MR#: [id number] ?? 205 ? : 1965 ?Acct:[id number] ? Age/Sex: 59 / M ?ADM Date: 01/22/25 ? Loc: HO.ED ? Attending Dr: ? Ordering Physician: Bibi Naidu MD ?? Date of Service: 11/18/24 ?? Procedure(s): US abdomen limited ?? Accession Number(s): [id number] ? cc: Bibi Naidu MD; Yoanna Cuevas MD ? EXAMINATION: ?? US ABDOMEN LIMITED ? CLINICAL INFORMATION: ?? Right upper quadrant pain, elevated LFTs.. ? COMPARISON: ?? None available. ? TECHNIQUE: ?? Real-time imaging of the right upper quadrant abdominal viscera. ? FINDINGS: ? PANCREAS: The pancreas is partially obscured.. ? LIVER: The liver is slightly enlarged measuring 16.8 cm in length. The ?? liver contour is normal. Parenchymal echogenicity is slightly ?? increased. No focal hepatic lesion. There is no intrahepatic biliary ?? duct dilatation seen. ? GALLBLADDER: The gallbladder is physiologically distended without ?? evidence of stones, sludge, polyps, wall thickening or pericholecystic ?? fluid. There is 2 x 2 millimeter calcification in the gallbladder wall. ?? No tenderness in right upper quadrant by ultrasound probe ? COMMON BILE DUCT: Normal in caliber measuring 0.2 cm in diameter. ? RIGHT KIDNEY: No hydronephrosis. No renal calculi or focal parenchymal ?? lesions. The kidney measures 10.7 ??cm in maximum dimension. ? FREE FLUID: None. ? US/US abdomen limited ?? IMPRESSION: ?? Borderline enlarged liver with mild increased echogenicity. ? 2 mm calcification gallbladder wall but no echogenic stones or ?? tenderness in right upper quadrant by ultrasound probe. ? Electronically signed by: ??Nikolai Freeman MD ??11/18/2024 11:28 AM EST RP ? Dictated By: ?Lydia,Nikolai S MD ? Signed By: ?<Electronically signed by Nikolai S Lydia, MD in OV> ?11/18/24 1128 ? DD/ 1052 ? TD/TT: 11/18/24 1100 ? Auxiliary Operator: MSM ? Procedure Note Suman Romero - 11/18/2024 [facility] [address] [place] [address] Ultrasound Report Signed Patient: Se Mcguire RMR#: [id number] 205 : 1965Acct:[id number] Age/Sex: 59 / MADM Date: 11/18/24 Loc: HO.ED Attending Dr: Ordering Physician: Bibi Naidu MD Date of Service: 11/18/24 Procedure(s): US abdomen limited Accession Number(s): [id number] cc: Bibi Naidu MD; Yoanna Cuevas MD EXAMINATION: US ABDOMEN LIMITED CLINICAL INFORMATION: Right upper quadrant pain, elevated LFTs.. COMPARISON: None available. TECHNIQUE: Real-time imaging of the right upper quadrant abdominal viscera. FINDINGS: PANCREAS: The pancreas is partially obscured.. LIVER: The liver is slightly enlarged measuring 16.8 cm in length. The liver contour is normal. Parenchymal echogenicity is slightly increased. No focal hepatic lesion. There is no intrahepatic biliary duct dilatation seen. GALLBLADDER: The gallbladder is physiologically distended without evidence of stones, sludge, polyps, wall thickening or pericholecystic fluid. There is 2 x 2 millimeter calcification in the gallbladder wall. No tenderness in right upper quadrant by ultrasound probe COMMON BILE DUCT: Normal in caliber measuring 0.2 cm in diameter. RIGHT KIDNEY: No hydronephrosis. No renal calculi or focal parenchymal lesions. The kidney measures 10.7 cm in maximum dimension. FREE FLUID: None. US/US abdomen limited IMPRESSION: Borderline enlarged liver with mild increased echogenicity. 2 mm calcification gallbladder wall but no echogenic stones or tenderness in right upper quadrant by ultrasound probe. Electronically signed by: Nikolai Freeman MD 11/18/2024 11:28 AM EST Dictated By: Nikolai Freeman MD Signed By: <Electronically signed by Nikolai Freeman MD in OV> 11/18/24 1128 DD/ 1052 TD/TT: 11/18/24 1100 Auxiliary Operator: HILARY [facility] External Provider IMG US PROCEDURES Final Result * XR Chest 2 Views (11/18/2024 6:40 AM EST) Anatomical Region Laterality Modality Chest Radiographic Jelly ging 11/18/2024 6:40 AM EST Narrative 11/18/2024 7:20 AM EST ? [facility] ?[address] ?[place] [address] ?XRay Report ? Signed ? Patient: Mcguire,Se R ?MR#: [id number] ?? 205 ? : 1965 ?Acct:[id number] ? Age/Sex: 59 / M ?ADM Date: 11/18/24 ? Loc: HO.ED ? Attending Dr: ? Ordering Physician: Generic ED Physician ?? Date of Service: 11/18/24 ?? Procedure(s): XR chest 2V ?? Accession Number(s): [id number] ? cc: Generic ED Physician; Yoanna Cuevas [...] DD/ 0640 ? TD/TT: 11/18/24 0650 ? Auxiliary Operator: MSM ? Procedure Note Heather, Suman - 11/18/[address] [address] XRay Report Signed Patient: Se Mcguire R#: [id number] 205 : 1965Acct:[id number] Age/Sex: 59 / MADM Date: 11/18/24 Loc: HO.ED Attending Dr: Ordering Physician: Generic ED Physician Date of Service: 11/18/24 Procedure(s): XR chest 2V Accession Number(s): [id number] cc: Generic ED Physician; Yoanna Cuevas MD EXAMINATION: XR CHEST CLINICAL INFORMATION: cough, chest pain COMPARISON: None available. TECHNIQUE: 2 views of the chest were obtained. FINDINGS: No significant abnormality is noted involving the heart, lungs, mediastinum, bony thorax or soft tissues. XR/XR chest 2V IMPRESSION: Unremarkable chest examination. Electronically signed by: Nikolai Freeman MD 11/18/2024 07:17 AM EST RP Dictated By: Nikolai Freeman MD Signed By: <Electronically signed by Nikolai Freeman MD in OV> 11/18/24 0717 DD/ 0640 TD/TT: 11/18/24 0650 Auxiliary Operator: [facility] External Provider IMG XR PROCEDURES Final Result * High Sensitivity Troponin I (11/18/2024 6:28 AM EST) TROPONIN I HIGH SENSITIVITY 12.7 <3.5 - 35.0 ng/L [facility] Comment:The Amin high sens itivity Troponin-I results should beused in conjunction with other diagnostic information suchas ECG, clinical observations and information, and patientsymptoms to aid in the diagnosis of RI. 11/18/2024 6:28 AM EST 11/18/2024 6:33 AM EST Generic External Data Provider LAB BLOOD ORDERAB LES Final Result [facility] [address] [place] [address] [phone] * SARS-CoV-2 RNA, Influenza A/B, and RSV RNA, Ql NAAT (11/18/2024 6:28 AM EST) Influenza A PCR NEGATIVE Negative [facility] Influenza B PCR NEGATIVE Negative [facility] Resp Syncy Virus RNA Qual PCR NEGATIVE Negative [facility] SARS COV2 PCR NEGATIVE Negative [facility] Comment:All test results mus t [...] use by authorized laboratories.Testing performed on the db[employer]objects GeneXpert utilizingreal-time RT-PCR.All SARS CoV2 and positive influenza A/B results arereported to [facility]. 11/18/2024 6:28 AM EST 11/18/2024 6:33 AM EST us Generic External Data Provider LAB MICROBIOLOGY - GENERAL ORDERABLES Final Result [facility] [address] [place] [address] [phone] * (ABNORMAL) CBC auto differential (11/18/2024 6:28 AM EST) White Blood Count 5.8 4.8 - 10.8 X10*3/uL [facility] Red Blood Count 4.86 4.60 - 5.80 X10*6/uL [facility] Hemoglobin 15.1 14.0 - 18.0 g/dl [facility] Hematocrit 43.7 42.0 - 52.0 % [facility] Mean Corpuscular Volume 89.9 80.0 - 98.0 fL [facility] Mean Corpuscular Hemoglobin 31.1 27.0 - 33.0 pg [facility] Mean Corpuscular HGB Conc 34.6 31.0 - 36.0 g/dl [facility] Red Cell Distribution Width 12.4 11.0 - 16.0 % [facility] Platelet Count 104(L) 160 - 400 X10*3/uL [facility] Comment:Test was verified by repeat analysis. Mean Platelet Volume 12.7(H) 9.4 - 12.4 fL [facility] Neutrophils Percent Auto 59.8 45 - 73 % [facility] Imm Gran Pct Auto 0.3 0.0 - 0.4 % [facility] Lymphocytes Percent Auto 20.5 20 - 40 % [facility] Monocytes Percent Auto 13.5(H) 2 - 11 % [facility] Eosinophils Percent Auto 4.9(H) 0 - 4 % [facility] Basophils Percent Auto 1.0 0 - 2 % [facility] NRBC Pct Auto 0.0 0.0 - 0.2 /100WBC [facility] Neutrophils Absolute Auto 3.4 2.0 - 8.3 x10*3/uL [facility] Imm Gran Abs Auto 0.02 0.00 - 0.03 X10*3/uL [facility] Lymphocytes Absolute Auto 1.2 1.2 - 4.9 X10*3/uL [facility] Monocytes Absolute Auto 0.8 0.1 - 1.2 X10*3/uL [facility] Eosinophils Absolute Auto 0.3 0.0 - 0.4 X10*3/uL [facility] Basophils Absolute Auto 0.1 0.0 - 0.2 X10*3/uL [facility] NRBC Abs Auto 0.000 0.0 - 0.012 X10*3/uL [facility] 11/18/2024 6:28 AM EST 11/18/2024 6:33 AM EST us Generic External Data Provider LAB BLOOD ORDERAB LES Final Result [facility] [address] [place] [address] [phone] * (ABNORMAL) Comprehensive Metabolic Panel (11/18/2024 6:28 AM EST) Only the most recent of2 resultswithin the time period is included. Sodium 137 135 - 145 mmol/L [facility] Potassium 3.9 3.3 - 5.1 mmol/L [facility] Chloride 102 96 - 108 mmol/L [facility] Carbon Dioxide 25 22 - 29 mmol/L [facility] Anion Gap 14 12 - 20 [facility] Urea Nitrogen (BUN) 18(H) 9 - 16 mg/dL [facility] Creatinine, Serum 1.37 0.5 - 1.4 mg/dL [facility] Creatinine Clr Calc Pharmacy 64.9 [facility] Comment:eGFR (calculated fro m the MDRD study equation) and eCrCl(calculated from the Cockcroft-Gault equation) are based ondifferent parameters and may not yield comparable results.If eCrCl result is absurd, please check patient'sheight/weight. Estimated Glomerular Filt Rate 53 [facility] Comment:Chronic Kidney Disea se: Estimated GFR < 60 mL/min/1.18t6Gqdiik Kidney Disease: Estimated GFR < 15 mL/min/1.73m2 Glucose 194(H) 60 - 115 mg/dL [facility] Calcium 10.0 8.4 - 10.2 mg/dL [facility] Bilirubin, Total 1.5(H) 0.0 - 1.0 mg/dL [facility] Aspartate Amino Transferase 64(H) 5 - 37 U/L [facility] Alanine Aminotransferase 132(H) 0 - 40 U/L [facility] Total Protein 7.7 6.5 - 8.0 g/dL [facility] Albumin Level 4.4 3.5 - 5.0 g/dL [facility] Alkaline Phosphatase 157(H) 39 - 117 U/L [facility] 11/18/2024 6:28 AM EST 11/18/2024 6:33 AM EST us Generic External Data Provider LAB BLOOD ORDERAB LES Final Result [facility] [address] [place] [phone] * Culture, Urine, Routine (11/18/2024 12:00 AM EST) Urine Urine specimen obtained by clean catch procedure / Unknown 11/18/2024 11/18/2024 Comment:UACC Narrative [facility] - 11/19/2024 10:45 AM EST Urine Culture No growth. Specimen Source: Urine clean catch us Generic External Data Provider LAB MICROBIOLOGY - GENERAL ORDERABLES Final Result Performing Organization Address [facility]/ZIP Co de Phone Number [facility] [address] [place] [address] [phone] * Syphilis Screen (10/03/2024 7:49 AM EST) Syphilis Screen Nonreactive Nonreactive [facility] Blood 10/03/2024 7:49 AM EST 10/03/2024 7:49 AM EST us Yoanna Castillo MD LAB BLOOD ORDERAB LES Final Result Performing Organization Address [facility] Co de Phone Number [facility] [address] [place] [address] [phone] * Vitamin D, 25-Hydroxy, Total, Immunoassay (10/03/2024 7:49 AM EST) Vitamin D 25-OH Total 55.8 >30 ng/mL [facility] Comment:Health Based Referen ce Values*< 20 ng/mL [id number] ng/mL Insufficient> 30 ng/mL Sufficient*Juanito MOSQUEDA. N [...] ORDERAB LES Final Result Performing Organization Address [facility] Co de Phone Number [facility] [address] [place] [address] [phone] * Vitamin B12 (Cobalamin) and Folate Panel, Serum (10/03/2024 7:49 AM EST) Pathologist [facility] Vitamin B12 689 200 - 900 pg/mL [facility] Comment:NORMAL 200-900 PG/ML INDETERMINATE 160-199 PG/ML DEFICIENT < 160 PG/ML Folate 14.8 > or = 4.0 ng/mL [facility] Comment:Reference Values:> o r = 4.0 ng/mL< 4.0 ng/mL suggests folate deficiency Methotrexate, aminopterin and folinic acid(leucovorin) are chemotherapeutic agents whose molecularstructures are similar to folate; therefore, the Architectfolate assay cannot be used for patients using these drugs. Blood 10/03/2024 7:49 AM EST 10/03/2024 7:49 AM EST us Yoanna Castillo MD LAB BLOOD ORDERAB LES Final Result Performing Organization Address [facility] de Phone Number [facility] [address] [place] [address] [phone] * TSH with Reflex to Free T4 (10/03/2024 7:49 AM EST) [facility] TSH reflex Free T4 0.32 0.32 - 4.0 uIU/mL [facility] Blood 10/03/2024 7:49 AM EST 10/03/2024 7:49 AM EST us Yoanna Castillo MD LAB BLOOD ORDERAB LES Final Result Performing Organization Address [facility] Co de Phone Number [facility] [address] [place] [address] [phone] * Hepatitis C Antibody with Reflex to HCV, RNA, Quantitative, Real-Time PCR (10/03/2024 7:49 AM EST) [facility] Hepatitis C Antibody Nonreactive Nonreactive [facility] Comment:Antibodies to HCV no t detected; does not exclude early acuteHCV infection. Blood Venous blood specimen / Unknown 10/03/2024 7:49 AM EST 10/03/2024 7:49 AM EST us Yoanna Castillo MD LAB BLOOD ORDERAB LES Final Result Performing Organization Address City/[facility]/ZIP Co de Phone Number [facility] [address] [place] [address] [phone] * Hepatitis B surface antigen, EIA (10/03/2024 7:49 AM EST) Pathologist [facility] Hepatitis B Surface Ag Negative Negative [facility] Blood Venous blood specimen / Unknown 10/03/2024 7:49 AM EST 10/03/2024 7:49 AM EST us Yoanna Castillo MD LAB BLOOD ORDERAB LES Final Result Performing Organization Address [facility] Co de Phone Number [facility] [address] [place] [address] [phone] * Hepatitis B Core Antibody, Total (10/03/2024 7:49 AM EST) Pathologist [facility] Hepatitis B Core Antibody Nonreactive Nonreactive [facility] Blood Venous blood specimen / Unknown 10/03/2024 7:49 AM EST 10/03/2024 7:49 AM EST us Yoanna Castillo MD LAB BLOOD ORDERAB LES Final Result Performing Organization Address [facility] Co de Phone Number [facility] [address] [place] [address] [phone] * HIV-1/2 Antigen and Antibodies, Fourth Generation, with Reflexes (10/03/2024 7:49 AM EST) HIV AB/AG Nonreactive Nonreactive [facility] Comment:HIV-1 p24 Ag and/or HIV-1/HIV-2 Ab not detected.A test result that is nonreactive does not exclude thepossibility of exposure to or infection with HIV-1 and/orHIV-2. Nonreactive results in this assay for individualswith prior exposure to HIV-1 and/or HIV-2 may be due toantigen and antibody levels that are below the limit ofdetection of this assay.The PureSense HIV Ag/Ab Combo assay result andsupplemental assay results should be interpreted inconjunction with the patient's clinical presentation,history and other laboratory results. If the results areinconsistent with clinical evidence, additional testing issuggested to confirm the result. Blood Venous blood specimen / Unknown 10/03/2024 7:49 AM EST 10/03/2024 7:49 AM EST Yoanna Castillo MD LAB BLOOD ORDERAB LES Final Result Performing Organization Address [facility]/ZIP Co de Phone Number [facility] [address] [place] [address] [phone] * Hepatitis B Surface Antibody, Qualitative (10/03/2024 7:49 AM EST) Pathologist [facility] ~Hepatitis B Surface Antibody NONREACTIVE Nonreactive [facility] Comment:Nonreactive: < 8.00 mIU/mL Blood Venous blood specimen / Unknown 10/03/2024 7:49 AM EST 10/03/2024 7:49 AM EST us Yoanna Castillo MD LAB BLOOD ORDERAB LES Final Result Performing Organization Address [facility]/ZIP Co de Phone Number [facility] [address] [place] [address] [phone] * CBC (10/03/2024 7:49 AM EST) Pathologist [facility] White Blood Count 6.0 4.8 - 10.8 X10*3/uL [facility] Red Blood Count 5.00 4.60 - 5.80 X10*6/uL [facility] Hemoglobin 15.4 14.0 - 18.0 g/dl [facility] Hematocrit 45.8 42.0 - 52.0 % [facility] Mean Corpuscular Volume 91.6 80.0 - 98.0 fL [facility] Mean Corpuscular Hemoglobin 30.8 27.0 - 33.0 pg [facility] Mean Corpuscular HGB Conc 33.6 31.0 - 36.0 g/dl [facility] Red Cell Distribution Width 12.7 11.0 - 16.0 % [facility] Platelet Count 202 160 - 400 X10*3/uL [facility] Mean Platelet Volume 12.2 9.4 - 12.4 fL [facility] NRBC Pct Auto 0.0 0.0 - 0.2 /100WBC [facility] NRBC Abs Auto 0.000 0.0 - 0.012 X10*3/uL [facility] Blood Venous blood specimen / Unknown 10/03/2024 7:49 AM EST 10/03/2024 7:49 AM EST us Yoanna Castillo MD LAB BLOOD ORDERAB LES Final Result Performing Organization Address [facility] Co de Phone Number [facility] [address] [place] [address] [phone] * PSA,Total (10/03/2024 7:49 AM EST) Prostate Specific Antigen 3.54 <0.05 - 4.0 ng/mL [facility] Comment:PSA methodology: Abb jovita Aliviktoriya i ChemiluminescentMicroparticle Immunoassay (CMIA) Blood Venous blood specimen / Unknown 10/03/2024 7:49 AM EST 10/03/2024 7:49 AM EST us Yoanna Castillo MD LAB BLOOD ORDERAB LES Final Result Performing Organization Address [facility]/ZIP Co de Phone Number [facility] [address] [place] [address] [phone] * (ABNORMAL) Hemoglobin A1c (10/03/2024 7:49 AM EST) Hemoglobin A1c 6.8(H) <6.0 % [facility] Comment:Hemoglobin A1C Refer ence Range Adults: 4.8 - 6.0 % Non diabetic: < 6.0 % Goal: < 7.0 %Additional Action Suggested: > 8.0 %Note: Hemoglobin A1c results are invalid for patients with abnormal amounts of HbF. Blood transfusions may impact the HbA1c concentration in the patient sample. Estimated Average Glucose 148 mg/dL [facility] Comment:eAG = Estimated ave rage glucose which is %A1C expressed asaverage glucose, using the formula of the Z0U-HjmzahhXogchbr Glucose study (ADAG), Diabetes Care, Vol.31,#8,May. 2007 Blood Venous blood specimen / Unknown 10/03/2024 7:49 AM EST 10/03/2024 7:49 AM EST us Yoanna Castillo MD LAB BLOOD ORDERAB LES Final Result [facility] [address] [place] [phone] * (ABNORMAL) Lipid Panel, Standard (10/03/2024 7:49 AM EST) Triglycerides 140 <150 mg/dL [facility] Comment:Desirable Triglyceri de: less than 150 mg/dLBorderline High Triglyceride 150-199 mg/dLHigh Triglyceride: 200-499 mg/dLVery High Triglyceride: greater than or equal to 5OO mg/dL Cholesterol 127 <200 mg/dL [facility] Comment:Desirable Cholestero l: less than 200 mg/dLBorderline High Cholesterol: 200-239 mg/dLHigh Cholesterol: greater than 239 mg/dL LDL Cholesterol Calculated 63 <100 mg/dL [facility] Comment:Desirable LDL: less than 100 mg/dLNear Optimal/Above Optimal LDL: 110- 129 mg/dLBorderline High LDL: 130-159 mg/dLHigh LDL: 160-189 mg/dLVery High LDL: greater than or equal to 190 mg/dL HDL Cholesterol 36(L) >40 mg/dL [facility] Comment:Desirable HDL: great er than 40 mg/dL Note: This HDL assay may give artificially low results in patients with liver disease. Blood Venous blood specimen / Unknown 10/03/2024 7:49 AM EST 10/03/2024 7:49 AM EST Yoanna Castillo MD LAB BLOOD ORDERAB LES Final Result Performing Organization Address [facility] de Phone Number [facility] [address] [place] [address] [phone] * Albumin, Random Urine W/Creatinine (10/03/2024 7:46 AM EST) Creatinine, Urine 261.62 mg/dL [facility] Microalbumin Urine 47.0 mg/L [facility] Microalbum Creatinine Ratio Ur 17.9 <30 ug/mg cr [facility] Comment:Albumin/Creatinine R atio Reference Ranges: Normal: < 30 ug/mg creatinine Microalbuminuria: 30 - 300 ug/mg creatinineClinical Albuminuria: > 300 ug/mg creatinine Urine (Urine, Random) 10/03/2024 7:46 AM EST 10/03/2024 9:42 AM EST Yoanna Castillo MD LAB URINE ORDERAB LES Final Result Performing Organization Address [facility] de Phone Number [facility] [address] [place] [address] [phone] * Chlamydia/N. Gonorrhoeae RNA, TMA, Urogenitial (10/03/2024 7:46 AM EST) CT PCR NOT DETECTED Not Detect. [facility] Comment:A not detected test result [...] psychologicalconsequences. NG PCR NOT DETECTED Not Detect. [facility] Comment:A not detected test result [...] AM EST 10/03/2024 9:42 AM EST Narrative [facility] - 10/03/2024 2:44 PM EST Urine Yoanna Castillo MD LAB MICROBIOLOGY - GENERAL ORDERABLES Final Result [facility] [address] [place] [phone] * Hm Colonoscopy (07/23/2017 2:28 PM EDT) Historical Provider HEALTH MAINTENANCE Final Result from Last 3 Months or Most Recently Relevant to Health Maintenance Insurance HSN PARTIAL [facility] [employer] HSN FULL DENTAL - HSN PARTIAL (MEDICAID) Care Teams Rug Receiving Clerk Relationship Specialty Start Date End Date Yoanna Cuevas MD [address] [place] [address] [phone] PCP - General Internal Medicine 06/12/23
--- OUTSIDE RECORDS SUMMARY | 2024-12-29 18:45 | XMS_ITS | Encounter Summary ---
Author Organization [employer] Address [address] [facility] [address] [place] [address] Care Team Providers Care Project Management Specialist Name Role Phone Yoanna Cuevas MD Primary Care Pro vider Reason for Visit * Reason Onset Date Comments Med Refill 12/21/2024 Encounter Details Date Type Department Care Team (Late st Contact Info) Description 12/21/2024 Refill [facility] [address] [place], [place] [phone] Yoanna Cuevas MD [address] [place], [place] [phone] Social History Tobacco Use Types Packs/Day Years [...] documented as of this encounter Care Teams Project Management Specialist Relationship Specialty Start Date End Date Yoanna Cuevas MD [address] [place] [address] [phone] PCP - General Internal Medicine 06/12/23 documented as of this encounter
--- OUTSIDE RECORDS SUMMARY | 2024-12-29 18:45 | XMS_ITS | Encounter Summary ---
Author Organization [employer] [facility] Address [address] [place] [address] [address] [place] [address] Care Team Providers Care Delivery Rep Name Role Phone Fili Mascorro MD Primary Care Prov ider Yoanna Cuevas MD Primary Care Pro vider Encounter Details Date Type Department Care Team (Late st Contact Info) Description 03/29/2023 Orders Only [facility] [address] [place], [place] [phone] Ceci Abbott LPN Social History Tobacco Use [...] on filedocumented in this encounter Care Teams Delivery Rep Relationship Specialty Start Date End Date Fili Mascorro MD [address] [place] [phone] PCP - General Internal Medicine 03/27/20 06/11/23 Yoanna Cuevas MD [address] [place] [address] PCP - General Internal Medicine 06/12/23 documented as of this encounter
--- OUTSIDE RECORDS SUMMARY | 2024-12-29 18:45 | XMS_ITS | Encounter Summary ---
Author Organization [employer] [facility] Address [address] [facility] [address] [place] [address] Care Team Providers Care Windows And Doors Installer Name Role Phone Fili Mascorro MD Primary Care Prov ider Yoanna Cuevas MD Primary Care Pro vider Encounter Details Date Type Department Care Team ([facility] st Contact Info) Description 03/07/2023 Orders Only [facility] [address] [place], [place] [phone] Ann-Marie Rios LPN Social History Tobacco Use [...] on filedocumented in this encounter Care Teams Windows And Doors Installer Relationship Specialty Start Date End Date Fili Mascorro MD [address] [place] [address] PCP - General Internal Medicine 03/27/20 06/11/23 Yoanna Cuevas MD [address] [place] [address] PCP - General Internal Medicine 06/12/23 documented as of this encounter
--- OUTSIDE RECORDS SUMMARY | 2024-12-29 18:45 | XMS_ITS | Encounter Summary ---
Author Organization [employer] [facility] Address [address] [place] [address] [address] [place] [address] Care Team Providers Care Cv Tech Name Role Phone Fili Mascorro MD Primary Care Prov ider Yoanna Cuevas MD Primary Care Pro vider Encounter Details Date Type Department Care Team ([facility] st Contact Info) Description 10/31/2022 Telephone [facility] [address] [place], [place] [phone] Fili Mascorro MD [address] [place], [place] [phone] Social History Tobacco Use Types Packs/Day Years [...] on filedocumented in this encounter Care Teams Cv Tech Relationship Specialty Start Date End Date Fili Mascorro MD [address] [place], [place] [phone] PCP - General Internal Medicine 03/27/20 06/11/23 Yoanna Cuevas MD [address] [place], [place] [phone] PCP - General Internal Medicine 06/12/23 documented as of this encounter
== END 2024-12-29 15:12 | disposition home or self-care (01) ==
PROVIDERS: PCP Student in an Organized Health Care Education/Training Program; Visit Provider Internal Medicine Pulmonary Disease
DX: J44.9 Chronic obstructive pulmonary disease, unspecified (principal); Z87.891 Personal history of nicotine dependence
CPT/HCPCS: 99214

== ENCOUNTER 2025-02-04 12:45 | Outpatient (AMB) | payer OTHER, SELFPAY ==
--- NOTE | 2025-02-04 12:55 | A.OFFVIS_ITS ---
Vital Signs 02/04/25 13:01 Height 5 ft 10 in Weight 201 lb BMI 28.8 BP 115/58 L Blood Pressure Location Rt brachial Position Sitting Pulse 89 Intake Visit Reasons: CT scan and Ultrasound Results, gallbladder Intake Note: Patient is seen in office for ultrasound and CT scan results, following gallbladder polyps. Pt c/o: denies nausea, diarrhea, constipation. States gallbladder is not bothersome. us/CT:11/18/24 L.OV:03/11/24 Vehicle Delivery Worker Required: No Accompanied by: Self / Same As Patient Allergies No Known Allergies [No Known Allergies*] Allergy (Verified 02/04/25 13:00) Medication List - Last Reconciled 02/04/25 by Ferdinand Castillo MD albuterol sulfate 90 mcg/actuation (ProAir HFA) 2 puffs inhalation Q4-6H PRN aspirin 81 mg PO DAILY atorvastatin 1 tab PO DAILY blood sugar diagnostic (FreeStyle Lite Strips) As directed budesonide-formoterol 160-4.5 mcg/actuation (Symbicort) 2 puffs inhalation BID cholecalciferol (vitamin D3) 25 mcg PO QAM hydrochlorothiazide 12.5 mg PO DAILY lisinopril 20 mg PO DAILY metformin 1,000 mg PO BID omeprazole 20 mg PO BID 90 days HPI Comments Details: 59-year-old male patient well known to me with a previous history of an umbilical hernia previously evaluated for a gallbladder polyp now returning following a recent visit to the emergency department at which time the gallbladder polyp was again identified. As with his previous evaluation last year, the patient denies any ongoing abdominal pain, nausea, vomiting, fatty food intolerance or other gallbladder type symptoms. Patient has a history of gastroesophageal reflux, COPD, hypertension and diabetes. The previous ultrasound of the abdomen revealed several echogenic foci along the gallbladder wall, at least 1 with ring down artifact consistent with adenomyomatosis there was no tenderness with palpation of the gallbladder during the ultrasound and no stone, sludge, wall thickening, or pericholecystic fluid. [facility] Medical History History of seizure Hypertension Dyslipidemia Diabetes GERD (gastroesophageal reflux disease) COPD (chronic obstructive pulmonary disease) Environmental allergies Personal history of nicotine dependence History of COVID-19 Arthritis Chronic lower back pain Tubular adenoma of colon Surgical History History of colonoscopy History of umbilical hernia repair (~2021) History of esophagogastroduodenoscopy (EGD) Social History Alcohol intake: never Patient Tobacco Use Status: Former Tobacco user Second Hand Smoke Exposure: No service: No Current occupational status: employed Review of Systems Const All systems reviewed & are unremarkable except as noted in HPI and below Physical Exam Vital Signs: Last Vital Signs Pulse 89 02/04/25 13:01 BP 115/58 L 02/04/25 13:01 BMI result Body Mass Index 28.8 Const General: cooperative and no acute distress Nutritional Appearance: well nourished Orientation/consciousness: patient oriented x3 Limitations: no limitations HEENT Head: Yes normocephalic and Yes atraumatic Ears: hearing grossly normal bilaterally Resp Effort & Inspection: normal respiratory effort, no audible wheezes, no cough and no respiratory distress Cardio Jugular venous distension: no JVD GI Other: Negative Rivas sign Inspection: Yes normal to inspection Palpation (GI): Soft to palpation, nontender, no guarding and not rigid Skin Other: Warm, dry, no rash Neuro General: patient oriented x3 Extrem General: Yes no clubbing, cyanosis or edema Assessment & Plan Assessment & Plan (1) Adenomyomatosis of gallbladder: Code(s): D13.5 - Benign neoplasm of extrahepatic bile ducts Category: Medical Plan 59-year-old male patient again returning for evaluation of gallbladder polyp/adenomyomatosis. He again reports no ongoing a abdominal symptoms and on examination has no tenderness and a negative Rivas sign. No surgical intervention is recommended at this time. We again discussed the symptoms consistent with gallbladder symptoms and he agrees to call if these symptoms do develop. He should follow up as needed. Coding Level of Care Code Est Pt Level 3 (43023) Diagnoses Adenomyomatosis of gallbladder D13.5
[2025-02-04 13:01] VITALS: BP 115/58; PULSE 89; BMI 28.8
--- OUTSIDE RECORDS SUMMARY | 2025-02-04 15:14 | XMS_ITS | Encounter Summary ---
Author Organization [employer] Address [address] [place] [address] Care Team Providers Care Reliability Technicians Name Role Phone Yoanna Cuevas MD Primary Care Pro vider Encounter Details Date Type Department Care Team (Late st Contact Info) Description 02/07/2024 Orders Only [facility] [address] [place] [address] Provider, MD Danyel Social History Tobacco Use [...] as of this encounter Plan of Treatment Upcoming Encounters Date Type Department Care Team (Late st Contact Info) Description 04/14/2025 3:00 PM EDT Office Visit [facility] [address] [place] [address] Yoanna Cuevas MD [address] [place] [phone] documented as of this encounter Procedures Procedure Name Priority Date/Time Associated Diagnosis Comments HM COLONOSCOPY Routine 07/23/2017 2:28 PM EDT documented in this encounter Results * Hm Colonoscopy (07/23/2017 2:28 PM EDT) Historical Provider HEALTH MAINTENANCE Final Result documented in this encounter Visit Diagnoses Not on filedocumented in this encounter Additional Health Concerns Assessment Noted Time PHQ-9 Depression Total Score: 11 023 10:01 AM EDT documented as of this encounter Care Teams Reliability Technicians Relationship Specialty Start Date End Date Yoanna Cuevas MD [address] [place] [id number] PCP - General Internal Medicine 06/12/23 documented as of this encounter
--- OUTSIDE RECORDS SUMMARY | 2025-02-04 15:14 | XMS_ITS | Encounter Summary ---
Author Organization [employer] Address [address] [place] [address] Care Team Providers Care Route Supervisor Name Role Phone Yoanna Cuevas MD Primary Care Pro vider Reason for Visit * Reason Onset Date Comments per dr foster walk in emergency 10/10/2023 Encounter Details Date Type Department Care Team ([facility] st Contact Info) Description 10/10/2023 Telephone [facility] [address] [place] [address] Russell Sibley, DDS [address] [place] [address] [address] foster walk in emergency Social [...] is on his way. Contacted front office supervisor with information of patient. Spoke with Bhumika garvin informed per Instructions that patient was going to walk in to see provider due to bleeding documented in this encounter Plan of Treatment Upcoming Encounters Date Type Department Care Team (Late st Contact Info) Description 04/14/2025 3:00 PM EDT Office Visit [facility] [address] [place] [address] Yoanna Cuevas MD [address] [place] [phone] documented as of this encounter Visit Diagnoses Not on filedocumented in this encounter Additional Health Concerns Assessment Noted Time PHQ-9 Depression Total Score: 11 023 10:01 AM EDT documented as of this encounter Care Teams Route Supervisor Relationship Specialty Start Date End Date Yoanna Cuevas MD [address] [place] [id number] PCP - General Internal Medicine 06/12/23 documented as of this encounter
--- OUTSIDE RECORDS SUMMARY | 2025-02-04 15:14 | XMS_ITS | Encounter Summary ---
Author Organization [employer] [facility] Address [address] [place] [address] Care Team Providers Care Automatic Pinsetter Mechanic Name Role Phone Fili Mascorro MD Primary Care Prov ider Yoanna Cuevas MD Primary Care Pro vider Encounter Details Date Type Department Care Team (Late st Contact Info) Description 03/07/2023 Orders Only [facility] [address] [place], [place] [phone] Ann-Marie Rios LPN Social History Tobacco Use [...] Description 04/14/2025 3:00 PM EDT Office Visit [facility] [address] [place], [place] [phone] Yoanna Cuevas MD [address] [place], [place] [phone] documented as of this encounter Visit Diagnoses Not on filedocumented in this encounter Care Teams Automatic Pinsetter Mechanic Relationship Specialty Start Date End Date Fili Mascorro MD [address] [place] [address] PCP - General Internal Medicine 03/27/20 06/11/23 oYanna Cuevas MD [address] [place] [phone] PCP - General Internal Medicine 06/12/23 documented as of this encounter
--- OUTSIDE RECORDS SUMMARY | 2025-02-04 15:14 | XMS_ITS | Clinical Summary ---
Author Organization [employer] Address [address] [place] [address] Care Team Providers Care Medical Photographer Name Role Phone Yoanna Cuevas MD Primary [...] EVENING 30.6 g 5 07/26/20 23 Active sildenafil (Viagra) 25 MG tablet TAKE 1 TABLET 1 HOUR BEFORE SEXUAL RELATIONS ONCE DAILY NEEDED. 10 tablet 1 09/07/20 24 Active metFORMIN (Glucophage) 1000 MG tablet [...] the morning. 90 tablet 12/21/19 25 Active lisinopril 20 MG tabletIndication s:Primary hypertension TAKE 1 TABLET BY MOUTH EVERY DAY 30 tablet 5 01/09/20 25 Active hydroCHLOROthiaz abraham 12.5 MG tablet TAKE 1 TABLET BY MOUTH EVERY DAY 30 tablet 3 01/27/20 25 Active lisinopril 20 MG tabletIndication s:Primary hypertension TAKE 1 TABLET BY MOUTH ONCE DAILY 90 tablet 3 12/24/19 24 025 Discontinued hydroCHLOROthiaz abraham 12.5 MG tablet TAKE 1 TABLET BY MOUTH EVERY DAY 30 tablet 3 09/28/20 24 025 Discontinued Active Problems Problem Noted Date Diagnosed Date [...] still wants to hold on meds. -saw Ling Miranda at last apt but refused to [...] at this time. At this time Se Mcgiure meets criteria for Visit Diagnoses: Problem List Items Addressed This Visit Other Depression Patient ready to address current needs Yes Strengths include providing support for his family PLAN: 1. Follow up with [facility]: Not recommended for follow-up 2. Patient goal [...] 60-65%, normal microalb 04/2023 34 + - kennel aide 05/2023 normal exam except for cataracts to f up in 1 year -continue meds -will repeat microalb in next 3 months Assessment & Plan (05/13/2023 8:40 PM EDT): BP controlled EKG today NSR has Q wave and TWI in lead III only and not in any other contiguous leads,QTC 445 -echocardiogram 07/2021: EF 60-65%, normal -referred to kennel aide -continue meds -ordered microalb Seizure 05/13/2023 Assessment [...] Canas Today of his last neurologist at [facility] or [facility]-pt can not recall Health care maintenance [...] 4:59 PM EDT): COPD -continue care w lens edger -next apt x 06/2023 Assessment & Plan (05/13/2023 8:42 PM EDT): COPD -continue care w lens edger -next apt x 06/2023 Dyslipidemia 09/22/2018 Type 2 diabetes mellitus 09/22/2018 Assessment & Plan (06/13/2023 5:03 PM EDT): Pt reports DM only on metformin hb1AC 04/2023 6.6 ,Microalb 34 + and LDL 62 -DM labs in 6 mo but will do microalb in 3 mo -referred to solar energy system installer helper -reports numbness in feet -apt x this month - kennel aide 05/2023: Normal exam ,except for cataract to f up in 1 year -continue metformin Assessment & Plan (05/13/2023 8:24 PM EDT): Pt reports DM only on metformin -DM labs -referred to solar energy system installer helper -reports numbness in feet -referred to kennel aide -DM labs Resolved Problems Problem Noted Date Diagnosed Date Resolved Date Xiphoid pain 12/19/2023 09/28/2024 Reducible umbilical hernia 04/23/2022 0 06/13/2023 Assessment & Plan (05/13/2023 8:25 PM EDT): Will f at next visit for hx of umbilical hernia Gastroesophageal reflux disease 09/22/2018 06/13/2023 Encounters Date Type Department Care Team Description 01/24/2025 Refill [facility] MED & PEDS [address] [place] [address] Yoanna Cuevas MD 01/20/2025 Telephone [facility] DENTAL [address] [place], [place] [phone] Jayde Waldron BDS 01/08/2025 Telephone [facility] MEDICINE [address], [place] [phone] Yoanna Cuevas MD May Recall 01/08/2025 Refill [facility] MED & PEDS [address] [place], [place] [phone] Yoanna Cuevas MD Primary hypertension 12/21/2024 Refill [facility] MED & PEDS [address] [place] [address] Yoanna Cuevas MD 11/18/2024 Orders Only GENERIC EXTERNAL DATA DEPARTMENT Provider, Generic External Data from Last 3 Months Immunizations Name Administration [...] 09/28/2024 1:15 PM EST Plan of Treatment Upcoming Encounters Date Type Department Care Team (Late st Contact Info) Description 04/14/2025 3:00 PM EDT Office Visit [facility] MEDICINE [address] [place] [address] Yoanna Cuevas MD [address] [place] [address] Health Maintenance Due Date Last Done Comments [...] Bitewings 03/20/2025 03/19/2024, 08/14 Diabetes: Hemoglobin A1C 04/03/20252 024, 02/08/2024, 12/14/2023, Additional history exists SDOH Screening 07/17/2025 07/17/2024 Depression Screening 09/28/2025 09/28/2024, 09/28/20 Tobacco Screening 09/28/2025 09/28/2024 Diabetes: Urine Protein Screening 10/03/2025 10/03/2024, 02/08/2024, 09/30/2021, Additional history exists Lipid Panel 10/03/2025 10/03/2024, 0412/2023, 06/28/2020 Dental X-Ray: Full Mouth 03/20/2027 024, [...] URINE, ROUTINE Routine 11/18/2024 12:00 AM EST HEPATITIS C AB W/REFL TO HCV RNA, [...] EST Narrative 12/01/2024 10:17 AM EST ? [facility] ?[address] ?[place] [address] ? CT Scan Report ? Signed ? Patient: Se Mcguire ?MR#: [id number] ?? 205 ? : 1965 ?Acct:[id number] ? Age/Sex: 59 / M ?ADM Date: 02/03/25 ? Loc: HO.CT ? Attending Dr: Stefanie Lee RESOURCES REPRESENTATIVE ? Ordering Physician: Jayashree Bonilla PA-C ?? Date of Service: 11/30/24 ?? Procedure(s): CT lung screening ?? Accession Number(s): [id number] ? cc: Jayashree Bonilla PA-C; Yoanna Cuevas MD ? Report Number: ?? [id number]: Total DLP = ?? 53.00 mGy-cm ? [...] by Franny Herndon MD in OV> ? 12/01/24 1017 ? DD/ 1015 ? TD/TT: 12/01/24 1015 ? Healthcare Administrative Assistant: ? Procedure Note Heather, Image - 02/04/[address] [address] [address] Scan Report Signed Patient: Se Mcguire RMR#: [id number] 205 : 1965Acct:[id number] Age/Sex: 59 / MADM Date: 11/30/24 Loc: HO.CT Attending Dr: Stefanie Lee NP Ordering Physician: Jayashree Bonilla PA-C Date of Service: 11/30/24 Procedure(s): CT lung screening Accession Number(s): [id number] cc: Jayashree Bonilla PA-C; Yoanna Cuevas MD Report Number: [id number]: Total DLP = 53.00 mGy-cm CLINICAL HISTORY: [...] 12/01/24 1017 DD/ 1015 TD/TT: 12/01/24 1015 Healthcare Administrative Assistant: us [facility] External Provider IMG CT PROCEDURES Edited Result - Final * CT Abdomen Pelvis w/o Contrast (11/18/2024 12:02 PM EST) Anatomical Region Laterality Modality Body, Pelvis, Abdomen Computed T omography 11/18/2024 12:0 2 PM EST Narrative 11/18/2024 12:34 PM EST ? [facility] ?[address] ?[place] [address] ? CT Scan Report ? Signed ? Patient: Se Mcguire ?MR#: [id number] ?? 205 ? : 1965 ?Acct:[id number] ? Age/Sex: 59 / M ?ADM Date: 11/18/24 ? Loc: HO.ED ? Attending Dr: ? Ordering Physician: Bibi Naidu MD ?? Date of Service: 11/18/24 ?? Procedure(s): CT abdomen pelvis wo IV con ?? Accession Number(s): [id number] ? cc: Bibi Naidu MD; Yoanna Cuevas MD ? Report Number: ?? [id number]: Total DLP = ??582.00 mGy-cm ?? EXAMINATION: [...] were followed. ? Electronically signed by: ??Nikolai Lydia MD ??11/18/2024 12:32 PM EST RP ? Dictated By: ?Lydia,Nikolai S MD ? Signed By: ?<Electronically signed by Nikolai S Lydia, MD in OV> ?11/18/24 1232 ? DD/ 1202 ? TD/TT: 11/18/24 1222 ? Healthcare Administrative Assistant: MSM ? Procedure Note Donotuseinterpreter, Image - 11/18/[address] [address] [address] Scan Report Signed Patient: Se Mcguire RMR#: [id number] 205 : 1965Acct:[id number] Age/Sex: 59 / MADM Date: 11/18/24 Loc: HO.ED Attending Dr: Ordering Physician: Bibi Naidu MD Date of Service: 11/18/24 Procedure(s): CT abdomen pelvis wo IV con Accession Number(s): [id number] cc: Bibi Naidu MD; Yoanna Cuevas MD Report Number: [id number]: Total DLP = 582.00 mGy-cm EXAMINATION: CT [...] Nikolai Freeman MD 11/18/2024 12:32 PM EST RP Dictated By: Nikolai Freeman MD Signed By: <Electronically signed by Nikolai Freeman MD in OV> 11/18/24 1232 DD/ 1202 TD/TT: 11/18/24 1222 Healthcare Administrative Assistant: HILARY [facility] External Provider IMG CT PROCEDURES Final Result * (ABNORMAL) Urinalysis, Complete, with Reflex to Culture (11/18/2024 11:39 AM EST) Color Urine [facility] [facility] Appearance Urine Hazy [facility] PH 5.5 5.0 - 9.0 [facility] Glucose Urine UA 250(A) Negative mg/dL [facility] Urine Blood Negative Negative [facility] Specific [place] - Urine >=1.030(H) 1.005 - 1.025 [facility] Urine Protein 30 (1+)(A) Neg-Trace mg/dL [facility] Urine Ketones 15 Negative mg/dL [facility] Nitrite Urine Positive(A) Negative [facility] Leukocyte Esterase Urine Negative Negative [facility] RBC Urine 0-2 0 - 2 /HPF [facility] Urine WBC 0-5 0 - 5 /HPF [facility] Urine Squamous Epithelial Cell 0-2 0 - 2 /HPF [facility] Urine Bacteria 4+ None Seen [facility] Hyaline Casts, Urine 3-5 0 - 2 /LPF [facility] 11/18/2024 11:3 9 AM EST 11/18/2024 11:42 AM EST Narrative [facility] - 11/18/2024 11:58 AM EST [id number], Clean Catch us Generic External Data Provider LAB URINE ORDERAB LES Final Result [facility] [address] [place] [address] [phone] * US Abdomen Limited (11/18/2024 10:52 AM EST) Anatomical Region Laterality Modality Abdomen Ultrasound 11/18/2024 10:5 2 AM EST Narrative 11/18/2024 11:31 AM EST ? [facility] ?[address] ?[place] [address] ? Ultrasound Report ? Signed ? Patient: Se Mcguire ?MR#: [id number] ?? 205 ? : 1965 ?Acct:[id number] ? Age/Sex: 59 / M ?ADM Date: 11/18/24 ? Loc: HO.ED ? Attending Dr: ? Ordering Physician: Bibi Naidu MD ?? Date of Service: 11/18/24 ?? Procedure(s): US abdomen limited ?? Accession Number(s): [id number] ? cc: Bibi Naidu MD; Yoanna Cuevas [...] 11:28 AM EST RP ? Dictated By: ?Nikolai Freeman MD ? Signed By: ?<Electronically signed by Nikolai Freeman MD in OV> ?11/18/24 1128 ? DD/ 1052 ? TD/TT: 11/18/24 1100 ? Healthcare Administrative Assistant: MSM ? Procedure Note Heather, Image - 11/18/2024 [place] [address] Ultrasound Report Signed Patient: Se Mcguire RMR#: [id number] 205 : 1965Acct:[id number] Age/Sex: 59 / MADM Date: 11/18/24 Loc: HO.ED Attending Dr: Ordering Physician: Bibi Naidu MD Date of Service: 11/18/24 Procedure(s): US abdomen limited Accession Number(s): [id number] cc: Bibi Naidu MD; Yoanna Cuevas MD [...] Nikolai Freeman MD 11/18/2024 11:28 AM EST RP Dictated By: Nikolai Freeman MD Signed By: <Electronically signed by Nikolai Freeman MD in OV> 11/18/24 1128 DD/ 1052 TD/TT: 11/18/24 1100 Healthcare Administrative Assistant: HILARY [facility] External Provider IMG US PROCEDURES Final Result * XR Chest 2 Views (11/18/2024 6:40 AM EST) Anatomical Region Laterality Modality Chest Radiographic Jelly ging 11/18/2024 6:40 AM EST Narrative 11/18/2024 7:20 AM EST ? [facility] ?[address] ?[place] [address] ?XRay Report ? Signed ? Patient: Se Mcguire ?MR#: [id number] ?? 205 ? : 1965 ?Acct:[id number] ? Age/Sex: 59 / M ?ADM Date: 01/22/25 ? Loc: HO.ED ? Attending Dr: ? Ordering Physician: Generic ED Physician ?? Date of Service: 11/18/24 ?? Procedure(s): XR chest 2V ?? Accession Number(s): [id number] ? cc: Generic ED Physician; Yoanna Cuevas [...] DD/ 0640 ? TD/TT: 11/18/24 0650 ? Healthcare Administrative Assistant: MSM ? Procedure Note Heather, Image - 11/18/2024 [place] [address] XRay Report Signed Patient: Se Mcguire RMR#: [id number] 205 : 1965Acct:[id number] Age/Sex: 59 / MADM Date: 11/18/24 Loc: .ED Attending Dr: Ordering Physician: Generic ED Physician Date of Service: 11/18/24 Procedure(s): XR chest 2V Accession Number(s): [id number] cc: Generic ED Physician; Yoanan Cuevas MD EXAMINATION: XR CHEST CLINICAL INFORMATION: [...] Freeman MD in OV> 11/18/24 0717 DD/ TD/TT: 11/18/2450 Healthcare Administrative Assistant: HILARY us [facility] External Provider IMG XR PROCEDURES Final Result * High Sensitivity Troponin I (11/18/2024 6:28 AM EST) TROPONIN I HIGH SENSITIVITY 12.7 <3.5 - 35.0 ng/L [facility] Comment:The Amin high sens itivity Troponin-I results should beused in conjunction with other diagnostic information suchas ECG, clinical observations and information, and patientsymptoms to aid in the diagnosis of UT. 11/18/2024 6:28 AM EST 11/18/2024 6:33 AM EST Generic External Data Provider LAB BLOOD ORDERAB LES Final Result [facility] [address] [place] [phone] * SARS-CoV-2 RNA, Influenza A/B, and RSV RNA, Ql NAAT (11/18/2024 6:28 AM EST) Pathologist [facility] Influenza A PCR NEGATIVE Negative [facility] Influenza B PCR NEGATIVE Negative [facility] Resp Syncy Virus RNA Qual PCR NEGATIVE Negative [facility] SARS COV2 PCR NEGATIVE Negative [facility] Comment:All test results mus t be [...] use by authorized laboratories.Testing performed on the [employer] GeneXpert utilizingreal-time RT-PCR.All SARS CoV2 and positive influenza A/B results arereported to [facility]. 11/18/2024 6:28 AM EST 11/18/2024 6:33 AM EST Generic External Data Provider LAB MICROBIOLOGY - GENERAL ORDERABLES Final Result [facility] [address] [place], [place] [phone] * (ABNORMAL) CBC auto differential (11/18/2024 6:28 AM EST) White Blood Count 5.8 4.8 - 10.8 X10*3/uL [facility] Red Blood Count 4.86 4.60 - 5.80 X10*6/uL [facility] Hemoglobin 15.1 14.0 - 18.0 g/dl [facility] Hematocrit 43.7 42.0 - 52.0 % [facility] Mean Corpuscular Volume 89.9 80.0 - 98.0 fL [facility] Mean Corpuscular Hemoglobin 31.1 27.0 - 33.0 pg [facility] Mean Corpuscular HGB Conc 34.6 31.0 - 36.0 g/dl [facility] Red Cell Distribution Width 12.4 11.0 - 16.0 % [facility] Platelet Count 104(L) 160 - 400 X10*3/uL [facility] Comment:Test was verified by repeat analysis. Mean Platelet Volume 12.7(H) 9.4 - 12.4 fL [facility] Neutrophils Percent Auto 59.8 45 - 73 % [facility] Imm Gran Pct Auto 0.3 0.0 - 0.4 % [facility] Lymphocytes Percent Auto 20.5 20 - 40 % [facility] Monocytes Percent Auto 13.5(H) 2 - 11 % [facility] Eosinophils Percent Auto 4.9(H) 0 - 4 % [facility] Basophils Percent Auto 1.0 0 - 2 % [facility] NRBC Pct Auto 0.0 0.0 - 0.2 /100WBC [facility] Neutrophils Absolute Auto 3.4 2.0 - 8.3 x10*3/uL [facility] Imm Gran Abs Auto 0.02 0.00 - 0.03 X10*3/uL [facility] Lymphocytes Absolute Auto 1.2 1.2 - 4.9 X10*3/uL [facility] Monocytes Absolute Auto 0.8 0.1 - 1.2 X10*3/uL [facility] Eosinophils Absolute Auto 0.3 0.0 - 0.4 X10*3/uL [facility] Basophils Absolute Auto 0.1 0.0 - 0.2 X10*3/uL [facility] NRBC Abs Auto 0.000 0.0 - 0.012 X10*3/uL [facility] 11/18/2024 6:28 AM EST 11/18/2024 6:33 AM EST us Generic External Data Provider LAB BLOOD ORDERAB LES Final Result [facility] [address] [place] [phone] [phone] * (ABNORMAL) Comprehensive Metabolic Panel (11/18/2024 6:28 AM EST) Sodium 137 135 - 145 mmol/L [facility] Potassium 3.9 3.3 - 5.1 mmol/L [facility] Chloride 102 96 - 108 mmol/L [facility] Carbon Dioxide 25 22 - 29 mmol/L [facility] Anion Gap 14 12 - 20 [facility] Urea Nitrogen (BUN) 18(H) 9 - 16 mg/dL [facility] Creatinine, Serum 1.37 0.5 - 1.4 mg/dL [facility] Creatinine Clr Calc Pharmacy 64.9 [facility] Comment:eGFR (calculated fro m the MDRD study equation) and eCrCl(calculated from the Cockcroft-Gault equation) are based ondifferent parameters and may not yield comparable results.If eCrCl result is absurd, please check patient'sheight/weight. Estimated Glomerular Filt Rate 53 [facility] Comment:Chronic Kidney Disea se: Estimated GFR < 60 mL/min/1.46t1Ujzyux Kidney Disease: Estimated GFR < 15 mL/min/1.73m2 Glucose 194(H) 60 - 115 mg/dL [facility] Calcium 10.0 8.4 - 10.2 mg/dL [facility] Bilirubin, Total 1.5(H) 0.0 - 1.0 mg/dL [facility] Aspartate Amino Transferase 64(H) 5 - 37 U/L [facility] Alanine Aminotransferase 132(H) 0 - 40 U/L [facility] Total Protein 7.7 6.5 - 8.0 g/dL [facility] Albumin Level 4.4 3.5 - 5.0 g/dL [facility] Alkaline Phosphatase 157(H) 39 - 117 U/L [facility] 11/18/2024 6:28 AM EST 11/18/2024 6:33 AM EST Generic External Data Provider LAB BLOOD ORDERAB LES Final Result Performing Organization Address [facility]/ZIP Co de Phone Number [facility] [address] [place] [phone] * Culture, Urine, Routine (11/18/2024 12:00 AM EST) Urine Urine specimen obtained by clean catch procedure / Unknown 11/18/2024 11/18/2024 Comment:UACC Narrative [facility] - 11/19/2024 10:45 AM EST Urine Culture No growth. Specimen Source: Urine clean catch Generic External Data Provider LAB MICROBIOLOGY - GENERAL ORDERABLES Final Result Performing Organization Address City/[facility]/ZIP Co de Phone Number [facility] [address] [place] [phone] * Hepatitis C Antibody with Reflex to HCV, RNA, Quantitative, Real-Time PCR (10/03/2024 7:49 AM EST) Hepatitis C Antibody Nonreactive Nonreactive [facility] Comment:Antibodies to HCV no t detected; does not exclude early acuteHCV infection. Blood Venous blood specimen / Unknown 10/03/2024 7:49 AM EST 10/03/2024 7:49 AM EST us Yoanna Castillo MD LAB BLOOD ORDERAB LES Final Result Performing Organization Address [facility] Co de Phone Number [facility] [address] [place] [phone] * HIV-1/2 Antigen and Antibodies, Fourth Generation, with Reflexes (10/03/2024 7:49 AM EST) HIV AB/AG Nonreactive Nonreactive [facility] Comment:HIV-1 p24 Ag and/or HIV-1/HIV-2 Ab not detected.A test result that is nonreactive does not exclude thepossibility of exposure to or infection with HIV-1 and/orHIV-2. Nonreactive results in this assay for individualswith prior exposure to HIV-1 and/or HIV-2 may be due toantigen and antibody levels that are below the limit ofdetection of this assay.The IpracomniSchoolfy HIV Ag/Ab Combo assay result andsupplemental assay results should be interpreted inconjunction with the patient's clinical presentation,history and other laboratory results. If the results areinconsistent with clinical evidence, additional testing issuggested to confirm the result. Blood Venous blood specimen / Unknown 10/03/2024 7:49 AM EST 10/03/2024 7:49 AM EST us Yoanna Castillo MD LAB BLOOD ORDERAB LES Final Result Performing Organization Address [facility]/ZIP Co de Phone Number [facility] [address] [place] [phone] * (ABNORMAL) Hemoglobin A1c (10/03/2024 7:49 AM EST) Hemoglobin A1c 6.8(H) <6.0 % [facility] Comment:Hemoglobin A1C Refer ence Range Adults: 4.8 - 6.0 % Non diabetic: < 6.0 % Goal: < 7.0 %Additional Action Suggested: > 8.0 %Note: Hemoglobin A1c results are invalid for patients with abnormal amounts of HbF. Blood transfusions may impact the HbA1c concentration in the patient sample. Estimated Average Glucose 148 mg/dL [facility] Comment:eAG = Estimated ave rage glucose which is %A1C expressed asaverage glucose, using the formula of the C6T-YafdqxyTkmsfwv Glucose study (ADAG), Diabetes Care, Vol.31,#8,May. 2007 Blood Venous blood specimen / Unknown 10/03/2024 7:49 AM EST 10/03/2024 7:49 AM EST us Yoanna Castillo MD LAB BLOOD ORDERAB LES Final Result [facility] [address] [place] [phone] * (ABNORMAL) Lipid Panel, Standard (10/03/2024 7:49 AM EST) Triglycerides 140 <150 mg/dL [facility] Comment:Desirable Triglyceri de: less than 150 mg/dLBorderline High Triglyceride 150-199 mg/dLHigh Triglyceride: 200-499 mg/dLVery High Triglyceride: greater than or equal to 5OO mg/dL Cholesterol 127 <200 mg/dL [facility] Comment:Desirable Cholestero l: less than 200 mg/dLBorderline High Cholesterol: 200-239 mg/dLHigh Cholesterol: greater than 239 mg/dL LDL Cholesterol Calculated 63 <100 mg/dL [facility] Comment:Desirable LDL: less than 100 mg/dLNear Optimal/Above Optimal LDL: 110- 129 mg/dLBorderline High LDL: 130-159 mg/dLHigh LDL: 160-189 mg/dLVery High LDL: greater than or equal to 190 mg/dL HDL Cholesterol 36(L) >40 mg/dL [facility] Comment:Desirable HDL: great er than 40 mg/dL Note: This HDL assay may give artificially low results in patients with liver disease. Blood Venous blood specimen / Unknown 10/03/2024 7:49 AM EST 10/03/2024 7:49 AM EST us Yoanna Castillo MD LAB BLOOD ORDERAB LES Final Result Performing Organization Address [facility] de Phone Number [facility] [address] [place] [phone] * Albumin, Random Urine W/Creatinine (10/03/2024 7:46 AM EST) Creatinine, Urine 261.62 mg/dL [facility] Microalbumin Urine 47.0 mg/L [facility] Microalbum Creatinine Ratio Ur 17.9 <30 ug/mg cr [facility] Comment:Albumin/Creatinine R atio Reference Ranges: Normal: < 30 ug/mg creatinine Microalbuminuria: 30 - 300 ug/mg creatinineClinical Albuminuria: > 300 ug/mg creatinine Urine (Urine, Random) 10/03/2024 7:46 AM EST 10/03/2024 9:42 AM EST Yoanna Castillo MD LAB URINE ORDERAB LES Final Result Performing Organization Address [facility] Co de Phone Number [facility] [address] [place] [phone] * Hm Colonoscopy (07/23/2017 2:28 PM EDT) Historical Provider HEALTH MAINTENANCE Final Result from Last 3 Months or Most Recently Relevant to Health Maintenance Insurance HSN PARTIAL [facility] NAVIGATE HSN FULL DENTAL - HSN PARTIAL (MEDICAID) Care Teams Medical Photographer Relationship Specialty Start Date End Date Yoanna Cuevas MD [address] [place] [phone] PCP - General Internal Medicine 06/12/23
--- OUTSIDE RECORDS SUMMARY | 2025-02-04 15:15 | XMS_ITS | Encounter Summary ---
Author Organization [employer] Address [address] [place] [address] [address] [place] [address] Care Team Providers Care Carpet Floor Layer Apprentice Name Role Phone Fili Mascorro MD Primary Care Prov ider Yoanna Cuevas MD Primary Care Pro vider Reason for Visit * Reason Comments Med Refill Encounter Details Date Type Department Care Team (Late st Contact Info) Description 12/16/2022 Refill [facility] MED & PEDS [address] [place], [place] [phone] Fili Mascorro MD [address] [place], [place] [phone] Gastroesophageal reflux disease without esophagitis (Primary Dx) [...] Description 04/14/2025 3:00 PM EDT Office Visit [facility] MEDICINE [address], [place] [phone] Yoanna Cuevas MD [address] [place], [place] [phone] documented as of this encounter Visit Diagnoses Diagnosis Gastroesophageal reflux disease without esophagitis- Primary Esophageal reflux documented in this encounter Care Teams Carpet Floor Layer Apprentice Relationship Specialty Start Date End Date Fili Mascorro MD [address] [place] [phone] PCP - General Internal Medicine 03/27/20 06/11/23 Yoanna Cuevas MD [address] [place] [address] PCP - General Internal Medicine 06/12/23 documented as of this encounter
--- OUTSIDE RECORDS SUMMARY | 2025-02-04 15:15 | XMS_ITS | Encounter Summary ---
Author Organization [employer] Address [address] [facility] 7t [place] [address] Care Team Providers Care Video Game Animator Name Role Phone Fili Mascorro MD Primary Care Prov ider Yoanna Cuevas MD Primary Care Pro vider Encounter Details Date Type Department Care Team (Late st Contact Info) Description 10/31/2022 Telephone [facility] CHC MED & PEDS 505 [place], [place] [phone] Fili Mascorro MD 505 [place] [address] Social History Tobacco Use Types Packs/Day Years [...] [facility] MEDICINE 230 [place], [place] [phone] Yoanna Cuevas MD 230 [place], [place] [phone] documented as of this encounter Visit Diagnoses Not on filedocumented in this encounter Care Teams Video Game Animator Relationship Specialty Start Date End Date Fili Mascorro MD [address] [place] [address] PCP - General Internal Medicine 03/27/20 06/11/23 Yoanna Cuevas MD [address] [place] [address] PCP - General Internal Medicine 06/12/23 documented as of this encounter
--- OUTSIDE RECORDS SUMMARY | 2025-02-04 15:15 | XMS_ITS | Encounter Summary ---
Author Organization [employer] [facility] Address [address] [place] [address] 7t [place] [address] Care Team Providers Care Core Stripper Name Role Phone Yoanna Cuevas MD Primary Care Pro vider Reason for Visit * Reason Comments Med Refill Encounter Details Date Type Department Care Team (Late st Contact Info) Description 07/05/2023 Refill [facility] MEDICINE [address] [place] [address] [phone] Yoanna Cuevas MD 230 [place], [place] [phone] Social History Tobacco Use Types Packs/Day Years [...] Encounters Date Type Department Care Team (Late Contact Info) Description 04/14/2025 3:00 PM EDT Office Visit [facility] MEDICINE 230 [place], [place] [phone] Yoanna Cuevas MD 230 [place] [address] documented as of this encounter Visit Diagnoses Not on filedocumented in this encounter Additional Health Concerns Assessment Noted Time PHQ-9 Depression Total Score: 11 05/13/ 023 10:01 AM EDT documented as of this encounter Care Teams Core Stripper Relationship Specialty Start Date End Date Yoanna Cuevas MD 230 [place] [address] PCP - General Internal Medicine 06/12/23 documented as of this encounter
--- OUTSIDE RECORDS SUMMARY | 2025-02-04 15:15 | XMS_ITS | Encounter Summary ---
Author Organization [employer] [facility] Address [address] [place] [address] 7t [place] [address] Care Team Providers Care Health And Fitness Instructor Name Role Phone Fili Mascorro MD Primary Care Prov ider Yoanna Cuevas MD Primary Care Pro vider Encounter Details Date Type Department Care Team (Late st Contact Info) Description 03/29/2023 Orders Only [facility] MEDICINE [address] [place] [address] Ceci Abbott LPN Social History Tobacco Use [...] Description 04/14/2025 3:00 PM EDT Office Visit [facility] MEDICINE [address] [place] [address] Yoanna Cuevas MD 230 [place] [address] documented as of this encounter Visit Diagnoses Not on filedocumented in this encounter Care Teams Health And Fitness Instructor Relationship Specialty Start Date End Date Fili Mascorro MD 505 [place] [address] PCP - General Internal Medicine 03/27/20 06/11/23 Yoanna Cuevas MD [address] [place] [address] PCP - General Internal Medicine 06/12/23 documented as of this encounter
== END 2025-02-04 13:26 | disposition home or self-care (01) ==
LOC: HO.HGS 12:46
PROVIDERS: PCP Student in an Organized Health Care Education/Training Program; Visit Provider Surgery
DX: D13.5 Benign neoplasm of extrahepatic bile ducts (principal)
CPT/HCPCS: 99213

== ENCOUNTER 2025-04-07 06:04 | Outpatient (REF) | payer OTHER, SELFPAY ==
[2025-04-07 08:18] LABS: Alanine Aminotransferase 51 U/L (0-40); Albumin Level 5.2 g/dL (3.5-5.0); Alkaline Phosphatase 92 U/L (39-117); Anion Gap 14 (12-20); Aspartate Amino Transferase 29 U/L (5-37); Bilirubin Total 0.7 mg/dL (0.0-1.0); Blood Urea Nitrogen 18 mg/dL (9-16); Calcium 10.4 mg/dL (8.4-10.2); Carbon Dioxide 29 mmol/L (22-29); Chloride 103 mmol/L (96-108); Estimated Glomerular Filt Rate > 60; Glucose Random 128 mg/dL (60-115); Potassium 4.5 mmol/L (3.3-5.1); Sodium 141 mmol/L (135-145); Total Protein 7.2 g/dL (6.5-8.0)
== END 2025-04-07 06:05 | disposition home or self-care (01) ==
LOC: HO.LAB 06:04
PROVIDERS: PCP Student in an Organized Health Care Education/Training Program; Visit Provider Student in an Organized Health Care Education/Training Program
DX: R74.01 Elevation of levels of liver transaminase levels (principal)
CPT/HCPCS: 36415; 80053

== ENCOUNTER 2025-06-12 07:01 | Outpatient (REF) | payer OTHER, SELFPAY ==
--- OUTSIDE RECORDS SUMMARY | 2025-06-12 07:04 | XMS_ITS | Encounter Summary ---
Author Organization [employer] Address [address] [facility] 7t [place] [address] Care Team Providers Care Senior Game Designer Name Role Phone Yoanna Cuevas MD Primary Care Pro vider Encounter Details Date Type Department Care Team (Late st Contact Info) Description 02/07/2024 Orders Only [facility] MEDICINE 230 [place], [place] [phone] Provider, MD Danyel Social History Tobacco Use [...] is your housing situation today? I have kourtneyarslan stoll 08/19/[address] you [...] Care Team (Late st Contact Info) Description 06/18/2025 1:30 PM EDT Office Visit [facility] MEDICINE 230 [place] [address] Yoanna Cuevas MD [address] [place] [address] [phone] documented as of this encounter Procedures Procedure [...] documented as of this encounter Care Teams Senior Game Designer Relationship Specialty Start Date End Date Yoanna Cuevas MD [address] [place] [address] PCP - General Internal Medicine 06/12/23 documented as of this encounter
[2025-06-12 07:19] LABS: MANUAL DIFF FLAG NO
[2025-06-12 07:50] LABS: Hematocrit 43.2 % (42.0-52.0); Hemoglobin 14.6 g/dl (14.0-18.0); Imm Gran Abs Auto 0.02 X10*3/uL (0.00-0.03); Imm Gran Pct Auto 0.3 % (0.0-0.4); Lymphocytes Absolute Auto 2.2 X10*3/uL (1.2-4.9); Mean Corpuscular HGB Conc 33.8 g/dl (31.0-36.0); Mean Corpuscular Hemoglobin 31.1 pg (27.0-33.0); Mean Corpuscular Volume 92.1 fL (80.0-98.0); NRBC Abs Auto 0.000 X10*3/uL (0.0-0.012); NRBC Pct Auto 0.0 /100WBC (0.0-0.2); Platelet Count 172 X10*3/uL (160-400); Red Blood Count 4.69 X10*6/uL (4.60-5.80); White Blood Count 6.1 X10*3/uL (4.8-10.8)
[2025-06-12 08:12] LABS: Hemoglobin A1C 186.7928 umol/L; Total Hemoglobin (HGBA1C) 3745.2763 umol/L
[2025-06-12 08:22] LABS: Parathyroid Hormone Intact 86.2 pg/mL (8.7-77.1)
[2025-06-12 08:24] LABS: Microalbum/Creatinine Ratio Ur 7.7 ug/mg cr (<30)
[2025-06-12 08:28] LABS: Alanine Aminotransferase 50 U/L (0-40); Albumin Level 5.0 g/dL (3.5-5.0); Alkaline Phosphatase 96 U/L (39-117); Anion Gap 21 (12-20); Aspartate Amino Transferase 31 U/L (5-37); Blood Urea Nitrogen 12 mg/dL (9-16); Calcium 10.0 mg/dL (8.4-10.2); Carbon Dioxide 27 mmol/L (22-29); Chloride 99 mmol/L (96-108); Cholesterol 160 mg/dL (<200); Estimated Glomerular Filt Rate > 60; HDL Cholesterol 43 mg/dL (>40); Potassium 4.8 mmol/L (3.3-5.1); Sodium 142 mmol/L (135-145); Total Protein 7.1 g/dL (6.5-8.0); Triglycerides 166 mg/dL (<150)
[2025-06-12 08:50] LABS: Folate 13.3 ng/mL (> or = 4.0); Vitamin B12 552 pg/mL (200-900)
[2025-06-15 17:13] LABS: Calcium, Ionized 5.2 mg/dL (4.7-5.5)
== END 2025-06-12 07:02 | disposition home or self-care (01) ==
LOC: HO.LAB 07:01
PROVIDERS: PCP Student in an Organized Health Care Education/Training Program; Visit Provider Student in an Organized Health Care Education/Training Program
DX: E83.52 Hypercalcemia (principal); E11.9 Type 2 diabetes mellitus without complications
CPT/HCPCS: 36415; 80053; 80061; 82043; 82330; 82570; 82607; 82746; 83036; 83970; 85025

== ENCOUNTER 2025-08-16 14:44 | Outpatient (AMB) | payer OTHER, SELFPAY ==
[2025-08-16 14:48] VITALS: BP 110/66; PULSE 85; BMI 28.3
--- NOTE | 2025-08-16 14:48 | A.OFFVIS_ITS ---
Vital Signs 08/16/25 14:48 Height 5 ft 10 in Weight 197 lb BMI 28.3 BP 110/66 Blood Pressure Location Lt brachial Position Sitting Pulse 85 Intake Visit Reasons: 1 year FUV. Intake Note: Se presents in the office as as 1 year follow up. CC: no concerns at this time. Director Funeral Required: No Allergies Seasonal Allergies Allergy (Mild, Verified 08/16/25 14:51) Unknown HPI Comments Details: 58 y.o M with PMH of who is here for follow up. 12/13/23: Reports switched omeprazole to pantoprazole after EGD in 2019 - however over the past 2 years has had worsening of heartburn retrosternally with nausea and discomfort. Often has mild regurgitation in the morning. No vomiting. No change in appetite or unintentional weight loss. Notices symptoms postprandially. Last EGD 2019 with Barretts esophagus without dysplasia, gastritis, negative for H pylori. 02/26/24: Here for follow up after recent testing. Barium swallow consistent with reflux and gastritis with duodenitis. US RUQ without sludge/stones but with GB polyps/adenomyomatosis. Nexium did not make much difference so back on pantoprazole. Pt with persistent with postprandial bloating and discomfort but also taking motrin for L leg pain. 06/16/24: EGD * Inlet patch * Holcomb colored mucosa suspicious for BE (biopsy, tissue cypher) * Hiatal hernia * Trip erosions * Normal duodenum (biopsy) A. Duodenum, biopsy: Duodenal mucosa within normal limits; preserved villous architecture and no increased intraepithelial lymphocytes seen. B. Stomach, random, biopsy: Gastric antral and body mucosa within normal limits; negative for Helicobacter pylori, intestinal metaplasia and dysplasia. C. Esophagus, 34 cm, biopsy: Squamocolumnar junctional mucosa with mild chronic inflammation and intestinal metaplasia consistent with Keith's esophagus; negative for dysplasia (see comment). D. Esophagus, 35 cm, biopsy: Gastric cardia-type mucosa with mild chronic inflammation; no squamous mucosa seen; negative for intestinal metaplasia and dysplasia. COMMENT (C): These findings are consistent with Keith's esophagus if the biopsies were taken above the anatomic gastroesophageal junction. Clinical and endoscopic correlation is advised. 08/17/24: Here for post EGD follow up. Issues with insurance of PPI coverage - eventually omeprazole 20 BID covered so on that now. Reports resolution of abd pain and nausea. Results of EGD reveiwed with the pt. 08/16/25: Here for follow up for colonoscopy scheduling due to colonic polyps. He is compliant with omeprazole (twice daily) for esophagitis. Currently, there is no abdominal pain, nausea, or vomiting. He has deferred bariatric surgery consultation due to insurance constraints. He is interested to making an appt today. The next endoscopy is planned for 2026, so it's not required now. --- Pt was informed and consented to the use of ambient scribe for this encounter. --- [facility] Medical History History of seizure Hypertension Dyslipidemia Diabetes GERD (gastroesophageal reflux disease) COPD (chronic obstructive pulmonary disease) Environmental allergies Personal history of nicotine dependence History of COVID-19 Arthritis Chronic lower back pain Tubular adenoma of colon Surgical History History of colonoscopy History of umbilical hernia repair (~2021) History of esophagogastroduodenoscopy (EGD) Social History Alcohol intake: never Patient Tobacco Use Status: Former Tobacco user Second Hand Smoke Exposure: No service: No Current occupational status: employed Review of Systems Const All systems reviewed & are unremarkable except as noted in HPI and below Physical Exam Exam Exam: No apparent distress Nonicteric Abdomen soft, nondistended Alert and oriented x3, normal gait Vital Signs: Last Vital Signs Pulse 85 08/16/25 14:48 BP 110/66 08/16/25 14:48 BMI result Body Mass Index 28.3 Assessment & Plan Assessment & Plan (1) GERD (gastroesophageal reflux disease): Code(s): K21.9 - Gastro-esophageal reflux disease without esophagitis Category: Medical (2) Personal history of colonic polyps: Code(s): Z86.010 - Personal history of colon polyps Category: Medical (3) Barretts esophagus: Code(s): K22.70 - Keith's esophagus without dysplasia Category: Medical (4) Hiatal hernia: Code(s): K44.9 - Diaphragmatic hernia without obstruction or gangrene Category: Medical Plan Has large HH noted on EGD which is likely contributing to significant reflux with trip erosions and nondysplastic BE. This is despite longstanding PPI therapy. Would recommend consultation with foregut surgeon to review surgical anti reflux options. Plan: - Referral resent - Can decrease omeprazole 20 to once daily Hx of polyps: Plan: - Schedule colo for polyp surveillance - PEG prep Rxed and instructions reviewed Follow up after colo as needed Orders: Referrals GI Procedure Notification Z86.010 - Personal history of colon polyps Bariatric Surgery Referral K22.70 - Keith's esophagus without dysplasia, K44.9 - Diaphragmatic hernia without obstruction or gangrene Medications: New peg 3350-electrolytes 236-22.74-6.74 -5.86 gram (Golytely) as per split prep instructions, until fecal effluent is clear 240 mL PO Q10M 4,000 mL 0RF colonoscopy Coding Level of Care Code Est Pt Level 4 (00576) Diagnoses GERD (gastroesophageal reflux disease) K21.9 Personal history of colonic polyps Z86.010 Barretts esophagus K22.70 Hiatal hernia K44.9
== END 2025-08-16 18:37 | disposition home or self-care (01) ==
LOC: HO.HGI 14:44
PROVIDERS: PCP Student in an Organized Health Care Education/Training Program; Visit Provider Internal Medicine
DX: K21.9 Gastro-esophageal reflux disease without esophagitis (principal); Z86.0100 Personal history of colon polyps, unspecified; K22.70 Barrett's esophagus without dysplasia; K44.9 Diaphragmatic hernia without obstruction or gangrene
CPT/HCPCS: 99214

== ENCOUNTER 2025-10-26 07:28 | Day surgery (SDC) | payer OTHER, SELFPAY ==
--- OUTSIDE RECORDS SUMMARY | 2025-09-16 19:46 | XMS_ITS | Encounter Summary ---
Author Organization [employer] Address [address] [facility] [address] 7t [place] [address] Care Team Providers Care Geomatics Professor Name Role Phone Yoanna Cuevas MD Primary Care Pro vider Hannah Peck CNP Primary Care Provider +1 [phone] Encounter Details Date Type Department Care Team (Late st Contact Info) Description 02/07/2024 Orders Only [facility] MEDICINE 230 [place] [address] Provider, MD Danyel Social History Tobacco Use [...] Care Team (Late st Contact Info) Description 09/28/2025 10:30 AM EST Office Visit [facility] ADULT DENTAL 230 [place] [address] Natanael Leiva DDS 230 [place] [address] 11/05/2025 9:00 AM EST Office Visit [facility] MEDICINE 230 [place] [address] Yoanna Cuevas MD 230 [place] [address] 12/01/2025 10:45 AM EST Office Visit [facility] CHC MED & PEDS 505 [place], [place] [phone] Hannah Peck CNP 505 [place] [address] documented as of this encounter Procedures Procedure [...] documented as of this encounter Care Teams Geomatics Professor Relationship Specialty Start Date End Date Yoanna Cuevas MD 230 [place] [address] PCP - General Internal Medicine 06/12/23 09/12/25 Hannah Peck CNP [address] [place] [address] [place] TSAI [address] PCP - General Family Medicine 09/13/25 documented as of this encounter
--- OUTSIDE RECORDS SUMMARY | 2025-09-16 19:46 | XMS_ITS | Encounter Summary ---
Author Organization [employer] Address [address] [facility] 7t [place] [address] Care Team Providers Care Robotic Technician Name Role Phone Yoanna Cuevas MD Primary Care Pro vider Hannah Peck CNP Primary Care Provider [phone] [phone] Reason for Visit * Reason Onset Date Comments per dr foster walk in emergency 10/10/2023 Encounter Details Date Type Department Care Team ([facility] st Contact Info) Description 10/10/2023 Telephone [facility] ADULT DENTAL 230 [place] [address] Russell Sibley DDS 230 [place] [address] fostre walk in emergency Social History Tobacco Use [...] He is on his way. Contacted front end technician with information of patient. Spoke with Bhumika garvin informed per Instructions that patient was going to walk in to see provider due to bleeding DR documented in this encounter Plan of Treatment Upcoming Encounters Date Type Department Care Team (Late st Contact Info) Description 09/28/2025 10:30 AM EST Office Visit [facility] ADULT DENTAL 230 [place] [address] Natanael Leiva DDS 230 [place] [address] 11/05/2025 9:00 AM EST Office Visit [facility] MEDICINE 230 [place] [address] Yoanna Cuevas MD 230 [place] [address] 12/01/2025 10:45 AM EST Office Visit [facility] CHC MED & PEDS 505 [place] [address] Hannah Peck CNP 505 [place] [address] documented as of this encounter Visit Diagnoses Not on filedocumented in this encounter Additional Health Concerns Assessment Noted Time PHQ-9 Depression Total Score: 11 023 10:01 AM EDT documented as of this encounter Care Teams Robotic Technician Relationship Specialty Start Date End Date Yoanna Cuevas MD [address] [place] [address] PCP - General Internal Medicine 06/12/23 09/12/25 Hannah Peck CNP 505 [place] [address] PCP - General Family Medicine 09/13/25 documented as of this encounter
--- OUTSIDE RECORDS SUMMARY | 2025-09-16 19:46 | XMS_ITS | Encounter Summary ---
Author Organization [employer] Address [address] [place] [address] 7t [place] [address] Care Team Providers Care Link Assembler Name Role Phone Fili Mascorro MD Primary Care Prov ider Yoanna Cuevas MD Primary Care Pro vider Hannah Peck CNP Primary Care Provider [phone] [phone] Encounter Details Date Type Department Care Team (Late st Contact Info) Description 10/31/2022 Telephone [facility] CHC MED & PEDS 505 [place], [place] [phone] Fili Mascorro MD 505 [place] [address] Social History Tobacco Use Types Packs/Day Years [...] Description 09/28/2025 10:30 AM EST Office Visit [facility] ADULT DENTAL 230 [place] [address] Natanael Leiva DDS 230 [place] [address] 11/05/2025 9:00 AM EST Office Visit [facility] MEDICINE 230 [place] [address] Yoanna Cuevas MD 230 [place] [address] 12/01/2025 10:45 AM EST Office Visit [facility] CHC MED & PEDS 505 [place] [address] Hannah Peck CNP 505 [place] [address] documented as of this encounter Visit Diagnoses Not on filedocumented in this encounter Care Teams Link Assembler Relationship Specialty Start Date End Date Fili Mascorro MD 505 [place] [address] PCP - General Internal Medicine 03/27/20 06/11/23 Yoanna Cuevas MD 230 [place] [address] PCP - General Internal Medicine 06/12/23 09/12/25 Hannah Peck CNP 505 [place] [address] PCP - General Family Medicine 09/13/25 documented as of this encounter
--- OUTSIDE RECORDS SUMMARY | 2025-09-16 19:46 | XMS_ITS | Encounter Summary ---
Author Organization [employer] Address [address] [place] [address] 7 [place] [address] Care Team Providers Care Electronic Prepress Operator Name Role Phone Fili Mascorro MD Primary Care Prov ider Yoanna Cuevas MD Primary Care Pro vider Hannah Peck CNP Primary Care Provider + [phone] Encounter Details Date Type Department Care Team (Late st Contact Info) Description 03/29/2023 Orders Only [facility] MEDICINE [address] [place] [address] Ceci Abbott LPN Social History Tobacco Use [...] Description 09/28/2025 10:30 AM EST Office Visit [facility] ADULT DENTAL [address] [place] [address] [phone] Natanael Leiva DDS [address] [place] [address] [phone] 11/05/2025 9:00 AM EST Office Visit [facility] MEDICINE [address] [place] [address] [phone] Yoanna Cuevas MD [address] [place] [address] 12/01/2025 10:45 AM EST Office Visit [facility] CHC MED & PEDS 505 [place] [address] Hannah Peck CNP 505 [place] [address] documented as of this encounter Visit Diagnoses Not on filedocumented in this encounter Care Teams Electronic Prepress Operator Relationship Specialty Start Date End Date Fili Mascorro MD 505 [place] [address] PCP - General Internal Medicine 03/27/20 06/11/23 Yoanna Cuevas MD [address] [place] [address] PCP - General Internal Medicine 06/12/23 09/12/25 Hannah Peck CNP 505 [place] [address] PCP - General Family Medicine 09/13/25 documented as of this encounter
--- OUTSIDE RECORDS SUMMARY | 2025-09-16 19:46 | XMS_ITS | Encounter Summary ---
Author Organization [employer] Address [address] [place] [address] 7t [place] [address] Care Team Providers Care Clinical Resource Director Name Role Phone Yoanna Cuevas MD Primary Care Pro vider Hannah Peck CNP Primary Care Provider [phone] [phone] Reason for Visit * Reason Comments Med Refill Encounter Details Date Type Department Care Team (Late st Contact Info) Description 07/05/2023 Refill [facility] MEDICINE 230 [place] [address] Yoanna Cuevas MD 230 [place] [address] Social History Tobacco Use Types Packs/Day Years [...] Description 09/28/2025 10:30 AM EST Office Visit [facility] ADULT DENTAL 230 [place] [address] Natanael Leiva DDS 230 [place] [address] 11/05/2025 9:00 AM EST Office Visit [facility] MEDICINE 230 [place] [address] Yoanna Cuevas MD 230 [place] [address] 12/01/2025 10:45 AM EST Office Visit [facility] CHC MED & PEDS 505 [place] [address] Hannah Peck CNP 505 [place] [address] documented as of this encounter Visit Diagnoses Not on filedocumented in this encounter Additional Health Concerns Assessment Noted Time PHQ-9 Depression Total Score: 11 023 10:01 AM EDT documented as of this encounter Care Teams Clinical Resource Director Relationship Specialty Start Date End Date Yoanna uCevas MD 230 [place] [address] PCP - General Internal Medicine 06/12/23 09/12/25 Hannah Peck CNP [address] [place] [address] PCP - General Family Medicine 09/13/25 documented as of this encounter
--- OUTSIDE RECORDS SUMMARY | 2025-09-16 19:46 | XMS_ITS | Encounter Summary ---
Author Organization [employer] Address [address] [place] [address] 7 [place] [address] Care Team Providers Care Locator Specialist Name Role Phone Fili Mascorro MD Primary Care Prov ider Yoanna Cuevas MD Primary Care Pro vider Hannah Peck CNP Primary Care Provider + [phone] Encounter Details Date Type Department Care Team (Late Contact Info) Description 03/07/2023 Orders Only [facility] CHC MED & PEDS 505 [place], [place] [phone] Ann-Marie Rios LPN Social History Tobacco Use [...] Department Care Team (Late Contact Info) Description 09/28/2025 10:30 AM EST Office Visit [facility] ADULT DENTAL [address] [place] [address] [phone] Natanael Leiva DDS [address] [place] [address] [phone] 11/05/2025 9:00 AM EST Office Visit [facility] MEDICINE [address] [place] [address] [phone] Yoanna Cuevas MD [address] [place] [address] 12/01/2025 10:45 AM EST Office Visit [facility] CHC MED & PEDS 505 [place] [address] Hannah Peck CNP 505 [place] [address] documented as of this encounter Visit Diagnoses Not on filedocumented in this encounter Care Teams Locator Specialist Relationship Specialty Start Date End Date Fili Mascorro MD 505 [place] [address] PCP - General Internal Medicine 03/27/20 06/11/23 Yoanna Cuevas MD 230 [place] [address] PCP - General Internal Medicine 06/12/23 09/12/25 Hannah Peck CNP 505 [place] [address] PCP - General Family Medicine 09/13/25 documented as of this encounter
--- OUTSIDE RECORDS SUMMARY | 2025-09-16 19:46 | XMS_ITS | Encounter Summary ---
Author Organization [employer] Address [address] [facility] 7t [place] [address] Care Team Providers Care Reformatory Attendant Name Role Phone Fili Mascorro MD Primary Care Prov ider Yoanna Cuevas MD Primary Care Pro vider Hannah Peck CNP Primary Care Provider [phone] Reason for Visit * Reason Comments Med Refill Encounter Details Date Type Department Care Team (Late st Contact Info) Description 12/16/2022 Refill [facility] CHC MED & PEDS 505 [place], [place] [phone] Fili Mascorro MD 505 [place], [place] [phone] Gastroesophageal reflux disease without esophagitis (Primary Dx) [...] Description 09/28/2025 10:30 AM EST Office Visit [facility] ADULT DENTAL 230 [place], [place] [phone] Natanael Leiva DDS 230 [place], [place] [phone] 11/05/2025 9:00 AM EST Office Visit [facility] MEDICINE [address] [place] [address] Yoanna Cuevas MD 230 [place] [address] 12/01/2025 10:45 AM EST Office Visit [facility] CHC MED & PEDS 505 [place] [address] Hannah Peck CNP 505 [place] [address] documented as of this encounter Visit Diagnoses Diagnosis Gastroesophageal reflux disease without esophagitis- Primary Esophageal reflux documented in this encounter Care Teams Reformatory Attendant Relationship Specialty Start Date End Date Fili Mascorro MD 505 [place] [address] PCP - General Internal Medicine 03/27/20 06/11/23 Yoanna Cuevas MD 230 [place] [address] PCP - General Internal Medicine 06/12/23 09/12/25 Hannah Peck CNP 505 [place] [address] PCP - General Family Medicine 09/13/25 documented as of this encounter
--- OUTSIDE RECORDS SUMMARY | 2025-09-16 19:46 | XMS_ITS | Clinical Summary ---
Author Organization [employer] Address [address] [facility] [address] [place] [address] Care Team Providers Care Developer Evangelist Name Role Phone Hannah Peck JANE Primary Care Provider [phone] Allergies No known active allergies Medications * [...] NEEDED. 10 tablet 1 09/07/20 24 Active omeprazole (PriLOSEC) [address] capsule Take 20 mg by mouth 2 times daily. 09/02/20 24 Active Aspirin Low Dose 81 MG EC tablet TAKE 1 TABLET BY MOUTH EVERY DAY 90 tablet 1 04/19/20 25 Active metFORMIN (Glucophage) 1000 MG tablet TAKE 1 TABLET BY MOUTH TWICE DAILY IN THE MORNING AND IN THE EVENING WITH MEALS 60 tablet 2 06/23/20 25 Active cholecalcifero l (Vitamin D-3) 25 MCG tablet TAKE 1 TABLET BY MOUTH EVERY MORNING 90 tablet 08/17/20 25 Active tamsulosin (Flomax) 0.4 MG 24 hr capsule TAKE 1 CAPSULE BY MOUTH ONCE DAILY 90 capsule 08/17/20 25 Active lisinopril 40 MG tablet TAKE 1 TABLET BY MOUTH EVERY DAY 30 tablet 2 08/19/20 Active amLODIPine (Norvasc) 5 MG tablet TAKE 1 TABLET BY MOUTH EVERY DAY 30 tablet 2 09/15/2025 3:05 PM EST 09/08/20 Active Jardiance 10 MG TAKE 1 TABLET BY MOUTH EVERY DAY 30 tablet 2 09/15/2025 3:05 PM EST 09/08/20 Active atorvastatin (Lipitor) 40 MG tablet TAKE 1 TABLET BY MOUTH EVERY DAY 30 tablet 2 09/15/2025 3:05 PM EST 09/08/20 Active lisinopril (Zestril) 40 MG tablet Take 1 tablet (40 mg) by mouth Once per day. 90 tablet 05/24/20 25 025 Discontinued atorvastatin (Lipitor) 40 MG tablet TAKE 1 TABLET BY MOUTH DAILY 90 tablet 06/08/20 25 025 Discontinued amLODIPine (Norvasc) 5 MG tablet Take 1 tablet (5 mg) by mouth Once per day. 90 tablet 06/18/20 25 025 Discontinued empagliflozin (Jardiance) 10 MG Take 1 tablet (10 mg) by mouth Once per day. 90 tablet 06/18/20 25 025 Discontinued Active Problems Problem Noted Date Diagnosed Date Overweight (BMI 25.0-29.9) 04/14/2025 Hypercalcemia 04/14/2025 BPH (benign prostatic hyperplasia) 04/14/2025 Transaminitis 04/14/2025 ED (erectile dysfunction) 02/13/2024 History of tooth extraction 10/10/2023 Periodontal disease 10/09/2023 Nicotine use 05/13/2023 Overview (12/28/2024): LDCT LUNG [...] his family PLAN: 1. Follow up with [facility]: Not recommended for follow-up 2. Patient goal [...] back done - ---- requested record to [place] [facility] A. Today -tylenol prn -will consider DEXA scan at next apt w XR findings Hypertension 05/13/2023 Assessment & Plan (06/13/2023 5:00 PM EDT): BP controlled EKG 04/2023 NSR has Q wave and TWI in lead III only and not in any other contiguous leads,QTC 445 -echocardiogram 07/2021: EF 60-65%, normal microalb 04/2023 34 + - supervisor taping 05/2023 normal exam except for cataracts to f up in 1 year -continue meds -will repeat microalb in next 3 months Assessment & Plan (05/13/2023 8:40 PM EDT): BP controlled EKG today NSR has Q wave and TWI in lead III only and not in any other contiguous leads,QTC 445 -echocardiogram 07/2021: EF 60-65%, normal -referred to supervisor taping -continue meds -ordered microalb Seizure (CMS/HCC) 05/13/2023 Assessment & Plan (06/13/2023 4:59 PM [...] Canas Today of his last neurologist at [facility] or [facility]-pt can not recall Health care maintenance [...] 4:59 PM EDT): COPD -continue care w network planner -next apt x 06/2023 Assessment & Plan (05/13/2023 8:42 PM EDT): COPD -continue care w network planner -next apt x 06/2023 Dyslipidemia 09/22/2018 Type 2 diabetes mellitus 09/22/2018 Assessment & Plan (06/13/2023 5:03 PM EDT): Pt reports DM only on metformin hb1AC 04/2023 6.6 ,Microalb 34 + and LDL 62 -DM labs in 6 mo but will do microalb in 3 mo -referred to ski topper -reports numbness in feet -apt x this month - supervisor taping 05/2023: Normal exam ,except for cataract to f up in 1 year -continue metformin Assessment & Plan (05/13/2023 8:24 PM EDT): Pt reports DM only on metformin -DM labs -referred to ski topper -reports numbness in feet -referred to supervisor taping -DM labs Resolved Problems Problem Noted Date Diagnosed Date Resolved Date Xiphoid pain 12/19/2023 09/28/2024 Keith's esophagus 06/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 [address] [place] [address] Yoanna Cuevas MD 08/19/[address] [facility] [address] [place] [address] Yoanna Cuevas MD 08/16/[address] [facility] [address] [place], [place] [phone] Yoanna Cuevas MD 07/08/2025 1:00 PM EDT Office Visit [facility] [address] [place] [address] Kenny-Heda, Keila, DDS Dental abscess (Primary Dx); Periodontal disease 06/23/[address] [facility] [address], [place] [phone] Yoanna Cuevas MD 06/18/2025 1:30 PM EDT Office Visit [facility] [address] [place] [address] Yoanna Cuevas MD Type 2 diabetes mellitus without complication, without long-term current use of insulin (CMS/HCC) (Primary Dx); Hypercalcemia; Primary hypertension; Overweight (BMI 25.0-29.9); Transaminitis; Current moderate episode of major depressive disorder, unspecified whether recurrent (CMS/HCC) 06/18/2025 Travel 06/17/[address] [facility] [address] [place] [address] Yoanna Cuevas MD chart prep from Last 3 Months Immunizations Immunization Administration Dates Next Due Hep B, adult [...] Sign Reading Time Taken Comments Blood Pressure 138/78 07/08/2025 1:02 PM EDT Pulse 92 06/18/2025 1:17 PM EDT Temperature 36.9 C (98.4 F) 06/18/2025 1:17 PM EDT Respiratory Rate 16 06/18/2025 1:17 PM EDT Oxygen Saturation 97% 04/14/2025 3:08 PM EDT Inhaled Oxygen Concentration - - Weight 90.7 kg (200 lb) 06/18/2025 1:17 PM EDT Height 177.8 cm (5' 10 ) 06/18/2025 1:17 PM EDT Body Mass Index 28.7 06/18/2025 1:17 PM EDT Plan of Treatment Upcoming Encounters Date Type Department Care Team (Late st Contact Info) Description 09/28/2025 10:30 AM EST Office Visit [facility] [address] [place] [phone] Natanael Leiva DDS [address] [place] [phone] 11/05/2025 9:00 AM EST Office Visit [facility] [address] [place] [phone] Yoanna Cuevas MD [address] [place] [address] 12/01/2025 10:45 AM EST Office Visit [facility] [address] [place] [address] [employer] Slimjennifer, [employer] [address] [facility] [place] [address] Health Maintenance Due Date Last Done Comments CT Colonography 1964 FIT DNA/Cologuard 1964 FIT 1964 FOBT 1964 Sigmoidoscopy 1964 Diabetes: Foot Exam 1974 Eye Exam 1974 DTaP/Tdap/Td Vaccines (1 - Tdap) 1983 RSV Patients and Patients Aged 60 years or older (1 - Risk 50-74 years 1-dose series) 2014 Zoster Vaccines (1 of 2) 2014 Dental Oral Exam 02/13/2018 08/14/2017 Colonoscopy 07/23/2018 07/23/2017 Colorectal Cancer Screening 07/23/2018 Dental Prophylaxis 09/20/2024 03/19/2024, 08/21/2017 Dental X-Ray: Bitewings 03/20/2025 03/19/2024, 08/14 COVID-19 Vaccine ( season) 2025 06/28/2023, 10/23/2021, 02/01/2021, Additional history exists Influenza Vaccine (#1) 2025 SDOH Screening 07/17/2025 07/17/2024 Depression Screening 09/28/2025 09/28/2024, 09/28/20 Diabetes: Hemoglobin A1C 12/13/2025 025, 04/14/2025, 10/03/2024, Additional history exists Alcohol/Substance Use Screening 04/14/2026 04/14/2025 Disability Screening 04/14/2026 04/14/2025 Diabetes: Urine Protein Screening 06/12/2026 06/12/2025, 10/03/2024, 02/08/2024, Additional history exists Lipid Panel 06/12/2026 06/12/2025, 04/2024, 02/08/2024, Additional history exists Tobacco Screening 07/08/2026 07/08/2025 Dental X-Ray: Full Mouth 03/20/2027 024, 03/10/2018, [...] patient's age to complete this topic Meningococcal B Vaccine Aged Out No l onger eligible based on patient's age to complete [...] Procedure Name Priority Date/Time Associated Diagnosis Comments CASE PRESENTATION, DETAILED AND EXTENSIVE TREATMENT PLANNING Routine 07/08/2025 1:00 PM EDT Dental abscess Periodontal disease INTRAORAL - PERIAPICAL FIRST RADIOGRAPHIC IMAGE Routine 07/08/2025 1:00 PM EDT Dental abscess Periodontal disease PALLIATIVE (EMERGENCY) TREATMENT OF DENTAL PAIN - MINOR PROCEDURE Routine 07/08/2025 1:00 PM EDT Dental abscess Periodontal disease HEMOGLOBIN A1C Routine 06/12/2025 7:18 AM EDT Type 2 diabetes mellitus without complication, without long-term current use of insulin ([facility]/HCC) LIPID PANEL, STANDARD Routine 06/12/2025 7:18 AM EDT Type 2 diabetes mellitus without complication, without long-term current use of insulin ([facility]/HCC) ALBUMIN, RANDOM URINE W/CREATININE Routine 06/12/2025 7:17 AM EDT Type 2 diabetes mellitus without complication, without long-term current use of insulin (CMS/HCC) HEPATITIS C AB W/REFL TO HCV RNA, QN, PCR Routine 10/03/2024 7:49 AM [facility] Health care maintenance HIV 1/2 ANTIGEN/ANTIBODY, FOURTH GENERATION W/RFL Routine 10/03/2024 7:49 AM EST Health care maintenance PROPHYLAXIS - ADULT Routine 03/19/2024 8 :00 AM EDT INTRAORAL - COMPLETE SERIES OF RADIOGRAPHIC IMAGES Routine 03/19/2024 8:00 AM EDT COMPREHENSIVE ORAL EVALUATION - NEW OR ESTABLISHED PATIENT Routine 08/14/2017 12:00 AM EDT HM COLONOSCOPY Routine 07/23/2017 2:28 PM EDT from Last 3 Months or Most Recently Relevant to Health Maintenance Results * (ABNORMAL) Hemoglobin A1c (06/12/2025 7:18 AM EDT) Hemoglobin A1c 6.7(H) <6.0 % [facility] Comment:Hemoglobin A1C Refer ence Range Adults: 4.8 - 6.0 % Non diabetic: < 6.0 % Goal: < 7.0 %Additional Action Suggested: > 8.0 %Note: Hemoglobin A1c results are invalid for patients with abnormal amounts of HbF. Blood transfusions may impact the HbA1c concentration in the patient sample. Estimated Average Glucose 146 mg/dL [facility] Comment:eAG = Estimated ave rage glucose which is %A1C expressed asaverage glucose, using the formula of the C5C-UssikpcKdycxex Glucose study (ADAG), Diabetes Care, Vol.31,#8,Aug. 2007 Blood Venous blood specimen / Unknown 06/12/2025 7:18 AM EDT 06/12/2025 7:18 AM EDT us Yoanna Castillo MD LAB BLOOD ORDERAB LES Final Result [facility] [address], [place] [phone] * (ABNORMAL) Lipid Panel, Standard (06/12/2025 7:18 AM EDT) Triglycerides 166(H) <150 mg/dL [facility] Comment:Desirable Triglyceri de: less than 150 mg/dLBorderline High Triglyceride 150-199 mg/dLHigh Triglyceride: 200-499 mg/dLVery High Triglyceride: greater than or equal to 5OO mg/dL Cholesterol 160 <200 mg/dL [facility] Comment:Desirable Cholestero l: less than 200 mg/dLBorderline High Cholesterol: 200-239 mg/dLHigh Cholesterol: greater than 239 mg/dL LDL Cholesterol Calculated 84 <100 mg/dL [facility] Comment:Desirable LDL: less than 100 mg/dLNear Optimal/Above Optimal LDL: 110- 129 mg/dLBorderline High LDL: 130-159 mg/dLHigh LDL: 160-189 mg/dLVery High LDL: greater than or equal to 190 mg/dL HDL Cholesterol 43 >40 mg/dL [facility] Comment:Desirable HDL: great er than 40 mg/dL Note: This HDL assay may give artificially low results in patients with liver disease. Blood Venous blood specimen / Unknown 06/12/2025 7:18 AM EDT 06/12/2025 7:18 AM EDT us Yoanna Castillo MD LAB BLOOD ORDERAB LES Final Result Performing Organization Address City/[facility]/ZIP Co de Phone Number [facility] [address] [place] [phone] * Albumin, Random Urine W/Creatinine (06/12/2025 7:17 AM EDT) Creatinine, Urine 219.11 mg/dL [facility] Microalbumin Urine 17.0 mg/L [facility] Microalbum Creatinine Ratio Ur 7.7 <30 ug/mg cr [facility] Comment:Albumin/Creatinine R atio Reference Ranges: Normal: < 30 ug/mg creatinine Microalbuminuria: 30 - 300 ug/mg creatinineClinical Albuminuria: > 300 ug/mg creatinine Urine (Urine, Random) 06/12/2025 7:17 AM EDT 06/12/2025 7:47 AM EDT us Yoanna Castillo MD LAB URINE ORDERAB LES Final Result Performing Organization Address City/[facility]/ZIP Co de Phone Number [facility] [address] [place] [phone] * Hepatitis C Antibody with Reflex to HCV, RNA, Quantitative, Real-Time PCR (10/03/2024 7:49 AM EST) [facility] Hepatitis C Antibody Nonreactive Nonreactive [facility] Comment:Antibodies to HCV no t detected; does not exclude early acuteHCV infection. Blood Venous blood specimen / Unknown 10/03/2024 7:49 AM EST 10/03/2024 7:49 AM EST us Yoanna Castillo MD LAB BLOOD ORDERAB LES Final Result Performing Organization Address [facility]/ZIP Co de Phone Number [facility] [address] [place] [phone] * HIV-1/2 Antigen and Antibodies, Fourth Generation, with Reflexes (10/03/2024 7:49 AM EST) [facility] HIV AB/AG Nonreactive Nonreactive [facility] Comment:HIV-1 p24 Ag and/or HIV-1/HIV-2 Ab not detected.A test result that is nonreactive does not exclude thepossibility of exposure to or infection with HIV-1 and/orHIV-2. Nonreactive results in this assay for individualswith prior exposure to HIV-1 and/or HIV-2 may be due toantigen and antibody levels that are below the limit ofdetection of this assay.The [employer] HIV Ag/Ab Combo assay result andsupplemental assay results should be interpreted inconjunction with the patient's clinical presentation,history and other laboratory results. If the results areinconsistent with clinical evidence, additional testing issuggested to confirm the result. Blood Venous blood specimen / Unknown 10/03/2024 7:49 AM EST 10/03/2024 7:49 AM EST us Yoanna Castillo MD LAB BLOOD ORDERAB LES Final Result Performing Organization Address City/[facility]/ZIP Co de Phone Number [facility] [address] [place] [phone] * Hm Colonoscopy (07/23/2017 2:28 PM EDT) us Historical Provider MD HEALTH MAINTENANCE Final Result from Last 3 Months or Most Recently Relevant to Health Maintenance Insurance HSN PARTIAL [facility] NAVIGATE DENTAL - HSN PARTIAL (MEDICAID) Care Teams Developer Evangelist Relationship Specialty Start Date End Date Hannah Peck CNP [address] [place] [phone] PCP - General Family Medicine 09/13/25
--- NOTE | 2025-10-20 10:05 | HO.ANESPROP2 ---
Documented by User: Allison Harper NP 10/20/25 10:08 HPI - Anesthesia Eval Consult details Narrative: 60 yr old male for Upper Endoscopy and Colonoscopy COPD: former smoker, quit 2022, last [facility] pulmo visit 12/2024, his Symbicort dose was increased. [facility] Active Problems Active Problems: All Active Problems (Updated 11/19/24 @ 00:00 by Background Dajennon) Barretts esophagus (Acute) Hiatal hernia (Acute) Personal history of colonic polyps (Acute) Adenomyomatosis of gallbladder (Acute) Gastritis and duodenitis (Acute) GERD (gastroesophageal reflux disease) (Acute) Hemoptysis (Acute) COPD (chronic obstructive pulmonary disease) (Acute) Personal history of nicotine dependence (Acute) Environmental allergies (Acute) Past Medical History Medical History History of seizure Hypertension Dyslipidemia Diabetes GERD (gastroesophageal reflux disease) COPD (chronic obstructive pulmonary disease) Environmental allergies Personal history of nicotine dependence History of COVID-19 Arthritis Chronic lower back pain Tubular adenoma of colon Family History Family history of problems with anesthesia: No Surgical History Surgical History History of colonoscopy History of umbilical hernia repair (~2021) History of esophagogastroduodenoscopy (EGD) History of Problems with Anesthesia: No Social History Social History Alcohol intake: never Patient Tobacco Use Status: Former Tobacco user Second Hand Smoke Exposure: No Use of substances other than those prescribed or required for medical reasons: No Advance Directives: No Advance Directives Information Provided: Yes service: No Current occupational status: employed Meds Allergies Allergy/AdvReac Type Severity Reaction Status Date / Time Seasonal Allergies Allergy Mild Unknown Verified 08/16/25 14:51 Home Medications ?Medication ?Instructions ?Recorded ?Confirmed ?Last Taken ?Type albuterol sulfate 90 mcg/actuation 2 puff inhalation Q4-6H PRN 09/19/20 10/22/25 06/15/24 History aerosol inhaler (ProAir HFA) Wheezing aspirin 81 mg tablet,delayed 81 mg PO DAILY 09/19/20 10/22/25 06/15/24 History release atorvastatin 40 mg tablet 1 tab PO DAILY 09/19/20 10/22/25 06/15/24 History lisinopril 20 mg tablet 20 mg PO DAILY 09/19/20 10/22/25 06/15/24 History blood sugar diagnostic (FreeStyle #10 ea 05/04/22 02/04/25 Unknown History Lite Strips) metformin 1,000 mg tablet 1,000 mg PO BID 05/04/22 10/22/25 06/15/24 History cholecalciferol (vitamin D3) 25 25 mcg PO QAM 12/13/23 10/22/25 06/15/24 History mcg (1,000 unit) tablet Exam Pertinent Lab Results Pertinent Lab Results: Laboratory Tests 06/12/25 07:18 WBC 6.1 RBC 4.69 Hgb 14.6 Hct 43.2 Plt Count 172 D Sodium 142 Potassium 4.8 Chloride 99 Carbon Dioxide 27 BUN 12 Creatinine 0.96 Narrative Narrative: EKG 10/2024 Vent. Rate : 104 BPM Atrial Rate : 104 BPM P-R Int : 156 ms QRS Dur : 88 ms QT Int : 338 ms P-R-T Axes : 55 39 55 degrees QTcB Int : 444 ms Sinus tachycardia Otherwise normal ECG When compared with ECG of 26-Nov-2023 11:06, No significant change was found Assessment and Plan Assessment Anesthesia Assessment: Chart Reviewed Final Anesthetic Review Family History of Problems with Anesthesia: No History of Problems with Anesthesia: No Documented by User: Jesusita Bailey MD 10/26/25 07:59 [facility] Past Medical History Medical History History of seizure Hypertension Dyslipidemia Diabetes GERD (gastroesophageal reflux disease) COPD (chronic obstructive pulmonary disease) Environmental allergies Personal history of nicotine dependence History of COVID-19 Arthritis Chronic lower back pain Tubular adenoma of colon Surgical History Surgical History History of colonoscopy History of umbilical hernia repair (~2021) History of esophagogastroduodenoscopy (EGD) Social History Social History Alcohol intake: never Patient Tobacco Use Status: Former Tobacco user Second Hand Smoke Exposure: No Use of substances other than those prescribed or required for medical reasons: No Advance Directives: No Advance Directives Information Provided: Yes service: No Current occupational status: employed Meds Allergies Allergy/AdvReac Type Severity Reaction Status Date / Time Seasonal Allergies Allergy Mild Unknown Verified 08/16/25 14:51 Home Medications ?Medication ?Instructions ?Recorded ?Confirmed ?Last Taken ?Type albuterol sulfate 90 mcg/actuation 2 puff inhalation Q4-6H PRN 09/19/20 10/22/25 06/15/24 History aerosol inhaler (ProAir HFA) Wheezing aspirin 81 mg tablet,delayed 81 mg PO DAILY 09/19/20 10/22/25 06/15/24 History release atorvastatin 40 mg tablet 1 tab PO DAILY 09/19/20 10/22/25 06/15/24 History lisinopril 20 mg tablet 20 mg PO DAILY 09/19/20 10/22/25 06/15/24 History blood sugar diagnostic (FreeStyle #10 ea 05/04/22 02/04/25 Unknown History Lite Strips) metformin 1,000 mg tablet 1,000 mg PO BID 05/04/22 10/22/25 06/15/24 History cholecalciferol (vitamin D3) 25 25 mcg PO QAM 12/13/23 10/22/25 06/15/24 History mcg (1,000 unit) tablet Exam Airway Mallampati Class: II TM Dist: >3cm Neck ROM: Full Heart: rrr Lungs: cta Assessment and Plan Assessment Anesthesia Assessment: Anesthesia Plan Discussed Final Anesthetic Review NPO: Yes ASA Class: III Final Preanesthetic Review: No Changes in Pt Med Stat, Meds/Allgs Chart Reviewed, Consent Obtained/Reviewed and Anes Risks/Benef Reviewed Patient Risk: Intermediate Procedure Risk: Low Anesthetic Plan Anesthetic Plan: MAC: and Agree w/ Assess. and Plan Disposition: Standard PACU
[2025-10-22 11:24] VITALS: BMI 29.0
[2025-10-26 07:59] VITALS: BP 144/88; PULSE 80; RESP 16; TEMP 36.3; O2SAT 97
[2025-10-26 08:52] LABS: Glucose, Whole Blood 118 mg/dL (60-115)
[2025-10-26] MEDS: Lactated Ringers 1,000 ML 100 ML IVCONT (09:04)
--- NOTE | 2025-10-26 10:46 | P.OPN-COLO_ITS ---
Colonoscopy Operative Note Operative Note Date of Service: 10/26/25 Narrative: Procedure: Upper endoscopy and colonoscopy Indication: BE, hx of polyps Endoscopist: Christy Wu MD Anesthesia Provider: Jose De Jesus Jerome CRNA Anesthesia type: MAC Instrument: [id number] and [id number] EGD Procedure:?? The procedure, indications, preparation and potential complications were reviewed with the patient, who indicated understanding and gave written informed consent to proceed. A distal attachment was affixed to the tip of the scope and the endoscope was introduced through the mouth, and advanced to the 2nd part of the duodenum. The mucosa was carefully examined on slow withdrawal of the endoscope. The patient tolerated the procedure well. There were no immediate complications.? EGD Findings:? * Esophagus:?A focal patch of heterotopic gastric mucosa noted in the proximal esophagus. The Z-line was at 39 cm displaced by hiatal hernia with the diaphragmatic pinch at 44 cm. The Z-line was irregular up to 37 with small SCM extending to 36 cm and another another small island at 35 cm with known history of Keith's esophagus. C2M4. This was examined under high definition white light as well as NBI. No nodularity was noted. 4 quadrant q1cm jumbo forceps biopsies were taken as per [place] protocol. Liquid biopsy with WATS- 3D was performed as well. * Stomach:? Normal gastric mucosa. Retroflexion was performed in the cardia that showed Hill grade IV hiatal hernia. * Duodenum:? Normal duodenal mucosa. Colonoscopy Procedure:? The patient was then turned for the colonoscopy. A digital rectal exam was performed which was normal.? A distal attachment cap was affixed to the tip of the scope and the colonoscope was then inserted through the anus and advanced through the colon and advanced to the cecum at 75 cm and terminal ileum.? Appendiceal orifice and ileocecal valve were identified. Mucosa was carefully examined under high definition white light as the instrument was slowly withdrawn in a retrograde panoramic fashion. Retroflexion was performed in rectum. The procedure was not difficult. The quality of the prep was BBPS: 2+2+2 = adequate Withdrawal time 12 minutes Limitations: No limitations Findings: Mucosa: Normal colon and terminal ileum mucosa. Protruding lesions: * 2 sessile polyps of size 2 mm noted in transverse colon. Cold snare polypectomy was performed. The polyps were completely removed and retrieved. * 3 sessile polyp of size 3-8 mm noted in descending colon. Cold snare polypectomy was performed. The polyps were completely removed and retrieved. * Medium internal hemorrhoids without stigmata of recent bleeding. Excavated lesions: * Mild diverticulosis sigmoid colon. Impression: 1. Inlet patch 2. Known BE (biopsy, wats-3d) 3. Hiatal hernia 4. Normal stomach 5. Normal duodenum 6. Fair prep 7. Normal colon and terminal ileum mucosa 8. Total 5 polyps removed 9. Diverticulosis 10. Internal hemorrhoids Recommendations:?? * Follow-up path results * Cont PPI * Repeat EGD in 3 years if no dysplasia present * Repeat colonoscopy for CRC screening in 3 years depending on results of the polyps.
[2025-10-26 10:51] VITALS: BP 136/90; PULSE 76; RESP 14; TEMP 36.7; O2SAT 99
[2025-10-26 11:06] VITALS: BP 112/88; PULSE 73; RESP 15; O2SAT 97
[2025-10-26 11:10] VITALS: TEMP 36.5
== END 2025-10-26 12:06 | disposition home or self-care (01) ==
PROVIDERS: PCP Student in an Organized Health Care Education/Training Program; Visit Provider Internal Medicine
PROC: (CPT 45385; principal; 2025-10-26 09:30)
DX: Z12.11 Encounter for screening for malignant neoplasm of colon (principal); Z86.0101 Personal history of adenomatous and serrated colon polyps; K22.719 Barrett's esophagus with dysplasia, unspecified; K44.9 Diaphragmatic hernia without obstruction or gangrene; K64.8 Other hemorrhoids; K57.30 Diverticulosis of large intestine without perforation or abscess without bleeding; D12.3 Benign neoplasm of transverse colon; K63.5 Polyp of colon; E11.9 Type 2 diabetes mellitus without complications
CPT/HCPCS: 45385; 43239; 82947; 88305; 88313; J2003; J2704

== ENCOUNTER → 2025-10-26 07:28 | Outpatient (BNV) | payer OTHER, SELFPAY | PROVIDERS: PCP Student in an Organized Health Care Education/Training Program; Visit Provider Internal Medicine | DX: Z12.11 Encounter for screening for malignant neoplasm of colon (principal); K63.5 Polyp of colon; K57.30 Diverticulosis of large intestine without perforation or abscess without bleeding; K64.8 Other hemorrhoids; K22.70 Barrett's esophagus without dysplasia; K22.89 Other specified disease of esophagus | CPT/HCPCS: 43239; 45385 ==